=== PATIENT | female | born 1950 | race Caucasian/White ===

== ENCOUNTER 2017-09-13 13:41 | Inpatient (IN) | payer OTHER ==
[2017-09-13] MEDS ORDERED: METOPROLOL TARTRATE 5 MG/5 ML INJ IV ONE ×2 (14:11→14:20)
[2017-09-13 14:28] LABS: Absolute Monocytes 0.7 K/uL (0.1-1.3); Absolute Neutrophil 7.4 K/uL (1.8-8.0); Basophils % 0.8 % (0-1.3); Eosinophils % 1.5 % (0-4.4); Hematocrit 41.1 % (36.0-45.0); Lymphocytes % 32.6 % (15.3-44.8); MCH 27.2 pg (27.0-35.0); MCV 85.4 fL (80-100); Monocytes % 5.7 % (3.3-12.3); RBC Red Blood Cell Count 4.81 M/uL (3.86-4.86)
[2017-09-13 14:32] LABS: Protime INR 1.07
[2017-09-13] MEDS ORDERED: ADENOSINE 6 MG/ 2ML VIAL IV ONE (14:34)
[2017-09-13] MEDS ORDERED: NA CHLORIDE 0.9% 1,000 ML ONE (14:36)
[2017-09-13 14:45] LABS: Albumin 3.4 g/dL (3.2-5.5); Bilirubin Direct 0.2 mg/dL (0-0.2); Bilirubin Total 0.7 mg/dL (0.3-1.2); Magnesium 1.9 mg/dL (1.8-2.5); Protein, Total 7.6 g/dL (6.0-8.3)
[2017-09-13 14:48] LABS: CKMB Creatine Kinase MB 1.2 ng/ml (0.3-4.0); Potassium 4.1 mEq/L (3.6-5.0)
[2017-09-13] MEDS ORDERED: ASPIRIN 81 MG CHEWABLE TABLET ONE (14:48)
[2017-09-13] MEDS ORDERED: METOPROLOL TAR 25 MG TAB ONE (15:28)
--- NOTE | 2017-09-13 16:24 | RAD REPORT ---
EXAM DESCRIPTION: VASExtrem Venous W Compress Bil09/13/2017 3:52 pm CLINICAL HISTORY: Bilateral leg pain COMPARISON: none FINDINGS: The common femoral, superficial femoral, popliteal and posterior tibial veins bilaterally are compressible and demonstrate augmentation. Doppler demonstrates good flow. IMPRESSION: No evidence of deep venous thrombosis involving either lower extremity.
--- NOTE | 2017-09-13 16:26 | RAD REPORT ---
EXAM DESCRIPTION: Peter Single View09/13/2017 2:56 pm CLINICAL HISTORY: Chest pain COMPARISON: none FINDINGS: The lung bases are hazy. The remainder of the lungs appear clear of acute infiltrate. The heart is normal size IMPRESSION: Lung bases are hazy probably secondary to overlying soft tissue. As infiltrate can have this appearance PA and lateral chest series is recommended
[2017-09-13] MEDS ORDERED: ACETAMINOPHEN 500 MG TAB PO PRN (16:37)
[2017-09-13] MEDS ORDERED: IPRATROPIUM BROM 0.5MG/2.5ML NEB PRN (16:37)
[2017-09-13] MEDS ORDERED: ONDANSETRON 4 MG (ODT) TAB PO PRN (16:37)
--- NOTE | 2017-09-13 16:51 | ER ---
Nurse's Notes [facility] Name: Sunshine Mead Age: 67 yrs Sex: Female : 1950 Arrival Date: 09/13/2017 Time: 13:44 Bed 3 Private MD: Diagnosis: Paroxysmal atrial fibrillation-converted Presentation: 09/13 13:55 Presenting complaint: Patient states: chest pressure and palpitations that began 10-15 ss minutes prior to arrival. Transition of care: patient was not received from another setting of care. Onset of symptoms was September 13, 2017. Care prior to arrival: None. 13:55 Method Of Arrival: Ambulatory ss 13:55 Acuity: AZRA 2 ss Historical: - Allergies: 13:57 PENICILLINS; ss - Home Meds: 13:57 Pradaxa 150 mg oral cap 1 cap DAILY [Active]; metoprolol tartrate 50 mg Oral tab 1 tab ss once daily [Active]; - PMHx: 13:57 Atrial Fib; ss - PSHx: 13:57 Cholecystectomy; Appendectomy; Tubal ligation; ss - Immunization history:: Adult Immunizations up to date. - Social history:: Smoking status: Patient uses tobacco products, smokes one-half pack cigarettes per day. Screenin:55 Abuse screen: Denies threats or abuse. Denies injuries from another. Nutritional sv screening: No deficits noted. Tuberculosis screening: No symptoms or risk factors identified. Fall Risk None identified. Assessment: 13:55 General: Appears distressed, uncomfortable, obese, well developed, Behavior is sv cooperative, appropriate for age, anxious. Pain: Complains of pain in chest Pain currently is 6 out of 10 on a pain scale. Quality of pain is described as pressure, "feels like an elephant is sitting on me." Pain began 30 min ago. Is continuous, Alleviated by nothing. Noted to be grimacing, guarding. Neuro: Level of Consciousness is awake, alert, obeys commands, Oriented to person, place, time, situation, Moves all extremities. Full function Speech is normal. Cardiovascular: Reports chest pain, palpitations, shortness of breath, Patient's skin is warm and dry. Pulses are 3+ in right radial artery and left radial artery Rhythm is atrial fibrillation with rapid ventricular response. Respiratory: Respiratory effort is labored, Respiratory pattern is tachypnea. Derm: Skin is normal. Musculoskeletal: Range of motion: intact in all extremities. 14:45 Reassessment: Patient and/or family updated on plan of care and expected duration. Pain sv level reassessed. Patient is alert, oriented x 3, equal unlabored respirations, skin warm/dry/pink. 17:06 Reassessment: Patient appears in no apparent distress at this time. Patient and/or sv family updated on plan of care and expected duration. Pain level reassessed. Patient is alert, oriented x 3, equal unlabored respirations, skin warm/dry/pink. Patient states feeling better. Patient states symptoms have improved. Cardiovascular: Denies chest pain. Respiratory: Denies shortness of breath. 18:38 Reassessment: Patient appears in no apparent distress at this time. Patient and/or sv family updated on plan of care and expected duration. Pain level reassessed. Patient is alert, oriented x 3, equal unlabored respirations, skin warm/dry/pink. Patient states feeling better. Patient states symptoms have improved. Vital Signs: 13:57 BP 156 / 81; Pulse 160 MON; Resp 22; Temp 97.6(TE); Pulse Ox 96% on R/A; Weight 108.86 ss kg; Height 5 ft. 7 in. (170.18 cm); Pain 6/10; 14:26 BP 145 / 94; Pulse 144; Resp 30; Pulse Ox 97% on 2 lpm NC; sv 15:00 BP 99 / 72; Pulse 141; Resp 28; Pulse Ox 96% on 2 lpm NC; sv 15:15 BP 122 / 107; Pulse 142; Resp 21; Pulse Ox 96% on 2 lpm NC; sv 15:45 BP 116 / 60; Pulse 74; Resp 16; Pulse Ox 97% on 2 lpm NC; sv 16:00 BP 156 / 75; Pulse 70; Resp 11; Pulse Ox 98% on 2 lpm NC; sv 16:03 BP 156 / 75; Pulse 67; Resp 20; Pulse Ox 98% on 3 lpm NC; mh5 16:30 BP 118 / 68; Pulse 67; Resp 26; Pulse Ox 97% 2 lpm ; sv 17:00 BP 122 / 61; Pulse 66; Resp 24; Pulse Ox 95% on 2 lpm NC; sv 17:29 BP 122 / 61; Pulse 70; Resp 20; Pulse Ox 97% on 2 lpm NC; bm6 18:38 BP 113 / 99; Pulse 70; Resp 18; Pulse Ox 96% on 2 lpm NC; sv 13:57 Body Mass Index 37.59 (108.86 kg, 170.18 cm) ss 13:57 A fib RVR ss ED Course: 13:44 Patient arrived in ED. hj 13:47 Tory Sauceda, RN is Primary Nurse. sv 13:48 Erendira Vargas FNP-C is [facility]. snw 13:48 Lin Morgan MD is Attending Physician. snw 13:55 Patient has correct armband on for positive identification. Placed in gown. Bed in low sv position. Call light in reach. Side rails up X2. quality assurance monitor on. Pulse ox on. NIBP on. Door closed. Head of bed elevated. 13:55 Initial lab(s) drawn, by me, sent to lab. Inserted saline lock: 20 gauge in right sv antecubital area, using aseptic technique. Blood collected. Flushed right antecubital with 5 ml normal saline. 13:56 Triage completed. ss 13:57 Arm band placed on right wrist. ss 14:13 Ultrasound completed. Patient tolerated well. Notified AD COMPOSITOR/MICHAEL lock. sg3 14:35 Inserted saline lock: 18 gauge in right forearm, using aseptic technique. sv 14:43 Nieto cath inserted, using sterile technique, 16 Fr., by me, balloon inflated, to sv gravity drainage, Patient tolerated well. 16:49 Nidhi Leiva MD is Hospitalizing Provider. snw 18:32 No provider procedures requiring assistance completed. Patient admitted, IV remains in sv place. intact. 18:38 One-on-one care X 45 minutes. sv Administered Medications: 13:56 Drug: Lopressor 5 mg Route: IVP; Site: right antecubital; sv 14:08 Drug: Lopressor 5 mg Route: IVP; Site: right antecubital; sv 14:22 Drug: Lopressor 5 mg Route: IVP; Site: right antecubital; sv 14:30 Follow up: Response: No adverse reaction sv 14:25 Drug: NS 0.9% 500 ml Volume: 500 ml; Route: IV; Rate: 1 bolus; Site: right antecubital; sv 15:00 Follow up: Response: No adverse reaction; IV Status: Completed infusion; IV Intake: sv 500ml 14:40 Drug: Aspirin Chewable Tablet 324 mg Route: PO; sv 14:45 Follow up: Response: No adverse reaction sv 14:46 Drug: Lopressor 25 mg Route: PO; hj 18:36 Follow up: Response: No adverse reaction sv 18:40 CANCELLED (Duplicate Order): Lopressor 5 mg IVP every 5 minutes; Hold for SBP < 100 or sv HR < 60. x3 Intake: 15:00 IV: 500ml; Total: 500ml. sv Output: 16:55 Urine: 750ml (Nieto); Total: 750ml. sv Outcome: 16:50 Decision to Hospitalize by Provider. snw 18:32 Admitted to Tele accompanied by tech, family with patient, via wheelchair, room 407, sv with oxygen, with chart, Report called to Casey LINARES 18:32 Condition: stable 18:32 Instructed on the need for admit. 18:41 Patient left the ED. sv Signatures: Tory Sauceda RN RN Erendira Vargas, FRAMING MILL OPERATOR HELPER-C FRAMING MILL OPERATOR HELPER-Csnw Ruby Drummond RN RN Casey Rae RN RN Sen Villar bm6 Anthony, Maki 5 Fred, Janeth sg3 Corrections: (The following items were deleted from the chart) 18:40 13:58 Lopressor 5 mg IVP in right antecubital sv sv 18:40 13:58 Lopressor 5 mg IVP in right antecubital sv sv
--- NOTE | 2017-09-13 16:51 | EDPHYS ---
Physician Documentation [facility] Name: Sunhsine Mead Age: 67 yrs Sex: Female : 1950 Arrival Date: 09/13/2017 Time: 13:44 Bed 3 Private MD: ED Physician Lin Morgan HPI: 09/13 16:23 This 67 yrs old Female presents to ER via Ambulatory with complaints of snw Palpitations. 16:23 The patient presents with a history of irregular heart beat, heart racing. Context: The snw symptoms occur at rest. Onset: The symptoms/episode began/occurred suddenly. Duration: The patient or guardian reports a single episode. Associated signs and symptoms: Pertinent positives: anxiety, chest pain, SOB. Severity of symptoms: At their worst the symptoms were moderate. The patient has experienced a previous episode. 3 months ago, pt lives in [place]. [employer] Historical: - Allergies: 13:57 PENICILLINS; ss - Home Meds: 13:57 Pradaxa 150 mg oral cap 1 cap DAILY [Active]; metoprolol tartrate 50 mg Oral tab 1 tab ss once daily [Active]; - PMHx: 13:57 Atrial Fib; ss - PSHx: 13:57 Cholecystectomy; Appendectomy; Tubal ligation; ss - Immunization history:: Adult Immunizations up to date. - Social history:: Smoking status: Patient uses tobacco products, smokes one-half pack cigarettes per day. ROS: 16:20 Constitutional: Negative for fever, chills, and weight loss, Eyes: Negative for injury, snw pain, redness, and discharge, ENT: Negative for injury, pain, and discharge, Neck: Negative for injury, pain, and swelling, Respiratory: Positive for shortness of breath, palpitations, and + chest pressure. Negative for cough, wheezing, and pleuritic chest pain, Abdomen/GI: Negative for abdominal pain, nausea, vomiting, diarrhea, and constipation, Back: Negative for injury and pain, : Negative for injury, bleeding, discharge, and swelling, MS/Extremity: Negative for injury and deformity, Skin: Negative for injury, rash, and discoloration. Exam: 16:18 Constitutional: This is a well developed, well nourished patient who is awake, alert, snw and in no acute distress. Head/Face: Normocephalic, atraumatic. Eyes: Pupils equal round and reactive to light, extra-ocular motions intact. Lids and lashes normal. Conjunctiva and sclera are non-icteric and not injected. Cornea within normal limits. Periorbital areas with no swelling, redness, or edema. ENT: Nares patent. No nasal discharge, no septal abnormalities noted. Tympanic membranes are normal and external auditory canals are clear. Oropharynx with no redness, swelling, or masses, exudates, or evidence of obstruction, uvula midline. Mucous membranes moist. Neck: Trachea midline, no thyromegaly or masses palpated, and no cervical lymphadenopathy. Supple, full range of motion without nuchal rigidity, or vertebral point tenderness. No Meningismus. Chest/axilla: Normal chest wall appearance and motion. Nontender with no deformity. No lesions are appreciated. Respiratory: Lungs have equal breath sounds bilaterally, clear to auscultation and percussion. No rales, rhonchi or wheezes noted. No increased work of breathing, no retractions or nasal flaring. Abdomen/GI: Soft, non-tender, with normal bowel sounds. No distension or tympany. No guarding or rebound. No evidence of tenderness throughout. Back: No spinal tenderness. No costovertebral tenderness. Full range of motion. Skin: Warm, dry with normal turgor. Normal color with no rashes, no lesions, and no evidence of cellulitis. MS/ Extremity: Pulses equal, no cyanosis. Neurovascular intact. Full, normal range of motion. Neuro: Awake and alert, GCS 15, oriented to person, place, time, and situation. Cranial nerves II-XII grossly intact. Motor strength 5/5 in all extremities. Sensory grossly intact. Cerebellar exam normal. Normal gait. 16:18 Cardiovascular: Rate: tachycardic, Rhythm: irregularly irregular, Pulses: no pulse deficits are appreciated, Heart sounds: normal. Vital Signs: 13:57 BP 156 / 81; Pulse 160 MON; Resp 22; Temp 97.6(TE); Pulse Ox 96% on R/A; Weight 108.86 ss kg; Height 5 ft. 7 in. (170.18 cm); Pain 6/10; 14:26 BP 145 / 94; Pulse 144; Resp 30; Pulse Ox 97% on 2 lpm NC; sv 15:00 BP 99 / 72; Pulse 141; Resp 28; Pulse Ox 96% on 2 lpm NC; sv 15:15 BP 122 / 107; Pulse 142; Resp 21; Pulse Ox 96% on 2 lpm NC; sv 15:45 BP 116 / 60; Pulse 74; Resp 16; Pulse Ox 97% on 2 lpm NC; sv 16:00 BP 156 / 75; Pulse 70; Resp 11; Pulse Ox 98% on 2 lpm NC; sv 16:03 BP 156 / 75; Pulse 67; Resp 20; Pulse Ox 98% on 3 lpm NC; mh5 16:30 BP 118 / 68; Pulse 67; Resp 26; Pulse Ox 97% 2 lpm ; sv 17:00 BP 122 / 61; Pulse 66; Resp 24; Pulse Ox 95% on 2 lpm NC; sv 17:29 BP 122 / 61; Pulse 70; Resp 20; Pulse Ox 97% on 2 lpm NC; bm6 18:38 BP 113 / 99; Pulse 70; Resp 18; Pulse Ox 96% on 2 lpm NC; sv 13:57 Body Mass Index 37.59 (108.86 kg, 170.18 cm) ss 13:57 A fib RVR ss MDM: 13:48 Patient medically screened. snw 16:50 Data reviewed: vital signs, nurses notes. Data interpreted: Pulse oximetry: on room air snw is 98 %. Interpretation: normal. Counseling: I had a detailed discussion with the patient and/or guardian regarding: the historical points, exam findings, and any diagnostic results supporting the discharge/admit diagnosis, the presence of at least one elevated blood pressure reading (>120/80) during this emergency department visit, lab results, radiology results, the need for further work-up and treatment in the hospital. Physician consultation: Nidhi Leiva MD was called at 16:51, was contacted at 16:51, regarding admission, to the medical/surgical unit. in the emergency department to see patient at 16:51. 09/13 13:58 Order name: Basic Metabolic Panel 09/13 13:58 Order name: BNP 09/13 13:58 Order name: CBC with Diff 09/13 13:58 Order name: Ckmb 09/13 13:58 Order name: CPK 09/13 13:58 Order name: LFT's sv 09/13 13:58 Order name: Magnesium sv 09/13 13:58 Order name: PT-INR sv 09/13 13:58 Order name: Ptt, Activated sv 09/13 13:58 Order name: Troponin (emerg Dept Use Only) sv 09/13 13:59 Order name: Basic Metabolic Panel sg 09/13 13:59 Order name: BNP sg 09/13 13:59 Order name: CBC with Diff sg 09/13 13:59 Order name: Ckmb sg 09/13 13:59 Order name: CPK sg 09/13 13:59 Order name: LFT's sg 09/13 13:59 Order name: Magnesium sg 09/13 13:59 Order name: PT-INR sg 09/13 13:59 Order name: Ptt, Activated sg 09/13 13:59 Order name: Troponin (emerg Dept Use Only) sg 09/13 14:02 Order name: D-Dimer sg 09/13 14:36 Order name: Protime (+INR); Complete Time: 14:37 EDMS 09/13 14:36 Order name: PTT, Activated Partial Thromb; Complete Time: 14:37 EDMS 09/13 14:37 Order name: CBC with Automated Diff; Complete Time: 14:45 EDMS 09/13 14:39 Order name: Basic Metabolic Panel; Complete Time: 14:50 EDMS 09/13 14:46 Order name: Liver (Hepatic) Function; Complete Time: 14:50 EDMS 09/13 14:46 Order name: Magnesium; Complete Time: 14:50 EDMS 09/13 14:46 Order name: Troponin (Emerg Dept Use Only); Complete Time: 14:46 EDMS 09/13 14:48 Order name: CKMB Creatine Kinase MB; Complete Time: 14:50 EDMS 09/13 14:48 Order name: BNP B-Type Natriuretic Peptide; Complete Time: 14:50 EDMS 09/13 13:58 Order name: XRAY Chest (1 view) sv 09/13 13:58 Order name: EKG; Complete Time: 14:00 sv 09/13 13:58 Order name: Cardiac monitoring sv 09/13 13:58 Order name: EKG - Nurse/Tech sv 09/13 13:58 Order name: IV Saline Lock 09/13 13:58 Order name: Labs collected and sent 09/13 13:58 Order name: O2 Per Protocol sv 09/13 13:58 Order name: O2 Sat Monitoring sv 09/13 13:58 Order name: Urine Dipstick-Ancillary (obtain specimen) sv 09/13 13:59 Order name: XRAY Chest (1 view) sg 09/13 13:59 Order name: EKG; Complete Time: 14:00 sg 09/13 13:59 Order name: Cardiac monitoring sg 09/13 13:59 Order name: EKG - Nurse/Tech sg 09/13 13:59 Order name: IV Saline Lock sg 09/13 13:59 Order name: Labs collected and sent sg 09/13 13:59 Order name: O2 Per Protocol sg 09/13 13:59 Order name: O2 Sat Monitoring sg 09/13 13:59 Order name: Urine Dipstick-Ancillary (obtain specimen) sg 09/13 13:59 Order name: US Extremity Venou Bilateral sg 09/13 14:49 Order name: Creatine Phosphokinase; Complete Time: 14:50 EDMS 09/13 16:08 Order name: EKG; Complete Time: 16:09 snw 09/13 16:25 Order name: VAS; Complete Time: 16:26 EDMS 09/13 16:26 Order name: RAD; Complete Time: 16:26 EDMS 09/13 17:06 Order name: Diet Heart Healthy; Complete Time: 17:06 sv Administered Medications: 13:56 Drug: Lopressor 5 mg Route: IVP; Site: right antecubital; sv 14:08 Drug: Lopressor 5 mg Route: IVP; Site: right antecubital; sv 14:22 Drug: Lopressor 5 mg Route: IVP; Site: right antecubital; sv 14:30 Follow up: Response: No adverse reaction sv 14:25 Drug: NS 0.9% 500 ml Volume: 500 ml; Route: IV; Rate: 1 bolus; Site: right antecubital; sv 15:00 Follow up: Response: No adverse reaction; IV Status: Completed infusion; IV Intake: sv 500ml 14:40 Drug: Aspirin Chewable Tablet 324 mg Route: PO; sv 14:45 Follow up: Response: No adverse reaction sv 14:46 Drug: Lopressor 25 mg Route: PO; hj 18:36 Follow up: Response: No adverse reaction sv 18:40 CANCELLED (Duplicate Order): Lopressor 5 mg IVP every 5 minutes; Hold for SBP < 100 or sv HR < 60. x3 Disposition: 18:01 Co-signature as Attending Physician, Lin Morgan MD. ma2 Disposition: 09/13/17 16:50 Hospitalization ordered by Nidhi Leiva for Observation. Preliminary diagnosis is Paroxysmal atrial fibrillation - converted. - Bed requested for Telemetry/MedSurg (observation). - Status is Observation. sv - Condition is Stable. - Problem is an acute exacerbation. - Symptoms are resolved. UTI on Admission? No Signatures: Dispatcher [employer] EDMS Tory Sauceda RN VIJAY sv Joe Andrade RN RN sg Erendira Vargas, CLAMSHELL ENGINEER-C CLAMSHELL ENGINEER-Csnw Maki Stevenson ms Ruby Drummond RN VIJAY ss Casey Rea RN RN Lin Morgan MD MD ma2 Corrections: (The following items were deleted from the chart) 18:40 13:57 Lopressor 5 mg IVP every 5 minutes; Hold for SBP < 100 or HR < 60. x3 ordered. sv sv 18:40 13:58 Lopressor 5 mg IVP every 5 minutes; Hold for SBP < 100 or HR < 60. x3 given. sv sv 18:40 18:40 Lopressor 5 mg IVP every 5 minutes; Hold for SBP < 100 or HR < 60. x3 given. sv sv 18:40 18:40 Lopressor 5 mg IVP every 5 minutes; Hold for SBP < 100 or HR < 60. x3 ordered. sv sv
--- NOTE | 2017-09-13 19:00 | P.HP ---
Certification for Inpatient Patient admitted to: Observation With expected LOS: <2 Midnights Patient will require the following post-hospital care: None Practitioner: I am a practitioner with admitting privileges, knowledge of patient current condition, hospital course, and medical plan of care. Services: Services provided to patient in accordance with Admission requirements found in Title 42 Section 412.3 of the Code of Federal Regulations Patient History Date of Service: 09/13/17 Primary Care Provider: OOT Reason for admission: Afib History of Present Illness: This is a 67-year-old female with past medical history of atrial fibrillation who presented to the ED complaining of having some shortness of breath and chest discomfort which started this morning at rest. Patient stated that she has a history of irregular heartbeat and heart racing and biannual that something was going on with her and the she decided to come to the ER. Of note patient has been visiting from [place] and has been staying here for 3 months and has been thinking about moving to [place] however has not done so until she could arouse her insurance information. Patient states that she needs to establish care with a chemistry teacher locally as well. The patient denies having any chest pain nausea vomiting headaches or any other symptoms associated with atrial fibrillation. Patient states that overall she is in a good health discharge shortness of breath at rest made her weight and the she decided to come to the ER. In the ER patient had AFib with RVR with a heart rate of 120 -130. Patient received beta-siddharth and heart rate was brought down to 60s and 70s. Thus medicine team was consulted to admit the patient for further care and observation Allergies Penicillins Allergy (Unverified 09/13/17 18:45) Unknown - Past Medical/Surgical History Has patient received pneumonia vaccine in the past: No Diabetic: No -: Afib - Social History Smoking Status: Never smoker Smoking therapy provided: No Patient receptive to therapy: No Alcohol use: Yes Review of Systems General: As per HPI Physical Examination - Vital Signs Temperature: 97.6 F Blood Pressure: 156/75 Pulse: 70 Respirations: 11 - Physical Exam General: Alert, In no apparent distress, Oriented x3 HEENT: Atraumatic Neck: Supple Respiratory: Clear to auscultation bilaterally, Normal air movement Cardiovascular: Normal S1 S2, Irregular heart rate/rhythm Gastrointestinal: Normal bowel sounds, Soft and benign, Non-distended, No tenderness Musculoskeletal: No tenderness Integumentary: No rashes Neurological: Normal gait, Normal speech, Normal strength at 5/5 x4 extr, Normal tone, Normal affect Lymphatics: No axilla or inguinal lymphadenopathy - Studies Laboratory Data (last 24 hrs) 09/13/17 14:00: PT 12.6 H, INR 1.07, APTT 38.1 H 09/13/17 14:00: WBC 12.4 H, Hgb 13.1, Hct 41.1, Plt Count 308 09/13/17 14:00: B-Natriuretic Peptide 249 H 09/13/17 14:00: Sodium 139, Potassium 4.1, BUN 12, Creatinine 0.69, Glucose 125 H, Magnesium 1.9, Total Bilirubin 0.7, AST 19, ALT 10, Alkaline Phosphatase 128 H 09/13/17 13:59: PT Cancelled, INR Cancelled, APTT Cancelled 09/13/17 13:59: WBC Cancelled, Hgb Cancelled, Hct Cancelled, Plt Count Cancelled 09/13/17 13:59: B-Natriuretic Peptide Cancelled 09/13/17 13:59: Sodium Cancelled, Potassium Cancelled, BUN Cancelled, Creatinine Cancelled, Glucose Cancelled, Magnesium Cancelled, Total Bilirubin Cancelled, AST Cancelled, ALT Cancelled, Alkaline Phosphatase Cancelled Assessment and Plan - Problems (Diagnosis) (1) Atrial fibrillation with RVR Current Visit: Yes Status: Acute Plan: Initially with Afib with RVR. Now in Sinus rhythm -Restart Home medication of Metoprolol 50mg Daily -Restart Pradaxa for anticoagulation as well. -Cardiology Consulted -Will get ECHO if needed. Discharge Plan: Home Plan to discharge in: 24 Hours - Advance Directives Does patient have a Living Will: No Does patient have a Durable POA for Healthcare: No - Code Status/Comfort Care Code Status Assessed: Yes Critical Care: No
[2017-09-14] MEDS ORDERED: METOPROLOL XL 50 MG TAB PO SCH (06:00)
[2017-09-14 06:31] LABS: Absolute Lymphocytes (CBC) 3.1 K/uL (0.7-4.9); Absolute Monocytes 0.6 K/uL (0.1-1.3); Absolute Neutrophil 6.9 K/uL (1.8-8.0); Basophils % 0.5 % (0-1.3); Eosinophils % 1.6 % (0-4.4); Hematocrit 36.6 % (36.0-45.0); Lymphocytes % 28.4 % (15.3-44.8); MCH 28.1 pg (27.0-35.0); MCV 84.6 fL (80-100); MPV 9.4 fL (7.6-11.3); Monocytes % 5.9 % (3.3-12.3); RBC Red Blood Cell Count 4.33 M/uL (3.86-4.86)
--- NOTE | 2017-09-14 06:36 | EKG ---
Test Date: 2017-09-13 Test Time: 16:12:54 Executive Officer Special Warfare Team: YOMAIRA MEASUREMENT RESULTS: Intervals: Rate: 69 TN: 182 QRSD: 84 QT: 416 QTc: 445 [place]: P: 62 TN: 182 QRS: 53 T: 58 INTERPRETIVE STATEMENTS: Normal sinus rhythm Septal infarct, age undetermined Abnormal ECG No previous ECG available for comparison Electronically Signed On 09-14-17 06:34:37 CDT by Dionicio Faulkner
--- NOTE | 2017-09-14 06:36 | EKG ---
Test Date: 2017-09-13 Test Time: 13:52:14 Activity Therapy Teacher: REMEDIOS MEASUREMENT RESULTS: Intervals: Rate: 160 VT: QRSD: 78 QT: 294 QTc: 479 [place]: P: VT: QRS: 36 T: 196 INTERPRETIVE STATEMENTS: Atrial fibrillation with rapid ventricular response Marked ST abnormality, possible inferior subendocardial injury Abnormal ECG No previous ECG available for comparison Electronically Signed On 09-14-17 06:34:53 CDT by Dionicio Faulkner
[2017-09-14] MEDS: SOTALOL HCL 80 MG TAB PO SCH ×2 (07:01→19:38)
[2017-09-14 07:37] LABS: Urine Appearance CLOUDY; Urine Bilirubin NEGATIVE (NEG); Urine Blood 3+ (NEG); Urine Color YELLOW; Urine Glucose NEGATIVE (NEG); Urine Microscopic Reflex ORDER UMIC; Urine Protein NEGATIVE (NEG); Urine Urobilinogen 0.2 mg/dL (0.2-1.0)
[2017-09-14 08:15] LABS: Urine Bacteria 20-50 /HPF (<20); Urine Culture Reflex Order REFLEXED
[2017-09-14 08:25] LABS: ALT/SGPT 10 IU/L (10-60); AST/SGOT 15 IU/L (10-42); Albumin 2.6 g/dL (3.2-5.5); Bicarbonate 31 mEq/L (21-31); Potassium 4.2 mEq/L (3.6-5.0); Protein, Total 5.7 g/dL (6.0-8.3); Sodium Level 141 mEq/L (135-145)
[2017-09-14 08:41] LABS: Alkaline Phosphatase 108 IU/L (42-121); BUN Blood Urea Nitrogen 14 mg/dL (6-20); Bilirubin Total 0.6 mg/dL (0.3-1.2); Glomerular Filtration Rate > 90 mL/min (=/>90); Glucose Level 90 mg/dL (65-120); Magnesium 1.9 mg/dL (1.8-2.5); Phosphorus 3.6 mg/dL (2.5-4.3)
[2017-09-14] MEDS: DABIGATRAN 150 MG CAP PO SCH (10:07)
--- NOTE | 2017-09-14 13:23 | P.PN ---
Subjective Date of Service: 09/14/17 Primary Care Provider: CHRISTAL Chief Complaint: Afib Pt doing well overall. No c/o overnight. Currently in Sinus Rhythm. Switched to Betapace. Doing well overall. Pt going down to smoke. Educated on Smoking cessation. Review of Systems 10-point ROS is otherwise unremarkable Physical Examination - Vital Signs Temperature: 97.6 F Blood Pressure: 181/68 Pulse: 61 Respirations: 18 Pulse Ox (%): 94 - Physical Exam General: Alert, In no apparent distress, Oriented x3 HEENT: Atraumatic, PERRLA, EOMI Neck: Supple, JVD not distended Respiratory: Clear to auscultation bilaterally, Normal air movement Cardiovascular: Regular rate/rhythm, Normal S1 S2 Gastrointestinal: Normal bowel sounds, No tenderness Musculoskeletal: No tenderness Integumentary: No rashes Neurological: Normal speech, Normal tone, Normal affect Lymphatics: No axilla or inguinal lymphadenopathy - Studies Laboratory Data (last 24 hrs) 09/13/17 14:00: PT 12.6 H, INR 1.07, APTT 38.1 H 09/13/17 14:00: WBC 12.4 H, Hgb 13.1, Hct 41.1, Plt Count 308 09/13/17 14:00: B-Natriuretic Peptide 249 H 09/13/17 14:00: Sodium 139, Potassium 4.1, BUN 12, Creatinine 0.69, Glucose 125 H, Magnesium 1.9, Total Bilirubin 0.7, AST 19, ALT 10, Alkaline Phosphatase 128 H 09/13/17 13:59: PT Cancelled, INR Cancelled, APTT Cancelled 09/13/17 13:59: WBC Cancelled, Hgb Cancelled, Hct Cancelled, Plt Count Cancelled 09/13/17 13:59: B-Natriuretic Peptide Cancelled 09/13/17 13:59: Sodium Cancelled, Potassium Cancelled, BUN Cancelled, Creatinine Cancelled, Glucose Cancelled, Magnesium Cancelled, Total Bilirubin Cancelled, AST Cancelled, ALT Cancelled, Alkaline Phosphatase Cancelled Medications List Reviewed: Yes Assessment & Plan - Problems (Diagnosis) (1) Atrial fibrillation with RVR Current Visit: Yes Status: Acute Plan: Initially with Afib with RVR. Now in Sinus rhythm -Switched to Betapace. -Restart Pradaxa for anticoagulation as well. -Cardiology Consulted -Echo pending -Scheduled for Stress test. Discharge Plan: Home Plan to discharge in: 24 Hours - Code Status/Comfort Care Code Status Assessed: Yes Critical Care: No
--- NOTE | 2017-09-14 13:26 | CON ---
A 67-year-old woman. Reason For Consultation: Atrial fibrillation. History Of Present Illness: Mrs. Mead is 67, she developed AFib 8 years ago. She has had no hospi talizations in the last 8 years, but came to our hospital with atrial fib. She has been treated with Pradaxa and metoprolol and seemed to be doing well. She went into AFib, she is now in sinus bradyca rdia and feels back to normal. She has never had myocardial infarction or stroke. She is suspicious that she has underlying sleep apnea, but has never been tested for it. She does not have diabetes. She has hypertension, COPD, active smoking and a history of paroxysmal AFib. Outpatient Medications: Metoprolol, fluticasone with vilanterol or Breo Ellipta, Pradaxa, and albute rol. Allergies: SHE IS ALLERGIC TO PENICILLIN ANS SHELLFISH, FISH DERIVED SUBSTANCES. Social History: She is an active cigarette smoker, alcohol use moderate. No illegal drugs. No hist ory of vascular disease. Physical Examination: Vital Signs: 5 feet 7, 240 pounds. General: Obese, alert, oriented, pleasant, not in distress. Carotids, no bruit. Lungs: Clear. Heart: Regular rate and rhythm. S4 gallop. Abdomen: Soft. Extremities: Palpable but diminished distal pulses. No edema. Imaging: Her electrocardiogram showed atrial fib, heart rate 160, marked ST abnormality, she is in s inus rhythm now and apparently has not had an EKG yet. Plan: I think the patient should have an echo, stress test, sleep study. She will be on Betapace an d Pradaxa. Try to have a weight loss program and we should make sure we look her for underlying caus es of AFib. I think with sleep apnea, COPD, and hypertension, it likely would be the only thing, but we want to make sure we are not dealing with thyroid disease, coronary heart disease, pulmonary hype rtension. JORDY/MARYA Voice ID: [id number] Report ID: [id number]
[2017-09-15 04:48] LABS: Absolute Lymphocytes (CBC) 3.1 K/uL (0.7-4.9); Absolute Monocytes 0.6 K/uL (0.1-1.3); Absolute Neutrophil 5.4 K/uL (1.8-8.0); Basophils % 0.5 % (0-1.3); Eosinophils % 1.8 % (0-4.4); Hematocrit 37.6 % (36.0-45.0); Lymphocytes % 32.9 % (15.3-44.8); MCH 27.6 pg (27.0-35.0); MCV 85.6 fL (80-100); MPV 9.4 fL (7.6-11.3); Monocytes % 6.4 % (3.3-12.3); RBC Red Blood Cell Count 4.39 M/uL (3.86-4.86)
[2017-09-15 05:02] LABS: ALT/SGPT 10 IU/L (10-60); AST/SGOT 15 IU/L (10-42); Albumin 2.8 g/dL (3.2-5.5); Bicarbonate 28 mEq/L (21-31); Potassium 3.7 mEq/L (3.6-5.0); Protein, Total 6.3 g/dL (6.0-8.3); Sodium Level 140 mEq/L (135-145)
[2017-09-15 05:12] LABS: Alkaline Phosphatase 106 IU/L (42-121); BUN Blood Urea Nitrogen 12 mg/dL (6-20); Bilirubin Total 0.8 mg/dL (0.3-1.2); Glomerular Filtration Rate > 90 mL/min (=/>90); Glucose Level 96 mg/dL (65-120); Phosphorus 3.4 mg/dL (2.5-4.3)
[2017-09-15] MEDS: SOTALOL HCL 80 MG TAB PO SCH (05:28)
[2017-09-15] MEDS ORDERED: REGADENOSON 0.4 MG/5 ML SYR IV ONE (08:06)
[2017-09-15] MEDS ORDERED: POTASSIUM CL SA 10 MEQ TAB PO ONE (09:00)
--- NOTE | 2017-09-15 10:02 | ECHO ---
HEIGHT: 5 ft 7 in WEIGHT: 240 lb 0 oz DATE OF STUDY: 09/15/[address]: Nidhi Leiva MD 2-DIMENSIONAL: YES M.MODE: YES DOPPLER: YES COLOR FLOW: YES TDS: PORTABLE: DEFINITY: BUBBLE STUDY: DIAGNOSIS: ATRIAL FIBRILLATION WITH RAPID VENTRICULAR RESPONSE CARDIAC HISTORY: CATHERIZATION: NO SURGERY: NO PROSTHETIC VALVE: NO PACEMAKER: NO MEASUREMENTS (cm) DIASTOLIC (NORMALS) SYSTOLIC (NORMALS) IVSd 1.1 (0.6-1.2) LA Diam 4.6 (1.9-4.0) LVEF 55-59% LVIDd 6.1 (3.5-5.7) LVIDs 4.7 (2.0-3.5) %FS 24% LVPWd 1.2 (0.6-1.2) Ao Diam 2.7 (2.0-3.7) 2 DIMENSIONAL ASSESSMENT: RIGHT ATRIUM: NORMAL LEFT ATRIUM: DILATED RIGHT VENTRICLE: NORMAL LEFT VENTRICLE: DILATED TRICUSPID VALVE: NORMAL MITRAL VALVE: NORMAL PULMONIC VALVE: NORMAL AORTIC VALVE: MILD SCLEROSIS PERICARDIAL EFFUSION: NONE AORTIC ROOT: NORMAL LEFT VENTRICULAR WALL MOTION: NORMAL DOPPLER/COLOR FLOW: MILD TRICUSPID REGURGITATION. NORMAL RIGHT VENTRICULAR SYSTOLIC PRESSURE. COMMENTS: NORMAL LEFT VENTRICULAR EJECTION FRACTION. DILATED LEFT ATRIUM. MILD DILATED LEFT VENTRICLE. MILD TRICUSPID REGURGITATION. AORTIC SCLEROSIS WITH NO AORTIC STENOSIS OR AORTIC REGURGITATION. TECHNOLOGIST: VICKY VU
[2017-09-15] MEDS: DABIGATRAN 150 MG CAP PO SCH (11:52)
--- NOTE | 2017-09-15 12:10 | RAD REPORT ---
EXAM DESCRIPTION: NM - Rest Stress Cardiac Imaging - 09/15/2017 12:02 pm CLINICAL HISTORY: Chest pain. COMPARISON: None. TECHNIQUE: The patient was administered approximately 10mCi of Tc 99m Sestamibi prior to resting SPE CT imaging of the heart. The patient was then administered approximately 30 mCi of Tc 99m Sestamibi f ollowing exercise or pharmacologic stress. Multiplanar SPECT images were reviewed. FINDINGS: No stress induced ischemic defect is seen to suggest stress induced ischemia. No fixed def ect is seen to suggest hibernating myocardium or scarred myocardium. The end diastolic volume is 183 ml, the end systolic volume is 94 ml, and the ejection fraction is 49 %. IMPRESSION: No stress induced ischemia.
--- NOTE | 2017-09-15 12:42 | TREADPHA ---
DX: ATRIAL FIBRILLATION Date of Study: 09/15/2017 Ht: 5' 7 " Wt: 240 lb 0 oz Consulting Physician: ELIA MEDICATIONS: LOPRESSOR, BREOELLIPTA, PRADAXA, ALBATEROL, BETAPACE HISTORY: 67 YEAR OLD FEMALE WITH COMPLAINTS OF CHEST PAIN. MEDICAL HISTORY OF ATRIAL FIBRILLATION, TUBAL LIGATION, CHOLECYSTECTOMY, SMOKER OF HALF PACK A DAY. PHYSICIAL EXAMINATION: RESTING B.P.: 153/59 RESTING H.R.: 57 RESTING EKG: SINUS BRADYCARDIA, SEPTAL MYOCARDIAL INFARCTION. PROTOCOL: LEXISCAN EXERCISE TIME: 3:30 B.P. AT PEAK STRESS: 125/50 IMPRESSION: LEXISCAN INJECTED. CARDIOLITE INJECTED PER PROTOCOL. SEE NUCLEAR MEDICINE REPORT. NO SUPRAVENTRICULAR TACHYCARDIA. RARE PREMATURE VENTRICULAR COMPLEXES. ONE PREMATURE ATRIAL COMPLEXES. NO VENTRICULAR TACHYCARDIA. DENIED CHEST PAIN. NON DIAGNOSTIC EKG WITH LEXISCAN STRESS.
--- NOTE | 2017-09-15 17:14 | P.DS ---
Admission Date: 09/14/17 Discharge Date: 09/15/17 Primary Care Provider: CHRISTAL Disposition: ROUTINE DISCHARGE Discharge Condition: GOOD Reason for Admission: Afib Consultations: Cardiology - Problems (1) Atrial fibrillation with RVR Onset Date: 09/15/17 Status: Acute Brief History of Present Illness: This is a 67-year-old female with past medical history of atrial fibrillation who presented to the ED complaining of having some shortness of breath and chest discomfort which started this morning at rest. Patient stated that she has a history of irregular heartbeat and heart racing and biannual that something was going on with her and the she decided to come to the ER. Of note patient has been visiting from [place] and has been staying here for 3 months and has been thinking about moving to [place] however has not done so until she could arouse her insurance information. Patient states that she needs to establish care with a medical equipment sales locally as well. The patient denies having any chest pain nausea vomiting headaches or any other symptoms associated with atrial fibrillation. Patient states that overall she is in a good health discharge shortness of breath at rest made her weight and the she decided to come to the ER. In the ER patient had AFib with RVR with a heart rate of 120 -130. Patient received beta-siddharth and heart rate was brought down to 60s and 70s. Thus medicine team was consulted to admit the patient for further care and observation Hospital Course: Overall during the hospital stay patient remained stable. Patient was admitted to the hospital for AFib with RVR. In the ED patient was given metoprolol IV push x2 and converted back to sinus rhythm with a heart rate of 80. Cardiology was consulted at that point and patient was referred for admission. Patient was started on Betapace 80 mg b.i.d. and metoprolol home medication was stopped here in the hospital. Patient had new ST changes in her EKG does stress test was done here in the hospital. Stress test was negative along with echocardiogram and patient was discharged home under stable condition. Patient was given a new prescription for sotalol 80 mg b.i.d. and was to take Pradaxa for anti coagulation. Patient is to establish with cardiology here in [place] after she moved from [place]. No other complications were noted. Patient was educated extensively on smoking cessation while she was here in the hospital. Patient did go down to smoke after she was initiated on Betapace and again was educated extensively on the side affects of having tobacco. Patient demonstrated understanding and stated that she will be getting on to a program to quit smoking. Vital Signs/Physical Exam: Temp Pulse Resp BP Pulse Ox 97.6 F 61 18 145/60 H 91 09/15/17 12:00 09/15/17 12:00 09/15/17 12:00 09/15/17 12:00 09/15/17 12:00 General: Alert, In no apparent distress HEENT: Atraumatic, PERRLA, EOMI Neck: Supple, JVD not distended Respiratory: Clear to auscultation bilaterally, Normal air movement Cardiovascular: Regular rate/rhythm, Normal S1 S2 Gastrointestinal: Normal bowel sounds, No tenderness Musculoskeletal: No tenderness Integumentary: No rashes Neurological: Normal speech, Normal tone, Normal affect Lymphatics: No axilla or inguinal lymphadenopathy Laboratory Data at Discharge: WBC 9.3 K/uL (4.3-10.9) 09/15/17 04:06 Hgb 12.1 g/dL (12.0-15.0) 09/15/17 04:06 Hct 37.6 % (36.0-45.0) 09/15/17 04:06 Plt Count 250 K/uL (152-406) 09/15/17 04:06 PT 12.6 SECONDS (9.5-12.5) H 09/13/17 14:00 INR 1.07 09/13/17 14:00 APTT 38.1 SECONDS (24.3-36.9) H 09/13/17 14:00 Sodium 140 mEq/L (135-145) 09/15/17 04:06 Potassium 3.7 mEq/L (3.6-5.0) 09/15/17 04:06 BUN 12 mg/dL (6-20) 09/15/17 04:06 Creatinine 0.59 mg/dL (0.44-1.00) 09/15/17 04:06 Glucose 96 mg/dL (65-120) 09/15/17 04:06 Phosphorus 3.4 mg/dL (2.5-4.3) 09/15/17 04:06 Magnesium 2.0 mg/dL (1.8-2.5) 09/15/17 04:06 Total Bilirubin 0.8 mg/dL (0.3-1.2) 09/15/17 04:06 AST 15 IU/L (10-42) 09/15/17 04:06 ALT 10 IU/L (10-60) 09/15/17 04:06 Alkaline Phosphatase 106 IU/L (42-121) 09/15/17 04:06 B-Natriuretic Peptide 249 pg/ml (<=100) H 09/13/17 14:00 Home Medications: Albuterol Neb [Proventil 0.083% Neb Soln] 2.5 mg IH PRN PRN 09/13/17 Dabigatran Etexilate Mesylate [Pradaxa*] 150 mg PO DAILY 09/13/17 Fluticasone/Vilanterol [Breo Ellipta 200-25 Mcg INH] 1 each IH PRN PRN 09/13/17 Sotalol HCl [Betapace*] 80 mg PO BID 6AM 6PM #60 tab 09/15/17 New Medications: Sotalol HCl [Betapace*] 80 mg PO BID 6AM 6PM #60 tab Patient Discharge Instructions: Please f/u with PCP and Dr Faulkner in the office in 2 week post discharge. New medication. Sotalol 80mg BID. Stop. Metoprolol Diet: Regular Activity: Ad jeffry Followup: Dionicio Faulkner MD [ACTIVE - CAN ADMIT] - 1-2 Weeks
== END 2017-09-15 16:50 | disposition home or self-care (01) | DRG 310 ==
LOC: ER 13:41 → ERHOLD 16:52 → 4TH 18:30 → OBSVTOIN 09-14 16:31
PROVIDERS: ADMIT Family Medicine; ATTEND Family Medicine
DX: I48.91 Unspecified atrial fibrillation (principal); I10 Essential (primary) hypertension; J44.9 Chronic obstructive pulmonary disease, unspecified; F17.210 Nicotine dependence, cigarettes, uncomplicated; Z79.01 Long term (current) use of anticoagulants; Z91.013 Allergy to seafood; Z88.0 Allergy status to penicillin
CPT/HCPCS: 36415; 51702; 71045; 78452; 80048; 80053; 80076; 81003; 81015; 82550; 82553; 83735; 83880; 84100; 84443; 84484; 85025; 85379; 85610; 85730; 87086; 87088; 93005; 93017; 93306; 93970; 96361; 96374; 99285; A9500; G0378; J0153; J2785; J7030

== ENCOUNTER 2018-09-03 14:47 | Observation (INO) | payer MEDICARE, OTHER ==
[2018-09-03] MEDS ORDERED: NA CHLORIDE 0.9% 500 ML ONE (18:18)
[2018-09-03 18:28] LABS: Protime INR 1.52
[2018-09-03 18:29] LABS: Absolute Monocytes 0.4 K/uL (0.1-1.3); Absolute Neutrophil 4.3 K/uL (1.8-8.0); Basophils % 0.9 % (0-1.3); Eosinophils % 0.6 % (0-4.4); Hematocrit 41.8 % (36.0-45.0); Lymphocytes % 44.9 % (15.3-44.8); MPV 9.4 fL (7.6-11.3); Monocytes % 4.8 % (3.3-12.3); RBC Red Blood Cell Count 4.73 M/uL (3.86-4.86)
[2018-09-03 18:49] LABS: ALT/SGPT 23 U/L (12-78); AST/SGOT 23 U/L (15-37); Alkaline Phosphatase 141 U/L (45-117); BUN Blood Urea Nitrogen 21 mg/dL (7-18); Bicarbonate 35 mmol/L (21-32); Bilirubin Direct 0.1 mg/dL (0-0.2); Bilirubin Total 0.5 mg/dL (0.2-1.0); Glucose Level 131 mg/dL (74-106); Lipase 113 U/L (73-393); Magnesium 2.2 mg/dL (1.8-2.4); NT PRO-BNP 905 pg/mL (<125); Protein, Total 7.8 g/dL (6.4-8.2); Sodium Level 141 mmol/L (136-145); Troponin (Emerg Dept Use Only) < 0.02 ng/mL (0.0-0.045)
--- NOTE | 2018-09-03 18:53 | RAD REPORT ---
EXAM DESCRIPTION: Peter Single View09/03/2018 6:32 pm CLINICAL HISTORY: Cough COMPARISON: August 2017 FINDINGS: The lungs appear clear of acute infiltrate. The heart is normal size IMPRESSION: No acute abnormalities displayed
[2018-09-03] MEDS ORDERED: KCL 20 MEQ/100 mL IVPB 20 MEQ/100 ML BAG IV ONE (19:15)
[2018-09-03] MEDS ORDERED: NA CHLORIDE 0.9% 250 ML ONE (19:25)
--- NOTE | 2018-09-03 21:18 | ER ---
Nurse's Notes [facility] Name: Sunshine Mead Age: 68 yrs Sex: Female : 1950 Arrival Date: 09/03/2018 Time: 14:49 Bed 26 Private MD: Remberto Oneil Diagnosis: Dehydration;Hypokalemia;Dizziness and giddiness Presentation: 09/03 14:58 Presenting complaint: Patient states: I'm not feeling any better. I am not feeling up hb to where I am supposed to be. I have been feeling bad for about a week. I feel dizzy when I am sitting still. I don't have a big appetite. I have been coughing a lot. Transition of care: patient was not received from another setting of care. Onset of symptoms was August 28, 2018. Risk Assessment: Do you want to hurt yourself or someone else? Patient reports no desire to harm self or others. 14:58 Method Of Arrival: Ambulatory hb 14:58 Acuity: AZRA 3 hb 15:02 Note pt given mask but removed it. hb 18:42 Initial Sepsis Screen: Does the patient meet any 2 criteria? No. Patient's initial mg2 sepsis screen is negative. Does the patient have a suspected source of infection? No. Patient's initial sepsis screen is negative. Care prior to arrival: None. Historical: - Allergies: 15:01 PENICILLINS; hb 15:01 Codeine; hb 15:01 SHELLFISH; hb - PMHx: 15:01 Atrial Fib; COPD; hb - PSHx: 15:01 Cholecystectomy; Appendectomy; Tubal ligation; hip replacement, right side; hb - Immunization history:: Flu vaccine status is unknown. - Social history:: Smoking status: unknown. - Ebola Screening: : No symptoms or risks identified at this time. Screenin:41 Abuse screen: Denies threats or abuse. Denies injuries from another. Nutritional mg2 screening: No deficits noted. Tuberculosis screening: No symptoms or risk factors identified. Fall Risk IV access (20 points). Assessment: 18:40 General: Appears in no apparent distress. comfortable, Behavior is calm, cooperative. mg2 Pain: Denies pain. Neuro: Level of Consciousness is awake, alert, obeys commands, Oriented to person, place, time, situation. Cardiovascular: Capillary refill < 3 seconds Patient's skin is warm and dry. Respiratory: Reports cough that is non-productive, Airway is patent. GI: No signs and/or symptoms were reported involving the gastrointestinal system. : No signs and/or symptoms were reported regarding the genitourinary system. EENT: No signs and/or symptoms were reported regarding the EENT system. Derm: Skin is intact, is healthy with good turgor, Skin is pink, warm \T\ dry. normal. Musculoskeletal: Circulation, motion, and sensation intact. Capillary refill < 3 seconds. Vital Signs: 15:01 BP 141 / 61; Pulse 56; Resp 20; Temp 97.7; Pulse Ox 91% on R/A; Weight 95.71 kg; Height hb 5 ft. 7 in. (170.18 cm); Pain 0/10; 18:42 BP 98 / 64; Pulse 55; Resp 18; Pulse Ox 92% on R/A; Pain 0/10; mg2 21:01 BP 133 / 84; Pulse 56; Resp 18; Pulse Ox 92% on R/A; Pain 0/10; mg2 09/04 00:10 BP 155 / 82; Pulse 53; Resp 18; Pulse Ox 92% on R/A; mg2 09/03 15:01 Body Mass Index 33.05 (95.71 kg, 170.18 cm) hb ED Course: 09/03 14:49 Patient arrived in ED. rg4 14:50 Remberto Oneil DO is Private Physician. rg4 15:00 Triage completed. hb 15:02 Arm band placed on right wrist. flu swab done in triage and sent to lab. hb 17:05 Erendira Vargas FNP-C is [facility]. snw 17:05 Josemanuel Braxton MD is Attending Physician. snw 17:24 Dacia Faustin, VIJAY is Primary Nurse. tl3 18:29 X-ray completed. Portable x-ray completed in exam room. Patient tolerated procedure ls3 well. 18:41 No provider procedures requiring assistance completed. Inserted saline lock: 20 gauge mg2 in right forearm, using aseptic technique. Blood collected. 18:42 Patient has correct armband on for positive identification. Pulse ox on. NIBP on. Door mg2 closed. Warm blanket given. 21:17 Aiden Croft MD is Hospitalizing Provider. snw 09/04 00:06 CT completed. Patient tolerated procedure well. Patient moved to CT via wheelchair. Patient moved back from [place]. 00:17 Patient admitted, IV remains in place. mg2 Administered Medications: 09/03 18:40 Drug: NS 0.9% 500 ml Route: IV; Rate: bolus; Site: right forearm; mg2 19:20 Follow up: IV Status: Completed infusion; IV Intake: 500ml tl3 09/04 00:11 Follow up: Response: No adverse reaction; IV Status: Completed infusion mg2 09/03 19:18 Drug: Potassium Chloride 20 mEq Route: IV; Rate: calculated rate; Site: right forearm; mg2 09/04 00:11 Follow up: Response: No adverse reaction; IV Status: Completed infusion mg2 09/03 21:32 Drug: NS 0.9% 1000 ml Route: IV; Rate: 125 ml/hr; Site: right antecubital; Delivery: tl3 Primary tubing; 09/04 00:11 Follow up: Response: No adverse reaction; IV Status: Infusion continued upon admission mg2 Intake: 09/03 19:20 IV: 500ml; Total: 500ml. tl3 Outcome: 21:18 Decision to Hospitalize by Provider. snw 09/04 00:16 Admitted to Med/surg accompanied by nurse, via wheelchair, room 232, with chart, Report mg2 called to VIJAY Beaulieu Condition: stable Instructed on the need for admit, Demonstrated understanding of instructions. 00:41 Patient left the ED. ag4 Signatures: Erendira Vargas, CRYPTOGRAPHIC MACHINE OPERATOR-C CRYPTOGRAPHIC MACHINE OPERATOR-Tom Mcmanus Kassandra Mckeon RN RN hb Garcia, Rubi rg4 Dacia Faustin RN RN tl3 Kehinde Arteaga RN RN mg2 Wenceslao Metz ls3 Pete Almeida ag4 Corrections: (The following items were deleted from the chart) 09/03 15:46 15:02 flu swab done in triage and sent to lab rona rea
--- NOTE | 2018-09-03 21:19 | EDPHYS ---
Physician Documentation [facility] Name: Sunshine Mead Age: 68 yrs Sex: Female : 1950 Arrival Date: 09/03/2018 Time: 14:49 Bed 26 Private MD: Remberto Oneil ED Physician Josemanuel Braxton HPI: 09/03 21:14 This 68 yrs old Female presents to ER via Ambulatory with complaints of Flu snw Symptoms. 21:14 The patient presents with dizziness, generalized weakness. Onset: The symptoms/episode snw began/occurred gradually, 1 week(s) ago, and became persistent. Context: occurred at home, occurred while the patient was sitting, just prior to the episode the patient experienced cough, cold, congestion, fever, vomiting, and diarrhea last week. Pt states 32# wt loss. C/o dizziness and malaise/fatigue. Associated signs and symptoms: The patient has no apparent associated signs or symptoms. Severity of symptoms: At their worst the symptoms were moderate in the emergency department the symptoms are unchanged. Patient's baseline: Neuro: alert and fully oriented, Motor: no deficits, Ambulation: walks without assistance. The patient has not experienced similar symptoms in the past. The patient has not recently seen a physician, the patient's primary care provider is Dr. Dr. Oneil. Historical: - Allergies: 15:01 PENICILLINS; hb 15:01 Codeine; hb 15:01 SHELLFISH; hb - PMHx: 15:01 Atrial Fib; COPD; hb - PSHx: 15:01 Cholecystectomy; Appendectomy; Tubal ligation; hip replacement, right side; hb - Immunization history:: Flu vaccine status is unknown. - Social history:: Smoking status: unknown. - Ebola Screening: : No symptoms or risks identified at this time. ROS: 18:06 Constitutional: Negative for fever, chills, and weight loss, Eyes: Negative for injury, snw pain, redness, and discharge, ENT: Negative for injury, pain, and discharge, Neck: Negative for injury, pain, and swelling, Cardiovascular: Negative for chest pain, palpitations, and edema, Respiratory: Negative for shortness of breath, cough, wheezing, and pleuritic chest pain, Abdomen/GI: Negative for abdominal pain, nausea, vomiting, diarrhea, and constipation, Back: Negative for injury and pain, : Negative for injury, bleeding, discharge, and swelling, MS/Extremity: Negative for injury and deformity, Skin: Negative for injury, rash, and discoloration. 18:06 Neuro: Positive for dizziness, weakness. Exam: 18:06 Constitutional: This is a well developed, well nourished patient who is awake, alert, snw and in no acute distress. Head/Face: Normocephalic, atraumatic. Eyes: Pupils equal round and reactive to light, extra-ocular motions intact. Lids and lashes normal. Conjunctiva and sclera are non-icteric and not injected. Cornea within normal limits. Periorbital areas with no swelling, redness, or edema. ENT: Nares patent. No nasal discharge, no septal abnormalities noted. Tympanic membranes are normal and external auditory canals are clear. Oropharynx with no redness, swelling, or masses, exudates, or evidence of obstruction, uvula midline. Mucous membranes moist. Neck: Trachea midline, no thyromegaly or masses palpated, and no cervical lymphadenopathy. Supple, full range of motion without nuchal rigidity, or vertebral point tenderness. No Meningismus. Chest/axilla: Normal chest wall appearance and motion. Nontender with no deformity. No lesions are appreciated. Cardiovascular: Regular rate and rhythm with a normal S1 and S2. No gallops, murmurs, or rubs. Normal PMI, no JVD. No pulse deficits. Respiratory: Lungs have equal breath sounds bilaterally, clear to auscultation and percussion. No rales, rhonchi or wheezes noted. No increased work of breathing, no retractions or nasal flaring. Abdomen/GI: Soft, non-tender, with normal bowel sounds. No distension or tympany. No guarding or rebound. No evidence of tenderness throughout. Back: No spinal tenderness. No costovertebral tenderness. Full range of motion. MS/ Extremity: Pulses equal, no cyanosis. Neurovascular intact. Full, normal range of motion. Neuro: Awake and alert, GCS 15, oriented to person, place, time, and situation. Cranial nerves II-XII grossly intact. Motor strength 5/5 in all extremities. Sensory grossly intact. Cerebellar exam normal. Normal gait. 18:06 Skin: Appearance: Color: pale, Temperature: normal temperature, Moisture: dry. Vital Signs: 15:01 BP 141 / 61; Pulse 56; Resp 20; Temp 97.7; Pulse Ox 91% on R/A; Weight 95.71 kg; Height hb 5 ft. 7 in. (170.18 cm); Pain 0/10; 18:42 BP 98 / 64; Pulse 55; Resp 18; Pulse Ox 92% on R/A; Pain 0/10; mg2 21:01 BP 133 / 84; Pulse 56; Resp 18; Pulse Ox 92% on R/A; Pain 0/10; mg2 03 00:10 BP 155 / 82; Pulse 53; Resp 18; Pulse Ox 92% on R/A; mg2 03 15:01 Body Mass Index 33.05 (95.71 kg, 170.18 cm) hb MDM: 09/03 17:05 Patient medically screened. snw 21:16 Data reviewed: vital signs, nurses notes. Data interpreted: Pulse oximetry: on room air snw is 92 %. Interpretation: acceptable. Counseling: I had a detailed discussion with the patient and/or guardian regarding: the historical points, exam findings, and any diagnostic results supporting the discharge/admit diagnosis, lab results, the need for further work-up and treatment in the hospital. Response to treatment: the patient's symptoms have mildly improved after treatment. Physician consultation: Aiden Croft MD was called at 21:16, was contacted at 21:16, regarding admission, to the telemetry unit. 03 15:03 Order name: Flu; Complete Time: 17:05 hb 09/03 18:03 Order name: Basic Metabolic Panel; Complete Time: 18:56 snw 09/03 18:03 Order name: CBC with Diff; Complete Time: 18:56 snw 09/03 18:03 Order name: LFT's; Complete Time: 18:56 snw 09/03 18:03 Order name: Magnesium; Complete Time: 18:56 snw 09/03 18:03 Order name: NT PRO-BNP; Complete Time: 18:56 snw 09/03 18:03 Order name: PT-INR; Complete Time: 18:56 snw 09/03 18:03 Order name: Troponin (emerg Dept Use Only); Complete Time: 18:56 snw 09/03 18:03 Order name: XRAY Chest (1 view) snw 09/03 18:03 Order name: Lipase; Complete Time: 18:56 snw 09/03 18:53 Order name: RAD; Complete Time: 18:56 EDMS 09/03 18:03 Order name: EKG; Complete Time: 18:04 snw 09/03 18:03 Order name: Cardiac monitoring; Complete Time: 18:40 snw 09/03 18:03 Order name: EKG - Nurse/Tech; Complete Time: 18:40 snw 09/03 18:03 Order name: IV Saline Lock; Complete Time: 18:40 snw 09/03 18:03 Order name: Labs collected and sent; Complete Time: 18:40 snw 09/03 18:03 Order name: O2 Per Protocol; Complete Time: 18:40 snw 09/03 18:03 Order name: O2 Sat Monitoring; Complete Time: 18:40 snw 09/03 21:22 Order name: EKG; Complete Time: 21:22 snw Administered Medications: 18:40 Drug: NS 0.9% 500 ml Route: IV; Rate: bolus; Site: right forearm; mg2 19:20 Follow up: IV Status: Completed infusion; IV Intake: 500ml tl3 09/04 00:11 Follow up: Response: No adverse reaction; IV Status: Completed infusion mg2 09/03 19:18 Drug: Potassium Chloride 20 mEq Route: IV; Rate: calculated rate; Site: right forearm; mg2 09/04 00:11 Follow up: Response: No adverse reaction; IV Status: Completed infusion mg2 09/03 21:32 Drug: NS 0.9% 1000 ml Route: IV; Rate: 125 ml/hr; Site: right antecubital; Delivery: tl3 Primary tubing; 09/04 00:11 Follow up: Response: No adverse reaction; IV Status: Infusion continued upon admission mg2 Disposition: 06:49 Co-signature as Attending Physician, Josemanuel Braxton MD I agree with the assessment and kdr plan of care. Disposition: 09/03/18 21:18 Hospitalization ordered by Aiden Croft for Observation. Preliminary diagnosis are Dehydration, Hypokalemia, Dizziness and giddiness. - Bed requested for Telemetry/MedSurg (observation). - Status is Observation. ag4 - Condition is Stable. - Problem is new. - Symptoms have improved. UTI on Admission? No Signatures: Dispatcher [employer] EDMS Kathy Nina, RN RN kl Josemanuel Braxton MD MD [facility] Erendira Vargas, CUSTOMER SOLUTIONS COORDINATOR-C CUSTOMER SOLUTIONS COORDINATOR-Csnw Kassandra Mckeon, RN RN Dacia Faustin, VIJAY LINARES tl3 Kehinde Arteaga, RN RN [facility] Pete Almeida ag4 Corrections: (The following items were deleted from the chart) 09/03 23:32 21:18 Hospitalization Ordered by Aiden Croft MD for Observation. Preliminary kl diagnosis is Dehydration; Hypokalemia; Dizziness and giddiness. Bed requested for Telemetry/MedSurg (observation). Status is Observation. Condition is Stable. Problem is new. Symptoms have improved. UTI on Admission? No. snw 09/04 00:41 09/03 23:32 09/03/2018 21:18 Hospitalization Ordered by Aiden Croft MD for ag4 Observation. Preliminary diagnosis is Dehydration; Hypokalemia; Dizziness and giddiness. Bed requested for Telemetry/MedSurg (observation). Status is Observation. Condition is Stable. Problem is new. Symptoms have improved. UTI on Admission? No. kl
[2018-09-03] MEDS ORDERED: NA CHLORIDE 0.9% 1,000 ML ONE (21:46)
--- NOTE | 2018-09-03 23:28 | P.HP ---
Certification for Inpatient Patient admitted to: Observation With expected LOS: <2 Midnights Practitioner: I am a practitioner with admitting privileges, knowledge of patient current condition, hospital course, and medical plan of care. Services: Services provided to patient in accordance with Admission requirements found in Title 42 Section 412.3 of the Code of Federal Regulations Patient History Date of Service: 09/03/18 Reason for admission: dizziness, volume depletion History of Present Illness: Ms Mead is a 68 years old woman with history of COPD still a smoker, A.Fib, who was sick last week, she had flu like symptoms, associated with diarrhea, lack of appetite. She lost about 30 lb. She came to ED complaining of dizziness. She denied other associated symptoms. Lab work remarkable for elevated BUN, normal WBC count, hypokalemia, UA without signs of infection. Allergies Penicillins Allergy (Verified 09/13/17 19:22) Unknown shellfish derived Adverse Reaction (Verified 09/13/17 22:09) Hives/Rash Home medications list reviewed: Yes Home Medications: Albuterol Neb [Proventil 0.083% Neb Soln] 2.5 mg IH PRN PRN 09/13/17 Dabigatran Etexilate Mesylate [Pradaxa*] 150 mg PO DAILY 09/13/17 Fluticasone/Vilanterol [Breo Ellipta 200-25 Mcg INH] 1 each IH PRN PRN 09/13/17 Sotalol HCl [Betapace*] 80 mg PO BID 6AM 6PM #60 tab 09/15/17 - Past Medical/Surgical History Diabetic: No -: Afib -: COPD -: Asthma -: choley -: appy -: R. hip replacement -: Tubal ligation - Family History Father -: Cancer - Social History Smoking Status: Current every day smoker Counseled patient to stop smoking for: less than 10 minutes Alcohol use: Yes Caffeine use: Yes Place of Residence: Home Review of Systems 10-point ROS is otherwise unremarkable Physical Examination - Physical Exam General: Alert, In no apparent distress HEENT: Atraumatic, PERRLA, Mucous membr. moist/pink, EOMI, Sclerae nonicteric Neck: Supple, 2+ carotid pulse no bruit, No LAD, Without JVD or thyroid abnormality Respiratory: Diminished, Rhonchi/gurgles (bilateral rhonchi) Cardiovascular: Normal S1 S2, No gallops Gastrointestinal: Normal bowel sounds, No tenderness Musculoskeletal: No tenderness Integumentary: No rashes Neurological: Normal gait, Normal speech, Normal strength at 5/5 x4 extr, Normal tone, Normal affect Lymphatics: No axilla or inguinal lymphadenopathy - Studies Laboratory Data (last 24 hrs) 09/03/18 18:10: PT 17.6 H, INR 1.52 09/03/18 18:10: WBC 8.9, Hgb 13.8, Hct 41.8, Plt Count 281 09/03/18 18:10: Sodium 141, Potassium 3.0 L, BUN 21 H, Creatinine 1.04, Glucose 131 H, Magnesium 2.2, Total Bilirubin 0.5, AST 23, ALT 23, Alkaline Phosphatase 141 H, Lipase 113 Microbiology Data (last 24 hrs): 09/03/18 15:03 Nasopharnyx Influenza Type A Antigen Screen - Final 09/03/18 15:03 Nasopharnyx Influenza Type B Antigen Screen - Final Assessment and Plan - Problems (Diagnosis) (1) A-fib Current Visit: Yes Status: Acute Qualifiers: Atrial fibrillation type: chronic Qualified Code(s): I48.2 - Chronic atrial fibrillation (2) Dizziness Current Visit: Yes Status: Acute (3) Acute renal injury Current Visit: Yes Status: Acute (4) Dehydration Current Visit: Yes Status: Acute - Plan The patient will be admitted to the hospital due to dizziness in context of volume depletion. There is no signs of acute infection. Will order head CT. Will order IV fluids, and physical therapy. - Advance Directives Does patient have a Living Will: No Does patient have a Durable POA for Healthcare: No - Code Status/Comfort Care Code Status Assessed: Yes Code Status: Full Code
[2018-09-04] MEDS ORDERED: ALBUTEROL 2.5 MG/3 ML NEB SOL NEB PRN (00:30)
[2018-09-04] MEDS ORDERED: IPRATROPIUM BROM 0.5MG/2.5ML NEB PRN (00:30)
[2018-09-04] MEDS: NA CHLORIDE 0.9% 1,000 ML IV SCH ×4 (00:30→16:30)
[2018-09-04] MEDS ORDERED: ONDANSETRON 4 MG/2 ML VIAL IV PRN (00:30)
[2018-09-04 04:42] LABS: Absolute Monocytes 0.7 K/uL (0.1-1.3); Absolute Neutrophil 4.6 K/uL (1.8-8.0); Basophils % 0.4 % (0-1.3); Eosinophils % 0.6 % (0-4.4); Hematocrit 35.7 % (36.0-45.0); Lymphocytes % 43.2 % (15.3-44.8); MPV 9.4 fL (7.6-11.3); RBC Red Blood Cell Count 4.06 M/uL (3.86-4.86)
[2018-09-04 04:58] LABS: Potassium 3.3 mmol/L (3.5-5.1)
[2018-09-04] MEDS: SOTALOL HCL 80 MG TAB PO SCH ×2 (05:48→18:29)
[2018-09-04] MEDS ORDERED: DABIGATRAN 150 MG CAP PO SCH (09:00)
[2018-09-04] MEDS ORDERED: POTASSIUM CL SA 10 MEQ TAB PO ONE ×2 (09:00→18:00)
--- NOTE | 2018-09-04 11:36 | RAD REPORT ---
EXAM DESCRIPTION: Head Brain Wo Cont CLINICAL HISTORY: 68 years Female dizziness TECHNIQUE: Contiguous axial CT images obtained through the brain without IV contrast. This CT exam was performed according to our departmental dose-optimization program, which includes on e or more of the following dose reduction techniques: automated exposure control, adjustment of the m A and/or kV according to patient size, and/or use of iterative reconstruction technique. COMPARISON: No prior exams provided for comparison. FINDINGS: There is no intracranial hemorrhage, extraaxial collection, or evidence of acute transcort ical infarction. The ventricles are normal in size and contour without mass-effect or midline shift. Moderate right mastoiditis. The left mastoid air cells and visualized paranasal sinuses are clear. IMPRESSION: No evidence of acute intracranial ischemia or hemorrhage. Moderate right mastoiditis. Electronically signed by: Rachana Perez MD 09/04/2018 12:21 AM MANAGER ASSEMBLY Due to temporary technical issues with the PACS/Fluency reporting system, reports are being signed by the in house radiologist as a courtesy to ensure prompt reporting. The interpreting radiologist is f ully responsible for the content of the report.
--- NOTE | 2018-09-04 13:41 | EKG ---
Test Date: 2018-09-03 Test Time: 21:53:17 Chucker: TL MEASUREMENT RESULTS: Intervals: Rate: 56 FL: 186 QRSD: 90 QT: 518 QTc: 499 [place]: P: 71 FL: 186 QRS: 67 T: 66 INTERPRETIVE STATEMENTS: Sinus bradycardia Nonspecific ST andT wave abnormality Anterior infarct Prolonged QT Abnormal ECG Compared to ECG 09/03/2018 18:25:38 Prolonged QT interval now present Electronically Signed On 09-04-18 13:41:03 TEXTILE KNITTER by Dionicio Faulkner
--- NOTE | 2018-09-04 13:43 | EKG ---
Test Date: 2018-09-03 Test Time: 18:25:38 Credit Advisor: MG MEASUREMENT RESULTS: Intervals: Rate: 51 FL: 148 QRSD: 106 QT: 534 QTc: 492 [place]: P: 52 FL: 148 QRS: 58 T: 61 INTERPRETIVE STATEMENTS: Sinus bradycardia Anterior infarct, age undetermined ST & T wave abnormality, nonspecific Abnormal ECG Compared to ECG 09/13/2017 16:12:54 ST (T wave) deviation now present Sinus rhythm no longer present Myocardial infarct finding still present Electronically Signed On 09-04-18 13:42:47 PIPE SMOKING MACHINE OFFBEARER by Dionicio Faulkner
[2018-09-04] MEDS ORDERED: Levofloxacin 750mg IV 750 MG/150 ML BAG IV ONE (14:00)
[2018-09-04] MEDS: KCL 20 MEQ/100 mL IVPB 20 MEQ/100 ML BAG IV SCH ×2 (17:00→18:53)
--- NOTE | 2018-09-04 17:16 | P.DS ---
Admission Date: 09/03/18 Discharge Date: 09/04/18 Disposition: ROUTINE DISCHARGE Discharge Condition: FAIR Reason for Admission: dizziness, volume depletion - Problems (1) A-fib Current Visit: Yes Status: Acute Qualifiers: Atrial fibrillation type: chronic Qualified Code(s): I48.2 - Chronic atrial fibrillation (2) Acute renal injury Current Visit: Yes Status: Acute (3) Dehydration Current Visit: Yes Status: Acute (4) Dizziness Current Visit: Yes Status: Acute Brief History of Present Illness: From H&P Ms Mead is a 68 years old woman with history of COPD still a smoker, A.Aurelio, who was sick last week, she had flu like symptoms, associated with diarrhea, lack of appetite. She lost about 30 lb. She came to ED complaining of dizziness. She denied other associated symptoms. Lab work remarkable for elevated BUN, normal WBC count, hypokalemia, UA without signs of infection. Hospital Course: Pt is a 68 yo F admitted w dehydration, dizziness. Patient was given IVFs. She felt better. She was ambulating well with PT. She refused home PT. Pts symptoms improved and she was tolerating her diet. Her Potassium was replaced. She did not have any acute bleed or stroke on her head CT. She did have acute mastoiditis. Case discussed on the phone w ENT Dr. Herring. Pt did not have any symptoms of ear pain, erythema or signs of infection. She was given 1 dose of Fortaz and levaquin (she has anaphylactic reaction to PCN). No further N/V, dizziness. She was then cleared for DC. Vital Signs/Physical Exam: Temp Pulse Resp BP Pulse Ox 97.5 F 62 16 176/72 H 94 09/04/18 12:00 09/04/18 12:00 09/04/18 12:00 09/04/18 12:00 09/04/18 12:00 Other Physical/Emotional Findings: PLEASE SEE PROGRESS NOTE DICTATED ON DAY OF DC FOR PHYSICAL EXAM FINDINGS Laboratory Data at Discharge: WBC 9.3 K/uL (4.3-10.9) 09/04/18 04:11 Hgb 11.8 g/dL (12.0-15.0) L 09/04/18 04:11 Hct 35.7 % (36.0-45.0) L 09/04/18 04:11 Plt Count 230 K/uL (152-406) 09/04/18 04:11 PT 17.6 SECONDS (9.5-12.5) H 09/03/18 18:10 INR 1.52 09/03/18 18:10 Sodium 143 mmol/L (136-145) 09/04/18 04:11 Potassium 3.2 mmol/L (3.5-5.1) L 09/04/18 14:45 BUN 16 mg/dL (7-18) 09/04/18 04:11 Creatinine 0.84 mg/dL (0.55-1.3) 09/04/18 04:11 Glucose 96 mg/dL (74-106) 09/04/18 04:11 Magnesium 2.2 mg/dL (1.8-2.4) 09/03/18 18:10 Total Bilirubin 0.5 mg/dL (0.2-1.0) 09/03/18 18:10 AST 23 U/L (15-37) 09/03/18 18:10 ALT 23 U/L (12-78) 09/03/18 18:10 Alkaline Phosphatase 141 U/L (45-117) H 09/03/18 18:10 Lipase 113 U/L (73-393) 09/03/18 18:10 Home Medications: Albuterol Neb [Proventil 0.083% Neb Soln] 2.5 mg IH PRN PRN 09/13/17 Dabigatran Etexilate Mesylate [Pradaxa*] 150 mg PO DAILY 09/13/17 Fluticasone/Vilanterol [Breo Ellipta 200-25 Mcg INH] 1 each IH PRN PRN 09/13/17 Sotalol HCl [Betapace*] 80 mg PO BID 6AM 6PM #60 tab 09/15/17 Patient Discharge Instructions: f/up w PCP in 2-3 days. Return to ER for worsening condition Diet: AHA Activity: Fall precautions
--- NOTE | 2018-09-04 18:16 | PN ---
Date of Progress Note: 09/04/2018 Subjective: The patient is seen and examined. Chart reviewed and case discussed with RN. The patie nt states she feels better. Still feels a little bit dehydrated and having some overall pain. Medications: List reviewed. Code Status: Full. Physical Examination: Vital Signs: Temperature 97.5, heart rate 62, blood pressure 128/60, respirations 18, O2 92% on 2 L via nasal cannula. General: Awake, alert, oriented x3, elderly female, obese, somewhat ill-appearing. BMI is 36.3. CV: S1 and S2. Regular rate and rhythm. Peripheral pulses present. Respiratory: Clear to auscultation bilaterally. No wheezing or stridor. Gastrointestinal: Abdomen is soft, nontender, nondistended. Positive bowel sounds. Extremities: No clubbing or cyanosis. No edema. No calf tenderness. Neurologic: Cranial nerves 2 through 12 intact grossly. No focal neurological deficit. Speech is n ormal. Laboratory Data: Sodium 143, potassium 3.3, chloride 104, CO2 34, BUN 16, creatinine 0.84, glucose 9 6, calcium 7.9. WBC 9.3, H and H 11.8 and 35.7, platelets 230. Influenza screen negative. Head CT scan and chest x-ray are negative for any acute changes. Head CT scan did show some moderate right m astoiditis. Assessment And Plan: A 68-year-old female with: 1.Dizziness, improved. We will continue with rehydration. 2.Acute kidney injury, improving. 3.Atrial fibrillation, chronic. We will continue home medications. 4.Acute dehydration. Continue with IV fluid resuscitation. 5.Obesity, body mass index 36.3. 6.Chronic obstructive pulmonary disease, chronic bronchitis. Albuterol p.r.n. 7.Nicotine dependence with cigarette smoking continuous. The patient has been counseled. 8.Acute right mastoiditis. We will start on IV antibiotics and have ER consultation. We will bisi nue to monitor. SA/MODL Voice ID: [id number] Report ID: [id number]
== END 2018-09-04 19:45 | disposition home or self-care (01) ==
LOC: ER 14:47 → ERHOLD 23:20 → 2ND 09-04 00:28
PROVIDERS: ADMIT Internal Medicine; ATTEND Internal Medicine
DX: I48.2 Chronic atrial fibrillation (principal); N17.9 Acute kidney failure, unspecified; E86.0 Dehydration; H70.001 Acute mastoiditis without complications, right ear; R42 Dizziness and giddiness; F17.210 Nicotine dependence, cigarettes, uncomplicated; J44.9 Chronic obstructive pulmonary disease, unspecified; Z96.641 Presence of right artificial hip joint; E66.9 Obesity, unspecified; Z68.36 Body mass index [BMI] 36.0-36.9, adult; Z88.0 Allergy status to penicillin; Z91.013 Allergy to seafood
CPT/HCPCS: 96365; 96361; 93005 ×2; 85025 ×2; 80048 ×2; 36415; 83735; 84132; 85610; 80076; 84484; 83690; 83880; 87804 ×2; 70450; 71045; 97163; 94760 ×2; 99285; 96366; J7030 ×3; G0378 ×2

== ENCOUNTER 2019-10-01 21:08 | Observation (INO) | payer MEDICARE ==
[2019-10-01 21:24] LABS: Absolute Lymphocytes (CBC) 3.9 K/uL (0.7-4.9); Basophils % 0.7 % (0-1.3); Hematocrit 37.5 % (36.0-45.0); MPV 9.3 fL (7.6-11.3); RBC Red Blood Cell Count 4.19 M/uL (3.86-4.86)
[2019-10-01 21:30] LABS: Protime INR 1.23
[2019-10-01 21:44] LABS: ALT/SGPT 15 U/L (12-78); AST/SGOT 14 U/L (15-37); Albumin 2.7 g/dL (3.4-5.0); Alkaline Phosphatase 148 U/L (45-117); BUN Blood Urea Nitrogen 19 mg/dL (7-18); Bicarbonate 32 mmol/L (21-32); Bilirubin Direct 0.1 mg/dL (0-0.2); Bilirubin Total 0.3 mg/dL (0.2-1.0); Glucose Level 140 mg/dL (74-106); Magnesium 1.8 mg/dL (1.8-2.4); NT PRO-BNP 1013 pg/mL (<125); Protein, Total 7.7 g/dL (6.4-8.2); Sodium Level 140 mmol/L (136-145); Troponin (Emerg Dept Use Only) < 0.02 ng/mL (0.0-0.045)
--- NOTE | 2019-10-01 22:38 | ER ---
Nurse's Notes [facility] Name: Sunshine Mead Age: 69 yrs Sex: Female : 1950 Arrival Date: 10/01/2019 Time: 21:10 Bed 2 Private MD: Diagnosis: Chest pain, unspecified;Atrial fibrillation and flutter-with rvr;Chronic obstructive pulmonary disease with (acute) exacerbation;Hypokalemia Presentation: 09/30 21:17 Chief complaint: Patient states: Chest pain started 25 minutes ago. Hx of Afib. ca1 Coronavirus screen: Patient denies fever greater than 100.4F, cough, shortness of breath, or difficulty breathing. Proceed with normal triage process. Ebola Screen: Patient negative for fever greater than or equal to 101.5 degrees Fahrenheit, and additional compatible Ebola Virus Disease symptoms Patient denies exposure to infectious person. Patient denies travel to an Ebola-affected area in the 21 days before illness onset. No symptoms or risks identified at this time. Risk Assessment: Do you want to hurt yourself or someone else? Patient reports no desire to harm self or others. Onset of symptoms was October 01, 2019 at 20:50. 21:17 Method Of Arrival: Wheelchair ca1 21:17 Acuity: AZRA 3 ca1 Historical: - Allergies: 21:21 Codeine; ca1 21:21 PENICILLINS; ca1 21:21 SHELLFISH; ca1 - Home Meds: 21:21 albuterol sulfate inhalation Inhl [Active]; spironolacton-hydrochlorothiaz 25-25 mg ca1 Oral tab 1 tab once daily [Active]; sotalol 80 mg Oral tab 1 tab 2 times per day [Active]; Eliquis 5 mg oral tab 1 tab 2 times per day [Active]; Breo Elipta Inhaler [Active]; - PMHx: 21:21 Atrial Fib; COPD; ca1 - PSHx: 21:21 Cholecystectomy; Appendectomy; Tubal ligation; hip replacement, right side; ca1 - Immunization history:: Adult Immunizations up to date, Pneumococcal vaccine is up to date, Flu vaccine is up to date. - Social history:: Smoking status: Patient reports the use of cigarette tobacco products, smokes one-half pack cigarettes per day. - Family history:: not pertinent. Screenin:30 Abuse screen: Denies threats or abuse. Denies injuries from another. Nutritional rr5 screening: No deficits noted. Tuberculosis screening: No symptoms or risk factors identified. Fall Risk IV access (20 points). Total Castro Fall Scale indicates No Risk (0-24 pts). Assessment: 21:45 General: Appears in no apparent distress. comfortable, well groomed, well developed, sg well nourished, Behavior is calm, cooperative, appropriate for age. Pain: Complains of pain in anterior aspect of left upper chest and mid-sternal area Quality of pain is described as aching, Aggravated by increased activity. Neuro: Level of Consciousness is awake, alert, obeys commands, Oriented to person, place, time, Speech is normal, Facial symmetry appears normal. Cardiovascular: Heart tones S1 S2 present Patient's skin is warm and dry. Chest pain quality is sharp. Respiratory: Reports cough that is non-productive, Airway is patent Respiratory effort is even, unlabored, Respiratory pattern is regular, symmetrical. GI: No signs and/or symptoms were reported involving the gastrointestinal system. : No signs and/or symptoms were reported regarding the genitourinary system. Derm: Skin is pink, warm \T\ dry. Musculoskeletal: Circulation, motion, and sensation intact. Range of motion: intact in all extremities. 22:00 Reassessment: Patient appears in no apparent distress at this time. warm blanket sg provdided, at bedside evaluating pt at this time. Vital Signs: 21:17 BP 122 / 53; Pulse 127; Resp 20 S; Temp 97.1(TE); Pulse Ox 96% on R/A; ca1 10/01 00:00 BP 102 / 50; Pulse 61; Resp 25; Temp 97.5; Pulse Ox 93% on R/A; rr5 ED Course: 03 21:10 Patient arrived in ED. mr 21:15 Inserted saline lock: 20 gauge in right forearm, using aseptic technique. Blood rr5 collected. 21:19 Triage completed. ca1 21:21 Arm band placed on right wrist. ca1 21:21 Patient has correct armband on for positive identification. Placed in gown. Bed in low rr5 position. Call light in reach. air sampling and monitoring on. Pulse ox on. NIBP on. 21:22 Sohan Christianson MD is Attending Physician. na 21:30 XRAY Chest (1 view) In Process Unspecified. EDMS 21:51 Joe Andrade, RN is Primary Nurse. 22:36 Alma Mir MD is Hospitalizing Provider. [facility] 10/01 00:05 No provider procedures requiring assistance completed. Patient admitted, IV remains in rr5 place. intact, No redness/swelling at site. Patient maintains SpO2 saturation greater than 95% on room air. Administered Medications: 09/30 22:59 Not Given (Duplicate Order): Digoxin 0.5 mg IVP once [facility] 23:10 Drug: NS 0.9% with KCl 20 mEq/L 1000 ml Route: IV; Rate: 100 ml/hr; Site: right forearm; 10/01 00:00 Follow up: Response: No adverse reaction; IV Status: Infusion continued upon admission; rr5 IV Intake: 100ml 09/30 23:20 Drug: Xopenex 1.25 mg Route: Inhalation; 10/01 00:17 Follow up: Response: No adverse reaction; Marked relief of symptoms rr5 09/30 23:20 Drug: AtroVENT Aerosol 0.5 mg Route: Inhalation; 10/01 00:17 Follow up: Response: No adverse reaction; Marked relief of symptoms rr5 09/30 23:20 Drug: Potassium Effervescent Tablet 25 mEq Route: PO; 10/01 00:17 Follow up: Response: No adverse reaction rr5 09/30 23:23 Drug: SOLU-Medrol 125 mg Route: IVP; Site: right forearm; 10/01 00:17 Follow up: Response: No adverse reaction; Marked relief of symptoms rr5 Intake: 00:00 IV: 100ml; Total: 100ml. rr5 Outcome: 09/30 22:37 Decision to Hospitalize by Provider. [facility] 10/01 00:05 Admitted to Med/surg accompanied by tech, via stretcher, room 230, with chart, Report rr5 called to josep Condition: stable Instructed on the need for admit. 00:19 Patient left the ED. rr5 Signatures: Dispatcher [employer] EDMS Joe Andrade, RN RN Sohan Fischer MD MD cha Rivera, Sarah franco ChristiansenKing RN RN rr5 Zoila Madrid RN RN ca1
--- NOTE | 2019-10-01 22:39 | EDPHYS ---
Physician Documentation [facility] Name: Sunshine Mead Age: 69 yrs Sex: Female : 1950 Arrival Date: 10/01/2019 Time: 21:10 Bed 2 Private MD: TANMAY Physician Sohan Christianson HPI: 09/30 22:33 This 69 yrs old Female presents to ER via Wheelchair with complaints of Chest na Pain. 22:33 The patient or guardian reports chest pain that is located primarily in the anterior na chest wall, bilaterally. Onset: 2 hour(s) ago. The pain does not radiate. Associated signs and symptoms: Pertinent positives: shortness of breath. The chest pain is described as a heaviness, a pressure. Duration: The patient or guardian reports a single episode, that is still ongoing. Modifying factors: The symptoms are alleviated by nothing. the symptoms are aggravated by nothing. Severity of pain: At its worst the pain was mild in the emergency department the pain has resolved and did so just prior to arrival. The patient has experienced similar episodes in the past, several times. Historical: - Allergies: 21:21 Codeine; ca1 21:21 PENICILLINS; ca1 21:21 SHELLFISH; ca1 - Home Meds: 21:21 albuterol sulfate inhalation Inhl [Active]; spironolacton-hydrochlorothiaz 25-25 mg ca1 Oral tab 1 tab once daily [Active]; sotalol 80 mg Oral tab 1 tab 2 times per day [Active]; Eliquis 5 mg oral tab 1 tab 2 times per day [Active]; Breo Elipta Inhaler [Active]; - PMHx: 21:21 Atrial Fib; COPD; ca1 - PSHx: 21:21 Cholecystectomy; Appendectomy; Tubal ligation; hip replacement, right side; ca1 - Immunization history:: Adult Immunizations up to date, Pneumococcal vaccine is up to date, Flu vaccine is up to date. - Social history:: Smoking status: Patient reports the use of cigarette tobacco products, smokes one-half pack cigarettes per day. - Family history:: not pertinent. ROS: 22:33 Constitutional: Negative for fever, chills, and weight loss, Eyes: Negative for injury, na pain, redness, and discharge, ENT: Negative for injury, pain, and discharge, Neck: Negative for injury, pain, and swelling, Abdomen/GI: Negative for abdominal pain, nausea, vomiting, diarrhea, and constipation, Back: Negative for injury and pain, : Negative for injury, bleeding, discharge, and swelling, MS/Extremity: Negative for injury and deformity, Skin: Negative for injury, rash, and discoloration, Neuro: Negative for headache, weakness, numbness, tingling, and seizure, Psych: Negative for depression, anxiety, suicide ideation, homicidal ideation, and hallucinations, Allergy/Immunology: Negative for hives, rash, and allergies, Endocrine: Negative for neck swelling, polydipsia, polyuria, polyphagia, and marked weight changes, Hematologic/Lymphatic: Negative for swollen nodes, abnormal bleeding, and unusual bruising. 22:33 Cardiovascular: Positive for chest pain. 22:33 Respiratory: Positive for cough, shortness of breath, wheezing, expiratory. Exam: 22:33 Constitutional: This is a well developed, well nourished patient who is awake, alert, na and in no acute distress. Head/Face: Normocephalic, atraumatic. Eyes: Pupils equal round and reactive to light, extra-ocular motions intact. Lids and lashes normal. Conjunctiva and sclera are non-icteric and not injected. Cornea within normal limits. Periorbital areas with no swelling, redness, or edema. ENT: Nares patent. No nasal discharge, no septal abnormalities noted. Tympanic membranes are normal and external auditory canals are clear. Oropharynx with no redness, swelling, or masses, exudates, or evidence of obstruction, uvula midline. Mucous membranes moist. Neck: Trachea midline, no thyromegaly or masses palpated, and no cervical lymphadenopathy. Supple, full range of motion without nuchal rigidity, or vertebral point tenderness. No Meningismus. Chest/axilla: Normal chest wall appearance and motion. Nontender with no deformity. No lesions are appreciated. Abdomen/GI: Soft, non-tender, with normal bowel sounds. No distension or tympany. No guarding or rebound. No evidence of tenderness throughout. Back: No spinal tenderness. No costovertebral tenderness. Full range of motion. Female : Normal external genitalia. Skin: Warm, dry with normal turgor. Normal color with no rashes, no lesions, and no evidence of cellulitis. MS/ Extremity: Pulses equal, no cyanosis. Neurovascular intact. Full, normal range of motion. Neuro: Awake and alert, GCS 15, oriented to person, place, time, and situation. Cranial nerves II-XII grossly intact. Motor strength 5/5 in all extremities. Sensory grossly intact. Cerebellar exam normal. Normal gait. Psych: Awake, alert, with orientation to person, place and time. Behavior, mood, and affect are within normal limits. 22:33 Cardiovascular: Rate: tachycardic, Rhythm: irregularly irregular, Pulses: Pulses are 4+ in bilateral radial, brachial, femoral, popliteal, posterior tibial and and dorsalis pedis arteries.. Heart sounds: normal, Edema: is not appreciated, JVD: is not appreciated. Vital Signs: 21:17 BP 122 / 53; Pulse 127; Resp 20 S; Temp 97.1(TE); Pulse Ox 96% on R/A; ca1 10/01 00:00 BP 102 / 50; Pulse 61; Resp 25; Temp 97.5; Pulse Ox 93% on R/A; rr5 MDM: 09/30 21:22 Patient medically screened. [facility] 22:40 Data reviewed: vital signs, nurses notes, lab test result(s), EKG, radiologic studies. [facility] 09/30 21:19 Order name: Basic Metabolic Panel; Complete Time: 22:31 rr5 09/30 21:19 Order name: CBC with Diff; Complete Time: 22:31 rr5 09/30 21:19 Order name: LFT's; Complete Time: 22:31 rr5 09/30 21:19 Order name: Magnesium; Complete Time: 22:31 rr5 09/30 21:19 Order name: NT PRO-BNP; Complete Time: 22:31 rr5 09/30 21:19 Order name: PT-INR; Complete Time: 22:31 rr5 09/30 21:19 Order name: Troponin (emerg Dept Use Only); Complete Time: 22:31 rr5 09/30 21:23 Order name: TSH; Complete Time: 22:31 [facility] 09/30 23:09 Order name: Troponin I [facility] 09/30 23:15 Order name: Urine Dipstick--Ancillary (enter results) [facility] 09/30 23:15 Order name: Urine --Ancillary (enter results) [facility] 09/30 23:23 Order name: Urine Culture [facility] 09/30 23:23 Order name: Urine Microscopic Only 2 09/30 23:50 Order name: Urine Microscopic Only [facility] 09/30 21:19 Order name: XRAY Chest (1 view) rr5 09/30 21:19 Order name: EKG; Complete Time: 21:20 rr5 09/30 21:19 Order name: Cardiac monitoring; Complete Time: 22:55 rr5 09/30 21:19 Order name: EKG - Nurse/Tech; Complete Time: 22:55 rr5 09/30 21:19 Order name: IV Saline Lock; Complete Time: 21:19 rr5 09/30 21:19 Order name: Labs collected and sent; Complete Time: 23:23 rr5 09/30 23:09 Order name: CONS Pharmacy Consult [facility] 09/30 23:09 Order name: CONS Physician Consult [facility] 09/30 23:09 Order name: Heart Healthy [facility] 09/30 21:19 Order name: O2 Per Protocol; Complete Time: 23:23 rr5 09/30 21:19 Order name: O2 Sat Monitoring; Complete Time: 00:19 rr5 Administered Medications: 22:59 Not Given (Duplicate Order): Digoxin 0.5 mg IVP once na 23:10 Drug: NS 0.9% with KCl 20 mEq/L 1000 ml Route: IV; Rate: 100 ml/hr; Site: right forearm; 10/01 00:00 Follow up: Response: No adverse reaction; IV Status: Infusion continued upon admission; rr5 IV Intake: 100ml 09/30 23:20 Drug: Xopenex 1.25 mg Route: Inhalation; sg 10/01 00:17 Follow up: Response: No adverse reaction; Marked relief of symptoms rr5 09/30 23:20 Drug: AtroVENT Aerosol 0.5 mg Route: Inhalation; sg 10/01 00:17 Follow up: Response: No adverse reaction; Marked relief of symptoms rr5 09/30 23:20 Drug: Potassium Effervescent Tablet 25 mEq Route: PO; sg 10/01 00:17 Follow up: Response: No adverse reaction rr5 09/30 23:23 Drug: SOLU-Medrol 125 mg Route: IVP; Site: right forearm; sg 10/01 00:17 Follow up: Response: No adverse reaction; Marked relief of symptoms rr5 Disposition: 04/03/20 22:37 Hospitalization ordered by Alma Mir for Inpatient Admission. Preliminary diagnosis are Chest pain, unspecified, Atrial fibrillation and flutter - with rvr, Chronic obstructive pulmonary disease with (acute) exacerbation, Hypokalemia. - Bed requested for Telemetry/MedSurg (Inpatient). - Status is Inpatient Admission. rr5 - Condition is Fair. - Problem is new. - Symptoms have improved. Signatures: Dispatcher [employer] EDMS Joe Andrade RN RN Sohan Christianson MD MD cha Garcia, Cindy, RN RN cg King Christiansen RN RN rr5 AcZoila harrison RN RN ca1 Corrections: (The following items were deleted from the chart) 09/30 22:38 22:37 Hospitalization Ordered by Alma Mir MD for Inpatient Admission. Preliminary [facility] diagnosis is Chest pain, unspecified; Atrial fibrillation and flutter - with rvr; Chronic obstructive pulmonary disease with (acute) exacerbation. Bed requested for Telemetry/MedSurg (Inpatient). Status is Inpatient Admission. Condition is Fair. Problem is new. Symptoms have improved. [facility] 23:21 22:38 10/01/2019 22:37 Hospitalization Ordered by Alma Mir MD for Inpatient cg Admission. Preliminary diagnosis is Chest pain, unspecified; Atrial fibrillation and flutter - with rvr; Chronic obstructive pulmonary disease with (acute) exacerbation; Hypokalemia. Bed requested for Telemetry/MedSurg (Inpatient). Status is Inpatient Admission. Condition is Fair. Problem is new. Symptoms have improved. [facility] 10/01 00:19 09/30 23:21 10/01/2019 22:37 Hospitalization Ordered by Alma Mir MD for Inpatient rr5 Admission. Preliminary diagnosis is Chest pain, unspecified; Atrial fibrillation and flutter - with rvr; Chronic obstructive pulmonary disease with (acute) exacerbation; Hypokalemia. Bed requested for Telemetry/MedSurg (Inpatient). Status is Inpatient Admission. Condition is Fair. Problem is new. Symptoms have improved.
[2019-10-01] MEDS ORDERED: ONDANSETRON 4 MG/2 ML VIAL IV PRN (23:01)
[2019-10-01] MEDS ORDERED: MORPHINE 2 MG/ML SYR IV PRN (23:01)
[2019-10-01] MEDS ORDERED: HYDRALAZINE HCL 20 MG/ML VIAL IV PRN (23:04)
[2019-10-01] MEDS ORDERED: ALBUTEROL 2.5 MG/3 ML NEB SOL NEB PRN (23:04)
[2019-10-01] MEDS ORDERED: POTASSIUM 25 MEQ EFFERV TAB ONE (23:05)
[2019-10-01] MEDS ORDERED: METHYLPREDNISOLONE 125 MG INJ ONE (23:05)
[2019-10-01] MEDS ORDERED: IPRATROPIUM BROM 0.5MG/2.5ML ONE (23:05)
[2019-10-01] MEDS ORDERED: LEVALBUTEROL 1.25 MG/3 ML NEB ONE (23:05)
[2019-10-01] MEDS ORDERED: NS KCL 20MEQ 1,000 ML IV ONE (23:05)
[2019-10-01] MEDS ORDERED: SOTALOL HCL 80 MG TAB ONE (23:05)
[2019-10-01] MEDS ORDERED: MAGNESIUM SULFATE 1 gm IVPB 1 GM/100 ML BAG IV ONE (23:06)
[2019-10-01] MEDS ORDERED: POTASSIUM CL SA 10 MEQ TAB PO ONE (23:08)
--- NOTE | 2019-10-01 23:15 | P.HP ---
Certification for Inpatient Patient admitted to: Observation With expected LOS: <2 Midnights Patient will require the following post-hospital care: None Practitioner: I am a practitioner with admitting privileges, knowledge of patient current condition, hospital course, and medical plan of care. Services: Services provided to patient in accordance with Admission requirements found in Title 42 Section 412.3 of the Code of Federal Regulations Patient History Date of Service: 10/01/19 Reason for admission: Palpitations History of Present Illness: 69-year-old female with past medical history of HTN, AFib on chronic anticoagulation with Pradaxa, COPD on Breo daily and p.r.n. duo nebs, chronic smoker developed sudden-onset palpitation Dc daily while about to sleep. She denies any chest pain. She denies any cough or sputum. She presented to the ED because of non resolving pattern of the palpitation. In the ER she was noted with elevated heart rate to the 130s with AFib and RVR. She was also noticed with hypotension with systolic in the 80s. She was given her evening dose of sotalol as well as digoxin 0.5 mcg with resolution of symptoms and improvement in her heart rate to sinus rhythm in the 60s. Patient feels much better with resolution of symptoms now. She was initially requesting to go home. She admits to still actively smoking. Her potassium was noted low at 3.0. She admits adherence with a potassium tablet. She denies any recent diarrhea or vomiting. She denies any recent polyuria or polydipsia. Allergies Penicillins Allergy (Verified 09/04/18 00:53) Unknown shellfish derived Adverse Reaction (Verified 09/04/18 00:53) Hives/Rash Home Medications: Albuterol Neb [Proventil 0.083% Neb Soln] 2.5 mg IH PRN PRN 09/13/17 Dabigatran Etexilate Mesylate [Pradaxa*] 150 mg PO DAILY 09/13/17 Fluticasone/Vilanterol [Breo Ellipta 200-25 Mcg INH] 1 each IH PRN PRN 09/13/17 Sotalol HCl [Betapace*] 80 mg PO BID 6AM 6PM #60 tab 09/15/17 Potassium Chloride [Klor-Con M20] 20 meq PO DAILY 3 Days #3 tab.er.prt 09/04/18 - Past Medical/Surgical History Has patient received pneumonia vaccine in the past: No Diabetic: No -: Afib -: COPD -: Asthma -: choley -: appy -: R. hip replacement -: Tubal ligation - Family History Family History: Reviewed- Non-Contributory - Family History Father -: Cancer - Social History Smoking Status: Current every day smoker Counseled patient to stop smoking for: more than 10 minutes Smoking therapy provided: Yes (Nicotine) Alcohol use: Yes CD- Drugs: No Caffeine use: Yes Place of Residence: Home Review of Systems 10-point ROS is otherwise unremarkable Physical Examination - Vital Signs Blood Pressure: 95/56 Pulse: 59 Respirations: 19 Pulse Ox (%): 95 - Physical Exam General: In no apparent distress, Oriented x3, Cooperative, Obese HEENT: Atraumatic, Normocephalic, PERRLA, Mucous membr. moist/pink Neck: 2+ carotid pulse no bruit, JVD not distended Respiratory: Normal air movement, Expiratory wheezes Cardiovascular: Normal pulses, Regular rate/rhythm, Normal S1 S2 Capillary refill: <2 Seconds Gastrointestinal: Normal bowel sounds, Soft and benign, Non-distended, No ascites, No tenderness Musculoskeletal: No clubbing, No swelling Integumentary: No rashes, No breakdown Neurological: Normal speech, Normal strength at 5/5 x4 extr, Normal tone - Studies Laboratory Data (last 24 hrs) 10/01/19 21:15: PT 14.5 H, INR 1.23 10/01/19 21:15: WBC 13.4 H, Hgb 12.2, Hct 37.5, Plt Count 264 10/01/19 21:15: Sodium 140, Potassium 3.0 L, BUN 19 H, Creatinine 1.07, Glucose 140 H, Magnesium 1.8, Total Bilirubin 0.3, AST 14 L, ALT 15, Alkaline Phosphatase 148 H Imagings Data: Chest x-rays reviewed-no infiltrate noted no pulmonary congestive changes. Images reviewed independently by me. -EKG shows AFib with RVR -repeat EKG shows normal sinus reading with rate of 62 beats per min Assessment and Plan - Problems (Diagnosis) (1) Hypotension Current Visit: Yes Status: Acute (2) COPD exacerbation Current Visit: Yes Status: Acute (3) Atrial fibrillation with RVR Onset Date: 09/15/17 Current Visit: No Status: Acute Discharge Plan: Home - Advance Directives Does patient have a Living Will: No Does patient have a Durable POA for Healthcare: No - Code Status/Comfort Care Code Status: Full Code Physician Review: Patient Assessed, Agree with Above Assessment and Plan Physician Review Additional Text: # Atrial fib with RVR-improved with sotalol and digoxin now -will add digoxin 0.25 mcg p.o. daily regimen -continue sotalol 80 b.i.d. -mild hypotension noted , will bolus IVF 1 L x1 now despite elevated BNP -follow digoxin level in 1-2 days Hypotension-follow with IVF COPD exacerbation-we start patient on IV steroids, duo nebs as well as empirical antibiotics with Rocephin -monitor continue monitoring O2 sats -smoking cessation advised chronic tobacco use- do nicotine patch, counseling done DVT prophylaxis-continue Pradaxa Advanced directive-discussed with patient, she wishes to be full code Disposition-possible hospital stay for 1-2 days Critical Care: Yes Time Spent Managing Pts Care (In Minutes): 65
[2019-10-01] MEDS ORDERED: NS KCL 40MEQ 40 MEQ/1,000 ML BAG IV SCH (23:45)
[2019-10-01 23:49] LABS: Urine Blood TRACE (NEG); Urine Glucose NEGATIVE (NEG); Urine Protein NEGATIVE (NEG); Urine pH 6.5 (5.0-7.0)
[2019-10-01 23:50] LABS: Urine Bacteria 20-50 /HPF (<20); Urine Culture Reflex Order NOT NEEDED
[2019-10-02] MEDS ORDERED: METHYLPREDNISOLONE 125 MG INJ IV SCH
[2019-10-02 01:01] VITALS: BMI 37.3
[2019-10-02] MEDS: ALBUTEROL 2.5 MG/3 ML NEB SOL NEB SCH ×2 (01:15→04:00)
[2019-10-02] MEDS ORDERED: KCL 20 MEQ/100 mL IVPB 20 MEQ/100 ML BAG IV ONE (02:00)
[2019-10-02] MEDS ORDERED: IPRATROPIUM BROM 0.5MG/2.5ML NEB SCH (02:00)
[2019-10-02 04:23] VITALS: O2SAT 94
[2019-10-02] MEDS ORDERED: HOME MED 1 EA UNK (Fluticasone/Vilanterol [Breo Ellipta 200-25 Mcg Inh] 1 EACH) IH PRN (05:03)
[2019-10-02] MEDS ORDERED: ALBUTEROL INHALER 60 PUFF/8 GM IH PRN (05:04)
[2019-10-02] MEDS ORDERED: IPRATROPIUM 200 PUFF/12.9 GM INH IH PRN (05:04)
[2019-10-02] MEDS ORDERED: SOTALOL HCL 80 MG TAB PO SCH (06:00)
[2019-10-02 06:25] LABS: Absolute Lymphocytes (CBC) 1.1 K/uL (0.7-4.9); Basophils % 0.1 % (0-1.3); Lymphocytes % 9.8 % (15.3-44.8); MPV 9.6 fL (7.6-11.3); RBC Red Blood Cell Count 3.92 M/uL (3.86-4.86)
[2019-10-02 07:15] LABS: Albumin 2.4 g/dL (3.4-5.0); Bilirubin Total 0.3 mg/dL (0.2-1.0); Potassium 4.2 mmol/L (3.5-5.1)
--- NOTE | 2019-10-02 07:27 | P.PN ---
Subjective Date of Service: 10/02/19 Primary Care Provider: Dr. Oneil; Cardiology-Dr. Childers Chief Complaint: Palpitations Subjective: Improving, Doing well Physical Examination - Vital Signs Temperature: 97.1 F Blood Pressure: 129/61 Pulse: 65 Respirations: 16 Pulse Ox (%): 94 - Physical Exam General: Alert, In no apparent distress, Oriented x3, Cooperative HEENT: Atraumatic Neck: Supple Respiratory: Expiratory wheezes (Mild) Cardiovascular: Regular rate/rhythm Gastrointestinal: Normal bowel sounds, Soft and benign, Non-distended, No tenderness, No masses, No rebound, No guarding Musculoskeletal: No erythema, No tenderness, No warmth Integumentary: No tenderness/swelling, No erythema, No warmth, No cyanosis Neurological: Normal speech, Normal strength at 5/5 x4 extr, Normal tone, Normal affect - Studies Laboratory Data (last 24 hrs) 10/01/19 21:15: PT 14.5 H, INR 1.23 10/01/19 21:15: WBC 13.4 H, Hgb 12.2, Hct 37.5, Plt Count 264 10/01/19 21:15: Sodium 140, Potassium 3.0 L, BUN 19 H, Creatinine 1.07, Glucose 140 H, Magnesium 1.8, Total Bilirubin 0.3, AST 14 L, ALT 15, Alkaline Phosphatase 148 H Medications List Reviewed: Yes Assessment & Plan Discharge Plan: Home Plan to discharge in: 24 Hours Physician Review Additional Text: Impression: Palpitations secondary to atrial fibrillation with RVR on chronic anti coagulation therapy. Hypertension COPD Chronic renal disease stage III Tobacco abuse Plan: Palpitations secondary to atrial fibrillation with RVR on chronic anti coagulation therapy: Patient doing well this time. Patient did receive some IV fluids. Home medications restarted including sotalol and digoxin. Will continue with Eliquis. Cardiology consulted. Await further recommendation. Anticipate discharge likely today if okay with cardiology. Hypertension: Dyazide was held. May need to make adjustments. Hold if blood pressure systolic less than 110. Chronic renal disease stage III: Overall stable. Recommend 1500 cc per day fluid restriction. Recommend use of nonsteroidal anti-inflammatories. Future medications will need to be renally dose. COPD: No significant exacerbation at this time. Will continue with her home medications. Tobacco abuse: Tobacco cessation addressed. Continue to monitor closely. Time Spent Managing Pts Care (In Minutes): 55
[2019-10-02 07:28] LABS: Blood Morphology Comment NOT SEEN (NOT SEEN); Platelet Estimate ADEQ; Urine White Blood Cell Casts OK
[2019-10-02] MEDS ORDERED: INSULIN -REGULAR HUMAN 50 UNIT/0.5 ML ML SQ SCH (07:30)
--- NOTE | 2019-10-02 08:08 | EKG ---
Test Date: 2019-10-01 Test Time: 21:22:24 Livestock Handler: JHONNY MEASUREMENT RESULTS: Intervals: Rate: 140 [place]: QRSD: 84 QT: 344 QTc: 525 [place]: P: OH: QRS: 71 T: 177 INTERPRETIVE STATEMENTS: Atrial fibrillation with rapid ventricular response with premature ventricular or aberrantly conducted complexes Marked ST abnormality, possible lateral subendocardial injury Abnormal ECG Compared to ECG 09/03/2018 21:53:17 Ventricular premature complex(es) now present ST (T wave) deviation now present Sinus bradycardia no longer present Myocardial infarct finding no longer present Prolonged QT interval no longer present Electronically Signed On 10-02-19 08:07:50 CDT by Gab Massey
--- NOTE | 2019-10-02 08:22 | RAD REPORT ---
EXAM DESCRIPTION: Peter Single View10/01/2019 9:31 pm CLINICAL HISTORY: Chest pain COMPARISON: 2018 FINDINGS: The lungs appear clear of acute infiltrate. The heart is normal size IMPRESSION: No acute abnormalities displayed
--- NOTE | 2019-10-02 08:57 | P.DS ---
Admission Date: 10/01/19 Discharge Date: 10/02/19 Primary Care Provider: Dr. Oneil; Cardiology-Dr. Childers Disposition: ROUTINE DISCHARGE Discharge Condition: GOOD Reason for Admission: Palpitations Consultations: Cardiology-Dr. Massey Procedures: CXR: COMPARISON: 2019 FINDINGS: The lungs appear clear of acute infiltrate. The heart is normal size IMPRESSION: No acute abnormalities displayed Medical Problem List: Palpitations secondary to atrial fibrillation with RVR on chronic anti coagulation therapy. Hypertension COPD Chronic renal disease stage III Tobacco abuse Brief History of Present Illness: 69-year-old female with history of atrial fibrillation on chronic anti coagulation therapy, COPD. Patient presented with palpitations. This has occurred recently. Patient found to have AFib with RVR. Patient admitted for further evaluation and treatment. Hospital Course: Patient presented with palpitations secondary to atrial fibrillation with RVR. Rate was in the 130s. Patient takes sotalol along with chronic anti coagulation therapy-Eliquis. This was restarted. Patient was monitored closely. Cardiology was consulted to further evaluate. Cardiology recommended that her sotalol be increased to 160 mg in the morning and 80 mg at night. She had been taking sotalol 80 mg b.i.d.. No further intervention was required. At discharge patient with normal sinus rhythm. Patient without significant chest pain, shortness of breath. At discharge she will continue with sotalol 160 mg every a.m. and 80 mg at night. Patient will also continue with Eliquis 5 mg 1 pill twice daily. Recommend to follow up with her hand bobbin cleaner in 1 week to follow up this hospitalization and to further monitor and address. Patient with hypertension. Patient initially with low blood pressure. This has stabilized. Patient had been given IV fluids. At discharge she will continue with Aldactone/hydrochlorothiazide 25/25 1 pill daily. Recommend to maintain blood pressures less 150/80. May need to hold her Aldactone/ hydrochlorothiazide if blood pressure less than 110. Recommend to recheck BMP in 1 week to monitor her progress. Patient with chronic renal disease stage III. Patient will continue with a 1500 cc per day fluid restriction. Recommend to monitor her weight daily. If her weight increases by more than 5 lb she is to contact her PCP for further recommendation. Recommend no further use of nonsteroidal anti-inflammatories. Future medications will need to be renally dose. Patient may follow up with Nephrology to further monitor. Patient with COPD. This has remained stable. At discharge she will continue with her current medication Breo 1 puff daily and albuterol 2 puffs 3 times a day as needed for shortness of breath. If palpitations persists consider changing albuterol to Xopenex. Recommend follow up with pulmonology to further address and monitor. Patient with tobacco abuse. Tobacco cessation education provided. Vital Signs/Physical Exam: Temp Pulse Resp BP Pulse Ox 97.1 F 65 16 129/61 94 10/02/19 07:27 10/02/19 07:27 10/02/19 07:27 10/02/19 07:27 10/02/19 07:27 General: Alert, In no apparent distress, Cooperative HEENT: Atraumatic Neck: Supple Respiratory: Clear to auscultation bilaterally, Normal air movement Cardiovascular: Normal pulses, Regular rate/rhythm Gastrointestinal: Normal bowel sounds, Soft and benign, Non-distended Integumentary: No tenderness/swelling, No erythema, No warmth, No cyanosis Neurological: Normal speech, Normal strength at 5/5 x4 extr, Normal tone, Normal affect Laboratory Data at Discharge: WBC 10.7 K/uL (4.3-10.9) D 10/02/19 05:44 Hgb 11.5 g/dL (12.0-15.0) L 10/02/19 05:44 Hct 35.0 % (36.0-45.0) L 10/02/19 05:44 Plt Count 241 K/uL (152-406) 10/02/19 05:44 PT 14.5 SECONDS (9.5-12.5) H 10/01/19 21:15 INR 1.23 10/01/19 21:15 Sodium 141 mmol/L (136-145) 10/02/19 05:44 Potassium 4.2 mmol/L (3.5-5.1) 10/02/19 05:44 BUN 18 mg/dL (7-18) 10/02/19 05:44 Creatinine 0.92 mg/dL (0.55-1.3) 10/02/19 05:44 Glucose 142 mg/dL (74-106) H 10/02/19 05:44 Magnesium 1.8 mg/dL (1.8-2.4) 10/01/19 21:15 Total Bilirubin 0.3 mg/dL (0.2-1.0) 10/02/19 05:44 AST 14 U/L (15-37) L 10/02/19 05:44 ALT 13 U/L (12-78) 10/02/19 05:44 Alkaline Phosphatase 134 U/L (45-117) H 10/02/19 05:44 Troponin I 0.02 ng/mL (0.0-0.045) 10/02/19 03:18 Home Medications: Albuterol Neb [Proventil 0.083% Neb Soln] 2.5 mg IH PRN PRN 09/13/17 Fluticasone/Vilanterol [Breo Ellipta 200-25 Mcg INH] 1 each IH PRN PRN 09/13/17 Apixaban [Eliquis *] 5 mg PO BID 10/02/19 Sotalol HCl [Betapace*] 80 mg PO SEECOM #90 tab 10/02/19 Spironolact/Hydrochlorothiazid [Aldactazide 25-25 Tablet] 1 each PO DAILY New Medications: Sotalol HCl [Betapace*] 80 mg PO SEECOM #90 tab Patient Discharge Instructions: 1. Recommend follow up with PCP in 1 week to follow up this hospitalization. 2. Patient presented with palpitations secondary to atrial fibrillation with RVR. Rate was in the 130s. Patient takes sotalol along with chronic anti coagulation therapy-Eliquis. This was restarted. Patient was monitored closely. Cardiology was consulted to further evaluate. Cardiology recommended that her sotalol be increased to 160 mg in the morning and 80 mg at night. She had been taking sotalol 80 mg b.i.d.. No further intervention was required. At discharge patient with normal sinus rhythm. Patient without significant chest pain, shortness of breath. At discharge she will continue with sotalol 160 mg every a.m. and 80 mg at night. Patient will also continue with Eliquis 5 mg 1 pill twice daily. Recommend to follow up with her hand bobbin cleaner in 1 week to follow up this hospitalization and to further monitor and address. 3. Patient with hypertension. Patient initially with low blood pressure. This has stabilized. Patient had been given IV fluids. At discharge she will continue with Aldactone/ hydrochlorothiazide 25/25 1 pill daily. Recommend to maintain blood pressures less 150/80. May need to hold her Aldactone/hydrochlorothiazide if blood pressure less than 110. Recommend to recheck BMP in 1 week to monitor her progress. 4. Patient with chronic renal disease stage III. Patient will continue with a 1500 cc per day fluid restriction. Recommend to monitor her weight daily. If her weight increases by more than 5 lb she is to contact her PCP for further recommendation. Recommend no further use of nonsteroidal anti- inflammatories. Future medications will need to be renally dose. Patient may follow up with Nephrology to further monitor. 5. Patient with COPD. This has remained stable. At discharge she will continue with her current medication Breo 1 puff daily and albuterol 2 puffs 3 times a day as needed for shortness of breath. If palpitations persists consider changing albuterol to Xopenex. Recommend follow up with pulmonology to further address and monitor. 6. Patient with tobacco abuse. Tobacco cessation education provided. Diet: AHA Activity: Ad jeffry Time spent managing pt's care (in minutes): 55
[2019-10-02] MEDS ORDERED: POTASSIUM CL SA 10 MEQ TAB PO SCH (09:00)
[2019-10-02] MEDS ORDERED: GUAIFENESIN 600 MG SA TAB PO SCH (09:00)
[2019-10-02] MEDS ORDERED: DABIGATRAN 150 MG CAP PO SCH (09:00)
[2019-10-02] MEDS ORDERED: NICOTINE 21 MG/PAT TD SCH (09:00)
[2019-10-02] MEDS ORDERED: DIGOXIN 0.25 MG TABLET PO SCH (09:00)
[2019-10-02] MEDS ORDERED: FAMOTIDINE 20 MG TAB PO SCH (09:00)
[2019-10-02] MEDS ORDERED: APIXABAN 2.5 MG TABLET PO SCH (09:00)
[2019-10-02] MEDS ORDERED: predniSONE 20 MG TAB PO SCH ×2 (09:00)
[2019-10-02 09:25] VITALS: BP 126/58; TEMP 98.3
--- NOTE | 2019-10-02 10:36 | CON ---
Date of Consultation: 10/02/[address] The patient admitted to Dr. Kang on 10/01/2019. I saw the patient on 10/02/2019. Reason For Consultation: Atrial fibrillation. History Of Present Illness: Ms. Mead is a 69-year-old white woman. She is a patient of Dr. Ming Childers in [place]. She has had history of chronic atrial fibrillation, for which she takes sotalo l 80 mg b.i.d. and Eliquis. She has a history of hypertension and COPD. Yesterday, she had an episo de of rapid atrial fibrillation and came into the emergency room. For me, she denied any chest pain, nausea, vomiting, diaphoresis. She denied any PND, orthopnea, pedal edema. She denied any syncope. She did have palpitations. Denied any recent fever, chills, or cough. Past Medical History: Atrial fibrillation, hypertension, and COPD. Review of Systems: Negative. Social History: Negative. Family History: Noncontributory. Medications: Sotalol, Eliquis, inhalers, and she takes a combination of spironolactone and hydrochlo rothiazide for her blood pressure. Allergies: TO CODEINE, IODINE, AND PENICILLIN. Physical Examination: General: She was asymptomatic. She was in a sinus rhythm. HEENT: Negative. Neck: Supple without any bruit. Chest: Clear. Cardiac: Revealed a regular rhythm and rate. No murmurs, gallops, or rubs. Abdomen: Benign. Extremities: Revealed no clubbing, cyanosis, or edema. Diagnostic Data: Showed a potassium of 3.0, UTI. EKG shows sinus rhythm now. Initial EKG was rapid atrial fibrillation. Her BNP was 1013. In August of 2017, she had a normal echocardiogram and a nor mal Lexiscan. Impression And Plan: 1.Recurrent atrial fibrillation, on sotalol 80 b.i.d. She is on Eliquis. She is in sinus rhythm no w. She has ruled out for an ID. Had a negative stress test and echo in 2018. I would not repeat [facility] in way of cardiac workup at this point. I recommended that we increase her sotalol dose to 160 in the morning and 80 in the evening. Continue her Eliquis. She can go home today and follow up with Dr. Childers in the near future. 2.Hypertension, well controlled. 3.Chronic obstructive pulmonary disease. 4.Urinary tract infection. 5.Hypokalemia that needs to be corrected before she goes home. I did recommend that she take some p otassium supplementation at home. If she is going to continue that same antihypertensive medicine, w hich includes 2 diuretics. KAMRYN/MARYA Voice ID: [id number] Report ID: [id number]
[2019-10-02] MEDS ORDERED: CEFTRIAXONE/SWI 1gm 1 GM/10 ML SYR IV SCH (23:00)
--- NOTE | 2019-10-03 14:23 | EKG ---
Test Date: 2019-10-01 Test Time: 22:52:24 [employer] Teacher: JHONNY MEASUREMENT RESULTS: Intervals: Rate: 62 SD: 180 QRSD: 90 QT: 480 QTc: 487 [place]: P: 53 SD: 180 QRS: 56 T: 33 INTERPRETIVE STATEMENTS: Normal sinus rhythm Normal ECG Compared to ECG 10/01/2019 21:22:24 Atrial fibrillation no longer present Ventricular premature complex(es) no longer present ST (T wave) deviation no longer present Electronically Signed On 10-03-19 14:22:44 CDT by Gab Massey
== END 2019-10-02 11:04 | disposition home or self-care (01) ==
LOC: ER 21:08 → ERHOLD 23:19 → 2ND 10-02 00:06
PROVIDERS: ADMIT Internal Medicine; ATTEND Family Medicine
DX: I48.20 Chronic atrial fibrillation, unspecified (principal); I12.9 Hypertensive chronic kidney disease with stage 1 through stage 4 chronic kidney disease, or unspecified chronic kidney disease; N18.3 Chronic kidney disease, stage 3 (moderate); J44.9 Chronic obstructive pulmonary disease, unspecified; I95.9 Hypotension, unspecified; E87.6 Hypokalemia; N39.0 Urinary tract infection, site not specified; F17.200 Nicotine dependence, unspecified, uncomplicated; Z71.6 Tobacco abuse counseling; Z79.01 Long term (current) use of anticoagulants; Z88.0 Allergy status to penicillin; Z88.6 Allergy status to analgesic agent; Z91.013 Allergy to seafood
CPT/HCPCS: 96361; 93005 ×2; 87088; 85025 ×2; 87086; 80048; 36415; 83735; 81025; 85610; 80076; 84443; 84484 ×3; 80053; 83880; 71045; 94640; 96374; 99285; J3475; J2930; G0378 ×2; 81003; 81015

== ENCOUNTER 2020-03-05 14:11 | Emergency (ER) | payer MEDICARE, OTHER ==
[2020-03-05 14:52] LABS: Absolute Lymphocytes (CBC) 3.2 K/uL (0.7-4.9); Basophils % 0.7 % (0-1.3); Hematocrit 37.3 % (36.0-45.0); Lymphocytes % 30.9 % (15.3-44.8); MPV 9.5 fL (7.6-11.3); RBC Red Blood Cell Count 4.24 M/uL (3.86-4.86)
[2020-03-05 14:57] LABS: Protime INR 1.15
[2020-03-05] MEDS ORDERED: dexAMETHasone 10 MG/ML VIAL ONE (14:58)
[2020-03-05] MEDS ORDERED: ALBUTEROL 2.5 MG/3 ML NEB SOL ONE (14:59)
[2020-03-05 15:14] LABS: ALT/SGPT 13 U/L (12-78); AST/SGOT 13 U/L (15-37); Albumin 2.8 g/dL (3.4-5.0); Alkaline Phosphatase 151 U/L (45-117); BUN Blood Urea Nitrogen 24 mg/dL (7-18); Bicarbonate 31 mmol/L (21-32); Bilirubin Direct < 0.1 mg/dL (0-0.2); Bilirubin Total 0.3 mg/dL (0.2-1.0); Glucose Level 90 mg/dL (74-106); Magnesium 2.1 mg/dL (1.8-2.4); NT PRO-BNP 676 pg/mL (<125); Potassium 4.2 mmol/L (3.5-5.1); Protein, Total 7.6 g/dL (6.4-8.2); Sodium Level 138 mmol/L (136-145); Troponin (Emerg Dept Use Only) < 0.02 ng/mL (0.0-0.045)
--- NOTE | 2020-03-05 15:50 | RAD REPORT ---
EXAM DESCRIPTION: Peter Single View03/05/2020 3:30 pm CLINICAL HISTORY: Chest pain COMPARISON: September 2019 FINDINGS: The lungs appear clear of acute infiltrate. The heart is normal size IMPRESSION: No acute abnormalities displayed
--- NOTE | 2020-03-05 15:50 | ER ---
Nurse's Notes [facility] [place] Name: Sunshine Mead Age: 69 yrs Sex: Female : 1950 Arrival Date: 03/05/2020 Time: 14:12 Bed 5 Private MD: Remberto Oneil Diagnosis: Chronic obstructive pulmonary disease with (acute) exacerbation Presentation: 03/05 14:23 Chief complaint: Patient states: Chest pain started this morning, L side, sharp, ca1 radiating to the L arm as tingling, intermittent. Hx of A-fib, asthma, COPD. Reports diarrhea yesterday. Denies SOB and cough more than usual. Coronavirus screen: cough unrelated to allergies, diarrhea, shortness of breath, chest pains. Coronavirus screen: Client presents with at least one sign or symptom that may indicate coronavirus-19. Standard/surgical mask placed on the client. Provider contacted for isolation considerations. Ebola Screen: Patient negative for fever greater than or equal to 101.5 degrees Fahrenheit, and additional compatible Ebola Virus Disease symptoms Patient denies exposure to infectious person. Patient denies travel to an Ebola-affected area in the 21 days before illness onset. No symptoms or risks identified at this time. Initial Sepsis Screen: Does the patient meet any 2 criteria? No. Patient's initial sepsis screen is negative. Does the patient have a suspected source of infection? No. Patient's initial sepsis screen is negative. Risk Assessment: Do you want to hurt yourself or someone else? Patient reports no desire to harm self or others. Onset of symptoms was March 05, 2020. 14:23 Method Of Arrival: Wheelchair ca1 14:23 Acuity: AZRA 3 ca1 Historical: - Allergies: 14:37 Codeine; ca1 14:37 PENICILLINS; ca1 14:37 SHELLFISH; ca1 14:37 Demerol; ca1 - PMHx: 14:37 Atrial Fib; COPD; Asthma; Hypertension; ca1 - PSHx: 14:37 Cholecystectomy; Appendectomy; Tubal ligation; hip replacement, right side; ca1 - Immunization history:: Adult Immunizations up to date. - Social history:: Smoking status: Patient reports the use of cigarette tobacco products, smokes one-half pack cigarettes per day. Screenin:37 Abuse screen: Denies threats or abuse. Denies injuries from another. Nutritional ca1 screening: No deficits noted. Tuberculosis screening: No symptoms or risk factors identified. Fall Risk IV access (20 points). Assessment: 14:37 General: Appears in no apparent distress. comfortable, Behavior is calm, cooperative, ca1 appropriate for age. Pain: Complains of pain in anterior aspect of left upper chest Pain radiates to left arm Pain currently is 5 out of 10 on a pain scale. Quality of pain is described as sharp, Pain began this morning Is intermittent. Neuro: Level of Consciousness is awake, alert, obeys commands, Oriented to person, place, time, situation, Appropriate for age. Cardiovascular: Heart tones S1 S2 present Capillary refill < 3 seconds Patient's skin is warm and dry. Rhythm is sinus bradycardia. Respiratory: Reports shortness of breath cough that is not more than usual Airway is patent Respiratory effort is even, unlabored, Respiratory pattern is regular, symmetrical, Breath sounds with wheezes bilaterally. GI: Abdomen is round non-distended, Bowel sounds present X 4 quads. Abd is soft and non tender X 4 quads. GI: Reports diarrhea. : No signs and/or symptoms were reported regarding the genitourinary system. EENT: No signs and/or symptoms were reported regarding the EENT system. Derm: Skin is intact, is healthy with good turgor, Skin is pink, warm \T\ dry. Musculoskeletal: Circulation, motion, and sensation intact. Capillary refill < 3 seconds. 15:21 Reassessment: Patient appears in no apparent distress at this time. Patient and/or ca1 family updated on plan of care and expected duration. Pain level reassessed. Patient is alert, oriented x 3, equal unlabored respirations, skin warm/dry/pink. 16:05 Reassessment: Patient appears in no apparent distress at this time. Patient is alert, ca1 oriented x 3, equal unlabored respirations, skin warm/dry/pink. Patient states feeling better. Patient states symptoms have improved. Respiratory: Breath sounds are clear bilaterally. Vital Signs: 14:23 BP 153 / 65; Pulse 61; Resp 20; Temp 97.8(TE); Pulse Ox 97% on R/A; Weight 105.23 kg ca1 (R); Height 5 ft. 7 in. (170.18 cm) (R); 15:21 BP 124 / 55; Pulse 60; Resp 16 S; Pulse Ox 96% on R/A; ca1 14:23 Body Mass Index 36.34 (105.23 kg, 170.18 cm) ca1 ED Course: 14:12 Patient arrived in ED. ag5 14:12 Remberto Oneil DO is Private Physician. ag5 14:19 E[facility]ira Augustine [facility]C [facility] snw 14:19 Lin Morgan MD is Attending Physician. snw 14:29 Zoila Madrid RN is Primary Nurse. ca1 14:29 Initial lab(s) drawn, by me, sent to lab. Inserted saline lock: 20 gauge in right ca1 antecubital area, using aseptic technique. Blood collected. Patient maintains SpO2 saturation greater than 95% on room air. 14:36 Triage completed. ca1 14:37 Arm band placed on right wrist. EKG completed in triage. Results shown to MD. ca1 14:37 Patient has correct armband on for positive identification. Placed in gown. Bed in low ca1 position. Call light in reach. Side rails up X2. court monitor on. Pulse ox on. NIBP on. Head of bed elevated. 15:30 XRAY Chest (1 view) In Process Unspecified. EDMS 15:49 Remberto Oneil DO is Referral Physician. snw 16:00 No provider procedures requiring assistance completed. IV discontinued, intact, ca1 bleeding controlled, No redness/swelling at site. Pressure dressing applied. Administered Medications: 14:45 Drug: Decadron - Dexamethasone 10 mg Route: IVP; Site: right antecubital; ca1 15:50 Follow up: Response: No adverse reaction ca1 14:46 Drug: Albuterol 2.5 mg Route: Inhalation; ca1 16:01 Drug: Zithromax 500 mg Route: PO; ca1 16:15 Follow up: Response: No adverse reaction ca1 Outcome: 15:49 Discharge ordered by MD. snw 16:15 Discharged to home ambulatory. ca1 16:15 Condition: improved 16:15 Discharge instructions given to patient, Instructed on discharge instructions, follow up and referral plans. medication usage, Demonstrated understanding of instructions, follow-up care, medications, Prescriptions given X 4. 16:15 Patient left the ED. ca1 Addendum: 03/08/2020 11:40 Addendum: COVID-19 Result: Negative result given to RN to notify pt. Attempted to i w contact pt regarding negative COVID-19 swab results. Left voice mail. 14:47 Addendum: COVID-19 Result: Negative result given to RN to notify pt. Attempted to i w contact pt regarding negative COVID-19 swab results. Left voice mail. 18:25 Addendum: COVID-19 Result: Negative result given to RN to notify pt. Attempted to i w contact pt regarding negative COVID-19 swab results. Left voice mail. Signatures: Dispatcher [employer] EDMS Erendira Augustine, [employer] SUPERVISOR-C [employer] SUPERVISOR-Csnw Sheyla Last, RN RN iw Zoila Madrid RN RN ca1 Carmelita, Cristhian ag5 Corrections: (The following items were deleted from the chart) 03/05 15:22 15:21 BP 138 / 91; Pulse 92bpm; Resp 22bpm; Spontaneous; Pulse Ox 100% RA; ca1 ca1 03/08 11:40 11:40 Addendum: COVID-19 Result: Negative result given to RN to notify pt. Attempted to iw contact pt regarding negative COVID-19 swab results. iw
--- NOTE | 2020-03-05 15:50 | EDPHYS ---
Physician Documentation [facility] Name: Sunshine Mead Age: 69 yrs Sex: Female : 1950 Arrival Date: 03/05/2020 Time: 14:12 Bed 5 Private MD: Remberto Oneil ED Physician Lin Morgan HPI: 03/05 14:22 This 69 yrs old Female presents to ER via Unassigned with complaints of Chest snw Pain, Numbness Of Hand. 14:22 Onset: The symptoms/episode began/occurred suddenly, today. Associated signs and snw symptoms: Pertinent positives: chest pain. Modifying factors: The patient symptoms are alleviated by nothing, the patient symptoms are aggravated by nothing. The patient has experienced similar episodes in the past. It is unknown whether or not the patient has recently seen a physician, sees Dr. Oneil and Dr. Childers. Historical: - Allergies: 14:37 Codeine; ca1 14:37 PENICILLINS; ca1 14:37 SHELLFISH; ca1 14:37 Demerol; ca1 - PMHx: 14:37 Atrial Fib; COPD; Asthma; Hypertension; ca1 - PSHx: 14:37 Cholecystectomy; Appendectomy; Tubal ligation; hip replacement, right side; ca1 - Immunization history:: Adult Immunizations up to date. - Social history:: Smoking status: Patient reports the use of cigarette tobacco products, smokes one-half pack cigarettes per day. ROS: 14:22 Constitutional: Negative for fever, chills, and weight loss, Eyes: Negative for injury, snw pain, redness, and discharge, ENT: Negative for injury, pain, and discharge, Neck: Negative for injury, pain, and swelling. 14:22 Back: Negative for injury and pain, : Negative for injury, bleeding, discharge, and swelling, MS/Extremity: Negative for injury and deformity, Skin: Negative for injury, rash, and discoloration, Neuro: Negative for headache, weakness, numbness, tingling, and seizure. 14:22 Cardiovascular: Positive for chest pain, sharp. 14:22 Respiratory: Positive for cough, wheezing. 14:22 Abdomen/GI: Positive for diarrhea. Exam: 14:24 Constitutional: This is a well developed, well nourished patient who is awake, alert, snw and in no acute distress. Head/Face: Normocephalic, atraumatic. Eyes: Pupils equal round and reactive to light, extra-ocular motions intact. Lids and lashes normal. Conjunctiva and sclera are non-icteric and not injected. Cornea within normal limits. Periorbital areas with no swelling, redness, or edema. ENT: Nares patent. No nasal discharge, no septal abnormalities noted. Tympanic membranes are normal and external auditory canals are clear. Oropharynx with no redness, swelling, or masses, exudates, or evidence of obstruction, uvula midline. Mucous membranes moist. Neck: Trachea midline, no thyromegaly or masses palpated, and no cervical lymphadenopathy. Supple, full range of motion without nuchal rigidity, or vertebral point tenderness. No Meningismus. Chest/axilla: Normal chest wall appearance and motion. Nontender with no deformity. No lesions are appreciated. Cardiovascular: Regular rate and rhythm with a normal S1 and S2. No gallops, murmurs, or rubs. Normal PMI, no JVD. No pulse deficits. 14:24 Abdomen/GI: Soft, non-tender, with normal bowel sounds. No distension or tympany. No guarding or rebound. No evidence of tenderness throughout. Back: No spinal tenderness. No costovertebral tenderness. Full range of motion. Skin: Warm, dry with normal turgor. Normal color with no rashes, no lesions, and no evidence of cellulitis. MS/ Extremity: Pulses equal, no cyanosis. Neurovascular intact. Full, normal range of motion. Neuro: Awake and alert, GCS 15, oriented to person, place, time, and situation. Cranial nerves II-XII grossly intact. Motor strength 5/5 in all extremities. Sensory grossly intact. Cerebellar exam normal. Normal gait. Psych: Awake, alert, with orientation to person, place and time. Behavior, mood, and affect are within normal limits. 14:24 Respiratory: mild respiratory distress is noted, moderate respiratory distress is noted, Respirations: paradoxical chest movement, that is mild, prolonged exhalation, shallow respirations, tachypnea, Breath sounds: wheezing: expiratory is heard diffusely. 14:25 ECG was reviewed by the Attending Physician. w Vital Signs: 14:23 BP 153 / 65; Pulse 61; Resp 20; Temp 97.8(TE); Pulse Ox 97% on R/A; Weight 105.23 kg ca1 (R); Height 5 ft. 7 in. (170.18 cm) (R); 15:21 BP 124 / 55; Pulse 60; Resp 16 S; Pulse Ox 96% on R/A; ca1 14:23 Body Mass Index 36.34 (105.23 kg, 170.18 cm) ca1 MDM: 14:28 Patient medically screened. snw 14:40 Data reviewed: vital signs, nurses notes. Data interpreted: Pulse oximetry: on room air snw is 97 %. Interpretation: normal. 03/05 14:21 Order name: Basic Metabolic Panel; Complete Time: 15:13 snw 03/05 14:21 Order name: CBC with Diff; Complete Time: 14:59 snw 03/05 14:21 Order name: LFT's; Complete Time: 15:13 snw 03/05 14:21 Order name: Magnesium; Complete Time: 15:13 snw 03/05 14:21 Order name: NT PRO-BNP; Complete Time: 15:13 snw 03/05 14:21 Order name: PT-INR; Complete Time: 14:59 snw 03/05 14:21 Order name: Troponin (emerg Dept Use Only); Complete Time: 15:13 snw 03/05 14:21 Order name: XRAY Chest (1 view); Complete Time: 15:57 snw 03/05 14:21 Order name: EKG; Complete Time: 14:22 snw 03/05 14:21 Order name: Cardiac monitoring; Complete Time: 14:27 snw 03/05 14:21 Order name: COVID-19 snw 03/05 14:21 Order name: EKG - Nurse/Tech; Complete Time: 14:27 snw 03/05 14:21 Order name: IV Saline Lock; Complete Time: 14:27 snw 03/05 14:21 Order name: Labs collected and sent; Complete Time: 14:27 snw 03/05 14:21 Order name: O2 Per Protocol; Complete Time: 14:27 snw 03/05 14:21 Order name: O2 Sat Monitoring; Complete Time: 14:31 snw EC:25 Rate is 62 beats/min. Rhythm is regular. QRS Ragan is Normal. T waves are Inverted. T snw waves are Flattened in lead V2. Clinical impression: NSR w/ Non-specific ST/T Changes. Administered Medications: 14:45 Drug: Decadron - Dexamethasone 10 mg Route: IVP; Site: right antecubital; ca1 15:50 Follow up: Response: No adverse reaction ca1 14:46 Drug: Albuterol 2.5 mg Route: Inhalation; ca1 16:01 Drug: Zithromax 500 mg Route: PO; ca1 16:15 Follow up: Response: No adverse reaction ca1 Disposition: 16:23 Co-signature as Attending Physician, Lin Morgan MD. ma2 Disposition: 03/05/20 15:49 Discharged to Home. Impression: Chronic obstructive pulmonary disease with (acute) exacerbation. - Condition is Stable. - Discharge Instructions: Nonspecific Chest Pain, Chronic Obstructive Pulmonary Disease, Chronic Obstructive Pulmonary Disease Exacerbation. - Prescriptions for Zinc (with A and C) Lozenges - take 1 lozenge by ORAL route once daily; 30 lozenge. melatonin - take 5 microgram by ORAL route At bedtime; 30 tablet. Albuterol Sulfate 90 mcg/actuation - inhale 1-2 puff by INHALATION route every 4-6 hours; 1 Inhaler. Zithromax 500 mg Oral Tablet - take 1 tablet by ORAL route once daily for 5 days; 5 tablet. - Medication Reconciliation Form, Thank You Letter, Antibiotic Education, Prescription Opioid Use form. - Follow up: Remberto Oneil DO; When: 2 - 3 days; Reason: Recheck today's complaints, Continuance of care, Re-evaluation by your physician. Follow up: Emergency Department; When: As needed; Reason: Worsening of condition. Signatures: Dispatcher [employer] EDCO Erendira Augustine, YUNG-C CONVERSION DEVELOPER-Ryw Lin Morgan MD MD ma2 Zoila Madrid, RN RN ca1 Corrections: (The following items were deleted from the chart) 16:15 15:49 03/05/2020 15:49 Discharged to Home. Impression: Chronic obstructive pulmonary ca1 disease with (acute) exacerbation. Condition is Stable. Forms are Medication Reconciliation Form, Thank You Letter, Antibiotic Education, Prescription Opioid Use. Follow up: Remberto Oneil; When: 2 - 3 days; Reason: Recheck today's complaints, Continuance of care, Re-evaluation by your physician. Follow up: Emergency Department; When: As needed; Reason: Worsening of condition. snw
[2020-03-05] MEDS ORDERED: AZITHROMYCIN 250 MG TAB ONE (16:11)
[2020-03-06 13:37] VITALS: TEMP 97.8
[2020-03-06 13:38] VITALS: BP 124/55; O2SAT 96
--- NOTE | 2020-03-07 05:21 | EKG ---
Test Date: 2020-03-05 Test Time: 14:20:12 Nps: [place] MEASUREMENT RESULTS: Intervals: Rate: 62 OK: 184 QRSD: 76 QT: 466 QTc: 472 [place]: P: 65 OK: 184 QRS: 69 T: 59 INTERPRETIVE STATEMENTS: Normal sinus rhythm Low voltage QRS Borderline ECG Compared to ECG 10/01/2019 22:52:24 Low QRS voltage now present Electronically Signed On 03-07-20 05:20:36 CDT by Gab Massey
== END 2020-03-05 16:15 | disposition home or self-care (01) ==
LOC: ER 14:11
DX: J44.1 Chronic obstructive pulmonary disease with (acute) exacerbation (principal); Z20.828 Contact with and (suspected) exposure to other viral communicable diseases; I10 Essential (primary) hypertension; F17.210 Nicotine dependence, cigarettes, uncomplicated; Z88.0 Allergy status to penicillin; Z88.5 Allergy status to narcotic agent; Z91.013 Allergy to seafood
CPT/HCPCS: 93005; 85025; 80048; 36415; 83735; 85610; 80076; 84484; 83880; 71045; 96374; 99285; U0002; J1100

== ENCOUNTER 2022-09-01 13:43 | Observation (INO) | payer MEDICARE, OTHER ==
--- OUTSIDE RECORDS SUMMARY | 2022-09-01 13:46 | XMS REPORT | Continuity of Care Document ---
:1950 Author Organization [facility] t Address [address] [place] [address] Care Team Providers Name Role Phone TangelaerasmoRemberto mars DO Primary Care Physician FRANCISCO J FRANKS Attending Clinician Unavailable Francisco J Franks MD Attending Clinician Doctor Unassigned, [place] Attending Clinician Unavailable Only, Adc Test Attending Clinician Unavailable Pob, Adc Lab Main Attending Clinician Unavailable FRANCISCO J FRANKS Admitting Clinician Unavailable Payers Payer Name Policy Type Policy Number Effective Date Expiration Date Tony lakeishajael ZOIE/FLOYD [id number] 2021 MEDICARE ADVANTAGE 00:00:00 Problems This patient has no known problems. Allergies, Adverse Reactions, Alerts Allergy Allergy Status Severity Reaction(s) Onset Inactive Treating Comm ents Source Name Type Date Date Clinician CODEINE DRUG Active N/V Univers INGREDI 7-12 ity of 00:00: [address] Codeine Drug Active Nausea 2021-0 Univers Allergy and/or 7-12 ity of Vomiting 00:00: [address] Penicill Drug Active Itching 2021-0 Univers ins Allergy 7-12 ity of 00:00: [address] Branch PENICILL Drug Active ITCHING 2021-0 Univers INS Class 7-12 ity of 00:00: [address] Branch SULFA Drug Active High Rash 2020- Univers (SULFONA Class 3-31 ity of MIDE 00:00: [place] ANTIBIOT Medical [facility]) Branch Sulfa Drug Active Rash Univers (Sulfona Allergy 3-31 ity of mide 00:00: [place] Antibiot 00 Medical ics) Branch SHELLFIS DRUG Active Hives Univers H INGREDI 4-13 ity of DERIVED 00:00: [place] 00 Medical Branch Shellfis Propensi Active Hives Univer s h ty to 4-13 ity of Derived adverse 00:00: [place] reaction 00 Medical s Branch NO KNOWN Drug Active Univers ALLERGIE Class ity of S [facility] Social History Social Habit Start Date Stop Date Quantity Comments Source History of Cigarette Smoker Universi ty of tobacco use [facility] Exposure to 2022-01-01 2022-01-11 Not sure University of SARS-CoV-2 00:00:00 11:31:00 [facility] (event) Branch Tobacco use and 2022-01-11 2022-01-11 Smokeless tobacco Un iversity of exposure 00:00:00 00:00:00 non-user [facility] Sex Assigned At [birth year] Universit y of 00:00:00 00:00:00 [facility] Smoking Status Start Date Stop Date Source Tobacco smoking consumption Univ ersity of [facility] unknown Branch Smokes tobacco daily 2022-01-11 00:00:00 Univers ity of [facility] Medications Ordered Filled Start Stop Current Ordering Indication Dosage Frequency Signature Comments Components Source Medication Medication Date Date Medication? Clinician (SIG) Name Name neomycin-po 2021- No PRN, Unive rs lymyxin-dex 01-16 Starting ity of amethasone 16:11: 16:13 on Fri [facility] s (MAXITROL) 00 :38 01/16/22 at Med ical 3.5 1111, [place] mg/g-10,000 Until Fri unit/g-0.1 01/16/22 at % 1113, ophthalmic Routine, ointment Intra-op ceFAZolin 2021- No PRN, Univers (ANCEF) 01-16 Starting ity of injection 16:09: 16:13 on Fri [place] 00 :38 01/16/22 at Medical 1109, Branch Until Fri01/16/22 at 1113, CARLOS, Intra-op carbachoL 2021- No PRN, Univers (MIOSTAT) 01-16 Starting ity o f 0.01 % 16:09: 16:13 on Wed [place] intraocular 00 :38 22 at Mi dical injection 1109, Branch Until Fri01/16/22 at 1113, Routine, Intra-op sodium 2021- No PRN, Univers chloride 01-16 Starting ity of (NS) 16:09: 19:50 on Wed [place] injection 00 :32 22 at [facility] garth 1109, Branch Until 01/16/22 at 1450, Routine, Intra-op dexamethaso 2021- No PRN, Unive rs ne 01-16 Starting ity of (DECADRON 16:09: 19:50 on Fri [place] PHOSPHATE) 00 :32 01/16/22 at [facility] ical injection 1109, Branch Until 01/16/22 at 1450, Routine, Intra-op EPINEPHrine 2021- No PRN, Unive rs 1:1,000 (1 01-16 Starting ity of mg/mL) 15:56: 16:13 on Fri [place] (ADRENALIN) 00 :38 01/16/22 at Mi dical injection 1056, Branch Until 01/16/22 at 1113, Routine, Intra-op chondroitin 2021- No PRN, Unive rs sulf-sod 01-16 Starting ity of hyaluronate 15:56: 16:13 on Wed [place] as (DUOVISC 00 :38 01/16/22 at Medic al VISCO 1056, Branch ELASTIC) Until Wed intraocular 01/16/22 at injection 1113, Routine, Intra-op balanced 2021- No PRN, Univers salt irrig 01-16 Starting ity of soln comb1 15:56: 16:13 on Wed [place] (BSS PLUS) 00 :38 01/16/22 at Med ical ophthalmic 1056, Branch solution Until Wed 500 mL bag 01/16/22 at 1113, Routine, Intra-op water for 2021- No PRN, Univers irrigation 01-16 Starting ity of irrigation 15:52: 16:13 on Wed [place] solution 00 :38 01/16/22 at Medic al 1052, Branch Until Fri01/16/22 at 1113, Routine, Intra-op Hyaluronida 2021- No PRN, Unive rs se, Human 01-16 Starting ity o f Recomb. 15:49: 16:13 on Fri (HYLENEX) 00 :38 01/16/22 at Medi garth injection 1049, Branch Until Fri01/16/22 at 1113, Routine, Intra-op eye block 2021- No PRN, Univers syringe 11 01-16 Starting ity of mL 15:49: 16:13 on Fri 00 :38 01/16/22 at Medical 1049, Branch Until Fri01/16/22 at 1113, Intra-op cyclopent 2021- No .5mL 0.5 mL, Univ ers 1%-tropic 01-16 Left Eye, ity of 1%-phenyl 14:30: 14:33 ONCE, 1 [place] 2.5%-ketor 00 :00 dose, On Medic al 0.5% Fri Branch (MYDRIATIC 01/16/22 at #5) 0930, ophthalmic Routine, solution DSU Pre-op syringe 0.5 mL lactated 2021- No 1000mL at [facility] rs ringers IV 01-16 mL/hr, ity of infusion 14:30: 14:33 1,000 mL, [place] as 1,000 mL 00 :00 IV Medical Infusion, Branch ONCE, 1 dose, On Fri01/16/22 at 0930, Routine, DSU Pre-op acetaminoph Yes 650mg Take 650 U nivers en (TYLENOL 7-20 mg by ity of ARTHRITIS 12:45: mouth [place] PAIN) 650 27 every 8 Medical mg CR (eight) Branch tablet hours as needed for Pain. Takes at bedtime diphenhydrA Yes 25mg Take 25 mg Univers MINE 25 mg 7-20 by mouth ity o f tablet 12:45: at [place] [id number] bedtime. Medical Branch acetaminoph Yes 650mg Take 650 U nivers en (TYLENOL 7-20 mg by ity of ARTHRITIS 12:45: mouth [place] PAIN) 650 27 every 8 Medical mg CR (eight) Branch tablet hours as needed for Pain. Takes at bedtime diphenhydrA 2021-0 Yes 25mg Take 25 mg Univers MINE 25 mg 7-20 by mouth ity o f tablet 12:45: at [place] 27 bedtime. Medical Branch acetaminoph 0 Yes 650mg Take 650 U nivers en (TYLENOL 7-15 mg by ity of ARTHRITIS 11:25: mouth [place] PAIN) 650 56 every 8 Medical mg CR (eight) Branch tablet hours as needed for Pain. Takes at bedtime diphenhydrA 2021-0 Yes 25mg Take 25 mg Univers MINE 25 mg 7-15 by mouth ity o f tablet 11:25: at [place] 56 bedtime. Medical Branch ELIQUIS 5 Yes 5mg Take 5 mg Uni vers mg tablet 6-21 by mouth 2 ity of 00:00: (two) [place] 00 times Medical daily. Branch ELIQUIS 5 Yes 5mg Take 5 mg Uni vers mg tablet 6-21 by mouth 2 ity of 00:00: (two) [place] 00 times Medical daily. Branch ELIQUIS 5 0 Yes 5mg Take 5 mg Uni vers mg tablet 6-21 by mouth 2 ity of 00:00: (two) [place] 00 times Medical daily. Branch BREO Yes 1{puff} Inhale 1 Univer s ELLIPTA 6-07 Puff ity of 200-25 00:00: daily. [place] mcg/dose 00 Medical DsDv Branch BREO Yes 1{puff} Inhale 1 Univer s ELLIPTA 6-07 Puff ity of 200-25 00:00: daily. [place] mcg/dose 00 Medical DsDv Branch BREO Yes 1{puff} Inhale 1 Univer s ELLIPTA 6-07 Puff ity of 200-25 00:00: daily. [place] mcg/dose 00 Medical DsDv Branch sotaloL 80 2021-0 Yes 80mg Take 80 mg U nivers mg tablet 5-25 by mouth ity of 00:00: in the [place] 00 morning Medical and 80 mg Branch in the evening. sotaloL 80 2021-0 Yes 80mg Take 80 mg U nivers mg tablet 5-25 by mouth ity of 00:00: in the [place] 00 morning Medical and 80 mg Branch in the evening. sotaloL 80 Yes 80mg Take 80 mg U nivers mg tablet 5-25 by mouth ity of 00:00: in the [place] morning Medical and 80 mg Branch in the evening. escitalopra 0 Yes 5mg Take 5 mg U nivers m oxalate 5 4-24 by mouth ity of mg tablet 00:00: in the [place] morning. Medical Branch escitalopra 0 Yes 5mg Take 5 mg U nivers m oxalate 5 4-24 by mouth ity of mg tablet 00:00: in the [place] morning. Medical Branch escitalopra 0 Yes 5mg Take 5 mg U nivers m oxalate 5 4-24 by mouth ity of mg tablet 00:00: in the [place] morning. Medical Branch spironolact Yes 1{tbl} Take 1 Un mitch one-hydroch 4-22 tablet by ity of lorothiazid 00:00: mouth [place] e 25-25 mg 00 every Medical per tablet morning. [facility] spironolact Yes 1{tbl} Take 1 Un mitch one-hydroch 4-22 tablet by ity of lorothiazid 00:00: mouth [place] e 25-25 mg 00 every Medical per tablet morning. [facility] spironolact Yes 1{tbl} Take 1 Un mitch one-hydroch 4-22 tablet by ity of lorothiazid 00:00: mouth [place] e 25-25 mg 00 every Medical per tablet morning. [facility] albuterol 2021- No 2.5mg Inhale 2.5 Univers 2.5 mg /3 9-30 10-01 mg every 6 ity of mL (0.083 00:00: 04:59 (six) [place] %) 00 :00 hours as Medical nebulizer needed. Branch solution albuterol 2021- No 2{puff} Inhale 2 Univers 90 9-30 10-01 Puffs ity of mcg/actuati 00:00: 04:59 every 6 [place] on inhaler 00 :00 (six) Medical hours as Branch needed. albuterol 2021- No 2.5mg Inhale 2.5 Univers 2.5 mg /3 9-30 10-01 mg every 6 ity of mL (0.083 00:00: 04:59 (six) [place] %) 00 :00 hours as Medical nebulizer needed. Branch solution albuterol 2021- No 2{puff} Inhale 2 Univers 90 03-29 10- Puffs ity of mcg/actuati 00:00: 04:59 every 6 [place] on inhaler 00 :00 (six) Medical hours as Branch needed. albuterol 2021- No 2.5mg Inhale 2.5 Univers 2.5 mg /3 03-29 10- mg every 6 ity of mL (0.083 00:00: 04:59 (six) [place] %) 00 :00 hours as Medical nebulizer needed. Branch solution albuterol No 2{puff} Inhale 2 [facility] 90 03-29 10- Puffs ity of mcg/actuati 00:00: 04:59 every 6 [place] on inhaler 00 :00 (six) Medical hours as Branch needed. Vital Signs Vital Name Observation Time Observation Value Comments Source Oxygen saturation in 2022-01-16 14:30:00 96 /min [facility] Arterial blood by [facility] Pulse oximetry [place] Systolic blood 2022-01-16 14:30:00 134 mm[Hg] [facility] Diastolic blood 2022-01-16 14:30:00 60 mm[Hg] [facility] Heart rate 2022-01-16 14:30:00 61 /min [facility] Body temperature 2022-01-16 14:30:00 36.11 [facility] Respiratory rate 2022-01-16 14:30:00 18 /min [facility] Body height 2022-01-08 18:53:00 170.3 cm [facility] Body weight 2022-01-08 18:53:00 99.8 kg [facility] BMI 2022-01-08 18:53:00 34.41 kg/m2 [facility] Procedures Procedure Date / Time Performing Source Performed Clinician PHACOEMULSIFICATION OF 2022-01-16 Jovany, Francisco J petersen [facility] 2022-01-16 Doctor Geovanna, [facility] 05:01:00 [facility] Encounters Start End Encounter Admission Attending Care Care Encounter Source Date/Time Date/Time Type Type Clinicians Facility Department ID 2022-01-16 2022-01-16 Outpatient R [facility] [id number] Univers 09:19:00 11:51:00 FRANCISCO J amado [facility] 2022-01-16 2022-01-16 Surgery Jovany [facility] [id number] Univers 10:06:00 10:39:00 Francisco J SCOTT [id number] ity of [id number] SURGICAL [id number] [facility] [address] [place] 2022-01-16 2022-01-16 Orders Doctor ESPOSITO [id number] Univers 00:00:00 00:00:00 Only [facility]leys[facility]IS MIGUEL serrato [id number] ity of [place] [facility] [id number] [place] [id number] [facility] 009 Branch 2022-01-14 2022-01-14 Laboratory Only, [facility] Test [facility] [id number]. [id number] Univers 10:45:00 11:00:00 Only Francisco J Franks [id number] 0 [facility] [id number] [facility] [id number] [facility] [address] [place] 2022-01-14 2022-01-14 Outpatient R JOVANY [facility] [id number] Univers 10:45:00 10:45:00 FRANCISCO J amado [facility] 2022-01-07 2022-01-07 Gas Disp[employer]er Jerel, [facility] Lab Main [facility] [id number] Univers 11:45:00 12:00:00 Visit Francisco J Franks [id number] 0 ity [id number] PROFESSIO [id number] [place] [address] 2022-01-07 2022-01-07 Outpatient R JOVANY [facility] [id number] [facility] 11:45:00 11:45:00 FRANCISCO J amado [facility] Results This patient has no known results.
[2022-09-01] MEDS ORDERED: METOPROLOL TARTRATE 5 MG/5 ML INJ IV ONE (14:47)
[2022-09-01] MEDS ORDERED: FENTANYL CITR 100 MCG/2 ML ONE (14:47)
[2022-09-01 14:49] LABS: Absolute Lymphocytes (CBC) 3.8 K/uL (0.7-4.9); Hematocrit 37.8 % (36.0-45.0); Lymphocytes % 30.8 % (15.3-44.8); MCV 91.9 fL (80-100); MPV 9.2 fL (7.6-11.3); RBC Red Blood Cell Count 4.11 M/uL (3.86-4.86)
--- NOTE | 2022-09-01 14:50 | RAD REPORT ---
EXAM DESCRIPTION: Peter Single View09/01/2022 2:34 pm CLINICAL HISTORY: Chest pain COMPARISON: 2019 FINDINGS: The lungs appear clear of acute infiltrate. The heart is normal size Scoliosis is present IMPRESSION: No acute abnormalities displayed
[2022-09-01 15:07] LABS: Bilirubin Direct 0.1 mg/dL (0-0.2); Bilirubin Total 0.5 mg/dL (0.2-1.0); Magnesium 1.6 mg/dL (1.6-2.4); Potassium 3.7 mmol/L (3.5-5.1); Protein, Total 7.4 g/dL (6.4-8.2); Troponin High Sensitivity 12.5 pg/mL (<58.9)
[2022-09-01 15:08] LABS: Protime INR 1.18
[2022-09-01] MEDS ORDERED: DIGOXIN 0.25 MG/ML AMP ONE (15:48)
[2022-09-01] MEDS ORDERED: NA CHLORIDE 0.9% 250 ML ONE ×2 (15:48→17:03)
[2022-09-01 16:09] LABS: Urine Blood Negative (Negative); Urine Glucose Negative (Negative); Urine Protein Negative (Negative); Urine Specific Gravity 1.015 (1.005-1.030); Urine pH 6.5 (5.0-7.0)
[2022-09-01 16:21] LABS: SARS-COV-2 RT PCR NEGATIVE (NEGATIVE)
[2022-09-01 16:32] LABS: Urine Bacteria None Seen /HPF (<20); Urine RBC <5 /HPF (None Seen)
[2022-09-01] MEDS ORDERED: D5W 100 ML IV ONE (18:11)
[2022-09-01] MEDS ORDERED: AMIODARONE HCL 150 MG/3 ML INJ IV ONE (18:11)
[2022-09-01] MEDS ORDERED: AMIODARONE IN DEXTROSE,ISO-OSM 360 MG/200 ML BAG IV ONE (18:12)
--- NOTE | 2022-09-01 18:25 | ER ---
Nurse's Notes [facility] Name: Sunshine Mead Age: 72 yrs Sex: Female : 1950 Arrival Date: 09/01/2022 Time: 13:47 Bed 3 Private MD: Diagnosis: Chronic atrial fibrillation;Chest pain, unspecified Presentation: 09/01 14:14 Chief complaint: Patient states: Chest pain with SOB that began about an hour ago. vg1 Denies nausea. Hx of Afib, pt states "feels fluttering in chest". Coronavirus screen: Vaccine status: Patient reports being unvaccinated. Client denies travel out of the [place] in the last 14 days. Ebola Screen: Patient negative for fever greater than or equal to 101.5 degrees Fahrenheit, and additional compatible Ebola Virus Disease symptoms. Initial Sepsis Screen: Does the patient meet any 2 criteria? HR > 90 bpm. Does the patient have a suspected source of infection? No. Patient's initial sepsis screen is negative. Risk Assessment: Do you want to hurt yourself or someone else? Patient reports no desire to harm self or others. Onset of symptoms was September 01, 2022. 14:14 Method Of Arrival: Wheelchair vg1 14:14 Acuity: AZRA 2 vg1 Historical: - Allergies: 14:18 Codeine; vg1 14:18 Demerol; vg1 14:18 PENICILLINS; vg1 14:18 SHELLFISH; vg1 - Home Meds: 14:37 spironolacton-hydrochlorothiaz 25-25 mg Oral tab 1 tab once daily [Active]; albuterol iw sulfate 200 mcg Inhl cap daily [Active]; sotalol 80 mg Oral tab 1 tab 2 times per day [Active]; Eliquis 5 mg Oral tab 1 tab 2 times per day [Active]; fluocinolone acetonide oil 0.01 % otic (ear) drop 5 drops 2 times per day [Active]; Breo Elipta Inhaler daily [Active]; - PMHx: 14:18 Asthma; Atrial Fib; COPD; Hypertension; vg1 - Immunization history:: Adult Immunizations Client reports having NOT received the Covid vaccine. - Social history:: Smoking status: Patient reports the use of cigarette tobacco products, smokes one-half pack cigarettes per day. Screenin:23 [facility] ED Fall Risk Assessment (Adult) Score/Fall Risk Level 3 or more points = High hb Risk Oriented to surroundings, Maintained a safe environment, Educated pt \\T\\ family on fall prevention, incl call for assistance when getting out of bed. Abuse screen: Denies threats or abuse. Denies injuries from another. Nutritional screening: No deficits noted. Tuberculosis screening: No symptoms or risk factors identified. Assessment: 14:23 General: Appears in no apparent distress. Behavior is calm, cooperative. Pain: Pain hb currently is 5 out of 10 on a pain scale. Neuro: Level of Consciousness is awake, alert, obeys commands, Oriented to person, place, time, situation. Cardiovascular: Reports chest pain, Patient's skin is warm and dry. Respiratory: Respiratory effort is even, unlabored, Respiratory pattern is regular, symmetrical. GI: No signs and/or symptoms were reported involving the gastrointestinal system. : No signs and/or symptoms were reported regarding the genitourinary system. EENT: No signs and/or symptoms were reported regarding the EENT system. Derm: Skin is pink, warm \\T\\ dry. Musculoskeletal: No signs and/or symptoms reported regarding the musculoskeletal system. 15:15 Reassessment: Patient appears in no apparent distress at this time. No changes from hb previously documented assessment. Patient and/or family updated on plan of care and expected duration. Pain level reassessed. 15:26 Reassessment: Patient appears in no apparent distress at this time. pt sleeping, family iw st bedside. 16:23 Reassessment: Patient appears in no apparent distress at this time. No changes from hb previously documented assessment. 17:32 Reassessment: Patient appears in no apparent distress at this time. No changes from hb previously documented assessment. 18:16 Reassessment: Patient appears in no apparent distress at this time. No changes from hb previously documented assessment. 20:26 Pain: Pain does not radiate. Pain began gradually. kd3 Vital Signs: 14:14 BP 120 / 71; Pulse 128; Resp 18; Temp 98.1; Pulse Ox 98% on R/A; Weight 106.59 kg; vg1 Height 5 ft. 7 in. (170.18 cm); Pain 5/10; 15:15 BP 99 / 55; Pulse 113; Resp 27; Pulse Ox 95% on R/A; hb 15:26 BP 92 / 65; Pulse 134; Resp 24; Pulse Ox 95% on R/A; iw 16:22 BP 110 / 63; Pulse 118; Resp 28; Pulse Ox 95% on R/A; hb 16:30 BP 110 / 63; Pulse 109; Resp 20; Pulse Ox 95% on R/A; iw 17:21 BP 93 / 82; Pulse 138; Resp 21; Pulse Ox 96% on R/A; iw 18:16 BP 105 / 59; Pulse 113; Resp 24; Pulse Ox 96% on R/A; hb 18:44 BP 92 / 58; Pulse 65; Resp 21 S; Pulse Ox 95% on R/A; iw 20:27 BP 115 / 47; Pulse 65; Resp 22; Temp 97.8; Pulse Ox 96% on R/A; kd3 14:14 Body Mass Index 36.81 (106.59 kg, 170.18 cm) vg1 ED Course: 13:47 Patient arrived in ED. ja2 13:48 Sohan Ramires PA is PHCP. cp 13:48 Josemanuel Braxton MD is Attending Physician. cp 14:18 Triage completed. vg1 14:23 Arm band placed on. hb 14:23 Patient has correct armband on for positive identification. hb 14:23 Patient maintains SpO2 saturation greater than 95% on room air. hb 14:35 Sheyla Last, RN is Primary Nurse. iw 14:35 Inserted saline lock: 22 gauge in right wrist, using aseptic technique. iw 15:48 COVID-19/FLU A+B Sent. ks8 18:23 Rogerio Irvin FNP-C is Hospitalizing Provider. cp 20:26 Client placed on continuous cardiac and pulse oximetry monitoring. NIBP monitoring kd3 applied. assistant manager/embalmer on. 20:26 No provider procedures requiring assistance completed. Patient admitted, IV remains in kd3 place. Administered Medications: 14:00 Drug: fentaNYL (PF) 25 mcg Route: IVP; Site: right forearm; jl7 14:45 Drug: Metoprolol 2.5 mg Route: IVP; Site: right forearm; jl7 16:03 Drug: NS 0.9% 250 ml Route: IV; Rate: bolus; Site: right wrist; iw 16:40 Follow up: Response: No adverse reaction; IV Status: Completed infusion; IV Intake: hb 250ml 16:03 Drug: Digoxin 0.5 mg Route: IVP; Site: right wrist; iw 17:12 Follow up: Response: No adverse reaction hb 17:12 Drug: NS 0.9% 250 ml Route: IV; Rate: bolus; Site: right antecubital; hb 18:00 Follow up: IV Status: Completed infusion iw 18:19 Drug: amiodarone 150 mg Volume: 100 ml; Route: IVPB; Infused Over: 10 mins; Site: right iw wrist; 18:30 Follow up: IV Status: Completed infusion iw 18:42 Drug: amiodarone 900 mg, D5W 500 ml Route: IVPB; Rate: 1 mg/min; Site: right wrist; iw 20:27 Follow up: Response: No adverse reaction; IV Status: Infusion continued kd3 20:11 Drug: NS 0.9% 500 ml Route: IV; Rate: bolus; Site: left forearm; kd3 20:59 Follow up: IV Status: Completed infusion; IV Intake: 500ml kd3 21:25 Drug: NS 0.9% 500 ml Route: IV; Rate: bolus; Site: right forearm; kd3 Medication: 14:23 VIS not applicable for this client. hb Intake: 16:40 IV: 250ml; Total: 250ml. hb 20:59 IV: 500ml; Total: 750ml. kd3 Outcome: 18:24 Decision to Hospitalize by Provider. cp 20:26 Condition: stable kd3 20:26 Discharge instructions given to patient, Instructed on the need for admit, Demonstrated understanding of instructions. 23:34 Admitted to Med/surg kd3 23:34 Patient left the ED. kd3 Signatures: Sheyla Last RN VIJAY iw Sohan Ramires PA PA cp Kassandra Mckeon RN RN Piter Cardona RN RN jl7 Maria Fernanda Ortez RN RN [email or web address] Swapna Lopez Kyli, RN RN kd3 Mey La8
--- NOTE | 2022-09-01 18:25 | EDPHYS ---
Physician Documentation [facility] Name: Sunshine Mead Age: 72 yrs Sex: Female : 1950 Arrival Date: 09/01/2022 Time: 13:47 Bed 3 Private MD: ED Physician Josemanuel Braxton HPI: 09/01 14:25 This 72 yrs old Female presents to ER via Wheelchair with complaints of Chest Pain. cp 14:25 The patient or guardian reports chest pain that is located primarily in the substernal cp area. Onset: 1 hour(s) ago. The pain does not radiate. Associated signs and symptoms: Pertinent positives: palpitations, shortness of breath, Pertinent negatives: abdominal pain, cough, diaphoresis, lower extremity pain, lower extremity swelling, syncope, vomiting. The chest pain is described as a pressure. Duration: The patient or guardian reports a single episode, that is still ongoing, and unchanged. Historical: - Allergies: 14:18 Codeine; vg1 14:18 Demerol; vg1 14:18 PENICILLINS; vg1 14:18 SHELLFISH; vg1 - Home Meds: 14:37 spironolacton-hydrochlorothiaz 25-25 mg Oral tab 1 tab once daily [Active]; albuterol iw sulfate 200 mcg Inhl cap daily [Active]; sotalol 80 mg Oral tab 1 tab 2 times per day [Active]; Eliquis 5 mg Oral tab 1 tab 2 times per day [Active]; fluocinolone acetonide oil 0.01 % otic (ear) drop 5 drops 2 times per day [Active]; Breo Elipta Inhaler daily [Active]; - PMHx: 14:18 Asthma; Atrial Fib; COPD; Hypertension; vg1 - Immunization history:: Adult Immunizations Client reports having NOT received the Covid vaccine. - Social history:: Smoking status: Patient reports the use of cigarette tobacco products, smokes one-half pack cigarettes per day. ROS: 14:30 Constitutional: Negative for body aches, chills, fever, poor PO intake. cp 14:30 Eyes: Negative for injury, pain, redness, and discharge. cp 14:30 ENT: Negative for drainage from ear(s), ear pain, sore throat, difficulty swallowing, difficulty handling secretions. 14:30 Cardiovascular: Positive for chest pain, palpitations, Negative for edema. 14:30 Respiratory: Positive for shortness of breath, Negative for cough, wheezing. 14:30 Abdomen/GI: Negative for abdominal pain, vomiting, diarrhea, constipation. 14:30 Back: Negative for pain at rest, pain with movement. 14:30 Neuro: Negative for altered mental status, dizziness, headache, syncope, weakness. 14:30 All other systems are negative. Exam: 14:33 Constitutional: The patient appears in no acute distress, alert, awake, cp non-diaphoretic, non-toxic, well developed, well nourished, obese. 14:33 Head/Face: Normocephalic, atraumatic. cp 14:33 Eyes: Periorbital structures: appear normal, Conjunctiva: normal, no exudate, no injection, Sclera: no appreciated abnormality, Lids and lashes: appear normal, bilaterally. 14:33 ENT: External ear(s): are unremarkable, Nose: is normal, Mouth: Lips: moist, Oral mucosa: pink and intact, moist, Posterior pharynx: Airway: no evidence of obstruction, patent. 14:33 Neck: ROM/movement: is normal, is supple, without pain, no range of motions limitations. 14:33 Chest/axilla: Inspection: normal, Palpation: is normal, no crepitus, no tenderness. 14:33 Cardiovascular: Rate: tachycardic, Rhythm: irregular, Edema: ankle edema, that is very mild, JVD: is not appreciated. 14:33 Respiratory: the patient does not display signs of respiratory distress, Respirations: normal, no use of accessory muscles, no retractions, labored breathing, is not present, Breath sounds: are clear throughout, no decreased breath sounds, no stridor, no wheezing. 14:33 Abdomen/GI: Inspection: abdomen appears normal, Palpation: abdomen is soft and non-tender, in all quadrants. 14:33 Back: pain, is absent, ROM is normal. 14:33 Neuro: Orientation: to person, place \T\ time. Mentation: is normal, Motor: moves all fours, strength is normal, Sensation: is normal. 14:42 ECG was reviewed by the Attending Physician. cp Vital Signs: 14:14 BP 120 / 71; Pulse 128; Resp 18; Temp 98.1; Pulse Ox 98% on R/A; Weight 106.59 kg; vg1 Height 5 ft. 7 in. (170.18 cm); Pain 5/10; 15:15 BP 99 / 55; Pulse 113; Resp 27; Pulse Ox 95% on R/A; hb 15:26 BP 92 / 65; Pulse 134; Resp 24; Pulse Ox 95% on R/A; iw 16:22 BP 110 / 63; Pulse 118; Resp 28; Pulse Ox 95% on R/A; hb 16:30 BP 110 / 63; Pulse 109; Resp 20; Pulse Ox 95% on R/A; iw 17:21 BP 93 / 82; Pulse 138; Resp 21; Pulse Ox 96% on R/A; iw 18:16 BP 105 / 59; Pulse 113; Resp 24; Pulse Ox 96% on R/A; hb 18:44 BP 92 / 58; Pulse 65; Resp 21 S; Pulse Ox 95% on R/A; iw 20:27 BP 115 / 47; Pulse 65; Resp 22; Temp 97.8; Pulse Ox 96% on R/A; kd3 14:14 Body Mass Index 36.81 (106.59 kg, 170.18 cm) vg1 MDM: 14:19 Patient medically screened. 14:30 Differential diagnosis: abnormal EKG, acute myocardial infarction, acute pericarditis, cp pericarditis, pleurisy, pneumonia, pneumothorax, pulmonary embolus, stable angina, unstable angina. 17:39 ED course: discussion with DR Hook concerning patient's continued tachycardia with cp chronic a-fib and attempted treatments, wants amiodarone started. 18:30 Data reviewed: vital signs, nurses notes, lab test result(s), EKG, radiologic studies, cp plain films. 18:30 Consideration of Admission/Observation Patient was admitted/placed on observation. cp Management of patient was discussed with the following: Hospitalist: Rogerio Irvin NP will admit patient after discussion. I considered the following discharge prescriptions or medication management in the emergency department Medications were administered in the Emergency Department. See MAR. Test considered but Not performed: CT: chest. Care significantly affected by the following chronic conditions: Hypertension, Chronic Obstructive Pulmonary Disease, a-fib. Response to treatment: the patient's symptoms have markedly improved after treatment, patient taking Eliquis 5 mg bid. 09/01 14:19 Order name: Basic Metabolic Panel cp 03/05 14:19 Order name: CBC with Diff cp 09/01 14:19 Order name: LFT's cp 09/01 14:19 Order name: Magnesium cp 09/01 14:19 Order name: NT PRO-BNP cp 09/01 14:19 Order name: PT-INR cp 09/01 14:19 Order name: Troponin HS cp 09/01 14:19 Order name: XRAY Chest (1 view) cp 09/01 14:19 Order name: EKG; Complete Time: 14:21 cp 09/01 14:19 Order name: Cardiac monitoring; Complete Time: 14:35 cp 09/01 14:19 Order name: EKG - Nurse/Tech; Complete Time: 14:35 cp 09/01 14:19 Order name: IV Saline Lock; Complete Time: 14:35 cp 09/01 14:19 Order name: Labs collected and sent; Complete Time: 14:35 cp 09/01 14:19 Order name: O2 Per Protocol; Complete Time: 14:35 cp 09/01 14:19 Order name: O2 Sat Monitoring; Complete Time: 14:35 cp 09/01 14:34 Order name: COVID-19/FLU A+B cp 09/01 14:50 Order name: CBC with Automated Diff; Complete Time: 15:09 EDMS 09/01 15:10 Interpretation: Normal except: WBC 12.30. cp 09/01 14:51 Order name: RAD; Complete Time: 15:09 EDMS 09/01 15:10 Interpretation: Report reviewed. cp 09/01 15:07 Order name: Basic Metabolic Panel; Complete Time: 15:09 EDMS 09/01 15:10 Interpretation: Normal except: BUN 26; CRE 1.03; GFR 58. cp 09/01 15:07 Order name: Liver (Hepatic) Function; Complete Time: 15:09 EDMS 09/01 16:07 Interpretation: Normal except: AST 13; ALK 125; ALB 3.0; GLOB 4.4; A/G 0.7. cp / 15:07 Order name: Troponin High Sensitivity; Complete Time: 15:09 EDMS 09/01 15:10 Interpretation: Troponin HS 12.5; Reviewed. cp 09/01 15:07 Order name: NT PRO-BNP; Complete Time: 15:09 EDMS 09/01 15:07 Order name: Magnesium; Complete Time: 15:09 EDMS 09/01 15:09 Order name: Protime (+INR); Complete Time: 15:09 EDMS 09/01 15:31 Order name: Urine Dipstick-Ancillary (obtain specimen); Complete Time: 16:04 cp 09/01 15:31 Order name: Urine Microscopic Only cp 09/01 16:09 Order name: Urine Dipstick-Ancillary; Complete Time: 16:47 EDMS 09/01 16:47 Interpretation: Normal except: UESTR 1+. cp 09/01 16:21 Order name: COVID-19/FLU A+B; Complete Time: 16:47 EDMS 09/01 16:33 Order name: Urine Microscopic Only; Complete Time: 16:47 EDMS 09/01 23:32 Order name: Troponin High Sensitivity EDMS EC:42 Rate is 129 beats/min. Rhythm is irregular. QRS interval is normal. QT interval is cp normal. Interpreted by me. Reviewed by me. Administered Medications: 14:00 Drug: fentaNYL (PF) 25 mcg Route: IVP; Site: right forearm; jl7 14:45 Drug: Metoprolol 2.5 mg Route: IVP; Site: right forearm; jl7 16:03 Drug: NS 0.9% 250 ml Route: IV; Rate: bolus; Site: right wrist; iw 16:40 Follow up: Response: No adverse reaction; IV Status: Completed infusion; IV Intake: hb 250ml 16:03 Drug: Digoxin 0.5 mg Route: IVP; Site: right wrist; iw 17:12 Follow up: Response: No adverse reaction hb 17:12 Drug: NS 0.9% 250 ml Route: IV; Rate: bolus; Site: right antecubital; hb 18:00 Follow up: IV Status: Completed infusion iw 18:19 Drug: amiodarone 150 mg Volume: 100 ml; Route: IVPB; Infused Over: 10 mins; Site: right iw wrist; 18:30 Follow up: IV Status: Completed infusion iw 18:42 Drug: amiodarone 900 mg, D5W 500 ml Route: IVPB; Rate: 1 mg/min; Site: right wrist; iw 20:27 Follow up: Response: No adverse reaction; IV Status: Infusion continued kd3 20:11 Drug: NS 0.9% 500 ml Route: IV; Rate: bolus; Site: left forearm; kd3 20:59 Follow up: IV Status: Completed infusion; IV Intake: 500ml kd3 21:25 Drug: NS 0.9% 500 ml Route: IV; Rate: bolus; Site: right forearm; kd3 Disposition Summary: 09/01/22 18:24 Hospitalization Ordered Hospitalization Status: Inpatient Admission cp Provider: Rogerio Irvin cp Location: Telemetry/MedSurg (Inpatient) cp Condition: Stable cp Problem: new cp Symptoms: have improved cp Bed/Room Type: Standard cp Room Assignment: 220(09/01/22 22:28) vc1 Diagnosis - Chronic atrial fibrillation cp - Chest pain, unspecified cp Forms: - Medication Reconciliation Form cp - SBAR form cp Signatures: Dispatcher [employer] EDMS Sheyla Last RN RN iw Sohan Ramires PA PA cp Ivette Ortez RN RN cg Kassandra Mckeon RN RN Piter Cardona RN RN jl7 Maria Fernanda Ortez RN RN 1 Judith Duckworth RN RN kd3 Ranad Thompson RN RN vc1 Corrections: (The following items were deleted from the chart) 21:37 18:24 cp cg 22:28 21:37 205 vc1
[2022-09-01] MEDS ORDERED: ONDANSETRON 4 MG/2 ML VIAL IV PRN (19:27)
--- NOTE | 2022-09-01 19:31 | P.HP ---
Certification for Inpatient Patient admitted to: Observation With expected LOS: <2 Midnights Patient will require the following post-hospital care: None Practitioner: I am a practitioner with admitting privileges, knowledge of patient current condition, hospital course, and medical plan of care. Services: Services provided to patient in accordance with Admission requirements found in Title 42 Section 412.3 of the Code of Federal Regulations Patient History Date of Service: 09/01/22 Reason for admission: A-fib RVR History of Present Illness: 72-year-old female with history of atrial fibrillation on chronic anticoagulation, asthma/COPD, hypertension presents to the emergency department for chest pain, palpitations. She reports around noon today she felt as if her heart was fluttering and she was having some discomfort in her chest. Upon arrival to the emergency department patient was noted to be in A-fib RVR with rate around 130s, she takes sotalol 80 mg twice daily at home as well as Eliquis once daily in the mornings at home both of which she reports compliance with. In the ER she was given IV Lopressor, IV dig, cardiology was then consulted who recommended amiodarone load/drip. She has since converted to sinus rhythm with a rate of 65. We will admit under observation for A-fib RVR. Allergies Penicillins Allergy (Verified 09/04/18 00:53) Unknown codeine Adverse Reaction (Verified 10/02/19 01:03) Itching shellfish derived Adverse Reaction (Verified 09/04/18 00:53) Hives/Rash Home Medications: Albuterol Neb [Proventil 0.083% Neb Soln] 2.5 mg IH PRN PRN 09/13/17 Fluticasone/Vilanterol [Breo Ellipta 200-25 Mcg INH] 1 each IH PRN PRN 09/13/17 Apixaban [Eliquis *] 5 mg PO BID 10/02/19 Sotalol HCl [Betapace*] 80 mg PO SEECOM #90 tab 10/02/19 Spironolact/Hydrochlorothiazid [Aldactazide 25-25 Tablet] 1 each PO DAILY 10/02/19 - Past Medical/Surgical History Diabetic: No -: Afib -: COPD -: Asthma -: Hypertension -: choley -: appy -: R. hip replacement -: Tubal ligation Psychosocial/ Personal History: Patient lives at home, alone. - Family History Father -: Cancer - Social History Smoking Status: Current every day smoker Counseled patient to stop smoking for: less than 10 minutes Smoking therapy provided: No (Patient declined) Alcohol use: No CD- Drugs: No Caffeine use: Yes Place of Residence: Home Review of Systems 10-point ROS is otherwise unremarkable Cardiovascular: Chest Pain, Palpitations, Light Headedness Physical Examination - Physical Exam General: Alert, In no apparent distress, Oriented x3 HEENT: Atraumatic, PERRLA, Mucous membr. moist/pink, EOMI, Sclerae nonicteric Neck: Supple, 2+ carotid pulse no bruit, No LAD, Without JVD or thyroid abnormality Respiratory: Clear to auscultation bilaterally, Normal air movement Cardiovascular: Regular rate/rhythm, Normal S1 S2 Capillary refill: <2 Seconds Gastrointestinal: Normal bowel sounds, No tenderness Musculoskeletal: No tenderness Integumentary: No rashes Neurological: Normal speech, Normal strength at 5/5 x4 extr, Normal tone, Normal affect - Studies Laboratory Data (last 24 hrs) 09/01/22 14:30: PT 13.0 H, INR 1.18 09/01/22 14:30: WBC 12.30 H, Hgb 12.3, Hct 37.8, Plt Count 307 09/01/22 14:30: Sodium 137, Potassium 3.7, BUN 26 H, Creatinine 1.03 H, Glucose 93, Magnesium 1.6, Total Bilirubin 0.5, AST 13 L, ALT 14, Alkaline Phosphatase 125 H Assessment and Plan - Plan Assessment: Atrial fibrillation with rapid ventricular response COPD/asthma Hypertension Plan: Atrial fibrillation with rapid ventricular response Currently on sotalol at home 80 mg twice daily, cardiology recommended IV amiodarone which was given currently in normal sinus rhythm. Continue Eliquis, patient reports she takes Eliquis only once daily as by "process of elimination" she determined Eliquis was causing her to have nightmares. Continue Eliquis. Echocardiogram ordered and cardiology consulted, monitor on telemetry throughout the evening. We will also trend troponins given that she was having some chest discomfort during this episode. COPD/asthma Hypertension Continue home medications, avoid excess beta agonist for COPD given A-fib with RVR. DVT PPX: Continue Eliquis Code status: Full Discharge Plan: Home Plan to discharge in: 24 Hours - Advance Directives Does patient have a Living Will: No Does patient have a Durable POA for Healthcare: No - Code Status/Comfort Care Code Status Assessed: Yes (Full code) Critical Care: No Time Spent Managing Pts Care (In Minutes): 70
[2022-09-01] MEDS ORDERED: AMIODARONE HCL 900 MG in Dextrose 5%-Water 482 ML IV SCH (20:00)
[2022-09-01] MEDS ORDERED: NA CHLORIDE 0.9% 500 ML ONE ×2 (20:12→21:27)
[2022-09-01] MEDS: Ringers Lactate 1,000 ML IV SCH (22:00)
[2022-09-01] MEDS ORDERED: Ringers Lactate 1,000 ML IV ONE (22:39)
[2022-09-02] MEDS ORDERED: AMIODARONE IN DEXTROSE,ISO-OSM 360 MG/200 ML BAG IV ONE ×2 (00:02→00:15)
[2022-09-02 00:52] VITALS: BMI 37.0
[2022-09-02 06:50] LABS: Absolute Lymphocytes (CBC) 2.7 K/uL (0.7-4.9); Hematocrit 33.5 % (36.0-45.0); Lymphocytes % 28.8 % (15.3-44.8); MCV 91.9 fL (80-100); MPV 8.9 fL (7.6-11.3); RBC Red Blood Cell Count 3.65 M/uL (3.86-4.86)
[2022-09-02 07:15] LABS: Potassium 3.6 mmol/L (3.5-5.1); Thyroid Stimulating Hormone 1.69 uIU/mL (0.358-3.740); Troponin High Sensitivity 37.9 pg/mL (<58.9)
--- NOTE | 2022-09-02 07:21 | P.PN ---
Date of Service: 09/02/22 Subjective: Feeling back to normal denies pain no new/worsening symptoms ROS: 10 point ROS as noted above, otherwise negative Physical Exam: GEN: Alert, oriented, NAD HEENT: Atraumatic, PERRLA, Mucous membr. moist/pink, EOMI, Sclerae nonicteric CV: Sinus rhythm, trace bilateral edema Pulm: Nonlabored respirations on room air ABD: Soft, nontender, nondistended MSK: No joint tenderness Integumentary: No rashes Neuro: Normal speech, normal affect Problem List: Atrial fibrillation with rapid ventricular response COPD/asthma Hypertension Cardiology Consulted - continue IV amiodarone EKG ordered pending Trend troponin Monitor Telemetry Continue Eliquis Continue home meds as needed, avoid excess beta agonist given afib with RVR Chest X-ray negative; no acute abnormalities VTE: Eliquis Code: Full Dispo: ~24 hours
[2022-09-02] MEDS ORDERED: INFLUENZA VACCINE (for 6+ mo) 0.5 ML DOSE IMVAC ONE (08:00)
[2022-09-02] MEDS: Ringers Lactate 1,000 ML IV SCH (08:54)
[2022-09-02] MEDS ORDERED: POTASSIUM CL SA 10 MEQ TAB PO ONE (09:00)
[2022-09-02] MEDS ORDERED: APIXABAN 5 MG TABLET PO SCH (09:00)
[2022-09-02 16:28] VITALS: BP 153/63; TEMP 97.9
--- NOTE | 2022-09-02 16:38 | EKG ---
Test Date: 2022-09-01 Test Time: 19:17:18 Business Office Associate: HENRY MEASUREMENT RESULTS: Intervals: Rate: 61 NM: 190 QRSD: 78 QT: 420 QTc: 422 [place]: P: 55 NM: 190 QRS: 17 T: 58 INTERPRETIVE STATEMENTS: Normal sinus rhythm Low voltage QRS Borderline ECG Compared to ECG 09/01/2022 14:36:52 Low QRS voltage now present Atrial fibrillation no longer present Ventricular premature complex(es) no longer present ST (T wave) deviation no longer present Electronically Signed On 09-02-22 16:35:58 BULLET SWAGING MACHINE OPERATOR by Macho Hook
--- NOTE | 2022-09-02 16:39 | EKG ---
Test Date: 2022-09-01 Test Time: 14:36:52 Rework Operator: ZAC MEASUREMENT RESULTS: Intervals: Rate: 129 [place]: QRSD: 82 QT: 316 QTc: 462 [place]: P: [place]: QRS: 1 T: 43 INTERPRETIVE STATEMENTS: Atrial fibrillation with rapid ventricular response with premature ventricular or aberrantly conducted complexes Nonspecific ST abnormality, probably digitalis effect Abnormal ECG Compared to ECG 03/05/2020 14:20:12 Ventricular premature complex(es) now present ST (T wave) deviation now present Sinus rhythm no longer present Electronically Signed On 09-02-22 16:36:56 TELEPHONE SWITCHBOARD OPERATOR by Macho Hook
[2022-09-02 17:06] VITALS: O2SAT 94
[2022-09-02] MEDS ORDERED: AMIODARONE HCL 200 MG TAB PO SCH (18:00)
--- NOTE | 2022-09-02 21:32 | CON ---
Date of Consultation: 09/02/2022 Reason For Consultation: Atrial fibrillation with rapid ventricular response. History Of Present Illness: This is a 72-year-old female with history of atrial fibrillation, COPD, hypertension, presented with palpitations and chest pain. Heart rate was very fast. Blood pressure was on the low side. Started her on amiodarone drip yesterday and she converted to sinus rhythm and she feels well. Does not have any chest pain or shortness of breath today. Past Medical History: As outlined above in the HPI. Medications: Refer reconciliation sheet for detailed list. Allergies: PENICILLIN AND CODEINE. Family History: No premature coronary artery disease or cancer. Social History: She is a smoker. Does not drink or use any drugs. Review of Systems: All systems reviewed. They were negative except as mentioned in HPI. Physical Examination: Vital Signs: Reviewed. Head and Neck: Pupils are equal and reactive to light. Intact eye movements. No JVD. No cervical lymphadenopathy. Neck is supple. Thyroid is not enlarged. Lungs: Clear to auscultation bilaterally. No rhonchi, rales, or crackles. No accessory muscle use. Heart: Regular rate and rhythm. No extra sounds. Abdomen: Soft, nontender. Bowel sounds positive. No organomegaly. No masses or hernia. No rigidi ty or rebound. Extremities: No edema, clubbing, or cyanosis. Intact pulses. Skin: No rash. Neurologic: Alert, awake, and oriented x3. No acute focal deficits appreciated. Investigations: BUN 23 and creatinine 0.96. Hemoglobin is 10.9. Assessment/recommendations: 1.Atrial fibrillation with rapid ventricular response, converted to sinus on amiodarone. Continue f ull 24-hour load and then put her on 200 mg twice a day and also continue Eliquis. Change the dose t o twice a day and once amiodarone load is finished, patient can be released to follow up as an outpat ient. 2.Chest pain. Cardiac enzymes are negative. It is probably related to the fast heart rate and now it has resolved. No plan for outpatient stress test. From Cardiology standpoint, patient can be rel eased to follow up as an outpatient. SR/MODL Voice ID: [id number] Report ID: [id number]
--- NOTE | 2022-09-03 07:43 | ECHO ---
HEIGHT: 5 ft 7 in WEIGHT: 236 lb 12.8 oz DATE OF STUDY: 09/02/[address]: Rogerio Irvin NP 2-DIMENSIONAL: YES M.MODE: YES DOPPLER: YES COLOR FLOW: YES TDS: NO PORTABLE: YES DEFINITY: NO BUBBLE STUDY: NO DIAGNOSIS: ATRIAL FIBRILLATION WITH RAPID VENTRICULAR RESPONSE CARDIAC HISTORY: CATHERIZATION: SURGERY: PROSTHETIC VALVE: PACEMAKER: MEASUREMENTS (cm) DIASTOLIC (NORMALS) SYSTOLIC (NORMALS) IVSd 1.0 (0.6-1.2) LA Diam 4.6 (1.9-4.0) LVEF 63% LVIDd 5.1 (3.5-5.7) LVIDs 3.4 (2.0-3.5) %FS 34% LVPWd 1.1 (0.6-1.2) Ao Diam 2.8 (2.0-3.7) 2 DIMENSIONAL ASSESSMENT: RIGHT ATRIUM: NORMAL LEFT ATRIUM: ENLARGED RIGHT VENTRICLE: NORMAL LEFT VENTRICLE: NORMAL TRICUSPID VALVE: MILD TR MITRAL VALVE: MILD MR PULMONIC VALVE: MILD PI AORTIC VALVE: MILD AI PERICARDIAL EFFUSION: NONE AORTIC ROOT: NORMAL LEFT VENTRICULAR WALL MOTION: NORMAL DOPPLER/COLOR FLOW: SEE BELOW COMMENTS: 1. NORMAL LEFT VENTRICULAR EJECTION FRACTION 55-60%. 2. NORMAL WALL MOTION. 3. MILD MITRAL, TRICUSIPD, AORTIC AND PULMONARY REGURGITATION. 4. LEFT ATRIAL ENLARGEMENT. 5. MODERATE DIASTOLIC DYSFUNCTION. TECHNOLOGIST: Scott FINCH
== END 2022-09-02 18:46 | disposition home or self-care (01) ==
LOC: ER 13:43 → ERHOLD 19:07 → 2ND 22:29
PROVIDERS: ADMIT Hospitalist; ATTEND Hospitalist
DX: I48.11 Longstanding persistent atrial fibrillation (principal); R07.9 Chest pain, unspecified; J44.9 Chronic obstructive pulmonary disease, unspecified; J45.909 Unspecified asthma, uncomplicated; I10 Essential (primary) hypertension; F17.210 Nicotine dependence, cigarettes, uncomplicated; Z79.01 Long term (current) use of anticoagulants; Z88.6 Allergy status to analgesic agent; Z88.0 Allergy status to penicillin; Z91.013 Allergy to seafood; Z20.822 Contact with and (suspected) exposure to COVID-19
CPT/HCPCS: 93005 ×2; 93306; 85025 ×2; 80048 ×2; 36415; 83735; 85610; 80076; 84443; 84484 ×3; 84439; 83880; 0240U; 71045; 99285; J1160; J3010; J0282 ×3; J7120 ×2; J7050 ×2; J7040 ×2; 81003; 81015; G0378

== ENCOUNTER 2023-03-23 16:42 | Inpatient (IN) | payer OTHER ==
--- OUTSIDE RECORDS SUMMARY | 2023-03-23 16:46 | XMS REPORT | Continuity of Care Document ---
:1950 Author Organization [facility] t Address [address] [facility] [address] [place] [id number] Care Team Providers Name Role Phone Remberto Oneil DO Primary Care Physician FRANCISCO J FRANKS Attending Clinician Unavailable Francisco J Franks MD Attending Clinician Doctor Unassigned, Interior Attending Clinician Unavailable Only, Adc Test Attending Clinician Unavailable Pob, Adc Lab Main Attending Clinician Unavailable FRANCISCO J FRANKS Admitting Clinician Unavailable Payers Payer Name Policy Type Policy Number Effective Date Expiration Date Tony lakeishajael ZOIE/FLOYD [id number] 2021 MEDICARE ADVANTAGE 00:00:00 Problems This patient has no known problems. Allergies, Adverse Reactions, Alerts Allergy Allergy Status Severity Reaction(s) Onset Inactive Treating Comm ents Source Name Type Date Date Clinician CODEINE DRUG Active N/V Univers INGREDI 7-12 ity of 00:00: [address] Branch Codeine Drug Active Nausea 2021-0 Univers Allergy and/or 7-12 ity of Vomiting 00:00: [address] Branch Penicill Drug Active Itching 2021-0 Univers ins Allergy 7-12 ity of 00:00: [address] Branch PENICILL Drug Active ITCHING 2021-0 Univers INS Class 7-12 ity of 00:00: [address] Branch SULFA Drug Active High Rash 2020-0 Univers (SULFONA Class 3-31 ity of MIDE 00:00: [place] ANTIBIOT Medical [facility]) Branch Sulfa Drug Active Rash 2021-0 Univers (Sulfona Allergy 3-31 ity of mide 00:00: [place] Antibiot 00 Medical ics) Branch SHELLFIS DRUG Active Hives Univers H INGREDI 4-13 ity of DERIVED 00:00: [place] 00 Medical Branch Shellfis Propensi Active Hives Univer s h ty to 4-13 ity of Derived adverse 00:00: [place] reaction 00 Medical s Branch NO KNOWN Drug Active Univers ALLERGIE Class ity of S [facility] Social History Social Habit Start Date Stop Date Quantity Comments Source History of Cigarette Smoker Universi ty of tobacco use [facility] Exposure to 2022-01-01 2022-01-11 Not sure University of SARS-CoV-2 00:00:00 11:31:00 [facility] (event) [place] Tobacco use and 2022-01-11 2022-01-11 Smokeless tobacco Un iversity of exposure 00:00:00 00:00:00 non-user [facility] Sex Assigned At [birth year] Universit y of 00:00:00 00:00:00 [facility] Smoking Status Start Date Stop Date Source Tobacco smoking consumption Univ [facility] of [facility] unknown Branch Smokes tobacco daily 2022-01-11 00:00:00 Univers ity of [facility] Medications Ordered Filled Start Stop Current Ordering Indication Dosage Frequency Signature Comments Components Source Medication Medication Date Date Medication? Clinician (SIG) Name Name neomycin-po 2021- No PRN, Unive rs lymyxin-dex 01-16 Starting ity of amethasone 16:11: 16:13 on Fri [facility] s (MAXITROL) 00 :38 01/16/22 at Med ical 3.5 1111, [place] mg/g-10,000 Until Fri unit/g-0.1 01/16/22 at % 1113, ophthalmic Routine, ointment Intra-op ceFAZolin 2021- No PRN, Univers (ANCEF) 01-16 Starting ity of injection 16:09: 16:13 on Fri [place] 00 :38 01/16/22 at Medical 1109, Branch Until Fri01/16/22 at 1113, CARLOS, Intra-op carbachoL 2021- No PRN, Univers (MIOSTAT) 01-16 Starting ity o f 0.01 % 16:09: 16:13 on Fri [place] intraocular 00 :38 22 at Pa dical injection 1109, Branch Until 01/16/22 at 1113, Routine, Intra-op sodium 2021- No PRN, Univers chloride 01-16 Starting ity of (NS) 16:09: 19:50 on Fri [place] injection 00 :32 22 at [facility] garth 1109, Branch Until Fri01/16/22 at 1450, Routine, Intra-op dexamethaso 2021- No PRN, Unive rs ne 01-16 Starting ity of (DECADRON 16:09: 19:50 on Fri [place] PHOSPHATE) 00 :32 01/16/22 at [facility] ical injection 1109, Branch Until Fri01/16/22 at 1450, Routine, Intra-op EPINEPHrine 2021- No PRN, Unive rs 1:1,000 (1 01-16 Starting ity of mg/mL) 15:56: 16:13 on Fri [place] (ADRENALIN) 00 :38 01/16/22 at Pa dical injection 1056, Branch Until 01/16/22 at [...] ity of soln comb1 15:56: 16:13 on Fri [place] (BSS PLUS) 00 :38 22 at Med ical ophthalmic 1056, Branch solution Until Wed 500 mL bag 01/16/22 at 1113, Routine, Intra-op water for 2021- No PRN, Univers irrigation 01-16 Starting ity of irrigation 15:52: 16:13 on Wed [place] solution 00 :38 7/20/22 at Medic al 1052, Branch Until Fri01/16/22 [...] mL lactated 2021- No 1000mL at 42 [facility] rs ringers IV 01-16 mL/hr, ity of infusion 14:30: 14:33 1,000 mL, [place] as 1,000 mL 00 :00 IV Medical Infusion, Branch ONCE, 1 dose, On Fri01/16/22 at 0930, Routine, DSU Pre-op acetaminoph Yes 650mg Take 650 U nivers en (TYLENOL 7-20 mg by ity of ARTHRITIS 12:45: mouth [place] PAIN) 650 27 every 8 Medical mg CR (eight) Branch tablet hours as needed for Pain. Takes at bedtime diphenhydrA Yes 25mg Take 25 mg Univers MINE 25 mg 7-20 by mouth ity o f tablet 12:45: at [place] 27 bedtime. Medical Branch acetaminoph Yes 650mg Take 650 U nivers en (TYLENOL 7-20 mg by ity of ARTHRITIS 12:45: mouth [place] PAIN) 650 27 every 8 Medical mg CR (eight) Branch tablet hours as needed for Pain. Takes at bedtime diphenhydrA 2021-0 Yes 25mg Take 25 mg Univers MINE 25 mg 7-20 by mouth ity o f tablet 12:45: at [place] 27 bedtime. Medical Branch acetaminoph 0 Yes 650mg Take 650 U nivers en (TYLENOL 7-15 mg by ity of ARTHRITIS 11:25: mouth [place] PAIN) 650 56 every 8 Medical mg CR (eight) Branch tablet hours as needed for Pain. Takes at bedtime diphenhydrA 2021-0 Yes 25mg Take 25 mg Univers MINE 25 mg 7-15 by mouth ity o f tablet 11:25: at [place] 56 bedtime. Medical Branch ELIQUIS 5 Yes 5mg Take 5 mg Uni vers mg tablet 6-21 by mouth 2 ity of 00:00: (two) [place] 00 times Medical daily. Branch ELIQUIS 5 Yes 5mg Take 5 mg Uni vers mg tablet 6-21 by mouth 2 ity of 00:00: (two) [place] 00 times Medical daily. Branch ELIQUIS 5 Yes 5mg Take 5 mg Uni vers mg tablet 6-21 by mouth 2 ity of 00:00: (two) [place] 00 times Medical daily. Branch BREO Yes [...] by mouth ity of 00:00: in the [place] 00 morning Medical and 80 mg Branch in the evening. sotaloL 80 2021-0 Yes 80mg Take 80 mg U nivers mg tablet 5-25 by mouth ity of 00:00: in the [place] 00 morning Medical and 80 mg Branch in the evening. sotaloL 80 Yes 80mg Take 80 mg U nivers mg tablet 5-25 by mouth ity of 00:00: in the [place] morning Medical and 80 mg Branch in the evening. escitalopra 0 Yes 5mg Take 5 mg U nivers m oxalate 5 4-24 by mouth ity of mg tablet 00:00: in the [place] morning. Medical Branch escitalopra 0 Yes 5mg Take 5 mg U nivers m oxalate 5 4-24 by mouth ity of mg tablet 00:00: in the [place] morning. Medical Branch escitalopra 0 Yes 5mg Take 5 mg U nivers m oxalate 5 4-24 by mouth ity of mg tablet 00:00: in the [place] morning. Medical Branch spironolact Yes 1{tbl} Take 1 Un mitch one-hydroch 4-22 tablet by ity of lorothiazid 00:00: mouth [place] e 25-25 mg 00 every Medical per tablet morning. [facility] spironolact Yes 1{tbl} Take 1 Un mitch one-hydroch 4-22 tablet by ity of lorothiazid 00:00: mouth [place] e 25-25 mg 00 every Medical per tablet morning. [facility] spironolact Yes 1{tbl} Take 1 Un mitch one-hydroch 4-22 tablet by ity of lorothiazid 00:00: mouth [place] e 25-25 mg 00 every Medical per tablet morning. [facility] albuterol 2021- No 2.5mg Inhale 2.5 [...] Branch solution albuterol No 2{puff} Inhale 2 [facility] 90 03-29 10- Puffs ity of mcg/actuati 00:00: 04:59 every 6 [place] on inhaler 00 :00 (six) Medical hours as Branch needed. Vital Signs Vital Name Observation Time Observation Value Comments Source Oxygen saturation in 2022-01-16 14:30:00 96 /min [facility] Arterial blood by [facility] Pulse oximetry [place] Systolic blood 2022-01-16 14:30:00 134 mm[Hg] [facility] Diastolic blood 2022-01-16 14:30:00 60 mm[Hg] [facility] Heart rate 2022-01-16 14:30:00 61 /min [facility] Body temperature 2022-01-16 14:30:00 36.11 Sarah [facility] Respiratory rate 2022-01-16 14:30:00 18 /min [facility] Body height 2022-01-08 18:53:00 170.3 cm [facility] Body weight 2022-01-08 18:53:00 99.8 kg [facility] BMI 2022-01-08 18:53:00 34.41 kg/m2 [facility] Procedures Procedure Date / Time Performing Source Performed Clinician PHACOEMULSIFICATION OF 2022-01-16 Francisco J Franks [facility] CATARACT WITH INTRAOCULAR 15:39:[address] [facility] LENS IMPLANT DAY SURGERY - [facility] 2022-01-16 Doctor Geovanna, [facility] 05:01:00 Interior [facility] Encounters Start End Encounter Admission Attending Care Care Encounter Source Date/Time Date/Time Type Type Clinicians Facility Department ID 2022-01-16 2022-01-16 Outpatient R JOVANY [facility] OPH [id number] Univers 09:19:00 11:51:00 FRANCISCO J amado [facility] 2022-01-16 2022-01-16 Surgery Jovany [facility] [id number] Univers 10:06:00 10:39:00 Francisco J SCOTT [id number] ity of [id number] SUR[place]ICAL [id number] [facility] 020 [place] 2022-01-16 2022-01-16 Orders Doctor ESPOSITO [id number] Univers 00:00:00 00:00:00 Only AshleyssLUIS MIGUEL serrato [id number] ity of Interior HOSPITAL [id number] Basil as [id number] [facility] 009 [place] 2022-01-14 2022-01-14 Laboratory Only, [employer] Test [facility] [id number]. [id number] Univers 10:45:00 11:00:00 Only Francisco J Franks [id number] 0 ity of [facility] [id number] [place] CAMPUS [id number] [facility] 353 [place] 2022-01-14 2022-01-14 Outpatient R JOVANY [facility] [id number] Univers 10:45:00 10:45:00 FRANCISCO J amado [facility] 2022-01-07 2022-01-07 Rn Circulating Melissa Beltrán Lab Main [facility] [id number] Univers 11:45:00 12:00:00 Visit Francisco J Franks [id number] 0 [place]y [id number] PROFESSIO [id number] Pa dical [address] 2022-01-07 2022-01-07 Outpatient R JOVANY [facility] [id number] [facility] 11:45:00 11:45:00 FRANCISCO J amado [facility] Results This patient has no known results.
[2023-03-23 17:48] LABS: Absolute Lymphocytes (CBC) 2.4 K/uL (0.7-4.9); Hematocrit 30.2 % (36.0-45.0); Lymphocytes % 22.4 % (15.3-44.8); MCV 91.1 fL (80-100); MPV 9.4 fL (7.6-11.3); Platelets 233 thou/uL (152-406); RBC Red Blood Cell Count 3.31 M/uL (3.86-4.86)
[2023-03-23 17:52] LABS: Protime INR 1.64
[2023-03-23 18:00] LABS: Urine Bacteria >50 /HPF (<20); Urine Bilirubin NEGATIVE (Negative); Urine Blood Negative (Negative); Urine Clarity Extremely Turbid (Clear); Urine Color Yellow (Yellow); Urine Glucose NEGATIVE (Negative); Urine Mucus Slight /HPF (None Seen); Urine Protein TRACE (Negative); Urine Urobilinogen 1+ (Normal); Urine pH 5.5 (5.0-7.0)
[2023-03-23 18:03] LABS: Albumin 2.6 g/dL (3.4-5.0); Bilirubin Total 0.3 mg/dL (0.2-1.0); Potassium 3.7 mEq/L (3.5-5.1)
--- NOTE | 2023-03-23 18:47 | RAD REPORT ---
EXAM DESCRIPTION: RAD - Chest Single View - 03/23/2023 6:04 pm CLINICAL HISTORY: DYSPNEA COMPARISON: Chest Single View dated 09/01/2022; Chest Single View dated 03/05/2020; Chest Single View da little 10/01/2019; Chest Single View dated 09/03/2018 FINDINGS: Lines: None. Lungs: No evidence of edema or pneumonia. Pleural: No significant pleural effusions or pneumothorax. Cardiac: The heart size is within normal limits. Mediastinum: Within normal limits. Bones: No acute fractures. Other: None IMPRESSION: No acute cardiopulmonary disease.
[2023-03-23] MEDS ORDERED: ONDANSETRON 4 MG/2 ML VIAL IV PRN (19:13)
--- NOTE | 2023-03-23 19:15 | ER ---
Nurse's Notes [facility] [place] Name: Sunshine Mead Age: 72 yrs Sex: Female : 1950 Arrival Date: 03/23/2023 Time: 16:42 Bed 17 Private MD: Diagnosis: Acute kidney failure, unspecified;Cutaneous abscess of right upper limb;UTI/ Urinary tract infection, site not specified Presentation: 03/23 17:03 Chief complaint: Patient states: she has a right abscess on her right elbow since ap3 Friday03/21/23. Coronavirus screen: At this time, the client does not indicate any symptoms associated with coronavirus-19. Ebola Screen: No symptoms or risks identified at this time. Initial Sepsis Screen:. Risk Assessment: Do you want to hurt yourself or someone else? Patient reports no desire to harm self or others. Onset of symptoms was March 21, 2023. 17:03 Method Of Arrival: Wheelchair ap3 17:06 Initial Sepsis Screen: Does the patient have a suspected source of infection? Yes: Skin ap3 breakdown/wound. 17:08 Initial Sepsis Screen: Does the patient meet any 2 criteria? Mean Arterial Pressure ap3 (MAP) < 65. 17:08 Acuity: AZRA 3 ap3 Triage Assessment: 17:04 General: Appears in no apparent distress. Behavior is calm, cooperative, appropriate ap3 for age. Pain: Complains of pain in dorsal aspect of right forearm. Neuro: Level of Consciousness is awake, alert, obeys commands, Oriented to person, place, time, situation. Cardiovascular: Patient's skin is warm and dry. Respiratory: Airway is patent Respiratory effort is even, unlabored, Respiratory pattern is regular, symmetrical. Derm: Abscess located on dorsal aspect of right forearm. Historical: - Allergies: 17:04 Codeine; ap3 17:04 Demerol; ap3 17:04 PENICILLINS; ap3 17:04 SHELLFISH; ap3 - Home Meds: 17:10 Eliquis Oral [Active]; spironolacton-hydrochlorothiaz Oral [Active]; Amiodarone Oral ap3 [Active]; - PMHx: 17:04 Asthma; Atrial Fib; Atrial Fib; COPD; Hypertension; ap3 - Immunization history:: Client reports receiving the 2nd dose of the Covid vaccine. - Social history:: Smoking status: Patient denies any tobacco usage or history of. Screenin:05 Abuse screen: Denies threats or abuse. Nutritional screening: No deficits noted. ap3 Tuberculosis screening: No symptoms or risk factors identified. 18:54 [facility] ED Fall Risk Assessment (Adult) History of falling in the last 3 months, ld1 including since admission No falls in past 3 months (0 pts). Assessment: 18:54 General: Appears in no apparent distress. comfortable, Behavior is calm, cooperative, ld1 appropriate for age. Pain: Denies pain. Neuro: Level of Consciousness is awake, alert, obeys commands, Oriented to person, place, time, situation. Cardiovascular: Capillary refill < 3 seconds Patient's skin is warm and dry. Respiratory: Airway is patent Respiratory effort is even, unlabored. GI: Abdomen is round non-distended. : No signs and/or symptoms were reported regarding the genitourinary system. EENT: No signs and/or symptoms were reported regarding the EENT system. Derm: Abscess located on palmar aspect of right forearm. Musculoskeletal: No signs and/or symptoms reported regarding the musculoskeletal system. 20:37 General: Appears in no apparent distress. comfortable, Behavior is calm, cooperative. lg3 Pain: Denies pain. Neuro: No deficits noted. King Agitation-Sedation Scale (RASS): 0 - Alert and Calm Level of Consciousness is awake, alert, obeys commands, Oriented to person, place, time, situation. Cardiovascular: No deficits noted. Denies chest pain, shortness of breath, Capillary refill < 3 seconds Clubbing of nail beds is absent Patient's skin is warm and dry. Respiratory: No deficits noted. Airway is patent Respiratory effort is even, unlabored, Respiratory pattern is regular, symmetrical. GI: No deficits noted. No signs and/or symptoms were reported involving the gastrointestinal system. Abdomen is round non-distended, obese. : No deficits noted. No signs and/or symptoms were reported regarding the genitourinary system. EENT: No deficits noted. No signs and/or symptoms were reported regarding the EENT system. Derm: Skin is intact, Skin is dry, Skin is normal, Skin temperature is warm Abscess located on right arm. Musculoskeletal: No deficits noted. No signs and/or symptoms reported regarding the musculoskeletal system. Circulation, motion, and sensation intact. Range of motion: intact in all extremities. 20:59 General: attempted to call report. no answer . lg3 Vital Signs: 17:05 Pulse 66; Resp 18; Temp 98.5; Pulse Ox 97% ; Weight 108.86 kg; ap3 17:08 BP 93 / 40; ap3 17:38 BP 114 / 54; Pulse 71; Resp 18; Pulse Ox 97% on R/A; ld1 18:54 BP 137 / 46; Pulse 62; Resp 18; Pulse Ox 99% on R/A; ld1 20:37 BP 116 / 47; Pulse 63; Resp 16 S; Pulse Ox 100% on R/A; lg3 ED Course: 16:45 Patient arrived in ED. mr 16:47 Dyan Camejo FNP-C is [facility]. kb 16:47 Jaspreet Leiva MD is Attending Physician. kb 17:04 Triage completed. ap3 17:05 Arm band placed on left wrist. ap3 17:06 Patient has correct armband on for positive identification. Adult w/ patient. ap3 17:18 Chayo La, VIJAY is Primary Nurse. ld1 18:06 Chest Single View XRAY In Process Unspecified. EDMS 18:54 desk monitor on. Pulse ox on. NIBP on. Door closed. Noise minimized. Warm blanket ld1 given. 18:54 No provider procedures requiring assistance completed. ld1 19:14 Lin Falcon MD is Hospitalizing Provider. kb 20:37 Patient maintains SpO2 saturation greater than 95% on room air. lg3 21:18 Patient admitted, IV remains in place. lg3 Administered Medications: 20:35 Drug: levofloxacin IVPB 750 mg 150 ml IVPB once over 90 mins Volume: 150 ml; Route: lg3 IVPB; Infused Over: 90 mins; Site: right antecubital; Medication: 18:54 VIS not applicable for this client. ld1 Outcome: 19:14 Decision to Hospitalize by Provider. kb 21:17 Admitted to Med/surg accompanied by tech, via wheelchair, room 208, lg3 21:17 Condition: stable 21:17 Instructed on the need for admit, Demonstrated understanding of instructions, 21:49 Patient left the ED. as6 Signatures: Dispatcher [employer] EDOK Dyan Camejo FNP-C HORSE SHOW MANAGER-Sarah Merrill, Reg Reg mr MarquezLeni, RN RN ap3 Maren Rivera, RN RN lg3 Chayo La RN RN ld1 Gerry Duran RN RN as6 Corrections: (The following items were deleted from the chart) 17:08 17:03 Acuity: AZRA 4 ap3 ap3
--- NOTE | 2023-03-23 19:15 | EDPHYS ---
Physician Documentation [facility] Name: Sunshine Mead Age: 72 yrs Sex: Female : 1950 Arrival Date: 03/23/2023 Time: 16:42 Bed 17 Private MD: ED Physician Jaspreet Leiva HPI: 03/23 19:13 This 72 yrs old Female presents to ER via Wheelchair with complaints of Abscess. kb 19:13 The patient presents with an abscess of the dorsal aspect of right forearm. kb Description: erythematous, swollen. Onset: The symptoms/episode began/occurred 3 day(s) ago. Possible cause(s): unknown. Associated signs and symptoms: Pertinent positives: erythema, swelling. Modifying factors: the symptoms are alleviated by nothing, the symptoms are aggravated by pressure, squeezing the lesion and expressing the contents. Severity of symptoms: At their worst the symptoms were mild, moderate, in the emergency department the symptoms are unchanged. The patient has not experienced similar symptoms in the past. The patient has not recently seen a physician. Historical: - Allergies: 17:04 Codeine; ap3 17:04 Demerol; ap3 17:04 PENICILLINS; ap3 17:04 SHELLFISH; ap3 - Home Meds: 17:10 Eliquis Oral [Active]; spironolacton-hydrochlorothiaz Oral [Active]; Amiodarone Oral ap3 [Active]; - PMHx: 17:04 Asthma; Atrial Fib; Atrial Fib; COPD; Hypertension; ap3 - Immunization history:: Client reports receiving the 2nd dose of the Covid vaccine. - Social history:: Smoking status: Patient denies any tobacco usage or history of. ROS: 19:10 Constitutional: Negative for fever, chills, and weight loss, kb 19:10 Skin: Positive for abscess, erythema, swelling, of the palmar aspect of right forearm, 19:10 All other systems are negative, Exam: 19:10 Constitutional: This is a well developed, well nourished patient who is awake, alert, kb and in no acute distress. Head/Face: Normocephalic, atraumatic. ENT: Moist Mucous membranes Cardiovascular: Regular rate Respiratory: Respirations even and unlabored. No increased work of breathing. Talking in full sentences Abdomen/GI: Soft, non-tender. No distention MS/ Extremity: Pulses equal, no cyanosis. Neurovascular intact. Full, normal range of motion. Neuro: Awake and alert, GCS 15, oriented to person, place, time, and situation. Moves all extremities. Normal gait. 19:10 Cardiovascular: Rate: normal, Rhythm: regular, Pulses: no pulse deficits are appreciated, Heart sounds: normal, Edema: 2+ edema to level of left foot and right foot, 19:10 ECG was reviewed by the Attending Physician. 19:10 Skin: abscess, that is small, of the palmar aspect of right forearm, deroofed and drained very small amount of purulent drainage, Vital Signs: 17:05 Pulse 66; Resp 18; Temp 98.5; Pulse Ox 97% ; Weight 108.86 kg; ap3 17:08 BP 93 / 40; ap3 17:38 BP 114 / 54; Pulse 71; Resp 18; Pulse Ox 97% on R/A; ld1 18:54 BP 137 / 46; Pulse 62; Resp 18; Pulse Ox 99% on R/A; ld1 20:37 BP 116 / 47; Pulse 63; Resp 16 S; Pulse Ox 100% on R/A; lg3 MDM: 16:47 Patient medically screened. kb 19:06 Differential diagnosis: abscess, allergic reaction, cellulitis, insect bite. Data kb reviewed: vital signs, nurses notes. Consideration of Admission/Observation Patient was admitted/placed on observation. Escalation of care including admission/observation considered. Management of patient was discussed with the following: Hospitalist: LELA Yang accepts pt for admission under Dr Falcon. Counseling: I had a detailed discussion with the patient and/or guardian regarding the historical points, exam findings, and any diagnostic results supporting the discharge/admit diagnosis, lab results, radiology results, the need for further work-up and treatment in the hospital. 03/23 17:17 Order name: Blood Culture Adult (2) kb 03/23 17:17 Order name: CBC with Diff; Complete Time: 17:49 kb 03/23 17:17 Order name: CMP; Complete Time: 18:05 kb 03/23 17:17 Order name: Lactate w/ 2H reflex if indic.; Complete Time: 18:05 kb 03/23 17:17 Order name: Protime (+inr); Complete Time: 18:02 kb 03/23 17:17 Order name: Ptt, Activated; Complete Time: 18:02 kb 03/23 17:17 Order name: Urinalysis w/ reflexes; Complete Time: 18:02 kb 03/23 18:03 Order name: Urine Culture EDMA 03/23 19:19 Order name: Basic Metabolic Panel EDMA 03/23 19:19 Order name: Basic Metabolic Panel EDMA 03/23 19:19 Order name: Basic Metabolic Panel EDMA 03/23 19:19 Order name: Basic Metabolic Panel EDMA 03/23 19:19 Order name: CBC with Automated Diff EDMS 03/23 19:19 Order name: CBC with Automated Diff EDMS 03/23 19:19 Order name: CBC with Automated Diff EDMS 03/23 19:19 Order name: CBC with Automated Diff EDMS 03/23 19:19 Order name: Magnesium EDMA 03/23 19:19 Order name: Magnesium [facility] 03/23 19:19 Order name: Magnesium [facility] 03/23 19:19 Order name: Magnesium [facility] 03/23 17:17 Order name: Chest Single View XRAY; Complete Time: 18:49 kb 03/23 17:17 Order name: EKG; Complete Time: 17:17 kb 03/23 19:15 Order name: CONS Physician Consult EDMA 03/23 19:19 Order name: Renal EDMA 03/23 17:17 Order name: Accucheck; Complete Time: 17:38 kb 03/23 17:17 Order name: Cardiac monitoring; Complete Time: 17:33 kb 03/23 17:17 Order name: EKG - Nurse/Tech; Complete Time: 17:33 kb 03/23 17:17 Order name: IV Saline Lock - Large Bore; Complete Time: 17:38 kb 03/23 17:17 Order name: Labs collected and sent; Complete Time: 17:38 kb 03/23 17:17 Order name: O2 Per Protocol; Complete Time: 17:33 kb 03/23 17:17 Order name: O2 Sat Monitoring; Complete Time: 17:33 kb 03/23 17:17 Order name: Vital Signs; Complete Time: 17:38 kb EC:10 Rate is 62 beats/min. Rhythm is regular. QRS [place] is Normal. [place] interval is prolonged kb at 210 msec. QRS interval is normal at 94 msec. QT interval is normal at 497 msec. Administered Medications: 20:35 Drug: levofloxacin IVPB 750 mg 150 ml IVPB once over 90 mins Volume: 150 ml; Route: lg3 IVPB; Infused Over: 90 mins; Site: right antecubital; Disposition Summary: 03/23/23 19:14 Hospitalization Ordered Notes: Hospitalization Status: Inpatient Admission kb Provider: Lin Falcon Location: Telemetry/[facility] [place] (Inpatient) kb Condition: Stable kb Problem: new kb Symptoms: are unchanged kb Bed/Room Type: Standard Room Assignment: 208(03/23/23 20:17) mw Diagnosis - Acute kidney failure, unspecified kb - Cutaneous abscess of right upper limb kb - UTI/ Urinary tract infection, site not specified kb Forms: - Medication Reconciliation Form kb - SBAR form kb - Leadership Thank You Letter kb Signatures: Dispatcher [employer] Dyan Rajan, YUNG-C ORNAMENTAL METAL WORKER HELPER-Lindsey Quintero RN RN Leni Escoto RN RN ap3 Maren Rivera RN RN lg3 Corrections: (The following items were deleted from the chart) 20:17 19:14 kb mw
--- NOTE | 2023-03-23 19:33 | P.HP ---
Certification for Inpatient Patient admitted to: Observation With expected LOS: <2 Midnights Patient will require the following post-hospital care: None Practitioner: I am a practitioner with admitting privileges, knowledge of patient current condition, hospital course, and medical plan of care. Services: Services provided to patient in accordance with Admission requirements found in Title 42 Section 412.3 of the Code of Federal Regulations Patient History Date of Service: 03/23/23 Reason for admission: R elbow abscess, UTI History of Present Illness: 72 yrs old Female with past medical history of Asthma; Atrial Fib on Eliquis, COPD; Hypertension presents to the emergency room for abscess dorsal aspect of right forearm. She reports redness, swelling, that started 3 days ago. She reports moderate pain, she denies injury. She denies fever, chills, NVD, abdominal pain or chest pain. ER evaluation VS hypotensive BP 93 / 405 Pulse 66; Resp 18; Temp 98.5; Pulse Ox 97%. EKG Rate is 62 beats/min. Rhythm is regular. QRS [place] is Normal. [place] interval is prolongedat 210 msec. QRS interval is normal at 94 msec. QT interval is normal at 497 msec. Plan to admit for Acute kidney failure, unspecified, Cutaneous abscess of right upper limb, UTI/ Urinary tract infection, site not specified CBC Normocytic anemia HH 1.1, 30.2, BUN 44, CR 2.19, EST GFR 23, UA Leukoesterase >500, Hyaline casts 10-20, bacteria >50, CXR IMPRESSION: No acute cardiopulmonary disease. Allergies Penicillins Allergy (Verified 09/04/18 00:53) Unknown codeine Adverse Reaction (Verified 10/02/19 01:03) Itching shellfish derived Adverse Reaction (Verified 09/04/18 00:53) Hives/Rash Home Medications: Albuterol Neb [Proventil 0.083% Neb Soln] 2.5 mg IH PRN PRN 09/13/17 Fluticasone/Vilanterol [Breo Ellipta 200-25 Mcg INH] 1 each IH PRN PRN 09/13/17 Apixaban [Eliquis *] 5 mg PO BID 10/02/19 Spironolact/Hydrochlorothiazid [Aldactazide 25-25 Tablet] 1 each PO DAILY 10/02/19 Amiodarone HCl [Pacerone] 200 mg PO BID 30 Days #60 tab 09/02/22 - Past Medical/Surgical History Diabetic: No -: Afib -: COPD -: Asthma -: Hypertension -: choley -: appy -: R. hip replacement -: Tubal ligation Psychosocial/ Personal History: Patient lives at home, alone. - Family History Father -: Cancer - Social History Smoking Status: Former smoker Alcohol use: No CD- Drugs: No Caffeine use: Yes Place of Residence: Home Review of Systems 10-point ROS is otherwise unremarkable Physical Examination - Physical Exam General: Alert, In no apparent distress, Oriented x3 HEENT: Atraumatic, Normocephalic Neck: Supple, 2+ carotid pulse no bruit Respiratory: Normal air movement, Expiratory wheezes, Inspiratory wheezes Cardiovascular: No edema, Normal pulses Capillary refill: <2 Seconds Gastrointestinal: Normal bowel sounds, Soft and benign Musculoskeletal: No clubbing, No swelling Integumentary: Other (Right dorsal elbow abscess, edema, erythema) Neurological: Normal speech, Normal strength at 5/5 x4 extr - Studies Laboratory Data (last 24 hrs) 03/23/23 03/23/23 03/23/23 17:30 17:30 17:30 WBC 10.80 Hgb 10.0 L Hct 30.2 L Plt Count 233 PT 18.0 H INR 1.64 APTT 38.3 H Sodium 137 Potassium 3.7 BUN 44 H Creatinine 2.19 H Glucose 126 H Total Bilirubin 0.3 AST 23 ALT 32 Alkaline Phosphatase 117 Assessment and Plan - Plan Assessment plan Acute kidney failure, unspecified Acute cystitis Cutaneous abscess of right upper limb History asthma Atrial Fib on Eliquis Normocytic anemia COPD Hypertension DVT Eliquis Assessment plan Acute kidney failure, unspecified Acute cystitis Dr. Oneil consulted, IV fluids, IV antibiotics Levaquin BUN 44, CR 2.19, EST GFR 23, UA Leukoesterase >500, Hyaline casts 10-20, bacteria >50 Trend kidney function avoid nephrotoxic medications Cutaneous abscess of right upper limb IV Levaquin History asthma COPD CXR IMPRESSION: No acute cardiopulmonary disease. Nebs, prn 02 keep sats > 92% Atrial Fib on Eliquis Hypertension EKG Rate is 62 beats/min. Rhythm is regular. QRS [place] is Normal. [place] interval is prolongedat 210 msec. QRS interval is normal at 94 msec. QT interval is normal Resume appropriate home meds Normocytic anemia HH 10, 30.2, diet renal full code DVT Eliquis Discharge Plan: Home Plan to discharge in: 24 Hours - Advance Directives Does patient have a Living Will: No Does patient have a Durable POA for Healthcare: No - Code Status/Comfort Care Code Status Assessed: Yes Code Status: Full Code Physician Review: Patient Assessed, Agree with Above Assessment and Plan Critical Care: No Time Spent Managing Pts Care (In Minutes): 50
[2023-03-23] MEDS ORDERED: Levofloxacin 750mg IV 750 MG/150 ML BAG IV SCH (20:00)
[2023-03-23] MEDS ORDERED: Levofloxacin 750mg IV 750 MG/150 ML BAG IV ONE (20:13)
[2023-03-23] MEDS: IPRATROPIUM BROM 0.5MG/2.5ML NEB PRN (22:00)
[2023-03-23] MEDS: BUDESONIDE 0.25 MG/2 ML NEB NEB SCH (22:00)
[2023-03-23] MEDS: ALBUTEROL 2.5 MG/3 ML NEB SOL NEB PRN (22:00)
[2023-03-23] MEDS: AMIODARONE HCL 200 MG TAB PO SCH (22:08)
[2023-03-23] MEDS: NA CHLORIDE 0.9% 1,000 ML IV SCH (22:08)
[2023-03-23] MEDS: APIXABAN 5 MG TABLET PO SCH (22:08)
[2023-03-23 22:36] VITALS: BMI 36.0
[2023-03-24] MEDS ORDERED: SMZ./TMP. 800/160 MG TABLET PO SCH (02:23)
[2023-03-24] MEDS: CEFEPIME 1 GM in NA CHLORIDE 0.9% 100 ML IV SCH ×3 (02:52→23:41)
[2023-03-24] MEDS: ACETAMINOPHEN 500 MG TAB PO PRN ×2 (02:57→20:15)
[2023-03-24 03:08] LABS: Absolute Lymphocytes (CBC) 2.3 K/uL (0.7-4.9); Hematocrit 27.7 % (36.0-45.0); Lymphocytes % 22.3 % (15.3-44.8); MCV 90.5 fL (80-100); MPV 9.7 fL (7.6-11.3); Platelets 203 thou/uL (152-406); RBC Red Blood Cell Count 3.06 M/uL (3.86-4.86)
[2023-03-24 03:26] LABS: Magnesium 1.6 mg/dL (1.6-2.4); Potassium 3.9 mEq/L (3.5-5.1)
[2023-03-24] MEDS ORDERED: POTASSIUM CL SA 10 MEQ TAB PO ONE (06:00)
[2023-03-24] MEDS ORDERED: MAGNESIUM SULFATE 1 gm IVPB 1 GM/100 ML BAG IV ONE (06:00)
[2023-03-24] MEDS: NA CHLORIDE 0.9% 1,000 ML IV SCH (07:46)
[2023-03-24] MEDS: AMIODARONE HCL 200 MG TAB PO SCH ×2 (07:46→20:15)
[2023-03-24] MEDS: APIXABAN 5 MG TABLET PO SCH (07:46)
[2023-03-24] MEDS: BUDESONIDE 0.25 MG/2 ML NEB NEB SCH ×2 (08:00→19:00)
--- NOTE | 2023-03-24 08:53 | P.CNS ---
Date of Consult: 03/24/23 Reason for Consult: PATRIZIA/ CKD Requesting Physician: Gavin Phelan Chief Complaint: R elbow abscess, UTI History of Present Illness: 72 yrs old Female with past medical history of Asthma; Atrial Fib on Eliquis, COPD; Hypertension presents to the emergency room for abscess dorsal aspect of right forearm. She reports redness, swelling, that started 3 days ago. She reports moderate pain, she denies injury. She denies fever, chills, NVD, abdominal pain or chest pain. ER evaluation VS hypotensive BP 93 / 405 Pulse 66; Resp 18; Temp 98.5; Pulse Ox 97%. EKG Rate is 62 beats/min. Rhythm is regular. QRS [place] is Normal. [place] interval is prolongedat 210 msec. QRS interval is normal at 94 msec. QT interval is normal at 497 msec. Plan to admit for Acute kidney failure, unspecified, Cutaneous abscess of right upper limb, UTI/ Urinary tract infection, site not specified CBC Normocytic anemia HH 1.1, 30.2, BUN 44, CR 2.19, EST GFR 23, UA Leukoesterase >500, Hyaline casts 10-20, bacteria >50, CXR IMPRESSION: No acute cardiopulmonary disease. 19:13 This 72 yrs old Female presents to ER via Wheelchair with complaints of Abscess. kb 19:13 The patient presents with an abscess of the dorsal aspect of right forearm. kb Description: erythematous, swollen. Onset: The symptoms/episode began/occurred 3 day(s) ago. Possible cause(s): unknown. Associated signs and symptoms: Pertinent positives: erythema, swelling. Modifying factors: the symptoms are alleviated by nothing, the symptoms are aggravated by pressure, squeezing the lesion and expressing the contents. Severity of symptoms: At their worst the symptoms were mild, moderate, in the emergency department the symptoms are unchanged. The patient has not experienced similar symptoms in the past. The patient has not recently seen a physician. She reports taking something at night for her OA but is not sure if it is ibuprofen. Allergies Penicillins Allergy (Verified 09/04/18 00:53) Unknown codeine Adverse Reaction (Verified 10/02/19 01:03) Itching shellfish derived Adverse Reaction (Verified 09/04/18 00:53) Hives/Rash Home medications list reviewed: Yes Home Medications: Albuterol Neb [Proventil 0.083% Neb Soln] 2.5 mg IH PRN PRN 09/13/17 Fluticasone/Vilanterol [Breo Ellipta 200-25 Mcg INH] 1 each IH PRN PRN 09/13/17 Apixaban [Eliquis *] 5 mg PO BID 10/02/19 Amiodarone HCl [Pacerone] 200 mg PO BID 30 Days #60 tab 09/02/22 Spironolact/Hydrochlorothiazid [Spironolactone-Hctz 25-25 Tab] 25 mg PO DAILY 03/23/23 Torsemide 10 mg PO DAILY 03/23/23 - Past Medical/Surgical History Diabetic: No -: Afib -: COPD -: Asthma -: Hypertension -: choley -: appy -: R. hip replacement -: Tubal ligation Psychosocial/ Personal History: Patient lives at home, alone. - Family History Father Medical History: Cancer - Social History Smoking Status: Current every day smoker Alcohol use: No CD- Drugs: No Caffeine use: Yes Place of Residence: Home Review of Systems 10-point ROS is otherwise unremarkable General: Malaise Physical Examination Temp Pulse Resp BP Pulse Ox 96.7 F L 63 17 106/49 L 93 03/24/23 04:00 03/24/23 04:00 03/24/23 04:00 03/24/23 04:00 03/24/23 04:00 General: In no apparent distress, Oriented x3, Cooperative HEENT: Atraumatic Neck: Supple Respiratory: Clear to auscultation bilaterally Cardiovascular: No edema, Regular rate/rhythm Gastrointestinal: Soft and benign, Non-distended Musculoskeletal: No clubbing, No contractures Integumentary: No cyanosis, Rash(es), Erythema Neurological: Normal speech Laboratory Data (last 24 hrs) 03/23/23 03/23/23 03/23/23 17:30 17:30 17:30 WBC 10.80 Hgb 10.0 L Hct 30.2 L Plt Count 233 PT 18.0 H INR 1.64 APTT 38.3 H Sodium 137 Potassium 3.7 BUN 44 H Creatinine 2.19 H Glucose 126 H Total Bilirubin 0.3 AST 23 ALT 32 Alkaline Phosphatase 117 Imagings Data: EXAM DESCRIPTION: RAD - Chest Single View - 03/23/2023 6:04 pm CLINICAL HISTORY: DYSPNEA COMPARISON: Chest Single View dated 09/01/2022; Chest Single View dated 03/05/2020; Chest Single View dated 10/01/2019; Chest Single View dated 09/03/2018 FINDINGS: Lines: None. Lungs: No evidence of edema or pneumonia. Pleural: No significant pleural effusions or pneumothorax. Cardiac: The heart size is within normal limits. Mediastinum: Within normal limits. Bones: No acute fractures. Other: None IMPRESSION: No acute cardiopulmonary disease. Conclusions/Impression: Stage I PATRIZIA in the setting of hypovolemia, hypotension and possible ibuprofen CKD II with Proteinuria -No NSAIDs -Change IVF to LR Hypokalemia -Replete prn HTN with CKD/ CHF complicated by hypotension -Hold antihypertensives at this time Diastolic CHF, chronic -Daily weight -Hold diuretics at this time Cigarette Smoker -Recommend cessation -Nicotine TD prn Thank you kindly for the consultation
[2023-03-24] MEDS: IPRATROPIUM BROM 0.5MG/2.5ML NEB PRN (08:55)
[2023-03-24] MEDS ORDERED: SMZ./TMP. 10 ML in D5W 250 ML IVPB SCH (09:00)
[2023-03-24] MEDS: Ringers Lactate 1,000 ML IV SCH ×2 (11:45→23:40)
--- NOTE | 2023-03-24 12:30 | EKG ---
Test Date: 2023-03-23 Test Time: 17:27:37 Tool Keeper: MAYRA MEASUREMENT RESULTS: Intervals: Rate: 62 [place]: 210 QRSD: 94 QT: 490 QTc: 497 [place]: P: 63 [place]: 210 QRS: 54 T: 55 INTERPRETIVE STATEMENTS: Sinus rhythm with 1st degree AV block Low voltage QRS Prolonged QT Abnormal ECG Compared to ECG 09/01/2022 19:17:18 First degree AV block now present Prolonged QT interval now present Electronically Signed On 03-24-23 12:29:06 CDT by [place]
--- NOTE | 2023-03-24 12:45 | P.PN ---
Subjective Date of Service: 03/24/23 Chief Complaint: R elbow abscess, UTI No acute events since admission. She reports pain and swelling in her elbow over the last 2-3 days. She denies any chest pain, palpitations, or shortness of breath. Review of Systems 10-point ROS is otherwise unremarkable Musculoskeletal: Arm Pain (right elbow) Physical Examination - Vital Signs Temperature: 97.4 F Blood Pressure: 106/43 Pulse: 68 Respirations: 17 Pulse Ox (%): 94 - Physical Exam General: Alert, In no apparent distress, Oriented x3 HEENT: Atraumatic, Mucous membr. moist/pink, Sclerae nonicteric Neck: JVD not distended Respiratory: Clear to auscultation bilaterally, Normal air movement Cardiovascular: No edema, Regular rate/rhythm, Normal S1 S2, No gallops, No rubs, No murmurs Gastrointestinal: Normal bowel sounds, Soft and benign, Non-distended, No tenderness, No rebound, No guarding Musculoskeletal: No clubbing, Erythema (right elbow), Tenderness (right elbow) Integumentary: No rashes Neurological: Normal speech, Normal affect - Studies Laboratory Data (last 24 hrs) 03/23/23 03/23/23 03/23/23 17:30 17:30 17:30 WBC 10.80 Hgb 10.0 L Hct 30.2 L Plt Count 233 PT 18.0 H INR 1.64 APTT 38.3 H Sodium 137 Potassium 3.7 BUN 44 H Creatinine 2.19 H Glucose 126 H Total Bilirubin 0.3 AST 23 ALT 32 Alkaline Phosphatase 117 Assessment And Plan - Plan # Purulent Right Upper Extremity Cellulitis with Abscess - Does not meet sepsis criteria - Consulted General Surgery and spoke with Dr. Banuelos - recommendations appreciated - Continue cefepime - Switched home apixaban to enoxaparin in case surgery is required # KDIGO Stage II Acute Kidney Injury - Consulted Nephrology and spoke with Dr. Oneil - recommendations appreciated - Creatinine = 2.19 -> 2.05 (baseline creatinine ~0.9-1.0) - Urinalysis = 500 leukocyte esterase, 11-20 RBCs, 20-50 WBCs, >50 bacteria, 11- 20 hyaline casts, trace protein - Monitor creatinine and urine output - If worsening, obtain renal ultrasound - Renally dose medications # Chronic Atrial Fibrillation # Hypertension - Continue home amiodarone - Switched home apixaban to enoxaparin in case surgery is required # Chronic Obstructive Pulmonary Disease # Asthma - Chest x-ray = "no acute cardiopulmonary disease." - Continue home inhalers Gavin Phelan M.D.
--- NOTE | 2023-03-24 16:42 | P.CNS ---
PC: I was asked to see this patient in regards to an abscess on her right arm. HPC: Patient apparently noticed that she has had this area on her right arm that has been getting more tender over the last few days. Started noticed some swelling with development of an abscess PMHx: Patient currently admitted with a diagnosis of cystitis. Social Hx: Allergic to penicillin, codeine, and iodine derivatives Sys R: States she is otherwise in good health. Is not as mobile as what she wishes. Spends a lot of her day sitting in a couch but does have an armrest. O/E: Awake alert vital signs are stable HEENT: Negative Chest: Chest movement equal bilaterally Abd: Negative [place]: Has a lot of swelling around the right lower arm. Consistent with most likely staph infection. Tender, and starting to come to a point Impression: Abscess of the right arm Plan: Patient has an abscess on her right forearm. I will take her to the operating room in the morning to incise and drain this abscess. The risks of the procedure were discussed. The possibility of bleeding, infection, need for further surgeries and procedures was described. She understands and wants us to proceed.
[2023-03-24] MEDS: ALBUTEROL 2.5 MG/3 ML NEB SOL NEB PRN (19:20)
[2023-03-24] MEDS: ENOXAPARIN 100 MG/ML SYR SQ SCH (20:15)
[2023-03-25 03:18] LABS: Absolute Lymphocytes (CBC) 2.6 K/uL (0.7-4.9); Hematocrit 26.9 % (36.0-45.0); Lymphocytes % 26.8 % (15.3-44.8); MCV 90.9 fL (80-100); MPV 9.6 fL (7.6-11.3); Platelets 211 thou/uL (152-406); RBC Red Blood Cell Count 2.96 M/uL (3.86-4.86)
[2023-03-25 03:40] LABS: Magnesium 1.8 mg/dL (1.6-2.4); Potassium 4.2 mEq/L (3.5-5.1)
[2023-03-25] MEDS ORDERED: MAGNESIUM SULFATE 1 gm IVPB 1 GM/100 ML BAG IV ONE (03:49)
[2023-03-25] MEDS: IPRATROPIUM BROM 0.5MG/2.5ML NEB PRN ×2 (06:23→19:50)
[2023-03-25] MEDS: ALBUTEROL 2.5 MG/3 ML NEB SOL NEB PRN ×2 (06:23→19:50)
[2023-03-25] MEDS: BUDESONIDE 0.25 MG/2 ML NEB NEB SCH ×2 (07:50→20:03)
[2023-03-25] MEDS: AMIODARONE HCL 200 MG TAB PO SCH ×2 (08:31→20:38)
[2023-03-25] MEDS: Ringers Lactate 1,000 ML IV ONE ×2 (08:31→08:35)
[2023-03-25] MEDS ORDERED: propofoL 200 MG/20 ML VIAL IV ONE (09:19)
[2023-03-25] MEDS ORDERED: LIDOCAINE 2% MPF 5 ML VIAL ONE (09:20)
[2023-03-25] MEDS ORDERED: MIDAZOLAM HCL 2 MG/2 ML INJ ONE (09:20)
[2023-03-25] MEDS ORDERED: FENTANYL CITR 100 MCG/2 ML ONE (09:20)
[2023-03-25] MEDS ORDERED: ONDANSETRON 4 MG/2 ML VIAL ONE (09:41)
--- NOTE | 2023-03-25 09:46 | P.OP ---
Preoperative diagnosis: Abscess of the right arm Postoperative diagnosis: The same Primary procedure: Incision, drainage, and sharp debridement of abscess of the right arm Anesthesia: General Estimated blood loss: Less than 10 cc Specimen: None sent Operative Technique: The patient brought the operating room and placed supine on the table. After the induction of adequate general anesthesia, the area of the right arm was prepped with a DuraPrep solution, she was draped in the usual aseptic manner. Attention was turned towards discharging her right arm. She had a large abscess measuring approximately 4 cm x 3 cm in size. There was obvious area of induration that was starting to form on the top of this. This area was excised circumferentially leaving a hole of approximately half a centimeter in the skin. We had establish good drainage of purulent material from this area. A cutting surgical curette was now placed into the wound and used to scrape down the insides of this abscess cavity. The remaining necrotic debris was sharply debrided using a cutting 11 blade. The wound was now kept open by using a #2 nylon. This was brought down through her incision site and out through the most lateral area of the abscess cavity. The suture was then tied on itself. It was left as a drain, and will be removed in 48 hours. At the end of the procedure the patient was in a stable condition was sent to the recovery room. Needle sponge instrument count were correct. A sterile dressing had been applied. Drain(s): Other (#2 nylon) Transferred to: Recovery Room Condition: Good
[2023-03-25] MEDS ORDERED: KETOROLAC 30 MG/ML INJ ONE (09:57)
[2023-03-25] MEDS ORDERED: dexAMETHasone 10 MG/ML VIAL ONE (09:57)
[2023-03-25] MEDS: CEFEPIME 1 GM in NA CHLORIDE 0.9% 100 ML IV SCH (11:49)
[2023-03-25 12:25] VITALS: O2SAT 93
[2023-03-25] MEDS: Ringers Lactate 1,000 ML IV SCH (15:33)
--- NOTE | 2023-03-25 19:29 | P.PN ---
Subjective Date of Service: 03/25/23 Chief Complaint: R elbow abscess, UTI This morning, she underwent incision and drainage of the abscess. She tolerated the procedure well. Per Dr. Banuelos, there was a significant amount of purulence noted. He believes she would benefit from an additional day of IV antibiotics. She reports that her pain is well-controlled at this time. Review of Systems 10-point ROS is otherwise unremarkable Integumentary: Other (RUE abscess s/p I&D) Physical Examination - Vital Signs Temperature: 97.1 F Blood Pressure: 117/54 Pulse: 66 Respirations: 18 Pulse Ox (%): 91 - Studies Laboratory Data (last 24 hrs) 03/25/23 03/25/23 02:40 02:40 WBC 9.80 Hgb 9.0 L Hct 26.9 L Plt Count 211 Sodium 140 Potassium 4.2 BUN 35 H Creatinine 1.82 H Glucose 99 Phosphorus 3.0 Magnesium 1.8 Microbiology Data (last 24 hrs): 03/23/23 17:48 Clean Catch Urine [place] Count - Final No growth. 03/23/23 17:48 Clean Catch Urine - Final No growth. Assessment And Plan - Plan - Physical Exam General: Alert, In no apparent distress, Oriented x3 HEENT: Atraumatic, Mucous membr. moist/pink, Sclerae nonicteric Respiratory: Clear to auscultation bilaterally, Normal air movement Cardiovascular: No edema, Regular rate/rhythm, No murmurs Gastrointestinal: Normal bowel sounds, Soft, Non-distended, No tenderness Musculoskeletal: right elbow covered in clean dressing Neurological: Normal speech, Normal affect # Purulent Right Upper Extremity Cellulitis with Abscess - Does not meet sepsis criteria - Consulted General Surgery and spoke with Dr. Banuelos - recommendations appreciated - S/P I&D this morning - Continue cefepime # KDIGO Stage II Acute Kidney Injury - Consulted Nephrology and spoke with Dr. Oneil - recommendations appreciated - Creatinine = 2.19 -> 2.05 -> 1.82 (baseline creatinine ~0.9-1.0) - Urinalysis = 500 leukocyte esterase, 11-20 RBCs, 20-50 WBCs, >50 bacteria, 11- 20 hyaline casts, trace protein - Monitor creatinine and urine output - If worsening, obtain renal ultrasound - Renally dose medications # Chronic Atrial Fibrillation # Hypertension - Continue home amiodarone -Continue enoxaparin # Chronic Obstructive Pulmonary Disease # Asthma - Chest x-ray = "no acute cardiopulmonary disease." - Continue home inhalers Gavin Phelan M.D.
[2023-03-25] MEDS: ENOXAPARIN 100 MG/ML SYR SQ SCH (20:38)
--- NOTE | 2023-03-25 22:17 | P.PN ---
Date of Service: 03/25/23 Vital Signs Temp Pulse Resp BP Pulse Ox 97.8 F 64 15 136/61 94 03/25/23 20:00 03/25/23 20:00 03/25/23 20:00 03/25/23 20:00 03/25/23 20:00 Medications Acetaminophen (Acetaminophen 500 Mg Tab) 500 mg PO Q4HP PRN PRN Reason: Pain scale 2-4 (Mild) Last Admin: 03/24/23 20:15 Dose: 500 mg Albuterol Sulfate (Albuterol 2.5 Mg/3 Ml Neb [place]ole[place]) 2.5 mg NEB [id number] PRN PRN Reason: SHORTNESS OF BREATH Last Admin: 03/25/23 19:50 Dose: 2.5 mg Amiodarone HCl (Amiodarone Hcl 200 Mg Tab) 200 mg PO BID [facility] Last Admin: 03/25/23 20:38 Dose: 200 mg Budesonide (Budesonide 0.25 Mg/2 Ml Neb) 0.25 mg NEB BIDRESP [facility] Last Admin: 03/25/23 20:03 Dose: 0.25 mg Enoxaparin Sodium (Enoxaparin 100 Mg/Ml Syr) 100 mg SQ BEDTIME [facility] Last Admin: 03/25/23 20:38 Dose: 100 mg Cefepime HCl 1 gm/ Sodium (Chloride) 100 mls @ 200 mls/hr IV Q12HR@0000,1200 AMI; Protocol Last Admin: 03/25/23 11:49 Dose: 100 mls Lactated Ringer's (Lactated Ringers) 1,000 mls @ 80 mls/hr IV .[id number] [facility] Last Admin: 03/25/23 15:33 Dose: 1,000 mls Ipratropium [place] (Ipratropium Brom 0.5mg/2.5ml) 0.5 mg NEB [id number] PRN PRN Reason: SHORTNESS OF BREATH Last Admin: 03/25/23 19:50 Dose: 0.5 mg Ondansetron HCl (Ondansetron 4 Mg/2 Ml Vial) 4 mg IV Q6HP PRN PRN Reason: NAUSEA / VOMITING Sodium Chloride (Flush Normal Saline 10 Ml) 10 ml IV BID [facility] Last Admin: 03/25/23 20:39 Dose: 10 ml Lab Results (last 24 hrs) 03/25/23 02:40: Sodium 140, Potassium 4.2, Chloride 108 H, Carbon Dioxide 29, Anion Gap 7.2, BUN 35 H, Creatinine 1.82 H, Est GFR (CKD-EPI) 29 L, Glucose 99, Calcium 8.2 L, Phosphorus 3.0, Magnesium 1.8 03/25/23 02:40: WBC 9.80, RBC 2.96 L, Hgb 9.0 L, Hct 26.9 L, MCV 90.9, MCH 30.5, MCHC 33.5, RDW 15.2, Plt Count 211, MPV 9.6, Neutrophils % 64.4, Lymphocytes % 26.8, Monocytes % 6.4, Eosinophils % 1.8, Basophils % 0.6, Absolute Neutrophils 6.3, Absolute Lymphocytes 2.6, Absolute Monocytes 0.6, Absolute Eosinophils 0.2, Absolute Basophils 0.1 Microbiology Results 03/23/23 17:48 Clean Catch Urine [place] Count - Final No growth. 03/23/23 17:48 Clean Catch Urine - Final No growth. 03/23/23 17:30 Blood - Blood Aerobic Blood Culture - Preliminary No growth in 24 hours. 03/23/23 17:30 Blood - Blood Anaerobic Blood Culture - Preliminary No growth in 24 hours. 03/23/23 17:20 Blood - Blood Aerobic Blood Culture - Preliminary No growth in 24 hours. 03/23/23 17:20 Blood - Blood Anaerobic Blood Culture - Preliminary No growth in 24 hours. Assessment/ Plan: Nephrology No dyspnea No chest pain Feeling better No acute events overnight Vitals, medications, blood work and imaging reviewed in the chart. General: In no apparent distress, Oriented x3, Cooperative HEENT: Atraumatic Neck: Supple Respiratory: Clear to auscultation bilaterally Cardiovascular: No edema, Regular rate/rhythm Gastrointestinal: Soft and benign, Non-distended Musculoskeletal: No clubbing, No contractures Integumentary: No cyanosis, Rash(es), Erythema Neurological: Normal speech Laboratory Data (last 24 hrs) 03/23/23 03/23/23 03/23/23 17:30 17:30 17:30 WBC 10.80 Hgb 10.0 L Hct 30.2 L Plt Count 233 PT 18.0 H INR 1.64 APTT 38.3 H Sodium 137 Potassium 3.7 BUN 44 H Creatinine 2.19 H Glucose 126 H Total Bilirubin 0.3 AST 23 ALT 32 Alkaline Phosphatase 117 Imagings Data: EXAM DESCRIPTION: RAD - Chest Single View - 03/23/2023 6:04 pm CLINICAL HISTORY: DYSPNEA COMPARISON: Chest Single View dated 09/01/2022; Chest Single View dated 03/05/2020; Chest Single View dated 10/01/2019; Chest Single View dated 09/03/2018 FINDINGS: Lines: None. Lungs: No evidence of edema or pneumonia. Pleural: No significant pleural effusions or pneumothorax. Cardiac: The heart size is within normal limits. Mediastinum: Within normal limits. Bones: No acute fractures. Other: None IMPRESSION: No acute cardiopulmonary disease. Conclusions/Impression: Stage I PATRIZIA in the setting of hypovolemia, hypotension and possible ibuprofen CKD II with Proteinuria -No NSAIDs -Continue IVF Hypokalemia -Replete prn HTN with CKD/ CHF complicated by hypotension -Hold antihypertensives at this time Diastolic CHF, chronic -Daily weight -Hold diuretics at this time Cigarette Smoker -Recommend cessation -Nicotine TD prn Hospitalist note reviewed
[2023-03-26] MEDS: CEFEPIME 1 GM in NA CHLORIDE 0.9% 100 ML IV SCH (00:37)
[2023-03-26] MEDS: Ringers Lactate 1,000 ML IV SCH (00:38)
[2023-03-26 03:34] LABS: Hematocrit 26.5 % (36.0-45.0)
[2023-03-26 03:49] LABS: Potassium 4.3 mEq/L (3.5-5.1)
[2023-03-26] MEDS: BUDESONIDE 0.25 MG/2 ML NEB NEB SCH (07:55)
[2023-03-26] MEDS: AMIODARONE HCL 200 MG TAB PO SCH (08:31)
--- NOTE | 2023-03-26 08:33 | P.CNS ---
Date of Consult: 03/26/23 Reason for Consult: elbow abscess Chief Complaint: R elbow abscess, UTI History of Present Illness: Patient is a 72-year-old female with a past medical history of COPD, atrial fibrillation, hypertension who presented to the ED with complaints of erythema and edema of right forearm. Patient was found to have abscess of right arm, urinalysis suggestive of UTI, acute kidney injury. Underwent incision and drainage of abscess on 03/25. Infectious disease was consulted. Allergies Penicillins Allergy (Verified 09/04/18 00:53) Unknown codeine Adverse Reaction (Verified 10/02/19 01:03) Itching shellfish derived Adverse Reaction (Verified 09/04/18 00:53) Hives/Rash Home medications list reviewed: Yes Home Medications: Albuterol Neb [Proventil 0.083% Neb Soln] 2.5 mg IH PRN PRN 09/13/17 Fluticasone/Vilanterol [Breo Ellipta 200-25 Mcg INH] 1 each IH PRN PRN 09/13/17 Apixaban [Eliquis *] 5 mg PO BID 10/02/19 Amiodarone HCl [Pacerone] 200 mg PO BID 30 Days #60 tab 09/02/22 Spironolact/Hydrochlorothiazid [Spironolactone-Hctz 25-25 Tab] 25 mg PO DAILY 03/23/23 Torsemide 10 mg PO DAILY 03/23/23 Doxycycline Hyclate 100 mg PO BID 8 Days #16 tab 03/26/23 cephALEXin [Cephalexin] 500 mg PO BID 8 Days #16 tab 03/26/23 - Past Medical/Surgical History Diabetic: No -: Afib -: COPD -: Asthma -: Hypertension -: choley -: appy -: R. hip replacement -: Tubal ligation Psychosocial/ Personal History: Patient lives at home, alone. - Family History Father Medical History: Cancer - Social History Smoking Status: Current every day smoker Alcohol use: No CD- Drugs: No Caffeine use: Yes Place of Residence: Home Review of Systems Unremarkable Musculoskeletal: Arm Pain (right arm) Integumentary: As per HPI Physical Examination Temp Pulse Resp BP Pulse Ox 98.2 F 70 20 115/51 L 92 03/26/23 04:00 03/26/23 04:00 03/26/23 04:00 03/26/23 04:00 03/26/23 04:00 General: Alert, In no apparent distress, Oriented x3 HEENT: Atraumatic, Normocephalic Neck: Supple, JVD not distended Respiratory: Clear to auscultation bilaterally, Normal air movement (on room air) Cardiovascular: Normal pulses Gastrointestinal: Normal bowel sounds, Soft and benign Musculoskeletal: No clubbing Integumentary: Other (right arm incision site s/p I&D, dressing is clean, dry and intact. ) Laboratory data -Reviewed Microbiology data -Reviewed Imagings Data: -Reviewed Conclusions/Impression: Problem list Cellulitis of right upper extremity with abscess Acute kidney injury Chronic atrial fibrillation Hypertension COPD Anemia Hypocalcemia Right upper extremity cellulitis with abscess -On 03/25 patient underwent incision and drainage and sharp debridement of right upper extremity abscess by Dr. Banuelos -On cefepime started 03/24 -No leukocytosis. Afebrile. -Blood cultures 03/23: No growth to date -Urine culture 03/23: No growth to date Recommendations -Start on cephalexin PO and doxycycline PO upon discharge x 7 days - Continue wound care per Dr. Banuelos. - Follow up with Dr. Banuelos as outpatient Case discussed with Rachel Burgos
--- NOTE | 2023-03-26 08:52 | P.DS ---
Admission Date: 03/23/23 Discharge Date: 03/26/23 Disposition: ROUTINE DISCHARGE Discharge Condition: GOOD Reason for Admission: R elbow abscess, UTI Consultations: 1. General Surgery 2. Infectious Diseases 3. Nephrology Procedures: - 03/25/2023 - Incision, Drainage, and Sharp Debridement of Abscess of the Right Arm Hospital Course: DIAGNOSES: # Purulent Right Upper Extremity Cellulitis with Abscess # KDIGO Stage II Acute Kidney Injury - improved # Chronic Atrial Fibrillation # Hypertension # Chronic Obstructive Pulmonary Disease # Asthma HOSPITAL COURSE: Ms. Sunshine Mead is a pleasant 72 year old female with a past medical history significant for chronic atrial fibrillation, chronic obstructive pulmonary disease, hypertension, and asthma who was admitted to the [facility] on 03/23/2023 for a right upper extremity abcess. She was admitted to the Medicine service. Upon further evaluation, she did not meet sepsis criteria. General Surgery was consulted and she was evaluated by Dr. Banuelos. On 03/25/2023, she underwent incision, drainage, and sharp debridement of abscess of the right arm. She tolerated the procedure well and reported significant improvement in her pain. Dr. Banuelos has cleared her for discharge with outpatient follow-up. Infectious Diseases was consulted for assistance with an outpatient antibiotic regimen. She was evaluated by Dr. Kowalski, who recommended an additional 8 days of cephalexin and doxycycline to complete a 10- day course. Of note, she was found to have an acute kidney injury. Nephrology was consulted and she was evaluated by Dr. Oneil. Over the course of her hospitalization, her creatinine improved. From a nephrology standpoint, Dr. Oneil has cleared her for discharge with outpatient follow-up. Additionally, her urinalysis was notable for microscopic hematuria. She was counseled on the potential for an underlying urologic malignancy. She was advised to follow-up with her PCP for further evaluation. She verbalized understanding and agreed to make this appointment On 03/26/2023, she was seen on morning rounds and deemed medically stable for discharge. She was discharged with instructions to schedule follow-up appointments with her PCP, with Nephrology (Dr. Oneil), and with General Surgery (Dr. Banuelos). She was provided prescriptions for cephalexin and doxycycline. She was given the opportunity to ask questions and reported no further questions. Furthermore, all questions were answered to the best of my ability. A copy of this discharge summary will be sent to the above providers to facilitate continuity of care. Today, I personally spent 25 minutes on her case, of which greater than 50% of the time was spent in patient education, counseling, and coordination of care as described above. - Physical Exam General: Alert, In no apparent distress, Oriented x3 HEENT: Atraumatic, Mucous membr. moist/pink, Sclerae nonicteric Respiratory: Clear to auscultation bilaterally, Normal air movement Cardiovascular: No edema, Regular rate/rhythm, No murmurs Gastrointestinal: Normal bowel sounds, Soft, Non-distended, No tenderness Musculoskeletal: Right elbow covered in clean dressing Neurological: Normal speech, Normal affect Vital Signs/Physical Exam: Temp Pulse Resp BP Pulse Ox 98.2 F 70 20 115/51 L 92 03/26/23 04:00 03/26/23 04:00 03/26/23 04:00 03/26/23 04:00 03/26/23 04:00 Laboratory Data at Discharge: WBC 9.80 thou/uL (4.3-10.9) 03/25/23 02:40 Hgb 9.0 g/dL (12.0-15.0) L 03/26/23 03:00 Hct 26.5 % (36.0-45.0) L 03/26/23 03:00 Plt Count 211 thou/uL (152-406) 03/25/23 02:40 PT 18.0 SECONDS (9.5-12.5) H 03/23/23 17:30 INR 1.64 03/23/23 17:30 APTT 38.3 SECONDS (24.3-36.9) H 03/23/23 17:30 Sodium 138 mEq/L (136-145) 03/26/23 03:00 Potassium 4.3 mEq/L (3.5-5.1) 03/26/23 03:00 BUN 36 mg/dL (7-18) H 03/26/23 03:00 Creatinine 1.86 mg/dL (0.55-1.02) H 03/26/23 03:00 Glucose 141 mg/dL (74-106) H 03/26/23 03:00 Phosphorus 3.0 mg/dL (2.5-4.9) 03/25/23 02:40 Magnesium 2.0 mg/dL (1.6-2.4) 03/26/23 03:00 Total Bilirubin 0.3 mg/dL (0.2-1.0) 03/23/23 17:30 AST 23 U/L (15-37) 03/23/23 17:30 ALT 32 U/L (13-56) 03/23/23 17:30 Alkaline Phosphatase 117 U/L (45-117) 03/23/23 17:30 Home Medications: Albuterol Neb [Proventil 0.083% Neb Soln] 2.5 mg IH PRN PRN 09/13/17 Fluticasone/Vilanterol [Breo Ellipta 200-25 Mcg INH] 1 each IH PRN PRN 09/13/17 Apixaban [Eliquis *] 5 mg PO BID 10/02/19 Amiodarone HCl [Pacerone] 200 mg PO BID 30 Days #60 tab 09/02/22 Spironolact/Hydrochlorothiazid [Spironolactone-Hctz 25-25 Tab] 25 mg PO DAILY 03/23/23 Torsemide 10 mg PO DAILY 03/23/23 Doxycycline Hyclate 100 mg PO BID 8 Days #16 tab 03/26/23 cephALEXin [Cephalexin] 500 mg PO BID 8 Days #16 tab 03/26/23 New Medications: cephALEXin [Cephalexin] 500 mg PO BID 8 Days #16 tab Doxycycline Hyclate 100 mg PO BID 8 Days #16 tab Physician Discharge Instructions: 1. Please call and schedule a follow-up appointment with your PCP in 3-5 days - Your blood work showed anemia. Please discuss further evaluation, including a colonoscopy, with your PCP - Your urine sample contained blood. Although there are various causes of blood in the urine, it is important to exclude bladder/kidney cancer as the cause. Please follow-up with your PCP to discuss further evaluation. 2. Please call and schedule a follow-up appointment with General Surgery (Dr. Banuelos) in 5-7 days 3. Please call and schedule a follow-up appointment with Nephrology (Dr. Oneil) in 5-7 days - Please have him repeat your kidney blood work at your upcoming visit Diet: AHA Activity: Ad jeffry Followup: Remberto Oneil DO [Primary Care Provider] - (schedule an appointment in 5-7 days) Olegario Banuelos MD [ACTIVE - CAN ADMIT] - (schedule an appointment in 5-7 days) Time spent managing pt's care (in minutes): 25
[2023-03-26 08:54] VITALS: BP 116/53; TEMP 97.4
[2023-03-26] MEDS ORDERED: CEPHALEXIN 500 MG CAP PO ONE (09:05)
--- NOTE | 2023-03-26 20:49 | P.PN ---
Date of Service: 03/26/23 Vital Signs Temp Pulse Resp BP Pulse Ox 97.4 F 65 18 116/53 L 93 03/26/23 08:00 03/26/23 08:00 03/26/23 08:00 03/26/23 08:00 03/26/23 08:00 Microbiology Results 03/23/23 17:48 Clean Catch Urine [place] Count - Final No growth. 03/23/23 17:48 Clean Catch Urine - Final No growth. 03/23/23 17:30 Blood - Blood Aerobic Blood Culture - Preliminary No growth in 24 hours. 03/23/23 17:30 Blood - Blood Anaerobic Blood Culture - Preliminary No growth in 24 hours. 03/23/23 17:20 Blood - Blood Aerobic Blood Culture - Preliminary No growth in 24 hours. 03/23/23 17:20 Blood - Blood Anaerobic Blood Culture - Preliminary No growth in 24 hours. Assessment/ Plan: Nephrology No dyspnea No chest pain Feeling better No acute events overnight Vitals, medications, blood work and imaging reviewed in the chart. General: In no apparent distress, Oriented x3, Cooperative HEENT: Atraumatic Neck: Supple Respiratory: Clear to auscultation bilaterally Cardiovascular: Trace edema, Regular rate/rhythm Gastrointestinal: Soft and benign, Non-distended Musculoskeletal: No clubbing, No contractures Integumentary: No cyanosis, Rash(es), Erythema Neurological: Normal speech Laboratory Data (last 24 hrs) 03/23/23 03/23/23 03/23/23 17:30 17:30 17:30 WBC 10.80 Hgb 10.0 L Hct 30.2 L Plt Count 233 PT 18.0 H INR 1.64 APTT 38.3 H Sodium 137 Potassium 3.7 BUN 44 H Creatinine 2.19 H Glucose 126 H Total Bilirubin 0.3 AST 23 ALT 32 Alkaline Phosphatase 117 Imagings Data: EXAM DESCRIPTION: RAD - Chest Single View - 03/23/2023 6:04 pm CLINICAL HISTORY: DYSPNEA COMPARISON: Chest Single View dated 09/01/2022; Chest Single View dated 03/05/2020; Chest Single View dated 10/01/2019; Chest Single View dated 09/03/2018 FINDINGS: Lines: None. Lungs: No evidence of edema or pneumonia. Pleural: No significant pleural effusions or pneumothorax. Cardiac: The heart size is within normal limits. Mediastinum: Within normal limits. Bones: No acute fractures. Other: None IMPRESSION: No acute cardiopulmonary disease. Conclusions/Impression: Stage I PATRIZIA in the setting of hypovolemia, hypotension and possible ibuprofen CKD II with Proteinuria -No NSAIDs -Discontinue IVF Hypokalemia -Replete prn HTN with CKD/ CHF complicated by hypotension -Hold antihypertensives at this time Diastolic CHF, chronic -Daily weight -Low sodium diet -Hold diuretics at this time Cigarette Smoker -Recommend cessation -Nicotine TD prn Hospitalist note reviewed
== END 2023-03-26 10:50 | disposition home or self-care (01) | DRG 571 ==
LOC: ER 16:42 → 2ND 19:12 → OBSVTOIN 03-25 16:48
PROVIDERS: ADMIT Hospitalist; ATTEND Internal Medicine
PROC: 0JBG0ZZ Excision of Right Lower Arm Subcutaneous Tissue and Fascia, Open Approach (ICD-10-PCS; principal; 2023-03-25 09:00)
DX: L03.113 Cellulitis of right upper limb (principal); I13.0 Hypertensive heart and chronic kidney disease with heart failure and stage 1 through stage 4 chronic kidney disease, or unspecified chronic kidney disease; N17.9 Acute kidney failure, unspecified; N30.00 Acute cystitis without hematuria; I50.32 Chronic diastolic (congestive) heart failure; I48.20 Chronic atrial fibrillation, unspecified; L02.413 Cutaneous abscess of right upper limb; N18.2 Chronic kidney disease, stage 2 (mild); D63.1 Anemia in chronic kidney disease; E87.6 Hypokalemia; E83.51 Hypocalcemia; J44.9 Chronic obstructive pulmonary disease, unspecified; F17.200 Nicotine dependence, unspecified, uncomplicated; R31.29 Other microscopic hematuria; Z88.5 Allergy status to narcotic agent; Z60.2 Problems related to living alone; Z88.0 Allergy status to penicillin; Z79.01 Long term (current) use of anticoagulants; Z98.51 Tubal ligation status; Z90.49 Acquired absence of other specified parts of digestive tract; Z91.013 Allergy to seafood; Z79.899 Other long term (current) drug therapy; Z96.641 Presence of right artificial hip joint
CPT/HCPCS: 36415; 71045; 80048; 80053; 81001; 83605; 83735; 84100; 85014; 85018; 85025; 85610; 85730; 87040; 87086; 87088; 93005; 94640; 96374; 99285; G0378; J0692; J1100; J1650; J2001; J2250; J2405; J2704; J3010; J3475; J7030; J7120; J7613; J7634; J7644

== ENCOUNTER 2023-06-20 15:07 | Inpatient (IN) | payer OTHER ==
--- OUTSIDE RECORDS SUMMARY | 2023-06-20 15:10 | XMS REPORT | Continuity of Care Document ---
Author Name Unknown Address [address] [facility] [address] [place] [address] [facility] thconnect Address [address] [facility] [place] [address] Care Team Providers Care Art Installer Name Role Phone Remberto Oneil DO Primary Care Physician [phone] TYLER FRANKS Attending Clinician UnavailTyler Brown MD Attending Clinician [phone] Doctor Unassigned, [place] Attending Clinician U navailable Only, Adc Test Attending Clinician Unavailable Pob, Adc Lab Main Attending Clinician Unavailabl TYLER Hernandez Admitting Clinician Unavailab shimon Payers Payer Name Policy Type Policy Number Effective Date Expirati on Date Source [employer] MED[employer]ARE ADVANTAGE [id number] 2021 00:00:00 Allergies, Adverse Reactions, Alerts Allergy Name Allergy Type Status Severity Reaction(s) Onset Date Inactive Date Treating Clinician Comments Source CODEINE DRUG INGREDI Active N/V 01-08 00:00: 00 [facility] Codeine Drug Allergy Active Nausea and/or Vomiting 01-08 00:00: 00 [facility] Penicill ins Drug Allergy Active Itching 01-08 00:00: 00 [facility] PENICILL INS Drug Class Active ITCHING 01-08 00:00: 00 [facility] SULFA (SULFONA MIDE ANTIBIOT ICS) Drug Class Active High Rash 3 00:00: 00 [facility] Sulfa (Sulfona mide Antibiot ics) Drug Allergy Active Rash 09-27 00:00: 00 [facility] SHELLFIS H DERIVED DRUG INGREDI Active Hives 4-13 00:00: 00 [facility] Shellfis h Derived Propensi ty to adverse reaction s Active Hives 4- 00:00: 00 [facility] NO KNOWN ALLERGIE S Drug Class Active [facility] Social History Social Habit Start Date Stop Date Quantity Comments Source History of tobacco use Cigarette Smoker [facility] Exposure to SARS-CoV-2 (event) 2022-01-01 00:00:00 2022-01-11 11:31:[address] [facility] Tobacco use and exposure 2022-01-11 00:00:00 2022-01-11 00:00:00 Smokeless tobacco non-user [facility] Sex Assigned At 1950 00:00:00 1950 00:00:00 [facility] Smoking Status Start Date Stop Date Source Tobacco smoking consumption unknown [facility] Smokes tobacco daily 2022-01-11 00:00:00 [facility] Medications Ordered Medication Name Filled Medication Name Start Date Stop Date Current Medication? Ordering Clinician Indication Dosage Frequency Signature (SIG) Comments Components Source neomycin-po lymyxin-dex amethasone (MAXITROL) 3.5 mg/g-10,000 unit/g-0.1 % ophthalmic ointment 01-16 16:11: 00 01-16 16:13 :38 No PRN, Starting on Fri01/16/22 at 1111, Until Fri01/16/22 at 1113, Routine, Intra-op [facility] ceFAZolin (ANCEF) injection 01-16 16:09: 00 01-16 16:13 :38 No PRN, Starting on Fri01/16/22 at 1109, Until Fri01/16/22 at 1113, CARLOS, Intra-op [facility] carbachoL (MIOSTAT) 0.01 % intraocular injection 01-16 16:09: 00 01-16 16:13 :38 No PRN, Starting on Fri01/16/22 at 1109, Until Fri01/16/22 at 1113, Routine, [facility] sodium chloride (NS) injection 01-16 16:09: 00 01-16 19:50 :32 No PRN, Starting on Fri01/16/22 at 1109, Until Fri01/16/22 at 1450, Routine, Intra-op [facility] dexamethaso ne (DECADRON PHOSPHATE) injection 01-16 16:09: 00 01-16 19:50 :32 No PRN, Starting on Fri01/16/22 at 1109, Until Fri01/16/22 at 1450, Routine, [facility]:1,000 (1 mg/mL) (ADRENALIN) injection 01-16 15:56: 00 01-16 16:13 :38 No PRN, Starting on Fri01/16/22 at 1056, Until Fri01/16/22 at 1113, Routine, Intra-op [facility] chondroitin sulf-sod hyaluronate (DUOVISC VISCO ELASTIC) intraocular injection 01-16 15:56: 00 01-16 16:13 :38 No PRN, Starting on Fri01/16/22 at 1056, Until Fri01/16/22 at 1113, Routine, Intra-op [facility] balanced salt irrig soln comb1 (BSS PLUS) ophthalmic solution 500 mL bag 01-16 15:56: 00 01-16 16:13 :38 No PRN, Starting on Fri01/16/22 at 1056, Until Fri01/16/22 at 1113, Routine, Intra-op [facility] water for irrigation irrigation solution 01-16 15:52: 00 01-16 16:13 :38 No PRN, Starting on Fri01/16/22 at 1052, Until Fri01/16/22 at 1113, Routine, [facility]-op [facility] Hyaluronida se, Human Recomb. (HYLENEX) injection 01-16 15:49: 00 01-16 16:13 :38 No PRN, Starting on Fri01/16/22 at 1049, Until Fri01/16/22 at 1113, Routine, Intra-op [facility] eye block syringe 11 mL 01-16 15:49: 00 01-16 16:13 :38 No PRN, Starting on Fri01/16/22 at 1049, Until Fri01/16/22 at 1113, Intra-op [facility] cyclopent 1%-tropic 1%-phenyl 2.5%-ketor 0.5% (MYDRIATIC #5) ophthalmic solution syringe 0.5 mL 01-16 14:30: 00 01-16 14:33 :00 No .5mL 0.5 mL, Left Eye, ONCE, 1 dose, On Fri01/16/22 at 0930, Routine, DSU Pre-op [facility] lactated ringers IV infusion 1,000 mL 01-16 14:30: 00 01-16 14:33 :00 No 1000mL at 42 mL/hr, 1,000 mL, IV Infusion, ONCE, 1 dose, On Fri01/16/22 at 0930, Routine, DSU Pre-op [facility] acetaminoph en (TYLENOL ARTHRITIS PAIN) 650 mg CR tablet 01-16 12:45: 27 Yes 650mg Take 650 mg by mouth every 8 (eight) hours as needed for Pain. Takes at bedtime [facility] diphenhydrA MINE 25 mg tablet 01-16 12:45: 27 Yes 25mg Take 25 mg by mouth at bedtime. [facility] acetaminoph en (TYLENOL ARTHRITIS PAIN) 650 mg CR tablet 01-16 12:45: 27 Yes 650mg Take 650 mg by mouth every 8 (eight) hours as needed for Pain. Takes at bedtime [facility] diphenhydrA MINE 25 mg tablet 01-16 12:45: 27 Yes 25mg Take 25 mg by mouth at bedtime. [facility] acetaminoph en (TYLENOL ARTHRITIS PAIN) 650 mg CR tablet 01-11 11:25: 56 Yes 650mg Take 650 mg by mouth every 8 (eight) hours as needed for Pain. Takes at bedtime [facility] diphenhydrA MINE 25 mg tablet 01-11 11:25: 56 Yes 25mg Take 25 mg by mouth at bedtime. [facility] ELIQUIS 5 mg tablet 12-18 00:00: 00 Yes 5mg Take 5 mg by mouth 2 (two) times daily. [facility] ELIQUIS 5 mg tablet 12-18 00:00: 00 Yes 5mg Take 5 mg by mouth 2 (two) times daily. [facility] ELIQUIS 5 mg tablet 12-18 00:00: 00 Yes 5mg Take 5 mg by mouth 2 (two) times daily. [facility] BREO ELLIPTA 200-25 mcg/dose DsDv 12-04 00:00: 00 Yes 1{puff} Inhale 1 Puff daily. [facility] BREO ELLIPTA 200-25 mcg/dose DsDv 12-04 00:00: 00 Yes 1{puff} Inhale 1 Puff daily. [facility] BREO ELLIPTA 200-25 mcg/dose DsDv 12-04 00:00: 00 Yes 1{puff} Inhale 1 Puff daily. [facility] sotaloL 80 mg tablet 11-21 00:00: 00 Yes 80mg Take 80 mg by mouth in the morning and 80 mg in the evening. [facility] sotaloL 80 mg tablet 11-21 00:00: 00 Yes 80mg Take 80 mg by mouth in the morning and 80 mg in the evening. [facility] sotaloL 80 mg tablet 11-21 00:00: 00 Yes 80mg Take 80 mg by mouth in the morning and 80 mg in the evening. [facility] escitalopra m oxalate 5 mg tablet 10-21 00:00: 00 Yes 5mg Take 5 mg by mouth in the morning. [facility] escitalopra m oxalate 5 mg tablet 10-21 00:00: 00 Yes 5mg Take 5 mg by mouth in the morning. [facility] escitalopra m oxalate 5 mg tablet 10-21 00:00: 00 Yes 5mg Take 5 mg by mouth in the morning. [facility] spironolact one-hydroch lorothiazid e 25-25 mg per tablet 10-19 00:00: 00 Yes 1{tbl} Take 1 tablet by mouth every morning. [facility] spironolact one-hydroch lorothiazid e 25-25 mg per tablet 10-19 00:00: 00 Yes 1{tbl} Take 1 tablet by mouth every morning. [facility] spironolact one-hydroch lorothiazid e 25-25 mg per tablet 10-19 00:00: 00 Yes 1{tbl} Take 1 tablet by mouth every morning. [facility] albuterol 2.5 mg /3 mL (0.083 %) nebulizer solution 03-29 00:00: 00 03-30 04:59 :00 No 2.5mg Inhale 2.5 mg every 6 (six) hours as needed. [facility] albuterol 90 mcg/actuati on inhaler 03-29 00:00: 00 03-30 04:59 :00 No 2{puff} Inhale 2 Puffs every 6 (six) hours as needed. [facility] albuterol 2.5 mg /3 mL (0.083 %) nebulizer solution 03-29 00:00: 00 03-30 04:59 :00 No 2.5mg Inhale 2.5 mg every 6 (six) hours as needed. [facility] albuterol 90 mcg/actuati on inhaler 03-29 00:00: 00 03-30 04:59 :00 No 2{puff} Inhale 2 Puffs every 6 (six) hours as needed. [facility] albuterol 2.5 mg /3 mL (0.083 %) nebulizer solution 03-29 00:00: 00 03-30 04:59 :00 No 2.5mg Inhale 2.5 mg every 6 (six) hours as needed. [facility] albuterol 90 mcg/actuati on inhaler 03-29 00:00: 00 03-30 04:59 :00 No 2{puff} Inhale 2 Puffs every 6 (six) hours as needed. [facility] Vital Signs Vital Name Observation Time Observation Value Comments S ource Oxygen saturation in Arterial blood by Pulse oximetry 2022-01-16 14:30:00 96 /min [facility] Systolic blood pressure 2022-01-16 14:30:00 134 mm[Hg] [facility] Diastolic blood pressure 2022-01-16 14:30:00 60 mm[Hg] [facility] Heart rate 2022-01-16 14:30:00 61 /min [facility] Body temperature 2022-01-16 14:30:[address] [facility] Respiratory rate 2022-01-16 14:30:00 18 /min [facility] Body height 2022-01-08 18:53:00 170.3 cm [facility] Body weight 2022-01-08 18:53:00 99.8 kg [facility] BMI 2022-01-08 18:53:00 34.41 kg/m2 [facility] Procedures Procedure Date / Time Performed Performing Clinician Source PHACOEMULSIFICATION OF CATARACT WITH INTRAOCULAR LENS IMPLANT 2022-01-16 15:39:[address] [facility] DAY SURGERY - ADC 2022-01-16 05:01:00 Doctor Unassigned, [place] [facility] Encounters Start Date/Time End Date/Time Encounter Type Admission Type Attending Clinicians Care Facility Care Department Encounter ID Source 2022-01-16 09:19:00 2022-01-16 11:51:00 Outpatient TYLER CAMARENA [facility] OPH [id number] [facility] 2022-01-16 10:06:00 2022-01-16 10:39:00 Surgery Tyler Franks [facility] [id number] [facility] 2022-01-16 00:00:00 2022-01-16 00:00:00 Orders Only Doctor Unassigned, [place] [facility] [id number] [facility] 2022-01-14 10:45:00 2022-01-14 11:00:00 Laboratory Only Only, Adc Test Tyler Franks [facility] [id number] [id number] [facility] 2022-01-14 10:45:00 2022-01-14 10:45:00 Outpatient TYLER CAMARENA [facility] [id number] [facility] 2022-01-07 11:45:00 2022-01-07 12:00:00 Paint Prepper Visit Pob, Adc Lab Main Tyler Franks [facility] [id number] [id number] [facility] 2022-01-07 11:45:00 2022-01-07 11:45:00 Outpatient TYLER CAMARENA [facility] [id number] [facility]
--- NOTE | 2023-06-20 16:08 | RAD REPORT ---
EXAM DESCRIPTION: RADChest Single View06/20/2023 3:50 pm CLINICAL HISTORY: DYSPNEA COMPARISON: Chest Single View dated 03/23/2023; Chest Single View dated 09/01/2022; Chest Single View d ated 03/05/2020; Chest Single View dated 10/01/2019 TECHNIQUE: Portable AP view of the chest. FINDINGS: The lungs are clear apart from stable central predominant interstitial thickening, nonspec ific. No pneumothorax or effusion. The cardiomediastinal contours are unremarkable. IMPRESSION: No acute cardiopulmonary process.
[2023-06-20] MEDS ORDERED: FUROSEMIDE 40 MG/4 ML VIAL ONE (16:59)
[2023-06-20 17:07] LABS: Absolute Lymphocytes (CBC) 2.1 K/uL (0.7-4.9); Hematocrit 32.5 % (36.0-45.0); Lymphocytes % 17.4 % (15.3-44.8); MCV 87.5 fL (80-100); MPV 8.5 fL (7.6-11.3); Platelets 306 thou/uL (152-406); RBC Red Blood Cell Count 3.72 M/uL (3.86-4.86)
[2023-06-20 17:38] LABS: Albumin 2.6 g/dL (3.4-5.0); Bilirubin Direct 0.1 mg/dL (0-0.2); Bilirubin Indirect, Calculated 0.4 mg/dL (0.2-0.8); Bilirubin Total 0.5 mg/dL (0.2-1.0); Potassium 3.1 mEq/L (3.5-5.1); Protein, Total 7.6 g/dL (6.4-8.2)
--- NOTE | 2023-06-20 17:52 | ER ---
Nurse's Notes [facility] Nicolas Name: Sunshine Mead Age: 72 yrs Sex: Female : 1950 Arrival Date: 06/20/2023 Time: 15:07 Bed 13 Private MD: Diagnosis: Unspecified combined systolic (congestive) and diastolic (congestive) heart failure;Dyspnea, unspecified;Hypoxemia Presentation: 06/20 15:30 Chief complaint: Patient states: more swelling in bilateral lower extremities, very ko1 short of breath. Coronavirus screen: At this time, the client does not indicate any symptoms associated with coronavirus-19. Ebola Screen: No symptoms or risks identified at this time. Initial Sepsis Screen: Does the patient meet any 2 criteria? No. Patient's initial sepsis screen is negative. Does the patient have a suspected source of infection? No. Patient's initial sepsis screen is negative. Risk Assessment: Do you want to hurt yourself or someone else? Patient reports no desire to harm self or others. Onset of symptoms is unknown. 15:30 Method Of Arrival: Wheelchair ko1 15:30 Acuity: AZRA 3 ko1 Triage Assessment: 15:31 General: Appears in no apparent distress. uncomfortable, Behavior is calm, cooperative, ko1 appropriate for age. Pain: Denies pain. Respiratory: Reports shortness of breath at rest on exertion cough that is non-productive, Onset: The symptoms/episode began/occurred gradually, the patient has moderate shortness of breath. Historical: - Allergies: 15:31 Codeine; ko1 15:31 PENICILLINS; ko1 15:31 SHELLFISH; ko1 - PMHx: 15:31 Asthma; Atrial Fib; COPD; Hypertension; ko1 - Immunization history:: Adult Immunizations unknown. - Social history:: Smoking status: Patient reports the use of cigarette tobacco products, smokes one pack cigarettes per day. - Family history:: not pertinent. - Hospitalizations: : No recent hospitalization is reported. Screenin:01 [facility] ED Fall Risk Assessment (Adult) History of falling in the last 3 months, bp including since admission No falls in past 3 months (0 pts). Abuse screen: Denies threats or abuse. Denies injuries from another. Nutritional screening: No deficits noted. Tuberculosis screening: No symptoms or risk factors identified. Assessment: 16:37 General: nurse went in to place patient into bed from her wheelchair. patient's O2 ap3 saturation dropped to 64% at this time. Patient was placed on 4liters NC and patients O2 saturation camille to 99%. Provider notified. . 21:01 Cardiovascular: Rhythm is sinus bradycardia. Respiratory: Airway is patent Respiratory bp effort is even, labored, Breath sounds with crackles bilaterally. 21:03 Reassessment: report attempted; no answer. bp 21:44 Reassessment: Room 209 not clean. bp 21:44 Reassessment: patient provided with snack. bp Vital Signs: 15:30 BP 153 / 61; Pulse 67; Resp 20; Temp 98; Pulse Ox 94% ; ko1 19:00 BP 130 / 88; Pulse 57; Resp 19; Pulse Ox 93% on 3 lpm NC; bp 20:00 BP 154 / 59; Pulse 54; Pulse Ox 98% on 3 lpm NC; bp ED Course: 15:10 Patient arrived in ED. im 15:11 Josemanuel Braxton MD is Attending Physician. kdr 15:11 Attending Physician role handed off by Josemanuel Braxton MD rn 15:11 Peter Donaldson MD is Attending Physician. rn 15:31 Triage completed. ko1 15:31 Arm band placed on right wrist. Patient placed in an exam room, Patient notified of ko1 wait time. 15:39 Julio Chase, VIJAY is Primary Nurse. bp 15:52 XRAY CXR (1 view) In Process Unspecified. EDMS 16:54 Inserted saline lock: 22 gauge in right forearm, using aseptic technique. Blood bp collected. 17:51 Sven Bueno MD is Hospitalizing Provider. rn 21:01 Patient has correct armband on for positive identification. Placed in gown. Bed in low bp position. Call light in reach. Side rails up X2. Provided Education on: plan of care. Client placed on continuous cardiac and pulse oximetry monitoring. NIBP monitoring applied. clinical research monitor on. Door closed. Noise minimized. Warm blanket given. 21:02 No provider procedures requiring assistance completed. bp Administered Medications: 17:33 Drug: Furosemide IVP 40 mg IVP once; give over 2 minutes Route: IVP; Site: right bp forearm; Medication: 21:02 VIS not applicable for this client. bp Outcome: 17:51 Decision to Hospitalize by Provider. rn 22:14 Patient left the ED. sb4 Signatures: Dispatcher [employer] EDMS Josemanuel Braxton MD MD kdr Nieto, Roman, MD MD rn Peltier, Brian RN RN Leni Villafuerte RN RN ap3 Ghislaine Delgado RN RN Brigitte Macias, PA-C PA-C sb4 Abril Valdivia
--- NOTE | 2023-06-20 17:52 | EDPHYS ---
Physician Documentation [facility] Name: Sunshine Mead Age: 72 yrs Sex: Female : 1950 Arrival Date: 06/20/2023 Time: 15:07 Bed 13 Private MD: ED Physician Peter Donaldson HPI: 06/20 16:04 This 72 yrs old Female presents to ER via Wheelchair with complaints of Shortness Of rn Breath, Leg Swelling. 16:04 The patient has shortness of breath at rest, with light activity. Onset: The rn symptoms/episode began/occurred 3 month(s) ago. Duration: The symptoms are continuous. The patient's shortness of breath is aggravated by exertion, light activity, supine position. Associated signs and symptoms: Pertinent positives: non-productive cough, Pertinent negatives: chest pain, fever, hemoptysis. Severity of symptoms: At their worst the symptoms were moderate in the emergency department the symptoms are unchanged. The patient has experienced similar episodes in the past. The patient has not recently seen a physician. Patient reports approximately 3 months of progressive shortness of breath, dyspnea on exertion, orthopnea, sleeping on a couch. No fever. Also has COPD. States compliant with diuretics. No abdominal pain. Still actively smokes. Historical: - Allergies: 15:31 Codeine; ko1 15:31 PENICILLINS; ko1 15:31 SHELLFISH; ko1 - PMHx: 15:31 Asthma; Atrial Fib; COPD; Hypertension; ko1 - Immunization history:: Adult Immunizations unknown. - Social history:: Smoking status: Patient reports the use of cigarette tobacco products, smokes one pack cigarettes per day. - Family history:: not pertinent. - Hospitalizations: : No recent hospitalization is reported. ROS: 16:04 Constitutional: Negative for fever, chills, and weight loss, Cardiovascular: Negative rn for chest pain, palpitations, and edema, Respiratory: Positive for shortness of breath and cough Abdomen/GI: Negative for abdominal pain, nausea, vomiting, diarrhea, and constipation, MS/Extremity: Negative for injury and deformity, Skin: Negative for injury, rash, and discoloration, Neuro: Negative for headache, weakness, numbness, tingling, and seizure, Exam: 16:04 Constitutional: This is a well developed, well nourished patient who is awake, alert, rn mild tachypnea ENT: No stridor Cardiovascular: Regular rate and rhythm. No pulse deficits. Respiratory: Mild tachypnea, bibasilar crackles, no retractions Abdomen/GI: Soft, non-tender Skin: Warm, dry MS/ Extremity: Pulses equal, no cyanosis. 3+ edema bilateral lower and upper extremities Neuro: Awake and alert, GCS 15 17:02 ECG was reviewed by the Attending Physician. rn Vital Signs: 15:30 BP 153 / 61; Pulse 67; Resp 20; Temp 98; Pulse Ox 94% ; ko1 19:00 BP 130 / 88; Pulse 57; Resp 19; Pulse Ox 93% on 3 lpm NC; bp 20:00 BP 154 / 59; Pulse 54; Pulse Ox 98% on 3 lpm NC; bp MDM: 15:11 Patient medically screened. rn 17:49 Differential diagnosis: Anemia CHF exacerbation, Chronic Obstructive Pulmonary Disease rn Myocardial Infarction pneumonia, Pneumothorax pulmonary edema. Data reviewed: vital signs, nurses notes, lab test result(s), EKG, radiologic studies, plain films, and as a result, I will admit patient. Consideration of Admission/Observation Patient was admitted/placed on observation. Escalation of care including admission/observation considered. Independent interpretation of the following test(s) in the Emergency Department EKG: See my EKG interpretation above X-Ray: My interpretation is Chest x-ray images show possible pulmonary edema per my interpretation. Care significantly affected by the following chronic conditions: Congestive Heart Failure, Chronic Obstructive Pulmonary Disease. Counseling: I had a detailed discussion with the patient and/or guardian regarding the historical points, exam findings, and any diagnostic results supporting the discharge/admit diagnosis, lab results, radiology results, the need for further work-up and treatment in the hospital. Response to treatment: There is no appreciated change of the patient's symptoms at this time, and as a result, I will admit patient. ED course: Symptoms findings most consistent with pulmonary edema, chronic kidney disease, COPD and CHF. When moving from wheelchair to bed patient's oxygen dropped to 64%. Admitted to hospitalist service for diuresis and further workup. 06/20 15:37 Order name: BMP; Complete Time: 17:46 rn 06/20 15:37 Order name: Blood Culture Adult (2) rn 06/20 15:37 Order name: CBC with Diff; Complete Time: 17:16 rn 06/20 15:37 Order name: Hepatic Function; Complete Time: 17:46 rn 06/20 15:37 Order name: NT PRO-BNP; Complete Time: 17:46 rn 06/20 15:37 Order name: PT-INR rn 06/20 15:37 Order name: Ptt, Activated rn 06/20 15:37 Order name: Troponin HS; Complete Time: 17:46 rn 06/20 19:45 Order name: Troponin High Sensitivity EDMS 06/20 19:45 Order name: Basic Metabolic Panel EDMS 06/20 19:45 Order name: Basic Metabolic Panel EDMS 06/20 19:45 Order name: CBC with Automated Diff EDMS 06/20 19:45 Order name: CBC with Automated Diff EDMS 06/20 15:37 Order name: XRAY CXR (1 view); Complete Time: 16:10 rn 06/20 15:37 Order name: EKG; Complete Time: 15:38 rn 06/20 15:37 Order name: Cardiac monitoring; Complete Time: 16:41 rn 06/20 15:37 Order name: EKG - Nurse/Tech; Complete Time: 16:54 rn 06/20 15:37 Order name: IV Saline Lock; Complete Time: 16:54 rn 06/20 15:37 Order name: Labs collected and sent; Complete Time: 16:54 rn 06/20 15:37 Order name: O2 Per Protocol; Complete Time: 16:41 rn 06/20 15:37 Order name: O2 Sat Monitoring; Complete Time: 16:41 rn 06/20 17:11 Order name: Misc. Order: recollect light blue, coag tube; Complete Time: 18:14 sb4 EC:02 Rate is 61 beats/min. Rhythm is regular. QRS [place] is Normal. AL interval is normal. QRS rn interval is normal. QT interval is normal. No Q waves. T waves are Normal. No ST changes noted. Clinical impression: NSR w/ Non-specific ST/T Changes. Interpreted by me. Reviewed by me. Administered Medications: 17:33 Drug: Furosemide IVP 40 mg IVP once; give over 2 minutes Route: IVP; Site: right bp forearm; Disposition Summary: 06/20/23 17:51 Hospitalization Ordered Notes: Hospitalization Status: Inpatient Admission rn Provider: Sven Bueno rn Condition: Stable rn Problem: an ongoing problem rn Symptoms: are unchanged rn Bed/Room Type: Standard rn Location: Telemetry/MedSurg (Inpatient)(06/20/23 20:10) jr Room Assignment: [facility](06/20/23 20:10) jr Diagnosis - Unspecified combined systolic (congestive) and diastolic (congestive) heart failure rn - Dyspnea, unspecified rn - Hypoxemia rn Forms: - Medication Reconciliation Form rn - SBAR form rn - Leadership Thank You Letter rn Signatures: Dispatcher [employer] EDMS Peter Donaldson MD MD rn Bryson, James, RN RN [email or web address] Julio Chase, RN RN Ghislaine Roberts, RN RN Brigitte Macias, PA-C PAJaseC [email or web address] Keyla Gómez [email or web address] Corrections: (The following items were deleted from the chart) 17:02 16:04 Constitutional: This is a well developed, well nourished patient who is awake, rn alert, mild tachypnea ENT: No stridor Cardiovascular: Regular rate and rhythm. No pulse deficits. Respiratory: Mild tachypnea, bibasilar crackles, no retractions Abdomen/GI: Soft, non-tender Skin: Warm, dry MS/ Extremity: Pulses equal, no cyanosis. Neuro: Awake and alert, GCS 15 rn 19:22 17:51 Telemetry/MedSurg (Inpatient) rn jb4 19:22 17:51 rn jb4 20:10 19:22 [facility] ER HOLD jb4 jr12 20:10 19:22 ERHOLD- jb4 jr12
[2023-06-20 18:26] LABS: Protime INR 1.96
[2023-06-20] MEDS ORDERED: ONDANSETRON 4 MG/2 ML VIAL IV PRN (19:40)
[2023-06-20] MEDS ORDERED: ACETAMINOPHEN 325 MG TABLET PO PRN (19:40)
--- NOTE | 2023-06-20 19:43 | P.HP ---
Certification for Inpatient Patient admitted to: Inpatient With expected LOS: >2 Midnights Practitioner: I am a practitioner with admitting privileges, knowledge of patient current condition, hospital course, and medical plan of care. Services: Services provided to patient in accordance with Admission requirements found in Title 42 Section 412.3 of the Code of Federal Regulations Patient History Date of Service: 06/21/23 Reason for admission: Shortness of breath, respiratory failure. History of Present Illness: 72-year-old female patient with medical history significant for COPD, hypertension, hyperlipidemia, chronic atrial fibrillation who came to the ED with complaint of worsening shortness of breath and lethargy. This has been going on for several months. Patient continues to have drop in oxygen saturation on ambulation so she was asked to be evaluated for inpatient care. Does know about episode of fever, chills, cough productive of sputum at the time of encounter. Imaging study showed no acute consolidation in the lung field with elevated CO2 and with routine lab she was started to have some CO2 retention so was put in for inpatient care. Allergies Penicillins Allergy (Verified 09/04/18 00:53) Unknown codeine Adverse Reaction (Verified 10/02/19 01:03) Itching shellfish derived Adverse Reaction (Verified 09/04/18 00:53) Hives/Rash Home Medications: Albuterol Neb [Proventil 0.083% Neb Soln] 2.5 mg IH PRN PRN 09/13/17 Fluticasone/Vilanterol [Breo Ellipta 200-25 Mcg Inhalr] 1 each IH PRN PRN 09/13/17 Apixaban [Eliquis *] 5 mg PO BID 10/02/19 Amiodarone HCl [Pacerone] 200 mg PO BID 30 Days #60 tab 09/02/22 Spironolact/Hydrochlorothiazid [Spironolactone-Hctz 25-25 Tab] 25 mg PO DAILY 03/23/23 Torsemide 10 mg PO DAILY 03/23/23 Doxycycline Hyclate 100 mg PO BID 8 Days #16 tab 03/26/23 cephALEXin [Cephalexin] 500 mg PO BID 8 Days #16 tab 03/26/23 - Past Medical/Surgical History Diabetic: No -: Afib -: COPD -: Asthma -: Hypertension -: choley -: appy -: R. hip replacement -: Tubal ligation Psychosocial/ Personal History: Patient lives at home, alone. - Family History Father -: Cancer - Social History Alcohol use: No CD- Drugs: No Caffeine use: Yes Review of Systems General: Weakness, Malaise Eyes: Unremarkable ENT: Unremarkable Respiratory: Shortness of Breath Cardiovascular: Unremarkable Gastrointestinal: Unremarkable Genitourinary: Unremarkable Musculoskeletal: Unremarkable Integumentary: Unremarkable Neurological: Unremarkable Physical Examination - Physical Exam General: Alert, Oriented x3 HEENT: Atraumatic, Normocephalic Neck: Supple Respiratory: Diminished, Expiratory wheezes Cardiovascular: Regular rate/rhythm, Normal S1 S2 Gastrointestinal: Soft and benign Musculoskeletal: No swelling Neurological: Normal speech - Studies Laboratory Data (last 24 hrs) 06/20/23 06/20/23 06/20/23 18:10 17:00 17:00 WBC 11.90 H Hgb 10.5 L Hct 32.5 L Plt Count 306 PT 21.1 H INR 1.96 APTT 35.1 Sodium 137 Potassium 3.1 L BUN 34 H Creatinine 2.09 H Glucose 90 Total Bilirubin 0.5 AST 20 ALT 20 Alkaline Phosphatase 124 H Assessment and Plan - Plan COPDexacerbation: Patient does have post worsening of symptoms and there is concern for worsening COPD related issue. She is on outpatient Advair. Will continue with DuoNeb therapy and oxygen supplementation. Will obtain ABG and echocardiogram to evaluate appropriate system. Will follow labs for adjustment to therapy and perhaps NIPPV for CO2 retention. Hypertension: We will monitor vital signs per unit protocol and continue outpatient antihypertensive medications. Hyperlipidemia: We will continue statin therapy. History of chronic atrial fibrillation: We will continue rate control medication and restart outpatient anticoagulant therapy. Hypokalemia: Potassium is low at 2.8 and repeat labs this morning, will replete and monitor on daily labs. PATRIZIA versus CKD: Creatinine is elevated at 2. Will continue routine monitoring of renal labs. Will dose medication for estimated glomerular filtration and avoid exposure to known nephrotoxins. Prophylaxis: Renally dosed Lovenox for DVT prophylaxis. CODE STATUS: Full code Disposition: We will treat her respiratory symptoms and she will be discharged when she is deemed clinically stable. - Advance Directives Does patient have a Living Will: No Does patient have a Durable POA for Healthcare: No
[2023-06-20 21:56] VITALS: BMI 35.2
[2023-06-21] MEDS: HEPARIN 5000 UNIT/ML 1 ML VIAL SQ SCH ×3 (00:35→16:15)
[2023-06-21] MEDS: ALBUTEROL 2.5 MG/3 ML NEB SOL NEB SCH ×4 (00:54→18:11)
[2023-06-21] MEDS: IPRATROPIUM BROM 0.5MG/2.5ML NEB SCH ×4 (00:54→18:11)
[2023-06-21 03:33] LABS: Absolute Lymphocytes (CBC) 2.3 K/uL (0.7-4.9); Hematocrit 29.2 % (36.0-45.0); Lymphocytes % 23.9 % (15.3-44.8); MCV 87.1 fL (80-100); MPV 8.4 fL (7.6-11.3); Platelets 295 thou/uL (152-406); RBC Red Blood Cell Count 3.35 M/uL (3.86-4.86)
[2023-06-21 04:30] LABS: Potassium 2.8 mEq/L (3.5-5.1)
[2023-06-21] MEDS ORDERED: POTASSIUM 25 MEQ EFFERV TAB PO ONE (05:03)
[2023-06-21 06:23] LABS: Arterial Blood Carboxyhemoglob 2.1 % (0-1.5); Blood Gas Oxyhemoglobin 88.9 % (94-97); Blood O2 Saturation 91.8 % (92-98.5)
[2023-06-21] MEDS: POTASSIUM CL SA 10 MEQ TAB PO SCH ×2 (10:18→12:52)
[2023-06-21] MEDS ORDERED: INFLUENZA VACCINE (for 6+ mo) 0.5 ML DOSE IMVAC ONE (12:00)
[2023-06-21] MEDS ORDERED: PNEUMOCOCCAL VACCINE 0.5 ML IMVAC ONE (12:00)
--- NOTE | 2023-06-21 12:43 | P.PN ---
Subjective Date of Service: 06/21/23 Chief Complaint: Shortness of breath, respiratory failure. Pt is resting comfortably in bed. Pt reports that she now smokes 4 cigarettes per day. She was wheezing at bedside. K is 2.8. No other complaints. Review of Systems Unremarkable General: Unremarkable Eyes: Unremarkable ENT: Unremarkable Respiratory: SOB with Excertion Cardiovascular: Unremarkable Gastrointestinal: Unremarkable Genitourinary: Unremarkable Musculoskeletal: Unremarkable Integumentary: Unremarkable Neurological: Unremarkable Lymphatics: Unremarkable Physical Examination - Vital Signs Temperature: 97.3 F Blood Pressure: 95/59 Pulse: 106 Respirations: 16 Pulse Ox (%): 95 - Physical Exam General: Alert, In no apparent distress, Oriented x3, Obese HEENT: Atraumatic, Normocephalic, PERRLA Neck: Supple, 2+ carotid pulse no bruit Respiratory: Diminished, Expiratory wheezes Cardiovascular: No edema, Normal pulses, Regular rate/rhythm, Normal S1 S2 Capillary refill: <2 Seconds Gastrointestinal: Normal bowel sounds, Soft and benign, Non-distended Musculoskeletal: No clubbing, No swelling Integumentary: No rashes, No breakdown Neurological: Normal gait, Normal speech, Normal strength at 5/5 x4 extr Lymphatics: No axilla or inguinal lymphadenopathy - Studies Laboratory Data (last 24 hrs) 06/20/23 06/20/23 06/20/23 18:10 17:00 17:00 WBC 11.90 H Hgb 10.5 L Hct 32.5 L Plt Count 306 PT 21.1 H INR 1.96 APTT 35.1 Sodium 137 Potassium 3.1 L BUN 34 H Creatinine 2.09 H Glucose 90 Total Bilirubin 0.5 AST 20 ALT 20 Alkaline Phosphatase 124 H Assessment And Plan - Plan Acute COPDexacerbation: Will continue steroid, prn duoneb, advair, oxygen and iv abx. Continue prn BIPAP. Hypertension: Will continue antihypertensive medications. Hyperlipidemia: statin. History of chronic atrial fibrillation: Will continue telemetry and aspirin. BP is hypotensive. Will hold BB. . Hypokalemia: Potassium is low at 2.8 and repeat labs this morning, will replete and monitor. PATRIZIA versus CKD: Creatinine is 1.85 <- 2.09. Will avoid nephrotoxin and monitor renal function. DVT Prophylaxis: heparin. CODE STATUS: Full code Disposition: Pending hospital course. Discharge Plan: Home Plan to discharge in: 24 Hours - Code Status/Comfort Care Code Status Assessed: Yes
[2023-06-22] MEDS: HEPARIN 5000 UNIT/ML 1 ML VIAL SQ SCH ×2 (00:29→08:56)
[2023-06-22] MEDS: IPRATROPIUM BROM 0.5MG/2.5ML NEB SCH ×4 (02:15→20:50)
[2023-06-22] MEDS: ALBUTEROL 2.5 MG/3 ML NEB SOL NEB SCH ×4 (02:15→20:50)
[2023-06-22 03:03] LABS: Absolute Lymphocytes (CBC) 1.8 K/uL (0.7-4.9); Hematocrit 26.9 % (36.0-45.0); Lymphocytes % 19.8 % (15.3-44.8); MPV 8.4 fL (7.6-11.3); Platelets 271 thou/uL (152-406); RBC Red Blood Cell Count 3.09 M/uL (3.86-4.86)
[2023-06-22 03:24] LABS: Potassium 3.9 mEq/L (3.5-5.1)
[2023-06-22] MEDS ORDERED: POTASSIUM CL SA 10 MEQ TAB PO ONE (09:00)
--- NOTE | 2023-06-22 09:45 | P.PN ---
Subjective Date of Service: 06/22/23 Chief Complaint: Shortness of breath, respiratory failure. Subjective: No new changes, Improving, Doing well Alert and oriented x3 Patient is sitting up in the bed, NAD Vitals stable, pn O2 2 LPM via nasal canula Bilateral lower extremity edema 2+ <Twan Orr - Last Filed: 06/22/23 10:15> Date of Service: 06/30/23 <Jean Marie Garland Anthony - Last Filed: 06/30/23 19:04> Review of Systems 10-point ROS is otherwise unremarkable <Twan Orr - Last Filed: 06/22/23 10:15> Physical Examination - Vital Signs Temperature: 98.3 F Blood Pressure: 117/62 Pulse: 108 Respirations: 18 Pulse Ox (%): 93 - Physical Exam General: Alert, Oriented x3 HEENT: Atraumatic, Normocephalic Neck: Supple, 2+ carotid pulse no bruit Respiratory: Diminished (at the bases), Crackles/rales Cardiovascular: No edema (BL lower extremity edema 3+), Normal pulses Capillary refill: <2 Seconds Gastrointestinal: Normal bowel sounds, Soft and benign Musculoskeletal: No clubbing, Swelling (3+) Integumentary: No rashes, No breakdown Neurological: Normal speech, Normal tone, Normal affect <Twan Orr - Last Filed: 06/22/23 10:15> Assessment And Plan - Current Problems (Diagnosis) (1) CHF (congestive heart failure) Onset Date: ~06/20/23 Current Visit: Yes Status: Acute Qualifiers: Heart failure type: diastolic Heart failure chronicity: acute on chronic Qualified Code(s): I50.33 - Acute on chronic diastolic (congestive) heart failure (2) Chronic a-fib Current Visit: Yes Status: Acute (3) HTN (hypertension) Current Visit: Yes Status: Chronic Qualifiers: Hypertension type: primary hypertension Qualified Code(s): I10 - Essential (primary) hypertension (4) HLD (hyperlipidemia) Current Visit: Yes Status: Chronic Qualifiers: Hyperlipidemia type: other hyperlipidemia Qualified Code(s): E78.49 - Other hyperlipidemia; E78.4 - Other hyperlipidemia (5) Hypokalemia Current Visit: Yes Status: Acute (6) COPD exacerbation Onset Date: ~06/20/23 Current Visit: Yes Status: Acute - Plan Acute COPDexacerbation: Will continue steroid, prn duoneb, advair, oxygen and iv abx. Continue prn BIPAP. CHF: Chronic, with SOB worsening, BL Lower extremity edema 2+ up to groin. Started on Lasix, spironolactone/HCTZ Last EF 63% on 09/02/22. I&O ,Daily weight and fluid restriction ordered. Hypertension: Will continue antihypertensive medications. Hyperlipidemia: statin. History of chronic atrial fibrillation: Will continue telemetry and aspirin.BP normal, on Eliquis. Hypokalemia: Potassium is Improved at 3.9 and repeat labs this morning, will replete and monitor. PATRIZIA versus CKD: GFR 30 Creatinine is 1.78 <- 2.09. Will avoid nephrotoxin and monitor renal function. DVT Prophylaxis: heparin. CODE STATUS: Full code Discharge Plan: Home Plan to discharge in: 48 Hours - Code Status/Comfort Care Code Status Assessed: Yes (full code) Code Status: Full Code Physician Review: Patient Assessed, Agree with Above Assessment and Plan Critical Care: No Time Spent Managing PTS Care (In Minutes): 35 (minutes) <Twan Orr - Last Filed: 06/22/23 10:15> - Plan Pt seen and examined. I agree with the note by the SERVICE DELIVERY SUPERVISOR. <Jean Marie Garland - Last Filed: 06/30/23 19:04>
[2023-06-22] MEDS ORDERED: BENZONATATE 100 MG CAP PO PRN (10:14)
[2023-06-22] MEDS: DULERA 200/5 (MOMETASONE/FORMOTEROL) INHALER IH SCH ×3 (10:15→21:01)
[2023-06-22] MEDS ORDERED: hydroCHLOROthiazide 25 MG TAB PO SCH (11:00)
[2023-06-22] MEDS ORDERED: TORSEMIDE 20 MG TAB PO SCH (11:00)
--- NOTE | 2023-06-22 11:22 | RAD REPORT ---
EXAM DESCRIPTION: RADChest Single View06/22/2023 11:08 am CLINICAL HISTORY: SOB COMPARISON: Chest Single View dated 06/20/2023; Chest Single View dated 03/23/2023; Chest Single View dated 09/01/2022; Chest Single View dated 03/05/2020 TECHNIQUE: Portable AP view of the chest. FINDINGS: Mildly progressive retrocardiac opacification. Central interstitial prominence, stable. N o pneumothorax or effusion. Stable mild prominence of the cardiac silhouette. Mediastinal contours ar e unremarkable. IMPRESSION: Stable central interstitial prominence, may reflect mild congestion or CHF. Progressive retrocardiac opacity, could reflect atelectasis however superimposed pneumonia cannot be excluded.
[2023-06-22] MEDS: SPIRONOLACTONE 25 MG TABLET PO SCH (11:46)
[2023-06-22] MEDS: AMIODARONE HCL 200 MG TAB PO SCH ×2 (11:46→21:01)
[2023-06-22] MEDS: FUROSEMIDE 40 MG/4 ML VIAL IV SCH (16:48)
[2023-06-22] MEDS ORDERED: FUROSEMIDE 20 MG/ 2ML VIAL IV SCH (17:00)
[2023-06-22] MEDS: APIXABAN 5 MG TABLET PO SCH (21:01)
[2023-06-23] MEDS: IPRATROPIUM BROM 0.5MG/2.5ML NEB SCH ×4 (02:20→22:01)
[2023-06-23] MEDS: ALBUTEROL 2.5 MG/3 ML NEB SOL NEB SCH ×4 (02:20→22:01)
[2023-06-23] MEDS: DULERA 200/5 (MOMETASONE/FORMOTEROL) INHALER IH SCH ×2 (09:00→20:35)
[2023-06-23] MEDS: FUROSEMIDE 40 MG/4 ML VIAL IV SCH ×2 (09:00→17:03)
[2023-06-23] MEDS: SPIRONOLACTONE 25 MG TABLET PO SCH (09:01)
[2023-06-23] MEDS: APIXABAN 5 MG TABLET PO SCH ×2 (09:02→20:35)
[2023-06-23] MEDS: AMIODARONE HCL 200 MG TAB PO SCH ×2 (09:02→20:35)
[2023-06-24] MEDS: ALBUTEROL 2.5 MG/3 ML NEB SOL NEB SCH ×4 (01:00→22:03)
[2023-06-24] MEDS: IPRATROPIUM BROM 0.5MG/2.5ML NEB SCH ×4 (01:00→22:03)
[2023-06-24] MEDS: FUROSEMIDE 40 MG/4 ML VIAL IV SCH (07:53)
[2023-06-24] MEDS: AMIODARONE HCL 200 MG TAB PO SCH ×2 (07:59→20:05)
[2023-06-24] MEDS: SPIRONOLACTONE 25 MG TABLET PO SCH (07:59)
[2023-06-24] MEDS ORDERED: ALBUTEROL 2.5 MG/3 ML NEB SOL NEB ONE (08:00)
[2023-06-24] MEDS ORDERED: IPRATROPIUM BROM 0.5MG/2.5ML IH ONE (08:00)
[2023-06-24] MEDS: APIXABAN 5 MG TABLET PO SCH ×2 (08:00→20:05)
[2023-06-24] MEDS: DULERA 200/5 (MOMETASONE/FORMOTEROL) INHALER IH SCH ×2 (08:00→23:51)
[2023-06-24 11:20] LABS: Absolute Lymphocytes (CBC) 1.6 K/uL (0.7-4.9); Hematocrit 27.3 % (36.0-45.0); Lymphocytes % 16.9 % (15.3-44.8); MCV 87.3 fL (80-100); MPV 8.4 fL (7.6-11.3); Platelets 252 thou/uL (152-406); RBC Red Blood Cell Count 3.13 M/uL (3.86-4.86)
[2023-06-24 11:42] LABS: Magnesium 1.4 mg/dL (1.6-2.4); Potassium 4.4 mEq/L (3.5-5.1); Troponin High Sensitivity 25.8 pg/mL (<58.9)
[2023-06-24] MEDS: ALBUMIN HUMAN 25% 12.5 GM, FUROSEMIDE 100 MG in NA CHLORIDE 0.9% 40 ML IV SCH ×2 (12:22→18:05)
--- NOTE | 2023-06-24 21:13 | P.PN ---
Date of Service: 06/23/23 Subjective Patient is complaining of not really being able to move her legs are so swollen. Bilateral lower extremity significantly edematous. Echocardiogram pending to further evaluate ejection fraction and right-sided heart failure. Patient with a history of obstructive sleep apnea. Patient with need placement as well. Physical therapy evaluation in a.m. Physical Examination - Vital Signs Reviewed - Physical Exam General: Alert, Oriented x3 Respiratory: Diminished (at the bases), Crackles/rales Cardiovascular: No edema (BL lower extremity edema 3+), Normal pulses Gastrointestinal: Normal bowel sounds, Soft and benign Musculoskeletal: No clubbing, Swelling (3+) Integumentary: No rashes, No breakdown Neurological: No focal deficits noted Assessment And Plan - Current Problems (Diagnosis) (1) CHF (congestive heart failure) Onset Date: ~06/20/23 Current Visit: Yes Status: Acute Qualifiers: Heart failure type: diastolic Heart failure chronicity: acute on chronic Qualified Code(s): I50.33 - Acute on chronic diastolic (congestive) heart failure (2) Chronic a-fib Current Visit: Yes Status: Acute (3) HTN (hypertension) Current Visit: Yes Status: Chronic Qualifiers: Hypertension type: primary hypertension Qualified Code(s): I10 - Essential (primary) hypertension (4) HLD (hyperlipidemia) Current Visit: Yes Status: Chronic Qualifiers: Hyperlipidemia type: other hyperlipidemia Qualified Code(s): E78.49 - Other hyperlipidemia; E78.4 - Other hyperlipidemia (5) Hypokalemia Current Visit: Yes Status: Acute (6) COPD exacerbation Onset Date: ~06/20/23 Current Visit: Yes Status: Acute - Plan 1. Acute CHF exacerbation; echocardiogram from earlier this year revealed normal systolic functioning with diastolic heart failure. Patient with significant edema up to the groin region. Continuing with diuresing. Will start a albumin/Lasix drip x 2 doses. Will try to get patient diuresed and hopefully her participation with physical therapy will increase. 2. Acute COPDexacerbation: Will continue steroid, prn duoneb, advair, oxygen and iv abx. Continue prn BIPAP. 3. Hypertension: Will continue antihypertensive medications. 4. Hyperlipidemia: statin. 5. History of chronic atrial fibrillation: Will continue telemetry and aspirin.BP normal, on Eliquis. 6. Hypokalemia: Potassium is Improved at 3.9 and repeat labs this morning, will replete and monitor. 7. PATRIZIA versus CKD: GFR 30 Creatinine is 1.78 <- 2.09. Will avoid nephrotoxin and monitor renal function. DVT Prophylaxis: heparin. CODE STATUS: Full code Discharge Plan: assisted facility placement Plan to discharge in: 48 Hours - Code Status/Comfort Care Code Status Assessed: Yes (full code) Code Status: Full Code Physician Review: Patient Assessed, Agree with Above Assessment and Plan Critical Care: No Time Spent Managing PTS Care (In Minutes): 35 (minutes)
[2023-06-25] MEDS: IPRATROPIUM BROM 0.5MG/2.5ML NEB SCH ×4 (03:37→19:24)
[2023-06-25] MEDS: ALBUTEROL 2.5 MG/3 ML NEB SOL NEB SCH ×4 (03:37→19:24)
[2023-06-25 07:04] LABS: Absolute Lymphocytes (CBC) 1.9 K/uL (0.7-4.9); Hematocrit 28.8 % (36.0-45.0); MPV 8.4 fL (7.6-11.3); Platelets 251 thou/uL (152-406); RBC Red Blood Cell Count 3.35 M/uL (3.86-4.86)
[2023-06-25 07:21] LABS: Albumin 2.4 g/dL (3.4-5.0); Bilirubin Total 0.7 mg/dL (0.2-1.0); Magnesium 1.2 mg/dL (1.6-2.4); Phosphorus 3.4 mg/dL (2.5-4.9); Protein, Total 7.1 g/dL (6.4-8.2)
--- NOTE | 2023-06-25 08:10 | RAD REPORT ---
EXAM DESCRIPTION: RADChest Single View06/25/2023 4:35 am CLINICAL HISTORY: pneumonia COMPARISON: Chest Single View dated 06/22/2023; Chest Single View dated 06/20/2023; Chest Single Vie w dated 03/23/2023; Chest Single View dated 09/01/2022 TECHNIQUE: Portable AP view of the chest. FINDINGS: Stable retrocardiac opacity and central interstitial prominence. No new focal consolidatio n. No pneumothorax or effusion. The heart is again mildly enlarged. Mediastinal contours are unremar kable. IMPRESSION: Stable findings, as above.
[2023-06-25] MEDS: ALBUMIN HUMAN 25% 12.5 GM, FUROSEMIDE 100 MG in NA CHLORIDE 0.9% 40 ML IV SCH ×2 (09:24→14:39)
[2023-06-25] MEDS: AMIODARONE HCL 200 MG TAB PO SCH ×2 (09:25→20:14)
[2023-06-25] MEDS: SPIRONOLACTONE 25 MG TABLET PO SCH (09:25)
[2023-06-25] MEDS: APIXABAN 5 MG TABLET PO SCH ×2 (09:26→20:14)
[2023-06-25] MEDS: DULERA 200/5 (MOMETASONE/FORMOTEROL) INHALER IH SCH ×2 (09:26→20:14)
[2023-06-26] MEDS: IPRATROPIUM BROM 0.5MG/2.5ML NEB SCH ×4 (01:01→19:21)
[2023-06-26] MEDS: ALBUTEROL 2.5 MG/3 ML NEB SOL NEB SCH ×4 (01:01→19:21)
--- NOTE | 2023-06-26 05:42 | P.PN ---
Date of Service: 06/24/23 Subjective Patient is doing a little bit better. Still little bit swelling. She did sit on the edge of the bed with physical therapy and is standing up. Overall she has a got improvement. Physical Examination - Vital Signs Reviewed - Physical Exam General: Alert, Oriented x3 Respiratory: Clear except for minimal basilar crackles Cardiovascular: No edema (BL lower extremity edema 3+), regular rate rhythm with no murmurs Gastrointestinal: Normal bowel sounds, Soft and benign Musculoskeletal: No clubbing, Swelling (3+) Integumentary: No rashes, No breakdown Neurological: No focal deficits noted Assessment And Plan - Current Problems (Diagnosis) (1) CHF (congestive heart failure) Onset Date: ~06/20/23 Current Visit: Yes Status: Acute Qualifiers: Heart failure type: diastolic Heart failure chronicity: acute on chronic Qualified Code(s): I50.33 - Acute on chronic diastolic (congestive) heart failure (2) Chronic a-fib Current Visit: Yes Status: Acute (3) HTN (hypertension) Current Visit: Yes Status: Chronic Qualifiers: Hypertension type: primary hypertension Qualified Code(s): I10 - Essential (primary) hypertension (4) HLD (hyperlipidemia) Current Visit: Yes Status: Chronic Qualifiers: Hyperlipidemia type: other hyperlipidemia Qualified Code(s): E78.49 - Other hyperlipidemia; E78.4 - Other hyperlipidemia (5) Hypokalemia Current Visit: Yes Status: Acute (6) COPD exacerbation Onset Date: ~06/20/23 Current Visit: Yes Status: Acute - Plan 1. Acute CHF exacerbation; echocardiogram from earlier this year revealed normal systolic functioning with diastolic heart failure. started patient with aggressive diuresing. Patient with 3 L of urine output today. Will continue to monitor closely. 2. Acute COPDexacerbation: Will continue steroid, prn duoneb, advair, oxygen and iv abx. Continue prn BIPAP. Wean off of steroids and BiPAP at night only 3. Hypertension: Will continue antihypertensive medications. 4. Hyperlipidemia: statin. 5. History of chronic atrial fibrillation: Will continue telemetry and aspirin.BP normal, on Eliquis. 6. Hypokalemia: Potassium is Improved at 3.9 and repeat labs this morning, will replete and monitor. 7. PATRIZIA versus CKD: GFR 30 Creatinine is 1.78 <- 2.09. Will avoid nephrotoxin and monitor renal function. DVT Prophylaxis: heparin. CODE STATUS: Full code Discharge Plan: shelter facility placement Plan to discharge in: 48 Hours - Code Status/Comfort Care Code Status Assessed: Yes (full code) Code Status: Full Code Physician Review: Patient Assessed, Agree with Above Assessment and Plan Critical Care: No Time Spent Managing PTS Care (In Minutes): 35 (minutes)
--- NOTE | 2023-06-26 05:44 | P.PN ---
Date of Service: 06/25/23 Subjective patient continues to do well with no new complaints. Patient is overall feeling better. Her legs are less edematous. She has had another 2.5 L of urine output. Will continue with gentle diuresing at this point. Monitor renal function closely. Working on alf rehab placement. Physical Examination - Vital Signs Reviewed - Physical Exam General: Alert, Oriented x3 Respiratory: Clear except for minimal basilar crackles Cardiovascular: regular rate rhythm with no murmurs Gastrointestinal: Normal bowel sounds, Soft and benign Musculoskeletal: No clubbing, Swelling has improved Integumentary: No rashes, No breakdown Neurological: No focal deficits noted Assessment And Plan - Current Problems (Diagnosis) (1) CHF (congestive heart failure) Onset Date: ~06/20/23 Current Visit: Yes Status: Acute Qualifiers: Heart failure type: diastolic Heart failure chronicity: acute on chronic Qualified Code(s): I50.33 - Acute on chronic diastolic (congestive) heart failure (2) Chronic a-fib Current Visit: Yes Status: Acute (3) HTN (hypertension) Current Visit: Yes Status: Chronic Qualifiers: Hypertension type: primary hypertension Qualified Code(s): I10 - Essential (primary) hypertension (4) HLD (hyperlipidemia) Current Visit: Yes Status: Chronic Qualifiers: Hyperlipidemia type: other hyperlipidemia Qualified Code(s): E78.49 - Other hyperlipidemia; E78.4 - Other hyperlipidemia (5) Hypokalemia Current Visit: Yes Status: Acute (6) COPD exacerbation Onset Date: ~06/20/23 Current Visit: Yes Status: Acute - Plan 1. Acute CHF exacerbation; echocardiogram from earlier this year revealed normal systolic functioning with diastolic heart failure. started patient with aggressive diuresing. Patient with 5 L of urine output today/36hrs. Will continue to monitor closely. will also monitor renal function closely 2. Acute COPDexacerbation: Will continue steroid, prn duoneb, advair, oxygen and iv abx. Continue prn BIPAP. Wean off of steroids and BiPAP at night only 3. Hypertension: Will continue antihypertensive medications. 4. Hyperlipidemia: statin. 5. History of chronic atrial fibrillation: Will continue telemetry and aspirin.BP normal, on Eliquis. 6. Hypokalemia: Potassium is is stable; will replete and monitor. 7. PATRIZIA versus CKD: GFR 30 Creatinine is 1.78 <- 2.09. Will avoid nephrotoxin and monitor renal function. DVT Prophylaxis: heparin. CODE STATUS: Full code Discharge Plan: long term facility placement Plan to discharge in: 48 Hours - Code Status/Comfort Care Code Status Assessed: Yes (full code) Code Status: Full Code Physician Review: Patient Assessed, Agree with Above Assessment and Plan Critical Care: No Time Spent Managing PTS Care (In Minutes): 35 (minutes)
--- NOTE | 2023-06-26 07:08 | P.PN ---
Subjective Date of Service: 06/26/23 Chief Complaint: Shortness of breath, respiratory failure. No events overnight. She reports that her breathing is slightly improved compared to yesterday. She denies any chest pain or palpitations. Review of Systems 10-point ROS is otherwise unremarkable Respiratory: Shortness of Breath Physical Examination - Vital Signs Temperature: 97.7 F Blood Pressure: 121/58 Pulse: 103 Respirations: 17 Pulse Ox (%): 97 - Physical Exam General: Alert, In no apparent distress, Oriented x3 HEENT: Atraumatic Neck: JVD not distended Respiratory: Diminished, Crackles/rales (bibasilar), Rhonchi/gurgles (scattered) Cardiovascular: Edema (2+ BLE) Gastrointestinal: Normal bowel sounds, Soft and benign, Non-distended, No tenderness, No rebound, No guarding Musculoskeletal: No clubbing Integumentary: No rashes Neurological: Normal speech, Normal affect - Studies Microbiology Data (last 24 hrs): 06/20/23 16:45 Blood - Blood Aerobic Blood Culture - Final No growth in 5 days. 06/20/23 16:45 Blood - Blood Anaerobic Blood Culture - Final No growth in 5 days. 06/20/23 17:00 Blood - Blood Aerobic Blood Culture - Final No growth in 5 days. 06/20/23 17:00 Blood - Blood Anaerobic Blood Culture - Final No growth in 5 days. Assessment And Plan - Plan # Acute Hypercapnic Hypoxemic Respiratory Failure due to Acute on Chronic Decompensated Diastolic Congestive Heart Failure with Preserved Ejection Fraction # Acute COPD Exacerbation # SIRS (Tachycardia, Tachypnea) due to above - no current evidence of infection # Severe Pulmonary Hypertension - Cardiology and Pulmonology consulted - recommendations appreciated - Continue steroids and bronchodilators per Pulm - Continue IV furosemide, spironolactone - Daily weights - Strict I/O # KDIGO Stage I Acute Kidney Injury on Chronic Kidney Disease Stage III # Likely Anemia of Chronic Kidney Disease - Consulted Nephrology and spoke with Dr. Oneil - recommendations appreciated - Creatinine = 2.09 -> 1.85 -> 1.78 -> 1.65 -> 1.71 -> 1.76 - Monitor creatinine and urine output - If worsening, obtain renal ultrasound - Renally dose medications # Suspect Demand Ischemia (Type II NSTEMI) due to above - Cardiology consulted - recommendations appreciated - EKG without STEMI criteria - Troponin: 65.0 -> 68.6 -> 40.0 - Transthoracic echocardiogram = "1. normal left ventricular ejection fractino 55-60% 2. diastolic dysfunction (severe) 3. left atrial enlargement 4. mild tricuspid regurgitation 5. mild mitral regurgitation 6. severe pulmonary hypertension with right ventricular systolic pressure of greater than 60 mmHg" # Chronic Atrial Fibrillation # Hypertension - Continue home amiodarone, apixaban Gavin Phelan M.D.
--- NOTE | 2023-06-26 07:13 | ECHO ---
HEIGHT: 5 ft 7 in WEIGHT: 339 lb 8.19 oz DATE OF STUDY: 06/25/[address]: Sven Bueno MD 2-DIMENSIONAL: YES M.MODE: YES DOPPLER: YES COLOR FLOW: YES TDS: PORTABLE: YES DEFINITY: BUBBLE STUDY: DIAGNOSIS: PATIENT WITH WORSENING RESPIRIATORY DISTRESS FOR CARDIAC WORKUP CARDIAC HISTORY: CATHERIZATION: NO SURGERY: NO PROSTHETIC VALVE: NO PACEMAKER: NO MEASUREMENTS (cm) DIASTOLIC (NORMALS) SYSTOLIC (NORMALS) IVSd 1.1 (0.6-1.2) LA Diam 4.2 (1.9-4.0) LVEF 55% LVIDd 4.6 (3.5-5.7) LVIDs 3.7 (2.0-3.5) %FS 21% LVPWd 1.2 (0.6-1.2) Ao Diam 2.4 (2.0-3.7) 2 DIMENSIONAL ASSESSMENT: RIGHT ATRIUM: NORMAL LEFT ATRIUM: ENLARGED RIGHT VENTRICLE: NORMAL LEFT VENTRICLE: NORMAL TRICUSPID VALVE: MILD TRICUSPID REGURGITATION MITRAL VALVE: MODERATE MITRAL REGURGITATION PULMONIC VALVE: NOT SEEN AORTIC VALVE: NORMAL PERICARDIAL EFFUSION: TRACE AORTIC ROOT: NORMAL LEFT VENTRICULAR WALL MOTION: NORMAL DOPPLER/COLOR FLOW: SEE BELOW COMMENTS: 1. NORMAL LEFT VENTRICULAR EJECTION FRACTINO 55-60% 2. DIASTOLIC DYSFUNCTION (SEVERE) 3. LEFT ATRIAL ENLARGEMENT 4. MILD TRICUSPID REGURGITATION 5. MILD MITRAL REGURGITATION 6. SEVERE PULMONARY HYPERTENSION WITH RIGHT VENTRICULAR SYSTOLIC PRESSURE OF GREATER THAN 60 mmHg TECHNOLOGIST: NIDHI LIMON
[2023-06-26] MEDS: APIXABAN 5 MG TABLET PO SCH ×2 (09:02→20:59)
[2023-06-26] MEDS: AMIODARONE HCL 200 MG TAB PO SCH ×2 (09:02→20:59)
[2023-06-26] MEDS: SPIRONOLACTONE 25 MG TABLET PO SCH (09:02)
[2023-06-26] MEDS: DULERA 200/5 (MOMETASONE/FORMOTEROL) INHALER IH SCH ×2 (09:03→20:59)
[2023-06-26] MEDS: FUROSEMIDE 40 MG/4 ML VIAL IV SCH (09:08)
[2023-06-26] MEDS: MAGNESIUM OXIDE 400 MG TAB PO SCH ×2 (11:10→20:59)
--- NOTE | 2023-06-26 11:11 | P.CNS ---
Date of Consult: 06/26/23 Reason for Consult: PATRIZIA Requesting Physician: Gavin Phelan Chief Complaint: Shortness of breath, respiratory failure. History of Present Illness: 72-year-old female patient with medical history significant for unspecified COPD, chronic hypertension, chronic unspecified atrial fibrillation, prior PATRIZIA episodes, probable underlying earlier stage CKD who came to the ED several days ago with complaints of worsening shortness of breath and lethargy. Pt was noted to be hypoxic, pt was placed on diuretics for concern for superimposed CHF. Pt still reports some dyspnea and mild cough/phlegm but overall better since admission. Allergies Penicillins Allergy (Verified 09/04/18 00:53) Unknown codeine Adverse Reaction (Verified 10/02/19 01:03) Itching shellfish derived Adverse Reaction (Verified 09/04/18 00:53) Hives/Rash Home Medications: Albuterol Neb [Proventil 0.083% Neb Soln] 2.5 mg IH PRN PRN 09/13/17 Fluticasone/Vilanterol [Breo Ellipta 200-25 Mcg Inhalr] 1 each IH PRN PRN 09/13/17 Apixaban [Eliquis *] 5 mg PO BID 10/02/19 Amiodarone HCl [Pacerone] 200 mg PO BID 30 Days #60 tab 09/02/22 Spironolact/Hydrochlorothiazid [Spironolactone-Hctz 25-25 Tab] 25 mg PO DAILY 03/23/23 Torsemide 10 mg PO DAILY 03/23/23 Doxycycline Hyclate 100 mg PO BID 8 Days #16 tab 03/26/23 cephALEXin [Cephalexin] 500 mg PO BID 8 Days #16 tab 03/26/23 - Past Medical/Surgical History Diabetic: No -: Afib -: COPD -: Asthma -: Hypertension -: Renal insufficiency followed by Dr. Oneil -: dalia -: appy -: R. hip replacement -: Tubal ligation Psychosocial/ Personal History: Patient lives at home, alone. - Family History Father Medical History: Cancer - Social History Smoking Status: Current every day smoker Alcohol use: No CD- Drugs: No Caffeine use: Yes Place of Residence: Home Review of Systems General: Weakness, As per HPI Eyes: Unremarkable ENT: Unremarkable Respiratory: Cough, Shortness of Breath, As per HPI Cardiovascular: Edema, As per HPI Gastrointestinal: Unremarkable Genitourinary: Unremarkable Musculoskeletal: Unremarkable Integumentary: Unremarkable Neurological: Unremarkable Physical Examination Temp Pulse Resp BP Pulse Ox 97.6 F 103 H 18 121/58 L 90 L 06/26/23 08:00 06/26/23 09:08 06/26/23 08:00 06/26/23 09:08 06/26/23 08:00 General: Alert, In no apparent distress, Cooperative HEENT: Normocephalic, Other (LFNC) Neck: Supple Respiratory: Normal air movement, Other (Diminished at bases) Cardiovascular: Other (Non tachy, no cardiac gallop heart sounds) Gastrointestinal: Soft and benign, No tenderness, Other (obese) Musculoskeletal: No tenderness, No warmth, Swelling Integumentary: No rashes Neurological: Normal speech, Normal tone, Normal affect Conclusions/Impression: A/P) Stage I PATRIZIA that is multifactorial but with possible Type 1 CRS component/other. Prior PATRIZIA episode(s), underlying CKD NOS -Cr level on repeat testing from admission level but above prior baseline range, cont to trend with diuresis HTN with CKD/ CHF complicated by relative hypotension at times -Hold off on starting OSMAN inhibitors currently Diastolic CHF, acute on chronic Mod to severe pulm HTN -Diuresing well, cont IV lasix but lower dose, obtain standing weights Metab alkalosis -Compensatory for underlying hypercarbia/COPD +/- CHF, diuretics related. Trend, cont Spironolactone. Will assess role for low dose Diamox with her COPD Jl Callahan MD, DEEDEE
[2023-06-26 12:26] LABS: Potassium 3.8 mEq/L (3.5-5.1)
--- NOTE | 2023-06-26 12:37 | P.CNS ---
Date of Consult: 06/26/23 Reason for Consult: COPD extremity weakness Chief Complaint: Shortness of breath, respiratory failure. History of Present Illness: Patient is 73 years of age with a history of COPD apparently she was on [facility] was hospitalized there with respiratory failure COPD exacerbation lower extremity weakness had progressive lower extremity weakness for the past 3 months with lower extremity edema flew in here from [place] and it appeared in the hospital and able to ambulate eyes any fever chills cough Allergies Penicillins Allergy (Verified 09/04/18 00:53) Unknown codeine Adverse Reaction (Verified 10/02/19 01:03) Itching shellfish derived Adverse Reaction (Verified 09/04/18 00:53) Hives/Rash Home Medications: Albuterol Neb [Proventil 0.083% Neb Soln] 2.5 mg IH PRN PRN 09/13/17 Fluticasone/Vilanterol [Breo Ellipta 200-25 Mcg Inhalr] 1 each IH PRN PRN 09/13/17 Apixaban [Eliquis *] 5 mg PO BID 10/02/19 Amiodarone HCl [Pacerone] 200 mg PO BID 30 Days #60 tab 09/02/22 Spironolact/Hydrochlorothiazid [Spironolactone-Hctz 25-25 Tab] 25 mg PO DAILY 03/23/23 Torsemide 10 mg PO DAILY 03/23/23 Doxycycline Hyclate 100 mg PO BID 8 Days #16 tab 03/26/23 cephALEXin [Cephalexin] 500 mg PO BID 8 Days #16 tab 03/26/23 - Past Medical/Surgical History Diabetic: No -: Afib -: COPD -: Asthma -: Hypertension -: Renal insufficiency followed by Dr. Oneil -: dalia -: appy -: R. hip replacement -: Tubal ligation Psychosocial/ Personal History: Patient lives at home, alone. - Family History Father Medical History: Cancer - Social History Smoking Status: Current every day smoker Alcohol use: No CD- Drugs: No Caffeine use: Yes Place of Residence: Home Review of Systems General: Weakness Respiratory: Shortness of Breath Cardiovascular: Edema Physical Examination Temp Pulse Resp BP Pulse Ox 97.6 F 103 H 18 121/58 L 90 L 06/26/23 08:00 06/26/23 09:08 06/26/23 08:00 06/26/23 09:08 06/26/23 08:00 General: Alert, Oriented x3 Respiratory: Clear to auscultation bilaterally, Diminished Cardiovascular: Edema (2+ edema), Irregular heart rate/rhythm Gastrointestinal: Normal bowel sounds, Non-distended Neurological: Other (Patient is barely able to lift her legs off the bed unable to elicit any reflexes) - Problems (1) COPD exacerbation Onset Date: ~06/20/23 Current Visit: Yes Status: Acute Plan: Patient is 73 years of age with a history of COPD admitted with an exacerbation lower extremity weakness lower extremity edema I suspect that she has significant cor pulmonale hospitalized in the hospital in [place] unable to walk or ambulate patient has A-fib hypoxic hypercapnic respiratory failure renal insufficiency bicarb is all related agree with diuretics spironolactone and Lasix also had some cardiogram A-fib under control patient is anticoagulated on beta-siddharth (2) Lower extremity weakness Current Visit: Yes Status: Acute Plan: Patient has progressive lower extremity weakness denies any bowel or urinary problem or significant lower extremity edema Qualifiers: Laterality: bilateral Qualified Code(s): R29.898 - Other symptoms and signs involving the musculoskeletal system
--- NOTE | 2023-06-26 13:39 | EKG ---
Test Date: 2023-06-20 Test Time: 16:47:55 Window Trimmer Apprentice: BP MEASUREMENT RESULTS: Intervals: Rate: 61 MD: 198 QRSD: 102 QT: 488 QTc: 491 [place]: P: 35 MD: 198 QRS: 60 T: 23 INTERPRETIVE STATEMENTS: Normal sinus rhythm Possible Left atrial enlargement Possible Anterior infarct, age undetermined Abnormal ECG Compared to ECG 03/23/2023 17:27:37 Myocardial infarct finding now present First degree AV block no longer present Prolonged QT interval no longer present Electronically Signed On 06-26-23 13:27:38 LIFT ELECTRICIAN by [place]
--- NOTE | 2023-06-26 14:57 | RAD REPORT ---
EXAM DESCRIPTION: US - Extrem Venous W Compress [place] - 06/26/2023 2:44 pm CLINICAL HISTORY: eval for DVT COMPARISON: Extrem Venous W Compress [place] dated 09/13/2017 TECHNIQUE: Real-time sonographic evaluation of the lower extremity deep venous systems was performed using color Doppler, grayscale, and compression. FINDINGS: Bilateral lower extremities. Normal compressibility, flow augmentation, phasic flow and spontaneous flow is identified in both the left and right lower extremity deep venous systems. No intraluminal filling defects seen. IMPRESSION: No DVT in either lower extremity.
[2023-06-26] MEDS: ACETAZOLAMIDE 500 MG IV IV SCH (15:02)
[2023-06-26] MEDS: FUROSEMIDE 20 MG/ 2ML VIAL IV SCH (18:07)
--- NOTE | 2023-06-26 20:07 | CON ---
Date of Consultation: 06/26/2023 Reason For Consultation: Elevated troponin at presentation. History Of Present Illness: This is a 73-year-old female with a past medical history of COPD, hypert ension, dyslipidemia, atrial fibrillation, presented with worsening shortness of breath, diagnosed wi th COPD exacerbation, admitted for COPD exacerbation management. She had a borderline elevated tropo sg on admission, but normalized and she denies having any chest pain. Past Medical History: As outlined above in the HPI. Medications: Refer reconciliation sheet for detailed list. Allergies: PENICILLIN, CODEINE. Family History: No premature coronary artery disease or cancer. Social History: Does not smoke or drink. Does not use any drugs. Review of Systems: All systems reviewed and are negative except as mentioned in the HPI. Physical Examination: Vital Signs: Reviewed. Head and Neck: Pupils are equal, reactive to light. Intact eye movements . No JVD. No cervical ly mphadenopathy. Neck supple. Thyroid is not enlarged. Lungs: Clear to auscultation bilaterally with decreased breathing sounds. Scattered wheezing is pre sent. Heart: Regular. No extra sounds. Abdomen: Soft, nontender. Bowel sounds positive. No organomegaly. No masses or hernia. No rigidi ty or rebound. Extremities: No clubbing, cyanosis. Trace edema. Neurologic: Alert, awake, oriented x3. No focal deficit appreciated. Lymph Nodes: No cervical or axillary lymphadenopathy. Investigations: BUN 39, creatinine 1.76. Troponin was 68 on admission and trended down. Assessment And Recommendation: 1.Elevated troponin in the setting of chronic obstructive pulmonary disease exacerbation. No chest pain. On echo, normal ejection fraction. Normal wall motion abnormalities. I recommend outpatient evaluation with a stress test. 2.Diastolic heart failure, appears to be euvolemic. Continue current management. Carefully monitor BUN and creatinine electrolytes. 3.Atrial fibrillation, chronic and stable, on Eliquis and amiodarone, to be continued. Thank you for the consult. /MARYA Voice ID: [id number] Report ID: [id number]
--- NOTE | 2023-06-26 21:55 | CON ---
Reason For Consultation: Per the post hole digger, "the patient cannot move her legs." History Of Present Illness: Ms. Mead is a 73-year-old patient, admitted to [facility] on 06/20/2023 with shortness of breath and respiratory failure. The patient notes that over the last fe w weeks, she has had more difficulty getting around, has been falling daily. She said she may use a walker, but still with just legs gave out and fall and as a result, she has been more sedentary than usual. Her shortness of breath is evaluated and she was admitted for nebulizer treatment and diuresi s. She has comorbid hypertension, dyslipidemia along with COPD and chronic atrial fibrillation. Her arterial blood gas on the show CO2 was elevated to 65 and pCO2 was low at 71.3 with bicarb elev ated at 38. Her chest x-ray on the just around admission time showed lungs were clear apart fro m stable central prominent interstitial thickening which were nonspecific. There was no pneumothorax or effusion. Chest x-ray on 06/22 showed stable interstitial prominence, may reflect mild congestio n or CHF, however, superimposed pneumonia could not be ruled out. Chest x-ray on the identified stable findings compared to the prior studies. She did have extremity Dopplers on both lower extrem ities showing no evidence of deep vein thrombus and an echocardiogram done on the showing ejecti on fraction 55% with diastolic dysfunction, found to be severe left atrial enlargement and severe pul monary hypertension with right ventricular systolic pressure greater than 60. The potential explanat ion maybe in line of the patient's severe hypertension of the pulmonary side. At no point, she had a ny focal weakness of face, arm, or leg. The patient herself said she is not confused or disoriented at any point. She had no seizure-like activity at any point. At the time of my evaluation, she did move upper and lower extremities equally well. She did say she was able to stand and ambulate a few feet, but few days ago, she was unable to do so. She has not had any formal physical therapy despite the progressive loss of balance and falling over the last few weeks prior to hospitalization. Past Medical History: Atrial fibrillation, COPD, asthma, hypertension. Past Surgical History: Cholecystectomy, appendectomy, right hip replacement, tubal ligation. Family History: Cancer in father. Social History: The patient lives in her home alone. Allergies: PENICILLIN, CODEINE, SHELLFISH. Current Medications: Tylenol 650 every 4 hours as needed, Diamox 250 mg twice daily, Cordarone 200 m g twice daily, albuterol nebulizer 2.5 mg every 6 hours as needed, Eliquis 5 mg twice daily, Tessalon Perles 200 mg 3 times daily, Lasix 20 mg twice daily, ipratropium 0.5 mg every 6 hours as needed, ma gnesium oxide 400 mg twice daily, Zofran 4 mg every 6 hours as needed, and spironolactone 25 mg daily . Review of Systems: As noted, she has had diffuse weakness of lower extremities with multiple falls, legs just give out. She denies any recent fevers, chills, nausea, vomiting. Admits to shortness of breath, some difficu lty ambulating as she becomes very short of breath and has to stop when trying to ambulate. Otherwis e, no psychiatric issues. She denies any dermatological issues, any other positives on the systems r eview. Physical Examination: Vital Signs: Blood pressure ranged from 91 up to 134 systolic over 50 to 58 diastolic, pulse ranged from 71 to 108, respiratory rate from 16 up to 20, temperature 98.2, oxygen saturation 95%. Weight 3 39 pounds, height 5 feet 7 inches, BMI 53. General: Ms. Mead is resting in bed. HEENT: She is normocephalic, atraumatic. Sclerae anicteric. Oropharynx pink and moist. Neck: Supple. Chest: Mildly decreased breath sounds. Abdomen: Soft. Extremities: Show trace to moderate edema bilaterally, but actually the patient says this is decreas ing and she does have wrinkling noted in the feet and legs. Neurological: She is alert and oriented to situation, place, person. She follows commands appropria tely. She has no focal cranial nerve deficits. No focal motor, sensory, coordination deficits. She will be ambulated with gait belt and with the therapist and a rolling walker. Laboratory Studies: White blood cell count 8.0, hemoglobin 9.3, platelets 251. INR 1.96. Sodium 13 4, potassium 3.8, chloride 88, carbon dioxide 44, BUN 39, creatinine 1.76, glucose ranged from 91 to 113, calcium 8.3, phosphorus 3.4, magnesium 1.2, total bilirubin 0.7, AST 37, ALT 26, alkaline phosph atase 89. Her beta-natriuretic peptide elevated at 10,012. Serum protein 7.1, albumin 2.4, globulin 4.7. Assessment: Ms. Mead is a 73-year-old patient, who is likely debilitated, but has severe right hea rt elevated pressure from pulmonary hypertension, which is a possible cause of her inability to ambul ate any significant distances. She has no evidence of a stroke, seizure, or focal neurological defic its. She has no evidence of any significant neuropathy to prevent her from mobilizing. No evidence of any myopathy to prevent her from mobilizing or ambulating and she has renal insufficiency. In add ition, atrial fibrillation, hypertension, COPD. Plan: She will benefit from aggressive physical therapy perhaps if able to be inpatient given her mu ltiple medical problems, which require daily physician evaluation and management along with 24 hours long term. She will again require aggressive physical and occupational therapy to help her ret urn towards prior level of functioning. Her pulmonary hypertension will be addressed by Cardiology a s that may be a limiting factor in her ability to recover. She will be followed as needed. LB/MODL Voice ID: [id number] Report ID: [id number]
[2023-06-27] MEDS: ACETAZOLAMIDE 500 MG IV IV SCH ×2 (00:19→09:25)
[2023-06-27] MEDS ORDERED: WATER FOR INJ,STERILE 10 ML ONE (00:22)
[2023-06-27] MEDS: ALBUTEROL 2.5 MG/3 ML NEB SOL NEB SCH ×4 (01:18→18:54)
[2023-06-27] MEDS: IPRATROPIUM BROM 0.5MG/2.5ML NEB SCH ×4 (01:18→18:54)
[2023-06-27 02:28] LABS: Absolute Lymphocytes (CBC) 2.4 K/uL (0.7-4.9); Hematocrit 25.9 % (36.0-45.0); Lymphocytes % 28.4 % (15.3-44.8); MCV 86.2 fL (80-100); MPV 9.1 fL (7.6-11.3); Platelets 240 thou/uL (152-406)
[2023-06-27 02:50] LABS: Magnesium 1.2 mg/dL (1.6-2.4); Potassium 4.2 mEq/L (3.5-5.1)
[2023-06-27] MEDS ORDERED: MAGNESIUM 50% 3 GM in NA CHLORIDE 0.9% 100 ML IV ONE (06:28)
[2023-06-27] MEDS ORDERED: Magnesium Sulfate 2gm IVPB 2 G/50 ML BAG IV ONE (07:00)
[2023-06-27] MEDS ORDERED: MAGNESIUM SULFATE 1 gm IVPB 1 GM/100 ML BAG IV ONE (08:00)
[2023-06-27] MEDS: MAGNESIUM OXIDE 400 MG TAB PO SCH ×2 (09:00→21:23)
[2023-06-27] MEDS: FUROSEMIDE 20 MG/ 2ML VIAL IV SCH (09:23)
[2023-06-27] MEDS: APIXABAN 5 MG TABLET PO SCH ×2 (09:23→21:23)
[2023-06-27] MEDS: SPIRONOLACTONE 25 MG TABLET PO SCH (09:23)
[2023-06-27] MEDS: AMIODARONE HCL 200 MG TAB PO SCH ×2 (09:23→21:23)
[2023-06-27] MEDS: DULERA 200/5 (MOMETASONE/FORMOTEROL) INHALER IH SCH ×2 (09:24→21:23)
--- NOTE | 2023-06-27 09:40 | P.PN ---
Subjective Date of Service: 06/27/23 Chief Complaint: Right-sided heart failure , diastolic dysfunction COPD Subjective: Improving (Patient is improving was diuresed shortness of breath has improved) Review of Systems General: Weakness Respiratory: Shortness of Breath Neurological: Weakness (Weakness of lower extremities somewhat better) Physical Examination - Vital Signs Temperature: 97.4 F Blood Pressure: 93/57 Pulse: 103 Respirations: 18 Pulse Ox (%): 95 - Physical Exam General: Alert, In no apparent distress, Oriented x3 Respiratory: Clear to auscultation bilaterally, Diminished Cardiovascular: Edema (Lower extremity edema is improving) Gastrointestinal: Normal bowel sounds, Soft and benign Assessment And Plan - Current Problems (Diagnosis) (1) COPD exacerbation Onset Date: ~06/20/23 Current Visit: Yes Status: Acute Plan: Patient is 73 years of age with a history of COPD severe diastolic heart failure secondary to severe pulmonary hypertension at this time to continue with bronchodilators diuretics renal function is slightly worse atrial fibrillation is controlled (2) Lower extremity weakness Current Visit: Yes Status: Acute Plan: Seen by neurology with diuresis and physical therapy have 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
--- NOTE | 2023-06-27 11:51 | P.PN ---
(S) Continues to diurese but BP soft/low this AM. Pt did work with PT, took a few steps, reports chronic dyspnea stable (O) Vitals reviewed in the EMR General: Alert, In no apparent distress, Cooperative HEENT: Normocephalic, Other (LFNC) Neck: Supple Respiratory: Normal air movement, Other (Diminished at bases) Cardiovascular: Other (Non tachy, no cardiac gallop heart sounds) Gastrointestinal: Soft and benign, No tenderness, Other (obese) Musculoskeletal: No tenderness, No warmth, Swelling (2+ distal b/l edema) Integumentary: No rashes Neurological: Normal speech, Normal tone, Normal affect Conclusions/Impression: A/P) Stage I PATRIZIA that is multifactorial but with possible Type 1 CRS component/other. Prior PATRIZIA episode(s), underlying CKD NOS -Cr level lower on repeat testing from admission level but above prior baseline range, cont to trend with diuresis HTN with CKD/ CHF complicated by relative hypotension at times -Hold off on starting OSMAN inhibitors currently Diastolic CHF, acute on chronic Mod to severe pulm HTN -Diuresing well, pause diuretics due to low BP this AM, obtain standing weights Metab alkalosis -Compensatory for underlying hypercarbia/COPD +/- CHF, diuretics related. Trend, cont Spironolactone if BP allows. Pulm did start low dose Diamox with her COPD Jl Callahan MD, DEEDEE
--- NOTE | 2023-06-27 14:34 | P.PN ---
Subjective Date of Service: 06/27/23 Chief Complaint: Right-sided heart failure , diastolic dysfunction COPD No events overnight. She reports that she feels much better today. She denies any chest pain or palpitations. She continues to experience generalized weakness. Review of Systems 10-point ROS is otherwise unremarkable General: Weakness (generalized) Respiratory: Shortness of Breath (minimal) Physical Examination - Vital Signs Temperature: 97.4 F Blood Pressure: 93/57 Pulse: 103 Respirations: 18 Pulse Ox (%): 95 - Physical Exam General: Alert, In no apparent distress, Oriented x3 HEENT: Atraumatic, Mucous membr. moist/pink, Sclerae nonicteric Neck: JVD not distended Respiratory: Diminished, Crackles/rales (faint bibasilar) Cardiovascular: Regular rate/rhythm, No murmurs, Edema (1+ BLE) Gastrointestinal: Normal bowel sounds, Soft and benign, Non-distended, No tenderness Musculoskeletal: No clubbing Integumentary: No rashes Neurological: Normal speech, Normal affect Assessment And Plan - Plan # Acute Hypercapnic Hypoxemic Respiratory Failure due to Acute on Chronic Decompensated Diastolic Congestive Heart Failure with Preserved Ejection Fraction # Acute COPD Exacerbation # SIRS (Tachycardia, Tachypnea) due to above - no current evidence of infection # Severe Pulmonary Hypertension - Cardiology and Pulmonology consulted - recommendations appreciated - Continue steroids and bronchodilators per Pulm - Continue IV furosemide, spironolactone - Daily weights - Strict I/O # KDIGO Stage I Acute Kidney Injury on Chronic Kidney Disease Stage III # Likely Anemia of Chronic Kidney Disease - Consulted Nephrology and spoke with Dr. Callahan- recommendations appreciated - Creatinine = 2.09 -> 1.85 -> 1.78 -> 1.65 -> 1.71 -> 1.76-> 1.82 - Monitor creatinine and urine output - If worsening, obtain renal ultrasound - Renally dose medications # Suspect Demand Ischemia (Type II NSTEMI) due to above - Cardiology consulted - recommendations appreciated - EKG without STEMI criteria - Troponin: 65.0 -> 68.6 -> 40.0 - Transthoracic echocardiogram = "1. normal left ventricular ejection fractino 55-60% 2. diastolic dysfunction (severe) 3. left atrial enlargement 4. mild tricuspid regurgitation 5. mild mitral regurgitation 6. severe pulmonary hypertension with right ventricular systolic pressure of greater than 60 mmHg" # Chronic Atrial Fibrillation # Hypertension - Continue home amiodarone, apixaban Disposition: Will likely require SNF placement. Appreciate CM assistance. Gavin Phelan M.D.
[2023-06-28] MEDS: IPRATROPIUM BROM 0.5MG/2.5ML NEB SCH ×4 (00:27→20:44)
[2023-06-28] MEDS: ALBUTEROL 2.5 MG/3 ML NEB SOL NEB SCH ×4 (00:27→20:44)
[2023-06-28 03:18] LABS: Hematocrit 26.6 % (36.0-45.0)
[2023-06-28 03:23] LABS: Magnesium 1.4 mg/dL (1.6-2.4); Phosphorus 3.6 mg/dL (2.5-4.9); Potassium 3.6 mEq/L (3.5-5.1)
[2023-06-28] MEDS ORDERED: POTASSIUM CL SA 10 MEQ TAB PO ONE (06:00)
[2023-06-28] MEDS: DULERA 200/5 (MOMETASONE/FORMOTEROL) INHALER IH SCH ×2 (08:30→20:57)
[2023-06-28] MEDS: SPIRONOLACTONE 25 MG TABLET PO SCH (08:30)
[2023-06-28] MEDS: APIXABAN 5 MG TABLET PO SCH ×2 (08:30→20:56)
[2023-06-28] MEDS: AMIODARONE HCL 200 MG TAB PO SCH ×2 (08:30→20:56)
[2023-06-28] MEDS ORDERED: MAGNESIUM 50% 3 GM in NA CHLORIDE 0.9% 100 ML IV ONE (08:30)
[2023-06-28] MEDS: MAGNESIUM OXIDE 400 MG TAB PO SCH ×2 (08:31→20:56)
[2023-06-28] MEDS ORDERED: acetaZOLAMIDE 250 MG TAB PO SCH (09:00)
--- NOTE | 2023-06-28 10:27 | P.PN ---
Subjective Date of Service: 06/28/23 Chief Complaint: Right-sided heart failure , diastolic dysfunction COPD Subjective: Improving (Patient is improving doing better her weakness is improving) Review of Systems General: Weakness Respiratory: Shortness of Breath Physical Examination - Vital Signs Temperature: 98.5 F Blood Pressure: 105/52 Pulse: 104 Respirations: 19 Pulse Ox (%): 95 - Physical Exam General: Alert, In no apparent distress, Oriented x3 Respiratory: Clear to auscultation bilaterally, Diminished Cardiovascular: Regular rate/rhythm, Normal S1 S2, Edema Assessment And Plan - Current Problems (Diagnosis) (1) COPD exacerbation Onset Date: ~06/20/23 Current Visit: Yes Status: Acute Plan: Patient admitted with COPD exacerbation cor pulmonale is improving renal function is also improved oxygenation satisfactory Severe diastolic dysfunction (2) Lower extremity weakness Current Visit: Yes Status: Acute Plan: Edema subsiding weakness improving physical therapy discharge planning Qualifiers: Laterality: bilateral Qualified Code(s): R29.898 - Other symptoms and signs involving the musculoskeletal system (3) Secondary pulmonary arterial hypertension Current Visit: Yes Status: Acute Plan: Severe secondary pulmonary hypertension secondary to combination of COPD and diastolic heart failure continue with diuretic no DVT of lower extremity Physician Review: Patient Assessed, Agree with Above Assessment and Plan
--- NOTE | 2023-06-28 15:36 | RAD REPORT ---
EXAM DESCRIPTION: Peter Single View06/28/2023 3:26 pm CLINICAL HISTORY: Chest pain COMPARISON: June 25, 2023 FINDINGS: Mild bilateral pulmonary opacities are unchanged. Heart is mildly to moderately enlarged IMPRESSION: These findings probably indicate mild CHF
--- NOTE | 2023-06-28 18:02 | P.PN ---
Subjective Date of Service: 06/28/23 Chief Complaint: Right-sided heart failure , diastolic dysfunction COPD No events overnight. She reports that she feels much better today. She continues to have generalized weakness. She reports mild shortness of breath. We are unable to obtain V/Q scan due to her weight. 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 She denies any chest pain or palpitations. Review of Systems 10-point ROS is otherwise unremarkable General: Weakness (generalized) Respiratory: Shortness of Breath (mild) Physical Examination - Vital Signs Temperature: 97.4 F Blood Pressure: 99/43 Pulse: 100 Respirations: 24 Pulse Ox (%): 94 - Physical Exam General: Alert, In no apparent distress, Oriented x3 HEENT: Atraumatic, Mucous membr. moist/pink, Sclerae nonicteric Neck: JVD not distended Respiratory: Diminished, Crackles/rales (faint) Cardiovascular: Regular rate/rhythm, No gallops, No rubs, No murmurs, Edema (1+ BLE) Gastrointestinal: Normal bowel sounds, Soft and benign, Non-distended, No tenderness, No rebound, No guarding Musculoskeletal: No clubbing Integumentary: No rashes Neurological: Normal speech, Normal affect Assessment And Plan - Plan # Acute Hypercapnic Hypoxemic Respiratory Failure due to Acute on Chronic Decompensated Diastolic Congestive Heart Failure with Preserved Ejection Fraction # Acute COPD Exacerbation # SIRS (Tachycardia, Tachypnea) due to above - no current evidence of infection # Severe Pulmonary Hypertension - Cardiology and Pulmonology consulted - recommendations appreciated - Continue steroids and bronchodilators per Pulm - Continue IV furosemide, spironolactone - Daily weights - Strict I/O # KDIGO Stage I Acute Kidney Injury on Chronic Kidney Disease Stage III # Likely Anemia of Chronic Kidney Disease - Consulted Nephrology (Dr. Callahan) - recommendations appreciated - Creatinine = 2.09 -> 1.79 - Monitor creatinine and urine output - If worsening, obtain renal ultrasound - Renally dose medications # Suspect Demand Ischemia (Type II NSTEMI) due to above - Cardiology consulted - recommendations appreciated - EKG without STEMI criteria - Troponin: 65.0 -> 68.6 -> 40.0 - Transthoracic echocardiogram = "1. normal left ventricular ejection fractino 55-60% 2. diastolic dysfunction (severe) 3. left atrial enlargement 4. mild tricuspid regurgitation 5. mild mitral regurgitation 6. severe pulmonary hypertension with right ventricular systolic pressure of greater than 60 mmHg" # Chronic Atrial Fibrillation # Hypertension - Continue home amiodarone, apixaban Disposition: Will likely require SNF placement. Appreciate CM assistance. Gavin Phelan M.D.
--- NOTE | 2023-06-28 18:42 | PN ---
Date of Progress Note: 06/28/2023 Subjective: The patient was seen and examined at bedside. She is doing okay. Denies any complaints . Physical Examination: VITAL SIGNS: Showing temperature of 97.6, pulse rate of 109, respiratory rate of 24, and blood press ure of 110/70. General: She is a morbidly obese female, in no acute distress. HEENT: Atraumatic head. Lungs: Auscultation of lungs reveal bilateral wheezes on all her lung stoddard. Heart: Auscultation of the heart reveals regular rate and rhythm. Abdomen: Obese and nontender. Extremities: Show 1+ edema in bilateral lower extremities. Laboratory Data: Showing a bicarb of 40, BUN of 37, creatinine of 1.79. CBC showing stable hemoglob in and hematocrit. Current Medications: Include amiodarone 200 mg b.i.d., acetazolamide 250 mg daily which has been add ed today. Magnesium replacements have been given. Spironolactone 25 mg a day. Impression: 1.Acute on chronic renal insufficiency with underlying cardiorenal syndrome. Diuresis is currently on hold with loop diuretics secondary to severe metabolic alkalosis. At this time, continue to monit or closely. 2.Chronic obstructive pulmonary disease exacerbation. The patient is being treated for chronic obst ructive pulmonary disease exacerbation, also with underlying moderate to severe pulmonary hypertensio n. 3.Chronic diastolic heart failure. The patient remains on spironolactone, but loop diuretics are on hold as discussed. Plan: Overall, the patient is doing okay at this time. She continues to have severe wheezing. She is getting neb treatments and pulmonary toilet. I will go ahead and increase her Diamox to b.i.d. to improve her metabolic alkalosis and her volume status and to prevent further volume overload. Continue to mo nitor closely and will follow up. VV/MODL Voice ID: [id number] Report ID: [id number]
[2023-06-28] MEDS: acetaZOLAMIDE 250 MG TAB PO SCH (20:56)
[2023-06-29] MEDS: ALBUTEROL 2.5 MG/3 ML NEB SOL NEB SCH ×2 (01:00→07:39)
[2023-06-29] MEDS: IPRATROPIUM BROM 0.5MG/2.5ML NEB SCH ×2 (01:20→07:39)
[2023-06-29 03:51] LABS: Magnesium 2.2 mg/dL (1.6-2.4); Potassium 3.8 mEq/L (3.5-5.1)
[2023-06-29] MEDS: acetaZOLAMIDE 250 MG TAB PO SCH ×2 (08:40→20:42)
[2023-06-29] MEDS: APIXABAN 5 MG TABLET PO SCH ×2 (08:40→20:43)
[2023-06-29] MEDS: SPIRONOLACTONE 25 MG TABLET PO SCH ×2 (08:41→20:44)
[2023-06-29] MEDS: DULERA 200/5 (MOMETASONE/FORMOTEROL) INHALER IH SCH ×2 (08:42→20:45)
[2023-06-29] MEDS: AMIODARONE HCL 200 MG TAB PO SCH ×2 (08:42→20:43)
[2023-06-29] MEDS: MAGNESIUM OXIDE 400 MG TAB PO SCH ×2 (08:52→20:43)
[2023-06-29] MEDS ORDERED: POTASSIUM CL SA 10 MEQ TAB PO ONE (09:00)
[2023-06-29] MEDS ORDERED: IPRATROPIUM BROM 0.5MG/2.5ML NEB PRN (10:29)
[2023-06-29] MEDS ORDERED: ALBUTEROL 2.5 MG/3 ML NEB SOL NEB PRN (10:29)
--- NOTE | 2023-06-29 10:30 | P.PN ---
Subjective Date of Service: 06/29/23 Chief Complaint: Right-sided heart failure , diastolic dysfunction COPD Subjective: Improving (Doing better. Using bedside comode. working with PT) Review of Systems General: Weakness Respiratory: Shortness of Breath Physical Examination - Vital Signs Temperature: 97.6 F Blood Pressure: 102/52 Pulse: 85 Respirations: 18 Pulse Ox (%): 93 - Physical Exam General: Alert, Oriented x3 Respiratory: Clear to auscultation bilaterally, Diminished Cardiovascular: Regular rate/rhythm, Normal S1 S2, Edema Assessment And Plan - Current Problems (Diagnosis) (1) COPD exacerbation Onset Date: ~06/20/23 Current Visit: Yes Status: Acute Plan: Improving Weakness has improved/ renal funtion is stable/ Nebs prn. Sprionolactone BID (2) Lower extremity weakness Current Visit: Yes Status: Acute Plan: Edema subsiding weakness improving physical therapy discharge planning Qualifiers: Laterality: bilateral Qualified Code(s): R29.898 - Other symptoms and signs involving the musculoskeletal system (3) Secondary pulmonary arterial hypertension Current Visit: Yes Status: Acute Plan: Severe secondary pulmonary hypertension secondary to combination of COPD and diastolic heart failure continue with diuretic no DVT of lower extremity Physician Review: Patient Assessed, Agree with Above Assessment and Plan
--- NOTE | 2023-06-29 13:17 | P.DS ---
Admission Date: 06/22/23 Discharge Date: 06/29/23 Disposition: TRANSFER TO SNF - MEDICAL Discharge Condition: GOOD Reason for Admission: Right-sided heart failure , diastolic dysfunction COPD Consultations: 1. Pulmonology 2. Nephrology 3. Cardiology 4. Neurology Hospital Course: DIAGNOSES: # Acute Hypercapnic Hypoxemic Respiratory Failure due to Acute on Chronic Decompensated Diastolic Congestive Heart Failure with Preserved Ejection Fraction # Acute COPD Exacerbation # SIRS (Tachycardia, Tachypnea) due to above - no current evidence of infection # Severe Pulmonary Hypertension # KDIGO Stage I Acute Kidney Injury on Chronic Kidney Disease Stage III # Likely Anemia of Chronic Kidney Disease # Suspect Demand Ischemia (Type II NSTEMI) due to above # Chronic Atrial Fibrillation # Hypertension HOSPITAL COURSE: Ms. Sunshine Mead is a pleasant 73 year old female with a past medical history significant for diastolic congestive heart failure, chronic obstructive pulmonary disease, severe pulmonary hypertension, chronic kidney disease stage III, atrial fibrillation, and hypertension who was admitted to the [facility] on 06/22/2023 for shortness of breath. She was admitted to the Medicine service. Upon further evaluation, she was found to have acute hypercapnic hypoxemic respiratory failure due to an acute diastolic congestive heart failure and acute COPD exacerbation. Cardiology and Pulmonology were consulted and she was evaluated by Dr. Hook and Dr. Hutchins. She was treated with IV diuretics, steroids, and bronchodilators. Over the course of her hospitalization, her symptoms improved significantly. From their respective standpoints, Dr. Hutchins and Dr. Hook have cleared her for discharge. Dr. Hook has recommended a nuclear stress test as an outpatient. Additionally, she was found to have an acute kidney injury. Nephrology was consulted and she was evaluated by Dr. Callahan. Her creatinine returned to bas lynette after diuretics, suggesting cardiorenal syndrome. Today, she stated that she felt significantly better and would like to be discharged. Physical therapy evaluated her and recommended that she be discharged with continued therapy services. With the assistance of case management, she was accepted to a shelter facility. On 06/29/2023, she was seen on morning rounds and deemed medically stable for discharge. She was discharged with instructions to schedule follow-up appointments with her PCP/[employer] (Dr. Oneil), with Cardiology (Dr. Hook), and with Pulmonology (Dr. Hutchins). She was given the opportunity to ask questions and reported no further questions. Furthermore, all questions were answered to the best of my ability. A copy of this discharge summary will be sent to the above providers to facilitate continuity of care. Today, I personally spent 25 minutes on her case, of which greater than 50% of the time was spent in patient education, counseling, and coordination of care as described above. Vital Signs/Physical Exam: Temp Pulse Resp BP Pulse Ox 96.8 F 104 H 18 94/50 L 92 06/29/23 12:00 06/29/23 12:00 06/29/23 12:00 06/29/23 12:00 06/29/23 12:00 General: Alert, In no apparent distress, Oriented x3 HEENT: Atraumatic, Mucous membr. moist/pink, Sclerae nonicteric Neck: JVD not distended Respiratory: Clear to auscultation bilaterally, Diminished Cardiovascular: Normal pulses, Regular rate/rhythm, No murmurs, Edema (trace BLE) Gastrointestinal: Normal bowel sounds, Soft and benign, No tenderness Musculoskeletal: No clubbing Integumentary: No rashes Neurological: Normal speech, Normal affect Laboratory Data at Discharge: WBC 8.60 thou/uL (4.3-10.9) 06/27/23 01:46 Hgb 8.5 g/dL (12.0-15.0) L 06/28/23 02:07 Hct 26.6 % (36.0-45.0) L 06/28/23 02:07 Plt Count 240 thou/uL (152-406) 06/27/23 01:46 PT 21.1 SECONDS (9.5-12.5) H 06/20/23 18:10 INR 1.96 06/20/23 18:10 APTT 35.1 SECONDS (24.3-36.9) 06/20/23 18:10 Sodium 135 mEq/L (136-145) L 06/29/23 03:23 Potassium 3.8 mEq/L (3.5-5.1) 06/29/23 03:23 BUN 35 mg/dL (7-18) H 06/29/23 03:23 Creatinine 1.79 mg/dL (0.55-1.02) H 06/29/23 03:23 Glucose 114 mg/dL (74-106) H 06/29/23 03:23 Phosphorus 3.6 mg/dL (2.5-4.9) 06/28/23 02:07 Magnesium 2.2 mg/dL (1.6-2.4) 06/29/23 03:23 Total Bilirubin 0.7 mg/dL (0.2-1.0) 06/25/23 06:46 AST 37 U/L (15-37) 06/25/23 06:46 ALT 26 U/L (13-56) 06/25/23 06:46 Alkaline Phosphatase 89 U/L (45-117) 06/25/23 06:46 Home Medications: Albuterol Neb [Proventil 0.083% Neb Soln] 2.5 mg IH PRN PRN 09/13/17 Fluticasone/Vilanterol [Breo Ellipta 200-25 Mcg Inhalr] 1 each IH PRN PRN 09/13/17 Apixaban [Eliquis *] 5 mg PO BID 10/02/19 Amiodarone HCl [Pacerone] 200 mg PO BID 30 Days #60 tab 09/02/22 Spironolact/Hydrochlorothiazid [Spironolactone-Hctz 25-25 Tab] 25 mg PO DAILY 03/23/23 Torsemide 10 mg PO DAILY 03/23/23 acetaZOLAMIDE [Diamox*] 250 mg PO BID tab 06/29/23 Physician Discharge Instructions: 1. Please call and schedule a follow-up appointment with your PCP (Dr. Oneil) in 3-5 days - Your blood work showed anemia. Please discuss further evaluation, including a colonoscopy, with your PCP 2. Please call and schedule a follow-up appointment with Pulmonology (Dr. Hutchins) in 5-7 days 3. Please call and schedule a follow-up appointment with Cardiology (Dr. Hook) in 5-7 days - He will schedule you for a cardiac stress test in his office Please follow-up with your PCP for medication refills/adjustments in 3-5 days -DC IV and DC home -Follow-up with PCP in 1 to 2 weeks -Follow-up with Pulmonary and Cardiology in 1 to 2 weeks -Please call Dr. Falcon at [phone] if any questions regarding hospital stay -Please call nursing station at [phone] if any nursing or medication questions -Return to the emergency room if symptoms worsen Diet: Low sodium Activity: Fall precautions Followup: Oscar Hutchins MD [ACTIVE - CAN ADMIT] - Remberto Oneil DO [Primary Care Provider] - Macho Hook MD [ACTIVE - CAN ADMIT] - Time spent managing pt's care (in minutes): 25
--- NOTE | 2023-06-29 17:06 | P.PN ---
Date of Service: 06/29/23 Discharge cancelled due to soft blood pressures. Will continue to monitor.
--- NOTE | 2023-06-29 23:27 | P.PN ---
Date of Service: 06/29/23 Vital Signs Temp Pulse Resp BP Pulse Ox 97.7 F 105 H 17 91/60 92 06/29/23 16:00 06/29/23 20:44 06/29/23 16:00 06/29/23 20:44 06/29/23 16:00 Medications Acetaminophen (Acetaminophen 325 Mg Tablet) 650 mg PO Q4HP PRN PRN Reason: Pain scale 2-4 (Mild) Acetazolamide (Acetazolamide 250 Mg Tab) 250 mg PO BID [facility] Last Admin: 06/29/23 20:42 Dose: 250 mg Albuterol Sulfate (Albuterol 2.5 Mg/3 Ml Neb Carolee) 2.5 mg NEB [id number] PRN PRN Reason: SHORTNESS OF BREATH Amiodarone HCl (Amiodarone Hcl 200 Mg Tab) 200 mg PO BID [facility] Last Admin: 06/29/23 20:43 Dose: 200 mg Apixaban (Apixaban 5 Mg Tablet) 5 mg PO BID [facility] Last Admin: 06/29/23 20:43 Dose: 5 mg Benzonatate (Benzonatate 100 Mg Cap) 200 mg PO TID PRN PRN Reason: COUGH Ipratropium Zamora (Ipratropium Brom 0.5mg/2.5ml) 0.5 mg NEB [id number] PRN PRN Reason: SHORTNESS OF BREATH Magnesium Oxide (Magnesium Oxide 400 Mg Tab) 400 mg PO BID [facility] Last Admin: 06/29/23 20:43 Dose: 400 mg Ondansetron HCl (Ondansetron 4 Mg/2 Ml Vial) 4 mg IV Q6HP PRN PRN Reason: NAUSEA / VOMITING Spironolactone (Spironolactone 25 Mg Tablet) 25 mg PO BID [facility] Last Admin: 06/29/23 20:44 Dose: Not Given Microbiology Results 06/20/23 16:45 Blood - Blood Aerobic Blood Culture - Final No growth in 5 days. 06/20/23 16:45 Blood - Blood Anaerobic Blood Culture - Final No growth in 5 days. 06/20/23 17:00 Blood - Blood Aerobic Blood Culture - Final No growth in 5 days. 06/20/23 17:00 Blood - Blood Anaerobic Blood Culture - Final No growth in 5 days. Assessment/ Plan: Nephrology No dyspnea No chest pain Weakness and fatigue +BM No acute events overnight Vitals, medications, blood work and imaging reviewed in the chart. NAD. Obese. NCAT. MMM. Neck supple. Normal respiratory effort/ CTA. RRR. Abd ND. No C/C. LE Edema 2+. No rash. AAO. Normal speech. Stage I PATRIZIA CKD IIIb -No NSAIDs Hyponatremia -Encourage nutrition Metabolic Alkalosis in the setting of COPD -Continue Diamox and Spironolactone Hypomagnesemia -Replete prn Hypotension -Continue Midodrine at this time Hypoalbuminemia -Consider protein supplementation Anemia in chronic illness -Monitor H&H -Retacrit prn Case reviewed with Dr. Phelan
[2023-06-30 03:32] LABS: Potassium 4.1 mEq/L (3.5-5.1)
[2023-06-30] MEDS: acetaZOLAMIDE 250 MG TAB PO SCH (09:00)
[2023-06-30] MEDS: SPIRONOLACTONE 25 MG TABLET PO SCH (09:00)
[2023-06-30] MEDS: AMIODARONE HCL 200 MG TAB PO SCH ×2 (10:01→21:00)
[2023-06-30] MEDS: APIXABAN 5 MG TABLET PO SCH ×2 (10:01→20:59)
[2023-06-30] MEDS: MAGNESIUM OXIDE 400 MG TAB PO SCH ×2 (10:02→21:00)
[2023-06-30] MEDS: DULERA 200/5 (MOMETASONE/FORMOTEROL) INHALER IH SCH ×2 (10:06→21:00)
[2023-06-30] MEDS: MIDODRINE HCL 5 MG TABLET PO SCH ×3 (10:39→21:00)
--- NOTE | 2023-06-30 13:12 | P.PN ---
Subjective Date of Service: 06/30/23 Chief Complaint: Right-sided heart failure , diastolic dysfunction COPD Pt is resting comfortably in bed. She is using 2.5L and wheezing at bedside. BP is hypotensive. Will start midodrine. No other complaints. Review of Systems Unremarkable General: Unremarkable Eyes: Unremarkable ENT: Unremarkable Respiratory: SOB with Excertion Cardiovascular: Unremarkable Gastrointestinal: Unremarkable Genitourinary: Unremarkable Musculoskeletal: Unremarkable Integumentary: Unremarkable Neurological: Unremarkable Lymphatics: Unremarkable Physical Examination - Vital Signs Temperature: 98.2 F Blood Pressure: 95/64 Pulse: 80 Respirations: 17 Pulse Ox (%): 92 - Physical Exam General: Alert, In no apparent distress, Oriented x3 HEENT: Atraumatic, Normocephalic Neck: Supple, 2+ carotid pulse no bruit Respiratory: Clear to auscultation bilaterally, Normal air movement Cardiovascular: No edema, Normal pulses, Regular rate/rhythm, Normal S1 S2 Capillary refill: <2 Seconds Gastrointestinal: Normal bowel sounds, Soft and benign, Non-distended Musculoskeletal: No clubbing, No swelling Integumentary: No rashes, No breakdown Neurological: Normal gait, Normal speech, Normal strength at 5/5 x4 extr Lymphatics: No axilla or inguinal lymphadenopathy Assessment And Plan - Plan Acute COPDexacerbation: Will continue steroid, prn duoneb, advair, oxygen and iv abx. Continue prn BIPAP. Acute on chronic decompensated diastolic heart failure: Will continue lasix, spironolactone, strict I/O and daily weight. Acute resp failure with hypoxia: Due to CHF and COPD. Will continue treatment listed above. NSTEMI: Troponin trend is 65.0 -> 68.6 -> 40.0. Echo shows EF 55 - 60% with diastolic dysfunction (severe), left atrial enlargement, mild tricuspid regurgitation, mild mitral regurgitation and severe pulmonary hypertension with right ventricular systolic pressure of greater than 60 mmHg. Hypotension: Will continue midodrine. hypertension: Will hold BP meds. Hyperlipidemia: statin. History of chronic atrial fibrillation: Will continue telemetry and aspirin. BP is hypotensive. Will hold BB. . Hypokalemia: Potassium is 4.1. Will replete and monitor. PATRIZIA versus CKD: Creatinine is 1.77<- 1.85 <- 2.09. Will avoid nephrotoxin and monitor renal function. DVT Prophylaxis: heparin. CODE STATUS: Full code Disposition: Pending hospital course. Physician Review: Patient Assessed, Agree with Above Assessment and Plan
--- NOTE | 2023-06-30 19:45 | P.PN ---
Date of Service: 06/30/23 Vital Signs Temp Pulse Resp BP Pulse Ox 98.2 F 80 17 95/64 92 06/30/23 13:23 06/30/23 13:23 06/30/23 13:23 06/30/23 13:23 06/30/23 13:23 Medications Acetaminophen (Acetaminophen 325 Mg Tablet) 650 mg PO Q4HP PRN PRN Reason: Pain scale 2-4 (Mild) Acetazolamide (Acetazolamide 250 Mg Tab) 250 mg PO DAILY [facility] Albuterol Sulfate (Albuterol 2.5 Mg/3 Ml Neb Carolee) 2.5 mg NEB [id number] PRN PRN Reason: SHORTNESS OF BREATH Amiodarone HCl (Amiodarone Hcl 200 Mg Tab) 200 mg PO BID [facility] Last Admin: 06/30/23 10:01 Dose: 200 mg Apixaban (Apixaban 5 Mg Tablet) 5 mg PO BID [facility] Last Admin: 06/30/23 10:01 Dose: 5 mg Benzonatate (Benzonatate 100 Mg Cap) 200 mg PO TID PRN PRN Reason: COUGH Ipratropium Sawyer (Ipratropium Brom 0.5mg/2.5ml) 0.5 mg NEB [id number] PRN PRN Reason: SHORTNESS OF BREATH Magnesium Oxide (Magnesium Oxide 400 Mg Tab) 400 mg PO BID [facility] Last Admin: 06/30/23 10:02 Dose: 400 mg Methylprednisolone Sodium Succinate (Methylprednisolone 40 Mg Inj) 40 mg IV Q8HR [facility] Midodrine (Midodrine Hcl 5 Mg Tablet) 5 mg PO TID [facility] Last Admin: 06/30/23 15:48 Dose: 5 mg Ondansetron HCl (Ondansetron 4 Mg/2 Ml Vial) 4 mg IV Q6HP PRN PRN Reason: NAUSEA / VOMITING Spironolactone (Spironolactone 25 Mg Tablet) 25 mg PO DAILY [facility] Microbiology Results 06/20/23 16:45 Blood - Blood Aerobic Blood Culture - Final No growth in 5 days. 06/20/23 16:45 Blood - Blood Anaerobic Blood Culture - Final No growth in 5 days. 06/20/23 17:00 Blood - Blood Aerobic Blood Culture - Final No growth in 5 days. 06/20/23 17:00 Blood - Blood Anaerobic Blood Culture - Final No growth in 5 days. Assessment/ Plan: Nephrology No dyspnea No chest pain Weakness and fatigue No acute events overnight Vitals, medications, blood work and imaging reviewed in the chart. NAD. Obese. NCAT. MMM. Neck supple. Normal respiratory effort/ CTA. RRR. Abd ND. No C/C. LE Edema 2+. No rash. AAO. Normal speech. Stage I PATRIZIA CKD IIIb -No NSAIDs Hyponatremia -Encourage nutrition Metabolic Alkalosis in the setting of COPD -Continue Diamox and Spironolactone Hypomagnesemia -Replete prn Hypotension -Continue Midodrine at this time Hypoalbuminemia -Consider protein supplementation Anemia in chronic illness -Monitor H&H -Retacrit prn Hospitalist note reviewed
[2023-07-01] MEDS: METHYLPREDNISOLONE 40 MG INJ IV SCH ×3 (00:39→17:00)
[2023-07-01 02:18] LABS: Absolute Lymphocytes (CBC) 1.7 K/uL (0.7-4.9); Hematocrit 26.6 % (36.0-45.0); Lymphocytes % 18.9 % (15.3-44.8); MPV 9.3 fL (7.6-11.3); Platelets 275 thou/uL (152-406)
[2023-07-01 02:53] LABS: Albumin 2.5 g/dL (3.4-5.0); Bilirubin Total 0.6 mg/dL (0.2-1.0); Magnesium 2.1 mg/dL (1.6-2.4); Potassium 4.3 mEq/L (3.5-5.1); Protein, Total 7.1 g/dL (6.4-8.2)
[2023-07-01] MEDS: MAGNESIUM OXIDE 400 MG TAB PO SCH ×2 (09:00→21:00)
--- NOTE | 2023-07-01 10:51 | P.PN ---
Subjective Date of Service: 07/01/23 Chief Complaint: Right-sided heart failure , diastolic dysfunction COPD Pt is resting comfortably in bed. She is using 3L and wheezing at bedside. BP is hypotensive. Will continue midodrine. No other complaints. Review of Systems Unremarkable General: Unremarkable Eyes: Unremarkable ENT: Unremarkable Respiratory: Shortness of Breath Cardiovascular: Edema, Unremarkable Gastrointestinal: Unremarkable Genitourinary: Unremarkable Musculoskeletal: Unremarkable Integumentary: Unremarkable Neurological: Unremarkable Lymphatics: Unremarkable Physical Examination - Vital Signs Temperature: 97.2 F Blood Pressure: 115/57 Pulse: 100 Respirations: 20 Pulse Ox (%): 92 - Physical Exam General: Alert, In no apparent distress, Oriented x3 HEENT: Atraumatic, Normocephalic, PERRLA Neck: Supple, 2+ carotid pulse no bruit Respiratory: Diminished, Expiratory wheezes Cardiovascular: No edema, Normal pulses, Regular rate/rhythm Capillary refill: <2 Seconds Gastrointestinal: Normal bowel sounds, Soft and benign Musculoskeletal: No clubbing, No swelling Integumentary: No rashes, No breakdown Neurological: Normal gait, Normal speech, Normal strength at 5/5 x4 extr Lymphatics: No axilla or inguinal lymphadenopathy Assessment And Plan - Plan Acute COPDexacerbation: Will continue steroid, prn duoneb, advair, oxygen and iv abx. Continue prn BIPAP. Acute on chronic decompensated diastolic heart failure: Will continue lasix, spironolactone, strict I/O and daily weight. Acute resp failure with hypoxia: Due to CHF and COPD. Will continue treatment listed above. NSTEMI: Troponin trend is 65.0 -> 68.6 -> 40.0. Echo shows EF 55 - 60% with diastolic dysfunction (severe), left atrial enlargement, mild tricuspid regurgitation, mild mitral regurgitation and severe pulmonary hypertension with right ventricular systolic pressure of greater than 60 mmHg. Hypotension: Will continue midodrine. hypertension: Will hold BP meds. Hyperlipidemia: statin. History of chronic atrial fibrillation: Will continue telemetry and aspirin. BP is hypotensive. Will hold BB. . Hypokalemia: Potassium is 4.1. Will replete and monitor. PATRIZIA versus CKD: Creatinine is 1.84 <- 1.77<- 1.85 <- 2.09. Will avoid nephrotoxin and monitor renal function. DVT Prophylaxis: heparin. CODE STATUS: Full code Disposition: Pending hospital course. Physician Review: Patient Assessed, Agree with Above Assessment and Plan
[2023-07-01] MEDS: acetaZOLAMIDE 250 MG TAB PO SCH (11:08)
[2023-07-01] MEDS: APIXABAN 5 MG TABLET PO SCH ×2 (11:09→21:05)
[2023-07-01] MEDS: AMIODARONE HCL 200 MG TAB PO SCH ×2 (11:09→21:05)
[2023-07-01] MEDS: SPIRONOLACTONE 25 MG TABLET PO SCH (11:09)
[2023-07-01] MEDS: MIDODRINE HCL 5 MG TABLET PO SCH ×3 (11:09→21:05)
[2023-07-01] MEDS: DULERA 200/5 (MOMETASONE/FORMOTEROL) INHALER IH SCH ×2 (11:10→21:04)
--- NOTE | 2023-07-01 13:27 | P.DS ---
Admission Date: 06/22/23 Discharge Date: 07/01/23 Disposition: TRANSFER TO SNF - MEDICAL Discharge Condition: GOOD Reason for Admission: Right-sided heart failure , diastolic dysfunction COPD Brief History of Present Illness: 72-year-old female patient with medical history significant for COPD, hypertension, hyperlipidemia, chronic atrial fibrillation who came to the ED with complaint of worsening shortness of breath and lethargy. This has been going on for several months. Patient continues to have drop in oxygen saturation on ambulation so she was asked to be evaluated for inpatient care. Does know about episode of fever, chills, cough productive of sputum at the time of encounter. Imaging study showed no acute consolidation in the lung field with elevated CO2 and with routine lab she was started to have some CO2 reten tion so was put in for inpatient care. Hospital Course: Ms. Sunshine Mead is a pleasant 73 year old female with a past medical history significant for diastolic congestive heart failure, chronic obstructive pulmonary disease, severe pulmonary hypertension, chronic kidney disease stage III, atrial fibrillation, and hypertension who was admitted to the [facility] on 06/22/2023 for shortness of breath. She was admitted for acute hypercapnic hypoxemic respiratory failure due to an acute diastolic congestive heart failure and acute COPD exacerbation. Cardiology and Pulmonology were consulted and she was evaluated by Dr. Hook and Dr. Hutchins. She was treated with IV diuretics, steroids, and bronchodilators. Over the course of her hospitalization, her symptoms improved significantly. From their respective standpoints, Dr. Hutchins and Dr. Hook have cleared her for discharge. Dr. Hook has recommended a nuclear stress test as an outpatient. Additionally, she was found to have an acute kidney injury. Nephrology was consulted and she was evaluated by Dr. Callahan. Her creatinine returned to baseline after diuretics, suggesting cardiorenal syndrome. Today, she stated that she felt significantly better and would like to be discharged. Physical therapy evaluated her and recommended that she be discharged with continued therapy services. With the assistance of case management, she was accepted to a snf facility. Her discharge on 06/29/23 was canceled due to hypotension. We gave midodrine and BP improved. On 07/01/2023, she was seen on morning rounds and deemed medically stable for discharge to SNF. She was discharged with instructions to schedule follow-up appointments with her PCP/Hospital Carrier (Dr. Oneil), with Cardiology (Dr. Hook), and with Pulmonology (Dr. Hutchins). She was given the opportunity to ask questions and reported no further questions. Furthermore, all questions were answered to the best of my ability. A copy of this discharge summary will be sent to the above providers to facilitate continuity of care. Vital Signs/Physical Exam: Temp Pulse Resp BP Pulse Ox 97.1 F 94 H 20 117/64 96 07/01/23 12:00 07/01/23 12:00 07/01/23 12:00 07/01/23 12:07/01/23 12:00 Laboratory Data at Discharge: WBC 9.10 thou/uL (4.3-10.9) 07/01/23 02:02 Hgb 8.5 g/dL (12.0-15.0) L 07/01/23 02:02 Hct 26.6 % (36.0-45.0) L 07/01/23 02:02 Plt Count 275 thou/uL (152-406) 07/01/23 02:02 PT 21.1 SECONDS (9.5-12.5) H 06/20/23 18:10 INR 1.96 06/20/23 18:10 APTT 35.1 SECONDS (24.3-36.9) 06/20/23 18:10 Sodium 132 mEq/L (136-145) L 07/01/23 02:02 Potassium 4.3 mEq/L (3.5-5.1) 07/01/23 02:02 BUN 40 mg/dL (7-18) H 07/01/23 02:02 Creatinine 1.84 mg/dL (0.55-1.02) H 07/01/23 02:02 Glucose 100 mg/dL (74-106) 07/01/23 02:02 Uric Acid 10.0 mg/dL (2.6-6.0) H 07/01/23 02:02 Phosphorus 3.6 mg/dL (2.5-4.9) 06/28/23 02:07 Magnesium 2.1 mg/dL (1.6-2.4) 07/01/23 02:02 Total Bilirubin 0.6 mg/dL (0.2-1.0) 07/01/23 02:02 AST 24 U/L (15-37) 07/01/23 02:02 ALT 28 U/L (13-56) 07/01/23 02:02 Alkaline Phosphatase 98 U/L (45-117) 07/01/23 02:02 Home Medications: Albuterol Neb [Proventil 0.083% Neb Soln] 2.5 mg IH PRN PRN 09/13/17 Fluticasone/Vilanterol [Breo Ellipta 200-25 Mcg Inhalr] 1 each IH PRN PRN 09/13/17 Apixaban [Eliquis *] 5 mg PO BID 10/02/19 Amiodarone HCl [Pacerone] 200 mg PO BID 30 Days #60 tab 09/02/22 Spironolact/Hydrochlorothiazid [Spironolactone-Hctz 25-25 Tab] 25 mg PO DAILY 03/23/23 Torsemide 10 mg PO DAILY 03/23/23 acetaZOLAMIDE [Diamox*] 250 mg PO BID tab 06/29/23 Midodrine HCl [Proamatine*] 5 mg PO TID 30 Days #90 tab 07/01/23 acetaZOLAMIDE [Diamox*] 250 mg PO DAILY 15 Days #15 tab 07/01/23 New Medications: acetaZOLAMIDE [Diamox*] 250 mg PO DAILY 15 Days #15 tab Midodrine HCl [Proamatine*] 5 mg PO TID 30 Days #90 tab Physician Discharge Instructions: 1. Please call and schedule a follow-up appointment with your PCP (Dr. Oneil) in 3-5 days - Your blood work showed anemia. Please discuss further evaluation, including a colonoscopy, with your PCP 2. Please call and schedule a follow-up appointment with Pulmonology (Dr. Hutchins) in 5-7 days 3. Please call and schedule a follow-up appointment with Cardiology (Dr. Hook) in 5-7 days - He will schedule you for a cardiac stress test in his office Please follow-up with your PCP for medication refills/adjustments in 3-5 days -DC IV and DC home -Follow-up with PCP in 1 to 2 weeks -Follow-up with Pulmonary and Cardiology in 1 to 2 weeks -Please call Dr. Falcon at [phone] if any questions regarding hospital stay -Please call nursing station at [phone] if any nursing or medication questions -Return to the emergency room if symptoms worsen Diet: Low sodium Activity: Fall precautions Followup: Oscar Hutchins MD [ACTIVE - CAN ADMIT] - Remberto Oneil DO [Primary Care Provider] - Macho Hook MD [ACTIVE - CAN ADMIT] -
--- NOTE | 2023-07-01 19:20 | P.PN ---
Date of Service: 07/01/23 Vital Signs Temp Pulse Resp BP Pulse Ox 97.7 F 100 H 20 120/64 95 07/01/23 16:00 07/01/23 16:00 07/01/23 16:00 07/01/23 16:00 07/01/23 16:00 Medications Acetaminophen (Acetaminophen 325 Mg Tablet) 650 mg PO Q4HP PRN PRN Reason: Pain scale 2-4 (Mild) Acetazolamide (Acetazolamide 250 Mg Tab) 250 mg PO DAILY [facility] Last Admin: 07/01/23 11:08 Dose: 250 mg Albuterol Sulfate (Albuterol 2.5 Mg/3 Ml Neb Carolee) 2.5 mg NEB [id number] PRN PRN Reason: SHORTNESS OF BREATH Amiodarone HCl (Amiodarone Hcl 200 Mg Tab) 200 mg PO BID [facility] Last Admin: 07/01/23 11:09 Dose: 200 mg Apixaban (Apixaban 5 Mg Tablet) 5 mg PO BID [facility] Last Admin: 07/01/23 11:09 Dose: 5 mg Benzonatate (Benzonatate 100 Mg Cap) 200 mg PO TID PRN PRN Reason: COUGH Ipratropium [place] (Ipratropium Brom 0.5mg/2.5ml) 0.5 mg NEB [id number] PRN PRN Reason: SHORTNESS OF BREATH Magnesium Oxide (Magnesium Oxide 400 Mg Tab) 400 mg PO BID [facility] Last Admin: 07/01/23 09:00 Dose: 400 mg Methylprednisolone Sodium Succinate (Methylprednisolone 40 Mg Inj) 40 mg IV Q8HR [facility] Last Admin: 07/01/23 17:00 Dose: 40 mg Midodrine (Midodrine Hcl 5 Mg Tablet) 5 mg PO TID [facility] Last Admin: 07/01/23 14:01 Dose: 5 mg Ondansetron HCl (Ondansetron 4 Mg/2 Ml Vial) 4 mg IV Q6HP PRN PRN Reason: NAUSEA / VOMITING Spironolactone (Spironolactone 25 Mg Tablet) 25 mg PO DAILY [facility] Last Admin: 07/01/23 11:09 Dose: 25 mg Microbiology Results 06/20/23 16:45 Blood - Blood Aerobic Blood Culture - Final No growth in 5 days. 06/20/23 16:45 Blood - Blood Anaerobic Blood Culture - Final No growth in 5 days. 06/20/23 17:00 Blood - Blood Aerobic Blood Culture - Final No growth in 5 days. 06/20/23 17:00 Blood - Blood Anaerobic Blood Culture - Final No growth in 5 days. Assessment/ Plan: Nephrology No dyspnea No chest pain Weakness and fatigue +Appetite No acute events overnight Vitals, medications, blood work and imaging reviewed in the chart. NAD. Obese. NCAT. MMM. Neck supple. Normal respiratory effort/ CTA. RRR. Abd ND. No C/C. LE Edema 2+. No rash. AAO. Normal speech. Stage I PATRIZIA CKD IIIb -No NSAIDs Hyponatremia -Encourage nutrition Metabolic Alkalosis in the setting of COPD -Continue Diamox and Spironolactone Hypomagnesemia -Replete prn Hypotension -Continue Midodrine at this time Hypoalbuminemia -Consider protein supplementation Anemia in chronic illness -Monitor H&H -Retacrit prn Hospitalist note reviewed
[2023-07-02] MEDS: METHYLPREDNISOLONE 40 MG INJ IV SCH ×3 (01:35→17:53)
[2023-07-02 02:18] LABS: Absolute Lymphocytes (CBC) 0.6 K/uL (0.7-4.9); Lymphocytes % 9.7 % (15.3-44.8); MCV 86.6 fL (80-100); MPV 9.1 fL (7.6-11.3); Platelets 316 thou/uL (152-406); RBC Red Blood Cell Count 3.12 M/uL (3.86-4.86)
[2023-07-02 02:37] LABS: Potassium 4.3 mEq/L (3.5-5.1)
[2023-07-02 04:31] LABS: Blood Morphology Comment NOT SEEN (NOT SEEN); Platelet Estimate ADEQ
[2023-07-02] MEDS: MAGNESIUM OXIDE 400 MG TAB PO SCH ×2 (09:00→21:00)
[2023-07-02] MEDS: DULERA 200/5 (MOMETASONE/FORMOTEROL) INHALER IH SCH ×2 (09:54→21:31)
[2023-07-02] MEDS: SPIRONOLACTONE 25 MG TABLET PO SCH (09:55)
[2023-07-02] MEDS: APIXABAN 5 MG TABLET PO SCH ×2 (09:55→21:30)
[2023-07-02] MEDS: AMIODARONE HCL 200 MG TAB PO SCH ×2 (09:55→21:30)
[2023-07-02] MEDS: acetaZOLAMIDE 250 MG TAB PO SCH (09:55)
[2023-07-02] MEDS: MIDODRINE HCL 5 MG TABLET PO SCH ×3 (09:55→21:30)
--- NOTE | 2023-07-02 10:40 | P.PN ---
Subjective Date of Service: 07/02/23 Chief Complaint: Right-sided heart failure , diastolic dysfunction COPD Pt is resting comfortably in bed. She is using 4L. There was faint wheezing at bedside. We held her diacharge order yesterday due to V-tach. BP is improving. Will continue midodrine. No other complaints. Review of Systems Unremarkable General: Unremarkable Eyes: Unremarkable ENT: Unremarkable Respiratory: Shortness of Breath Cardiovascular: Edema Gastrointestinal: Unremarkable Genitourinary: Unremarkable Musculoskeletal: Unremarkable Integumentary: Unremarkable Neurological: Unremarkable Lymphatics: Unremarkable Physical Examination - Vital Signs Temperature: 97.6 F Blood Pressure: 109/49 Pulse: 88 Respirations: 22 Pulse Ox (%): 95 - Physical Exam General: Alert, In no apparent distress, Oriented x3 HEENT: Atraumatic, Normocephalic, PERRLA Neck: Supple, 2+ carotid pulse no bruit Respiratory: Normal air movement, Expiratory wheezes Cardiovascular: No edema, Normal pulses, Regular rate/rhythm, Normal S1 S2, Edema Capillary refill: <2 Seconds Gastrointestinal: Normal bowel sounds, Soft and benign, Non-distended Musculoskeletal: No clubbing, Swelling Integumentary: No rashes, No breakdown Neurological: Normal gait, Normal speech, Normal strength at 5/5 x4 extr Lymphatics: No axilla or inguinal lymphadenopathy Assessment And Plan - Plan Acute COPDexacerbation: Will continue steroid, prn duoneb, advair, oxygen and iv abx. Continue prn BIPAP. Acute on chronic decompensated diastolic heart failure: Will continue lasix, spironolactone, strict I/O and daily weight. Acute resp failure with hypoxia: Due to CHF and COPD. Will continue treatment listed above. NSTEMI: Troponin trend is 65.0 -> 68.6 -> 40.0. Echo shows EF 55 - 60% with diastolic dysfunction (severe), left atrial enlargement, mild tricuspid regurgitation, mild mitral regurgitation and severe pulmonary hypertension with right ventricular systolic pressure of greater than 60 mmHg. V-tach: Pt had 8 runs of V-tach yesterday. Electrolytes are within normal limit. Consulted Cardiology. Hypotension: Improving. Will continue midodrine. hypertension: Will hold BP meds. Hyperlipidemia: statin. History of chronic atrial fibrillation: Will continue telemetry and aspirin. BP is hypotensive. Will hold BB. . Hypokalemia: Potassium is 4.1. Will replete and monitor. PATRIZIA versus CKD: Creatinine is 1.92 <- 1.84 <- 1.77<- 1.85 <- 2.09. Will avoid nephrotoxin and monitor renal function. DVT Prophylaxis: heparin. CODE STATUS: Full code Disposition: Pending hospital course. Physician Review: Patient Assessed, Agree with Above Assessment and Plan
--- NOTE | 2023-07-02 13:35 | P.PN ---
Date of Service: 07/02/23 Vital Signs Temp Pulse Resp BP Pulse Ox 97.6 F 88 22 H 109/49 L 95 07/02/23 10:39 07/02/23 10:39 07/02/23 10:39 07/02/23 10:39 07/02/23 10:39 Medications Acetaminophen (Acetaminophen 325 Mg Tablet) 650 mg PO Q4HP PRN PRN Reason: Pain scale 2-4 (Mild) Acetazolamide (Acetazolamide 250 Mg Tab) 250 mg PO DAILY [facility] Last Admin: 07/02/23 09:55 Dose: 250 mg Albuterol Sulfate (Albuterol 2.5 Mg/3 Ml Neb Carolee) 2.5 mg NEB [id number] PRN PRN Reason: SHORTNESS OF BREATH Amiodarone HCl (Amiodarone Hcl 200 Mg Tab) 200 mg PO BID [facility] Last Admin: 07/02/23 09:55 Dose: 200 mg Apixaban (Apixaban 5 Mg Tablet) 5 mg PO BID [facility] Last Admin: 07/02/23 09:55 Dose: 5 mg Benzonatate (Benzonatate 100 Mg Cap) 200 mg PO TID PRN PRN Reason: COUGH Epoetin Angel (Epoetin Angel 10,000 Unit/Ml Vial) 10,000 unit SQ 1X ONE Stop: 07/02/23 14:01 Ipratropium [place] (Ipratropium Brom 0.5mg/2.5ml) 0.5 mg NEB [id number] PRN PRN Reason: SHORTNESS OF BREATH Magnesium Oxide (Magnesium Oxide 400 Mg Tab) 400 mg PO BID [facility] Last Admin: 07/02/23 09:00 Dose: 400 mg Methylprednisolone Sodium Succinate (Methylprednisolone 40 Mg Inj) 40 mg IV Q8HR [facility] Last Admin: 07/02/23 09:54 Dose: 40 mg Midodrine (Midodrine Hcl 5 Mg Tablet) 5 mg PO TID [facility] Last Admin: 07/02/23 09:55 Dose: 5 mg Ondansetron HCl (Ondansetron 4 Mg/2 Ml Vial) 4 mg IV Q6HP PRN PRN Reason: NAUSEA / VOMITING Spironolactone (Spironolactone 25 Mg Tablet) 25 mg PO DAILY [facility] Last Admin: 07/02/23 09:55 Dose: 25 mg Microbiology Results 06/20/23 16:45 Blood - Blood Aerobic Blood Culture - Final No growth in 5 days. 06/20/23 16:45 Blood - Blood Anaerobic Blood Culture - Final No growth in 5 days. 06/20/23 17:00 Blood - Blood Aerobic Blood Culture - Final No growth in 5 days. 06/20/23 17:00 Blood - Blood Anaerobic Blood Culture - Final No growth in 5 days. Assessment/ Plan: Nephrology No dyspnea No chest pain Weakness and fatigue No acute events overnight Vitals, medications, blood work and imaging reviewed in the chart. NAD. Obese. NCAT. MMM. Neck supple. Normal respiratory effort. RRR. Abd ND. No C/C. LE Edema 1-2+. No rash. Somnolent. Normal speech. LEFT VENTRICULAR WALL MOTION: NORMAL DOPPLER/COLOR FLOW: SEE BELOW COMMENTS: 1. NORMAL LEFT VENTRICULAR EJECTION FRACTINO 55-60% 2. DIASTOLIC DYSFUNCTION (SEVERE) 3. LEFT ATRIAL ENLARGEMENT 4. MILD TRICUSPID REGURGITATION 5. MILD MITRAL REGURGITATION 6. SEVERE PULMONARY HYPERTENSION WITH RIGHT VENTRICULAR SYSTOLIC PRESSURE OF GREATER THAN 60 mmHg Stage I PATRIZIA CKD IIIb -No NSAIDs Hyponatremia -Encourage nutrition Metabolic Alkalosis in the setting of COPD -Continue Diamox and Spironolactone Hypomagnesemia -Continue MagOx Hypotension -Continue Midodrine at this time Diastolic CHF, A/C Pulmonary HTN Peripheral Edema -Continue diureisis Hypoalbuminemia -Consider protein supplementation Anemia in chronic illness -Monitor H&H -Retacrit X1 Hospitalist note reviewed
[2023-07-02] MEDS ORDERED: EPOETIN ALFA 10,000 UNIT/ML VIAL SQ ONE (14:00)
[2023-07-03] MEDS: METHYLPREDNISOLONE 40 MG INJ IV SCH ×2 (00:20→08:38)
[2023-07-03 02:43] LABS: Absolute Lymphocytes (CBC) 0.6 K/uL (0.7-4.9); Hematocrit 26.3 % (36.0-45.0); Lymphocytes % 6.9 % (15.3-44.8); MCV 85.4 fL (80-100); MPV 9.3 fL (7.6-11.3); Platelets 319 thou/uL (152-406); RBC Red Blood Cell Count 3.09 M/uL (3.86-4.86)
[2023-07-03 02:56] LABS: Potassium 4.3 mEq/L (3.5-5.1)
[2023-07-03] MEDS: AMIODARONE HCL 200 MG TAB PO SCH ×2 (08:38→20:56)
[2023-07-03] MEDS: acetaZOLAMIDE 250 MG TAB PO SCH (08:38)
[2023-07-03] MEDS: MIDODRINE HCL 5 MG TABLET PO SCH ×3 (08:38→20:56)
[2023-07-03] MEDS: SPIRONOLACTONE 25 MG TABLET PO SCH (08:38)
[2023-07-03] MEDS: APIXABAN 5 MG TABLET PO SCH ×2 (08:38→20:56)
[2023-07-03] MEDS: DULERA 200/5 (MOMETASONE/FORMOTEROL) INHALER IH SCH ×2 (08:39→20:56)
[2023-07-03] MEDS: MAGNESIUM OXIDE 400 MG TAB PO SCH (08:39)
[2023-07-03] MEDS ORDERED: FUROSEMIDE 20 MG/ 2ML VIAL IV ONE (09:45)
--- NOTE | 2023-07-03 10:27 | P.PN ---
Subjective Date of Service: 07/03/23 Chief Complaint: Right-sided heart failure , diastolic dysfunction COPD Pt is resting comfortably in bed. She is using 3L. We held her discharge order due to V-tach. BP is improved with midodrine. Waiting for cardiology eval. No other complaints. Review of Systems Unremarkable General: Unremarkable Eyes: Unremarkable ENT: Unremarkable Respiratory: Shortness of Breath Cardiovascular: Unremarkable Gastrointestinal: Unremarkable Genitourinary: Unremarkable Musculoskeletal: Unremarkable Integumentary: Unremarkable Neurological: Unremarkable Lymphatics: Unremarkable Physical Examination - Vital Signs Temperature: 97.4 F Blood Pressure: 117/68 Pulse: 108 Respirations: 28 Pulse Ox (%): 93 - Physical Exam General: Alert, In no apparent distress, Oriented x3 HEENT: Atraumatic, Normocephalic, PERRLA Neck: Supple, 2+ carotid pulse no bruit Respiratory: Clear to auscultation bilaterally, Normal air movement Cardiovascular: No edema, Normal pulses, Normal S1 S2, Edema Capillary refill: <2 Seconds Gastrointestinal: Normal bowel sounds, Soft and benign, Non-distended Musculoskeletal: No clubbing, No swelling Integumentary: No rashes, No breakdown Neurological: Normal gait, Normal speech, Normal strength at 5/5 x4 extr Lymphatics: No axilla or inguinal lymphadenopathy Assessment And Plan - Plan Acute COPDexacerbation: Will continue steroid, prn duoneb, advair, oxygen and iv abx. Continue prn BIPAP. Acute on chronic decompensated diastolic heart failure: Will continue lasix, spironolactone, strict I/O and daily weight. Acute resp failure with hypoxia: Due to CHF and COPD. Will continue treatment listed above. NSTEMI: Troponin trend is 65.0 -> 68.6 -> 40.0. Echo shows EF 55 - 60% with diastolic dysfunction (severe), left atrial enlargement, mild tricuspid regurgitation, mild mitral regurgitation and severe pulmonary hypertension with right ventricular systolic pressure of greater than 60 mmHg. V-tach: Pt had 8 runs of V-tach yesterday. Electrolytes are within normal limit. Consulted Cardiology. Hypotension: Improved with midodrine. hypertension: Will hold BP meds. Hyperlipidemia: statin. History of chronic atrial fibrillation: Will continue telemetry and aspirin. BP is hypotensive. Will hold BB. . Hypokalemia: Potassium is 4.1. Will replete and monitor. PATRIZIA versus CKD: Creatinine is 2.1<- 1.92 <- 1.84 <- 1.77<- 1.85 <- 2.09. Will avoid nephrotoxin and monitor renal function. DVT Prophylaxis: heparin. CODE STATUS: Full code Disposition: Pending hospital course. Waiting for Cardiology eval. Physician Review: Patient Assessed, Agree with Above Assessment and Plan
--- NOTE | 2023-07-03 11:44 | P.PN ---
Date of Service: 07/03/23 Vital Signs Temp Pulse Resp BP Pulse Ox 97.4 F 108 H 28 H 117/68 93 07/03/23 10:28 07/03/23 10:28 07/03/23 10:28 07/03/23 10:28 07/03/23 10:28 Medications Acetaminophen (Acetaminophen 325 Mg Tablet) 650 mg PO Q4HP PRN PRN Reason: Pain scale 2-4 (Mild) Acetazolamide (Acetazolamide 250 Mg Tab) 250 mg PO DAILY [facility] Last Admin: 07/03/23 08:38 Dose: 250 mg Albuterol Sulfate (Albuterol 2.5 Mg/3 Ml Neb Carolee) 2.5 mg NEB [id number] PRN PRN Reason: SHORTNESS OF BREATH Amiodarone HCl (Amiodarone Hcl 200 Mg Tab) 200 mg PO BID [facility] Last Admin: 07/03/23 08:38 Dose: 200 mg Apixaban (Apixaban 5 Mg Tablet) 5 mg PO BID [facility] Last Admin: 07/03/23 08:38 Dose: 5 mg Benzonatate (Benzonatate 100 Mg Cap) 200 mg PO TID PRN PRN Reason: COUGH Ipratropium [place] (Ipratropium Brom 0.5mg/2.5ml) 0.5 mg NEB [id number] PRN PRN Reason: SHORTNESS OF BREATH Magnesium Oxide (Magnesium Oxide 400 Mg Tab) 400 mg PO BID [facility] Last Admin: 07/03/23 08:39 Dose: 400 mg Methylprednisolone Sodium Succinate (Methylprednisolone 40 Mg Inj) 40 mg IV Q8HR [facility] Last Admin: 07/03/23 08:38 Dose: 40 mg Midodrine (Midodrine Hcl 5 Mg Tablet) 5 mg PO TID [facility] Last Admin: 07/03/23 08:38 Dose: 5 mg Ondansetron HCl (Ondansetron 4 Mg/2 Ml Vial) 4 mg IV Q6HP PRN PRN Reason: NAUSEA / VOMITING Spironolactone (Spironolactone 25 Mg Tablet) 25 mg PO DAILY [facility] Last Admin: 07/03/23 08:38 Dose: 25 mg Microbiology Results 06/20/23 16:45 Blood - Blood Aerobic Blood Culture - Final No growth in 5 days. 06/20/23 16:45 Blood - Blood Anaerobic Blood Culture - Final No growth in 5 days. 06/20/23 17:00 Blood - Blood Aerobic Blood Culture - Final No growth in 5 days. 06/20/23 17:00 Blood - Blood Anaerobic Blood Culture - Final No growth in 5 days. Assessment/ Plan: Nephrology No dyspnea No chest pain Weakness and fatigue No acute events overnight Vitals, medications, blood work and imaging reviewed in the chart. NAD. Obese. NCAT. MMM. Neck supple. Normal respiratory effort. RRR. Abd ND. No C/C. LE Edema 1+. No rash. AAO. Poor hearing. Normal speech. LEFT VENTRICULAR WALL MOTION: NORMAL DOPPLER/COLOR FLOW: SEE BELOW COMMENTS: 1. NORMAL LEFT VENTRICULAR EJECTION FRACTINO 55-60% 2. DIASTOLIC DYSFUNCTION (SEVERE) 3. LEFT ATRIAL ENLARGEMENT 4. MILD TRICUSPID REGURGITATION 5. MILD MITRAL REGURGITATION 6. SEVERE PULMONARY HYPERTENSION WITH RIGHT VENTRICULAR SYSTOLIC PRESSURE OF GREATER THAN 60 mmHg Stage I PATRIZIA in the setting of diuresis CKD IIIb -No NSAIDs -NS 250ml X1 today Hyponatremia -Encourage nutrition Metabolic Alkalosis in the setting of COPD -Continue Diamox and Spironolactone Hypomagnesemia -Continue MagOx Hypotension -Continue Midodrine at this time Diastolic CHF, A/C Pulmonary HTN Peripheral Edema -Continue diuresis Hypoalbuminemia -Start Nepro Anemia in chronic illness -Monitor H&H -Retacrit prn Hospitalist note reviewed
[2023-07-03] MEDS ORDERED: NA CHLORIDE 0.9% 250 ML IV SCH (12:00)
--- NOTE | 2023-07-03 12:49 | P.PN ---
Subjective Date of Service: 07/03/23 Chief Complaint: Respiratory failure No change in patient's condition still has lower extremity edema this morning unresponsive unable to wake the patient up Review of Systems Unremarkable Physical Examination - Vital Signs Temperature: 97.4 F Blood Pressure: 117/68 Pulse: 108 Respirations: 28 Pulse Ox (%): 93 - Physical Exam General: Unresponsive Respiratory: Clear to auscultation bilaterally, Diminished Cardiovascular: Edema Assessment And Plan - Current Problems (Diagnosis) (1) COPD exacerbation Onset Date: ~06/20/23 Current Visit: Yes Status: Acute Plan: Improving Weakness has improved/ renal funtion is stable/ Nebs prn. Spriono lactone BID reduced dose of prednisone to 10 mg twice a day (2) Lower extremity weakness Current Visit: Yes Status: Acute Plan: Edema subsiding weakness improving physical therapy discharge planning Qualifiers: Laterality: bilateral Qualified Code(s): R29.898 - Other symptoms and signs involving the musculoskeletal system (3) Secondary pulmonary arterial hypertension Current Visit: Yes Status: Acute Plan: Severe secondary pulmonary hypertension secondary to combination of COPD and diastolic heart failure continue with diuretic no DVT of lower extremity (4) Chronic respiratory failure Current Visit: Yes Status: Acute Plan: Patient has chronic respiratory failure secondary to COPD is now stabilized will benefit from a noninvasive ventilator to prevent readmissions medical treatment has been optimized so far renal function is slightly worse patient started on some low-dose IV fluid titrate sat to 90% Qualifiers: Respiratory failure complication: hypoxia and hypercapnia Qualified Code(s): J96.11 - Chronic respiratory failure with hypoxia; J96.12 - Chronic respiratory failure with hypercapnia Physician Review: Patient Assessed, Agree with Above Assessment and Plan
[2023-07-03] MEDS: NEPRO SHAKE 237 ML CAN PO SCH (17:27)
[2023-07-03] MEDS: predniSONE 10 MG TAB PO SCH (20:56)
[2023-07-03] MEDS ORDERED: predniSONE 20 MG TAB PO SCH (21:00)
[2023-07-04 03:25] LABS: Absolute Lymphocytes (CBC) 0.6 K/uL (0.7-4.9); Hematocrit 26.8 % (36.0-45.0); Lymphocytes % 7.8 % (15.3-44.8); MCV 85.1 fL (80-100); MPV 9.4 fL (7.6-11.3); Platelets 323 thou/uL (152-406); RBC Red Blood Cell Count 3.16 M/uL (3.86-4.86)
[2023-07-04 03:44] LABS: Albumin 2.6 g/dL (3.4-5.0); Phosphorus 3.7 mg/dL (2.5-4.9); Potassium 4.5 mEq/L (3.5-5.1); Uric Acid 10.8 mg/dL (2.6-6.0)
[2023-07-04] MEDS: NEPRO SHAKE 237 ML CAN PO SCH ×2 (08:30→17:30)
[2023-07-04] MEDS: APIXABAN 5 MG TABLET PO SCH ×2 (10:13→21:37)
[2023-07-04] MEDS: DULERA 200/5 (MOMETASONE/FORMOTEROL) INHALER IH SCH ×2 (10:13→21:00)
[2023-07-04] MEDS: MIDODRINE HCL 5 MG TABLET PO SCH ×3 (10:13→21:37)
[2023-07-04] MEDS: predniSONE 10 MG TAB PO SCH ×2 (10:13→21:37)
[2023-07-04] MEDS: AMIODARONE HCL 200 MG TAB PO SCH ×2 (10:13→21:37)
--- NOTE | 2023-07-04 10:55 | P.PN ---
Subjective Date of Service: 07/04/23 Chief Complaint: Respiratory failure Pt is resting comfortably in bed. She is using 2L. We held her discharge order due to V-tach. BP is still hypotensive. Pt is getting midodrine. Waiting for cardiology eval. No other complaints. Review of Systems Unremarkable General: Unremarkable Eyes: Unremarkable ENT: Unremarkable Respiratory: Shortness of Breath Cardiovascular: Unremarkable Gastrointestinal: Unremarkable Genitourinary: Unremarkable Musculoskeletal: Unremarkable Integumentary: Unremarkable Neurological: Unremarkable Lymphatics: Unremarkable Physical Examination - Vital Signs Temperature: 97.2 F Blood Pressure: 96/55 Pulse: 94 Respirations: 20 Pulse Ox (%): 95 - Physical Exam General: Alert, In no apparent distress, Oriented x3, Obese HEENT: Atraumatic, Normocephalic, PERRLA Neck: Supple, 2+ carotid pulse no bruit Respiratory: Clear to auscultation bilaterally, Normal air movement Cardiovascular: Normal pulses, Regular rate/rhythm, Edema Capillary refill: <2 Seconds Gastrointestinal: Normal bowel sounds, Soft and benign, Non-distended Musculoskeletal: No clubbing, No swelling Integumentary: No rashes, No breakdown Neurological: Normal speech, Normal strength at 5/5 x4 extr, Normal tone, Sensation intact Lymphatics: No axilla or inguinal lymphadenopathy Assessment And Plan - Plan Acute COPDexacerbation: Will continue steroid, prn duoneb, advair, oxygen and iv abx. Continue prn BIPAP. Acute on chronic decompensated diastolic heart failure: Will continue lasix, spironolactone, strict I/O and daily weight. Acute resp failure with hypoxia: Due to CHF and COPD. Will continue treatment listed above. NSTEMI: Troponin trend is 65.0 -> 68.6 -> 40.0. Echo shows EF 55 - 60% with diastolic dysfunction (severe), left atrial enlargement, mild tricuspid regurgitation, mild mitral regurgitation and severe pulmonary hypertension with right ventricular systolic pressure of greater than 60 mmHg. V-tach: Pt had 8 runs of V-tach yesterday. Electrolytes are within normal limit. Consulted Cardiology. BP is still hypotensive. HR is 106 Hypotension: Improved with midodrine. hypertension: Will hold BP meds. Hyperlipidemia: statin. History of chronic atrial fibrillation: Will continue telemetry and aspirin. BP is hypotensive. Will hold BB. . Hypokalemia: Potassium is 4.1. Will replete and monitor. PATRIZIA versus CKD: Creatinine is 2.27<- 2.1<- 1.92 <- 1.84 <- 1.77<- 1.85 <- 2.09. Will avoid nephrotoxin and monitor renal function. DVT Prophylaxis: heparin. CODE STATUS: Full code Disposition: Pending hospital course. Waiting for Cardiology eval. Physician Review: Patient Assessed, Agree with Above Assessment and Plan
[2023-07-04] MEDS ORDERED: NA CHLORIDE 0.9% 1,000 ML IV SCH (11:00)
--- NOTE | 2023-07-04 13:01 | P.PN ---
Subjective Date of Service: 07/04/23 Chief Complaint: Respiratory failure Patient is feeling better shortness of breath is improved lower extremity edema has declined patient developed some V. tach Review of Systems General: Weakness Respiratory: Shortness of Breath Physical Examination - Vital Signs Temperature: 97.2 F Blood Pressure: 96/55 Pulse: 94 Respirations: 20 Pulse Ox (%): 95 - Physical Exam General: Alert, Oriented x3 Cardiovascular: Edema (Edema has reduced) Gastrointestinal: Normal bowel sounds, Soft and benign Assessment And Plan - Current Problems (Diagnosis) (1) COPD exacerbation Onset Date: ~06/20/23 Current Visit: Yes Status: Acute Plan: Improving continue with bronchodilator renal function is slightly worse patient was started on some IV fluids by nephrology (2) Lower extremity weakness Current Visit: Yes Status: Acute Plan: Edema is improving Qualifiers: Laterality: bilateral Qualified Code(s): R29.898 - Other symptoms and signs involving the musculoskeletal system (3) Secondary pulmonary arterial hypertension Current Visit: Yes Status: Acute Plan: Severe secondary pulmonary hypertension secondary to combination of COPD and diastolic heart failure continue with diuretic no DVT of lower extremity (4) Chronic respiratory failure Current Visit: Yes Status: Acute Plan: Patient is tolerating BiPAP in the hospital ordered through her [employer] company Qualifiers: Respiratory failure complication: hypoxia and hypercapnia Qualified Code(s): J96.11 - Chronic respiratory failure with hypoxia; J96.12 - Chronic respiratory failure with hypercapnia Physician Review: Patient Assessed, Agree with Above Assessment and Plan
--- NOTE | 2023-07-04 13:19 | P.PN ---
(S) Renal function tests worse over the past few days, ABG yesterday showed worsened hypercarbia, pt was back on BIPAP although on NC when seen. (O) Vitals reviewed in the EMR General: Alert, In no apparent distress, Cooperative HEENT: Normocephalic, Other (LFNC) Neck: Supple Respiratory: Normal air movement, Other (Diminished at bases) Cardiovascular: Other (Non tachy, no cardiac gallop heart sounds) Gastrointestinal: Soft and benign, No tenderness, Other (obese) Musculoskeletal: No tenderness, No warmth, Swelling (2+ distal b/l edema) Integumentary: No rashes Neurological: Normal speech, Normal tone, Normal affect Conclusions/Impression: A/P) Stage I PATRIZIA that was multifactorial but with possible Type 1 CRS component/other Prior PATRIZIA episode(s), underlying CKD NOS -Cr level initially lower on repeat testing from admission level but remaining above prior baseline range, but now worse in the setting of diuresis, relative hypotension, reduced renal plasma flow effects of hypercarbia/hypoxia. Hypotension, other -Paused diuretics other than Diamox, ordered IVF Diastolic CHF, acute on chronic. Probable obesity hypoventilation syndrome Mod to severe pulm HTN -Diuresing well, pause diuretics due to low BP this AM, obtain standing weights Metab alkalosis -Compensatory for underlying hypercarbia/COPD +/- CHF, diuretics related. Level lower than in prior days Jl Callahan MD, DEEDEE
--- NOTE | 2023-07-04 13:54 | EKG ---
Test Date: 2023-06-30 Test Time: 11:17:43 [employer] Dry Dock Manager: SHARI MEASUREMENT RESULTS: Intervals: Rate: 97 HI: QRSD: 108 QT: 384 QTc: 487 Kelly: P: HI: QRS: 90 T: 79 INTERPRETIVE STATEMENTS: Atrial flutter with variable AV block with premature ventricular or aberrantly conducted complexes Rightward axis Low voltage QRS Incomplete left bundle branch block Abnormal ECG Compared to ECG 06/30/2023 11:16:45 Right-axis deviation now present Prolonged QT interval no longer present Electronically Signed On 07-04-23 13:44:00 BULK DRIVER by Macho Hook
--- NOTE | 2023-07-04 13:54 | EKG ---
Test Date: 2023-06-30 Test Time: 11:16:45 Water Technician: SHARI MEASUREMENT RESULTS: Intervals: Rate: 92 FL: QRSD: 110 QT: 400 QTc: 494 [place]: P: FL: QRS: 84 T: 61 INTERPRETIVE STATEMENTS: Atrial flutter with variable AV block with premature ventricular or aberrantly conducted complexes Low voltage QRS Incomplete left bundle branch block Prolonged QT Abnormal ECG Compared to ECG 06/20/2023 16:47:55 Ventricular premature complex(es) now present Low QRS voltage now present Left bundle-branch block now present Prolonged QT interval now present Sinus rhythm no longer present Myocardial infarct finding no longer present Electronically Signed On 07-04-23 13:44:12 BOREMATIC OPERATOR by Macho Hook
--- NOTE | 2023-07-04 17:18 | P.DS ---
Admission Date: 06/22/23 Discharge Date: 07/04/23 Disposition: TRANSFER TO SNF - MEDICAL Discharge Condition: GOOD Reason for Admission: Respiratory failure Brief History of Present Illness: 72-year-old female patient with medical history significant for COPD, hypertension, hyperlipidemia, chronic atrial fibrillation who came to the ED with complaint of worsening shortness of breath and lethargy. This has been going on for several months. Patient continues to have drop in oxygen saturation on ambulation so she was asked to be evaluated for inpatient care. Does know about episode of fever, chills, cough productive of sputum at the time of encounter. Imaging study showed no acute consolidation in the lung field with elevated CO2 and with routine lab she was started to have some CO2 retention so was put in for inpatient care. Hospital Course: Ms. Sunshine Mead is a pleasant 73 year old female with a past medical history significant for diastolic congestive heart failure, chronic obstructive pu lmonary disease, severe pulmonary hypertension, chronic kidney disease stage III, atrial fibrillation, and hypertension who was admitted to the [facility] on 06/22/2023 for shortness of breath. She was admitted for acute hypercapnic hypoxemic respiratory failure due to an acute diastolic congestive heart failure and acute COPD exacerbation. Cardiology and Pulmonology were consulted and she was evaluated by Dr. Hook and Dr. Hutchins. She was treated with IV diuretics, steroids, and bronchodilators. Over the course of her hospitalization, her symptoms improved significantly. From their respective standpoints, Dr. Hutchins and Dr. Hook have cleared her for discharge. Dr. Hoko has recommended a nuclear stress test as an outpatient. Additionally, she was found to have an acute kidney injury. Nephrology was consulted and she was evaluated by Dr. Callahan. Her creatinine returned to baseline after diuretics, suggesting cardiorenal syndrome. Today, she stated that she felt significantly better and would like to be discharged. Physical therapy evaluated her and recommended that she be discharged with continued therapy services. With the assistance of case management, she was accepted [place] [facility] facility. Her discharge on 06/29/23 was canceled due to hypotension. We gave midodrine and BP improved. On 07/01/2023, Pt had 8 runs of v-tach and we replaced her electrolytes. Cardiology evaluated pt and obtained EKG. EKG did not show any V-tach and her QTc was 376. Cardiology cleared her for discharge. On 07/03/23, Pt was deemed medically stable for discharge to SNF. She was discharged with instructions to schedule follow-up appointments with her PCP/Recovery Advocate (Dr. Oneil), with Cardiology (Dr. Hook), and with Pulmonology (Dr. Hutchins). She was given the opportunity to ask questions and reported no further questions. Furthermore, all questions were answered to the best of my ability. A copy of this discharge summary will be sent to the above providers to facilitate continuity of care. Vital Signs/Physical Exam: Temp Pulse Resp BP Pulse Ox 97.2 F 94 H 20 96/55 L 95 07/04/23 13:01 07/04/23 13:01 07/04/23 13:01 07/04/23 13:01 07/04/23 13:01 Laboratory Data at Discharge: WBC 7.80 thou/uL (4.3-10.9) 07/04/23 02:42 Hgb 8.6 g/dL (12.0-15.0) L 07/04/23 02:42 Hct 26.8 % (36.0-45.0) L 07/04/23 02:42 Plt Count 323 thou/uL (152-406) 07/04/23 02:42 PT 21.1 SECONDS (9.5-12.5) H 06/20/23 18:10 INR 1.96 06/20/23 18:10 APTT 35.1 SECONDS (24.3-36.9) 06/20/23 18:10 Sodium 131 mEq/L (136-145) L 07/04/23 02:42 Potassium 4.5 mEq/L (3.5-5.1) 07/04/23 02:42 BUN 69 mg/dL (7-18) H 07/04/23 02:42 Creatinine 2.27 mg/dL (0.55-1.02) H 07/04/23 02:42 Glucose 121 mg/dL (74-106) H 07/04/23 02:42 Uric Acid 10.8 mg/dL (2.6-6.0) H 07/04/23 02:42 Phosphorus 3.7 mg/dL (2.5-4.9) 07/04/23 02:42 Magnesium 2.1 mg/dL (1.6-2.4) 07/01/23 02:02 Total Bilirubin 0.6 mg/dL (0.2-1.0) 07/01/23 02:02 AST 24 U/L (15-37) 07/01/23 02:02 ALT 28 U/L (13-56) 07/01/23 02:02 Alkaline Phosphatase 98 U/L (45-117) 07/01/23 02:02 Home Medications: Albuterol Neb [Proventil 0.083% Neb Soln] 2.5 mg IH PRN PRN 09/13/17 Fluticasone/Vilanterol [Breo Ellipta 200-25 Mcg Inhalr] 1 each IH PRN PRN 09/13/17 Apixaban [Eliquis *] 5 mg PO BID 10/02/19 Amiodarone HCl [Pacerone] 200 mg PO BID 30 Days #60 tab 09/02/22 Spironolact/Hydrochlorothiazid [Spironolactone-Hctz 25-25 Tab] 25 mg PO DAILY 03/23/23 Torsemide 10 mg PO DAILY 03/23/23 acetaZOLAMIDE [Diamox*] 250 mg PO BID tab 06/29/23 Midodrine HCl [Proamatine*] 5 mg PO TID 30 Days #90 tab 07/01/23 acetaZOLAMIDE [Diamox*] 250 mg PO DAILY 15 Days #15 tab 07/01/23 New Medications: acetaZOLAMIDE [Diamox*] 250 mg PO DAILY 15 Days #15 tab Midodrine HCl [Proamatine*] 5 mg PO TID 30 Days #90 tab Physician Discharge Instructions: 1. Please call and schedule a follow-up appointment with your PCP (Dr. Oneil) in 3-5 days - Your blood work showed anemia. Please discuss further evaluation, including a colonoscopy, with your PCP 2. Please call and schedule a follow-up appointment with Pulmonology (Dr. Hutchins) in 5-7 days 3. Please call and schedule a follow-up appointment with Cardiology (Dr. Hook) in 5-7 days - He will schedule you for a cardiac stress test in his office Please follow-up with your PCP for medication refills/adjustments in 3-5 days -DC IV and DC home -Follow-up with PCP in 1 to 2 weeks -Follow-up with Pulmonary and Cardiology in 1 to 2 weeks -Please call Dr. Falcon at [phone] if any questions regarding hospital stay -Please call nursing station at [phone] if any nursing or medication questions -Return to the emergency room if symptoms worsen Diet: Low sodium Activity: Fall precautions Followup: Oscar Hutchins MD [ACTIVE - CAN ADMIT] - 1-2 Weeks Remberto Oneil DO [Primary Care Provider] - 2-3 Days Macho Hook MD [ACTIVE - CAN ADMIT] - 1-2 Weeks
[2023-07-04 22:06] LABS: Specific Gravity 1.014 (1.005-1.030); Urine Bacteria <20 /HPF (<20); Urine Bilirubin NEGATIVE (Negative); Urine Blood Negative (Negative); Urine Clarity Extremely Turbid (Clear); Urine Color Light-Yellow (Yellow); Urine Glucose NEGATIVE (Negative); Urine Protein NEGATIVE (Negative); Urine RBC <5 /HPF (None Seen); Urine Urobilinogen Normal (Normal); Urine pH 6.5 (5.0-7.0)
[2023-07-05 08:55] LABS: Absolute Lymphocytes (CBC) 1.1 K/uL (0.7-4.9); Hematocrit 28.3 % (36.0-45.0); Lymphocytes % 12.3 % (15.3-44.8); MCV 85.1 fL (80-100); Platelets 328 thou/uL (152-406); RBC Red Blood Cell Count 3.33 M/uL (3.86-4.86)
[2023-07-05] MEDS ORDERED: SPIRONOLACTONE 25 MG TABLET PO SCH (09:00)
[2023-07-05] MEDS ORDERED: acetaZOLAMIDE 250 MG TAB PO SCH (09:00)
[2023-07-05 09:05] LABS: Potassium 4.4 mEq/L (3.5-5.1)
[2023-07-05] MEDS: MIDODRINE HCL 5 MG TABLET PO SCH (09:26)
[2023-07-05] MEDS: predniSONE 10 MG TAB PO SCH (09:26)
[2023-07-05] MEDS: AMIODARONE HCL 200 MG TAB PO SCH (09:27)
[2023-07-05] MEDS: DULERA 200/5 (MOMETASONE/FORMOTEROL) INHALER IH SCH (09:27)
[2023-07-05] MEDS: NEPRO SHAKE 237 ML CAN PO SCH (09:27)
[2023-07-05] MEDS: APIXABAN 5 MG TABLET PO SCH (09:27)
[2023-07-05] MEDS ORDERED: NA CHLORIDE 0.9% 1,000 ML IV SCH (10:00)
--- NOTE | 2023-07-05 10:39 | P.PN ---
Subjective Date of Service: 07/05/23 Chief Complaint: Respiratory failure Patient is improving doing better no complaints tolerating BiPAP Review of Systems General: Weakness Respiratory: Shortness of Breath Physical Examination - Vital Signs Temperature: 97.9 F Blood Pressure: 92/56 Pulse: 108 Respirations: 18 Pulse Ox (%): 95 - Physical Exam General: Alert, Oriented x3 Respiratory: Clear to auscultation bilaterally, Diminished Cardiovascular: Regular rate/rhythm, Edema Assessment And Plan - Current Problems (Diagnosis) (1) COPD exacerbation Onset Date: ~06/20/23 Current Visit: Yes Status: Acute Plan: Patient is clinically improving continue with bronchodilators (2) Lower extremity weakness Current Visit: Yes Status: Acute Plan: Edema is improving patient is ambulating Qualifiers: Laterality: bilateral Qualified Code(s): R29.898 - Other symptoms and signs involving the musculoskeletal system (3) Secondary pulmonary arterial hypertension Current Visit: Yes Status: Acute Plan: Severe secondary pulmonary hypertension secondary to combination of COPD and diastolic heart failure continue with diuretic no DVT of lower extremity (4) Chronic respiratory failure Current Visit: Yes Status: Acute Plan: Patient is tolerating BiPAP in the hospital ordered through her DME company DME company is requiring an overnight pulse ox renal function is improving oxygenation satisfactory stable for discharge continue with Diamox and spironolactone at discharge Qualifiers: Respiratory failure complication: hypoxia and hypercapnia Qualified Code(s): J96.11 - Chronic respiratory failure with hypoxia; J96.12 - Chronic respiratory failure with hypercapnia Physician Review: Patient Assessed, Agree with Above Assessment and Plan
[2023-07-05 12:39] VITALS: BP 111/50; TEMP 97.8
--- NOTE | 2023-07-05 13:06 | P.DS ---
Admission Date: 06/22/23 Discharge Date: 07/05/23 Disposition: TRANSFER TO SNF - MEDICAL Discharge Condition: GOOD Reason for Admission: Respiratory failure Brief History of Present Illness: 72-year-old female patient with medical history significant for COPD, hypertension, hyperlipidemia, chronic atrial fibrillation who came to the ED with complaint of worsening shortness of breath and lethargy. This has been going on for several months. Patient continues to have drop in oxygen saturation on ambulation so she was asked to be evaluated for inpatient care. Does know about episode of fever, chills, cough productive of sputum at the time of encounter. Imaging study showed no acute consolidation in the lung field with elevated CO2 and with routine lab she was started to have some CO2 retention so was put in for inpatient care. Hospital Course: Ms. Sunshine Mead is a pleasant 73 year old female with a past medical history significant for diastolic congestive heart failure, chronic obstructive pu lmonary disease, severe pulmonary hypertension, chronic kidney disease stage III, atrial fibrillation, and hypertension who was admitted to the [facility] on 06/22/2023 for shortness of breath. She was admitted for acute hypercapnic hypoxemic respiratory failure due to an acute diastolic congestive heart failure and acute COPD exacerbation. Cardiology and Pulmonology were consulted and she was evaluated by Dr. Hook and Dr. Hutchins. She was treated with IV diuretics, steroids, and bronchodilators. Over the course of her hospitalization, her symptoms improved significantly. From their respective standpoints, Dr. Hutchins and Dr. Hook have cleared her for discharge. Dr. Hook has recommended a nuclear stress test as an outpatient. Additionally, she was found to have an acute kidney injury. Nephrology was consulted and she was evaluated by Dr. Callahan. Her creatinine returned to baseline after diuretics, suggesting cardiorenal syndrome. Today, she stated that she felt significantly better and would like to be discharged. Physical therapy evaluated her and recommended that she be discharged with continued therapy services. With the assistance of case management, she was accepted to a shelter facility. Her discharge on 06/29/23 was canceled due to hypotension. We gave midodrine and BP improved. Pt also received gentle IVF for PATRIZIA. On 07/01/2023, Pt had 8 runs of v-tach and we replaced her electrolytes. Cardiology evaluated pt and obtained EKG. EKG did not show any V-tach and her QTc was 376. Cardiology cleared her for discharge. On 07/05/23, Pt was deemed medically stable for discharge to SNF. She was discharged with instructions to schedule follow-up appointments with her PCP/Virtual Classroom Manager (Dr. Oneil), with Cardiology (Dr. Hook), and with Pulmonology (Dr. Hutchins). She was given the opportunity to ask questions and reported no further questions. Furthermore, all questions were answered to the best of my ability. A copy of this discharge summary will be sent to the above providers to facilitate continuity of care. Vital Signs/Physical Exam: Temp Pulse Resp BP Pulse Ox 97.8 F 106 H 18 111/50 L 97 07/05/23 12:00 07/05/23 12:00 07/05/23 12:00 07/05/23 12:00 07/05/23 12:00 Laboratory Data at Discharge: WBC 8.80 thou/uL (4.3-10.9) 07/05/23 08:42 Hgb 9.1 g/dL (12.0-15.0) L 07/05/23 08:42 Hct 28.3 % (36.0-45.0) L 07/05/23 08:42 Plt Count 328 thou/uL (152-406) 07/05/23 08:42 PT 21.1 SECONDS (9.5-12.5) H 06/20/23 18:10 INR 1.96 06/20/23 18:10 APTT 35.1 SECONDS (24.3-36.9) 06/20/23 18:10 Sodium 134 mEq/L (136-145) L 07/05/23 08:42 Potassium 4.4 mEq/L (3.5-5.1) 07/05/23 08:42 BUN 75 mg/dL (7-18) H 07/05/23 08:42 Creatinine 2.13 mg/dL (0.55-1.02) H 07/05/23 08:42 Glucose 100 mg/dL (74-106) 07/05/23 08:42 Uric Acid 10.8 mg/dL (2.6-6.0) H 07/04/23 02:42 Phosphorus 3.7 mg/dL (2.5-4.9) 07/04/23 02:42 Magnesium 2.1 mg/dL (1.6-2.4) 07/01/23 02:02 Total Bilirubin 0.6 mg/dL (0.2-1.0) 07/01/23 02:02 AST 24 U/L (15-37) 07/01/23 02:02 ALT 28 U/L (13-56) 07/01/23 02:02 Alkaline Phosphatase 98 U/L (45-117) 07/01/23 02:02 Home Medications: Albuterol Neb [Proventil 0.083% Neb Soln] 2.5 mg IH PRN PRN 09/13/17 Fluticasone/Vilanterol [Breo Ellipta 200-25 Mcg Inhalr] 1 each IH PRN PRN 09/13/17 Apixaban [Eliquis *] 5 mg PO BID 10/02/19 Amiodarone HCl [Pacerone] 200 mg PO BID 30 Days #60 tab 09/02/22 Spironolact/Hydrochlorothiazid [Spironolactone-Hctz 25-25 Tab] 25 mg PO DAILY 03/23/23 Torsemide 10 mg PO DAILY 03/23/23 acetaZOLAMIDE [Diamox*] 250 mg PO BID tab 06/29/23 Midodrine HCl [Proamatine*] 5 mg PO TID 30 Days #90 tab 07/01/23 acetaZOLAMIDE [Diamox*] 250 mg PO DAILY 15 Days #15 tab 07/01/23 New Medications: acetaZOLAMIDE [Diamox*] 250 mg PO DAILY 15 Days #15 tab Midodrine HCl [Proamatine*] 5 mg PO TID 30 Days #90 tab Physician Discharge Instructions: 1. Please call and schedule a follow-up appointment with your PCP (Dr. Oneil) in 3-5 days - Your blood work showed anemia. Please discuss further evaluation, including a colonoscopy, with your PCP 2. Please call and schedule a follow-up appointment with Pulmonology (Dr. Hutchins) in 5-7 days 3. Please call and schedule a follow-up appointment with Cardiology (Dr. Hook) in 5-7 days - He will schedule you for a cardiac stress test in his office Please follow-up with your PCP for medication refills/adjustments in 3-5 days -DC IV and DC home -Follow-up with PCP in 1 to 2 weeks -Follow-up with Pulmonary and Cardiology in 1 to 2 weeks -Please call Dr. Falcon at [phone] if any questions regarding hospital stay -Please call nursing station at [phone] if any nursing or medication questions -Return to the emergency room if symptoms worsen Diet: Low sodium Activity: Fall precautions Followup: Oscar Hutchins MD [ACTIVE - CAN ADMIT] - 1-2 Weeks Remberto Oneil DO [Primary Care Provider] - 2-3 Days Macho Hook MD [ACTIVE - CAN ADMIT] - 1-2 Weeks
--- NOTE | 2023-07-05 13:07 | P.PN ---
Date of Service: 07/05/23 Vital Signs Temp Pulse Resp BP Pulse Ox 97.8 F 106 H 18 111/50 L 97 07/05/23 12:00 07/05/23 12:00 07/05/23 12:00 07/05/23 12:00 07/05/23 12:00 Medications Acetaminophen (Acetaminophen 325 Mg Tablet) 650 mg PO Q4HP PRN PRN Reason: Pain scale 2-4 (Mild) Acetazolamide (Acetazolamide 250 Mg Tab) 250 mg PO DAILY [facility] Last Admin: 07/05/23 09:27 Dose: 250 mg Albuterol Sulfate (Albuterol 2.5 Mg/3 Ml Neb Carolee) 2.5 mg NEB [id number] PRN PRN Reason: SHORTNESS OF BREATH Amiodarone HCl (Amiodarone Hcl 200 Mg Tab) 200 mg PO BID [facility] Last Admin: 07/05/23 09:27 Dose: 200 mg Apixaban (Apixaban 5 Mg Tablet) 5 mg PO BID [facility] Last Admin: 07/05/23 09:27 Dose: 5 mg Benzonatate (Benzonatate 100 Mg Cap) 200 mg PO TID PRN PRN Reason: COUGH Enteral Nutritional Formula (Nepro Shake 237 Ml Can) 237 ml PO BIDPC [facility] Last Admin: 07/05/23 09:27 Dose: 237 ml Sodium Chloride (Ns 1000 Ml Ivbag) 1,000 mls @ 50 mls/hr IV .Q20H [facility] Last Admin: 07/05/23 10:00 Dose: Not Given Ipratropium [place] (Ipratropium Brom 0.5mg/2.5ml) 0.5 mg NEB [id number] PRN PRN Reason: SHORTNESS OF BREATH Midodrine (Midodrine Hcl 5 Mg Tablet) 10 mg PO TID [facility] Last Admin: 07/05/23 09:26 Dose: 10 mg Ondansetron HCl (Ondansetron 4 Mg/2 Ml Vial) 4 mg IV Q6HP PRN PRN Reason: NAUSEA / VOMITING Prednisone (Prednisone 10 Mg Tab) 10 mg PO BID [facility] Last Admin: 07/05/23 09:26 Dose: 10 mg Spironolactone (Spironolactone 25 Mg Tablet) 25 mg PO DAILY [facility] Last Admin: 07/05/23 09:26 Dose: 25 mg Microbiology Results 06/20/23 16:45 Blood - Blood Aerobic Blood Culture - Final No growth in 5 days. 06/20/23 16:45 Blood - Blood Anaerobic Blood Culture - Final No growth in 5 days. 06/20/23 17:00 Blood - Blood Aerobic Blood Culture - Final No growth in 5 days. 06/20/23 17:00 Blood - Blood Anaerobic Blood Culture - Final No growth in 5 days. Assessment/ Plan: Nephrology No dyspnea. OLIVO Cough No chest pain Weakness and fatigue No acute events overnight Vitals, medications, blood work and imaging reviewed in the chart. NAD. Obese. NCAT. MMM. Neck supple. Normal respiratory effort. RRR. Abd ND. No C/C. LE Edema 1-2+. No rash. AAO. Poor hearing. Normal speech. LEFT VENTRICULAR WALL MOTION: NORMAL DOPPLER/COLOR FLOW: SEE BELOW COMMENTS: 1. NORMAL LEFT VENTRICULAR EJECTION FRACTINO 55-60% 2. DIASTOLIC DYSFUNCTION (SEVERE) 3. LEFT ATRIAL ENLARGEMENT 4. MILD TRICUSPID REGURGITATION 5. MILD MITRAL REGURGITATION 6. SEVERE PULMONARY HYPERTENSION WITH RIGHT VENTRICULAR SYSTOLIC PRESSURE OF GREATER THAN 60 mmHg Stage I PATRIZIA in the setting of diuresis CKD IIIb -No NSAIDs Hyponatremia -Encourage nutrition Metabolic Alkalosis in the setting of COPD -Continue Diamox and Spironolactone Hypomagnesemia -Continue MagOx Hypotension -Continue Midodrine at this time Diastolic CHF, A/C Pulmonary HTN Peripheral Edema -Continue diuresis Hypoalbuminemia -Continue Nepro Anemia in chronic illness -Monitor H&H -Retacrit x1 Hospitalist note reviewed
[2023-07-05] MEDS ORDERED: EPOETIN ALFA-EPBX 10,000 UNIT/ML VIAL SQ ONE (13:45)
[2023-07-05 14:53] VITALS: O2SAT 96
--- NOTE | 2023-07-07 12:29 | EKG ---
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
== END 2023-07-05 14:00 | DRG 190 ==
LOC: ER 15:07 → ERHOLD 19:40 → 2ND 21:06 → OBSVTOIN 06-22 21:01
PROVIDERS: ADMIT Internal Medicine Nephrology; ATTEND Hospitalist
PROC: 5A09357 Assistance with Respiratory Ventilation, Less than 24 Consecutive Hours, Continuous Positive Airway Pressure (ICD-10-PCS; principal; 2023-07-03)
DX: J44.1 Chronic obstructive pulmonary disease with (acute) exacerbation (principal); I21.A1 Myocardial infarction type 2; I50.33 Acute on chronic diastolic (congestive) heart failure; J96.22 Acute and chronic respiratory failure with hypercapnia; J96.21 Acute and chronic respiratory failure with hypoxia; I13.0 Hypertensive heart and chronic kidney disease with heart failure and stage 1 through stage 4 chronic kidney disease, or unspecified chronic kidney disease; N17.9 Acute kidney failure, unspecified; I48.20 Chronic atrial fibrillation, unspecified; E87.3 Alkalosis; Z68.41 Body mass index [BMI] 40.0-44.9, adult; E87.1 Hypo-osmolality and hyponatremia; I47.20 Ventricular tachycardia, unspecified; R65.10 Systemic inflammatory response syndrome (SIRS) of non-infectious origin without acute organ dysfunction; N18.32 Chronic kidney disease, stage 3b; Z88.0 Allergy status to penicillin; Z91.013 Allergy to seafood; Z79.01 Long term (current) use of anticoagulants; E78.5 Hyperlipidemia, unspecified; Z90.49 Acquired absence of other specified parts of digestive tract; Z98.51 Tubal ligation status; E87.6 Hypokalemia; D63.1 Anemia in chronic kidney disease; M62.81 Muscle weakness (generalized); E66.01 Morbid (severe) obesity due to excess calories; E83.42 Hypomagnesemia; I27.20 Pulmonary hypertension, unspecified
CPT/HCPCS: 36415; 36600; 71045; 80048; 80053; 80069; 80076; 81001; 82805; 83735; 83880; 84100; 84132; 84484; 84550; 85014; 85018; 85025; 85610; 85730; 87040; 93005; 93306; 93970; 94640; 94660; 94760; 96374; 97110; 97116; 97161; 97530; 99284; G0378; J1120; J1644; J1940; J2920; J3475; J3535; J7030; J7050; J7512; J7613; J7644; P9047; Q5106

== ENCOUNTER 2023-07-31 11:36 | Inpatient (IN) | payer OTHER ==
--- OUTSIDE RECORDS SUMMARY | 2023-07-31 16:30 | XMS REPORT | Continuity of Care Document ---
Author Name Unknown Address [address] [facility] [address] [place] [address] [facility] Address [address] [facility]. [address] [place] [address] Care Team Providers Care Manager Technical Sales Name Role Phone Remberto Oneil DO Primary Care Physician [phone] FRANCISCO J FRANKS Attending Clinician UnavailFrancisco J Brown MD Attending Clinician [phone] Doctor Unassigned, [place] Attending Clinician U navailable Only, Adc Test Attending Clinician Unavailable Pob, Adc Lab Main Attending Clinician UnavailFRANCISCO J Dave Admitting Clinician Unavailab robins Payers Payer Name Policy Type Policy Number Effective Date Expirati on Date Source [employer] MED[employer]ARE ADVANTAGE [id number] 2021 00:00:00 Allergies, Adverse Reactions, Alerts Allergy Name Allergy Type Status Severity Reaction(s) Onset Date Inactive Date Treating Clinician Comments Source CODEINE DRUG INGREDI Active N/V 12 00:00: 00 [facility] Codeine Drug Allergy Active Nausea and/or Vomiting 7-12 00:00: 00 [facility] Penicill ins Drug Allergy Active Itching 7-12 00:00: 00 [facility] PENICILL INS Drug Class Active ITCHING 7-12 00:00: 00 [facility] SULFA (SULFONA MIDE ANTIBIOT ICS) Drug Class Active High Rash 3-31 00:00: 00 [facility] Sulfa (Sulfona mide Antibiot ics) Drug Allergy Active Rash 09-27 00:00: 00 [facility] SHELLFIS H DERIVED DRUG INGREDI Active Hives 4- 00:00: 00 [facility] Shellfis h Derived Propensi ty to adverse reaction s Active Hives 4- 00:00: 00 [facility] NO KNOWN ALLERGIE S Drug Class Active [facility] Social History Social Habit Start Date Stop Date Quantity Comments Source History of tobacco use Cigarette Smoker [facility] Exposure to SARS-CoV-2 (event) 2022-01-01 00:00:00 2022-01-11 11:31:00 Not sure [facility] Tobacco use and exposure 2022-01-11 00:00:00 2022-01-11 00:00:00 Smokeless tobacco non-user [facility] Sex Assigned At 1950 00:00:00 1950 00:00:00 [facility] Smoking Status Start Date Stop Date Source Tobacco smoking consumption unknown [facility] Smokes tobacco daily 2022-01-11 00:00:00 [facility] Medications Ordered Medication Name Filled Medication Name Start Date Stop Date Current Medication? Ordering Clinician Indication Dosage Frequency Signature (SIG) Comments Components Source neomycin-po lymyxin-dex amethasone (MAXITROL) 3.5 mg/g-10,000 unit/g-0.1 % ophthalmic ointment 01-16 16:11: 00 01-16 16:13 :38 No PRN, Starting on Fri01/16/22 at 1111, Until Fri01/16/22 at 1113, Routine, Intra-op [facility] ceFAZolin (ANCEF) injection 01-16 16:09: 00 01-16 16:13 :38 No PRN, Starting on Fri01/16/22 at 1109, Until Fri01/16/22 at 1113, CARLOS, Intra-op [facility] carbachoL (MIOSTAT) 0.01 % intraocular injection 01-16 16:09: 00 01-16 16:13 :38 No PRN, Starting on Fri01/16/22 at 1109, Until Fri01/16/22 at 1113, Routine, Intra-op [facility] sodium chloride (NS) injection 01-16 16:09: 00 01-16 19:50 :32 No PRN, Starting on Fri01/16/22 at 1109, Until Fri01/16/22 at 1450, Routine, Intra-op [facility] dexamethaso ne (DECADRON PHOSPHATE) injection 01-16 16:09: 00 01-16 19:50 :32 No PRN, Starting on Fri01/16/22 at 1109, Until Fri01/16/22 at 1450, Routine, Intra-op [facility] EPINEPHrine 1:1,000 (1 mg/mL) (ADRENALIN) injection 01-16 15:56: 00 01-16 16:13 :38 No PRN, Starting on Fri01/16/22 at 1056, Until Fri01/16/22 at 1113, Routine, Intra-op [facility] chondroitin sulf-sod hyaluronate (DUOVISC VISCO ELASTIC) intraocular injection 01-16 15:56: 00 01-16 16:13 :38 No PRN, Starting on Fri01/16/22 at 1056, Until Fri01/16/22 at 1113, Routine, Intra-op [facility] balanced salt irrig soln comb1 (BSS PLUS) ophthalmic solution 500 mL bag 01-16 15:56: 00 01-16 16:13 :38 No PRN, Starting on Fri01/16/22 at 1056, Until Fri01/16/22 at 1113, Routine, Intra-op [facility] water for irrigation irrigation solution 01-16 15:52: 00 01-16 16:13 :38 No PRN, Starting on Fri01/16/22 at 1052, Until Fri01/16/22 at 1113, Routine, Intra-op [facility] Hyaluronida se, Human Recomb. (HYLENEX) injection 01-16 15:49: 00 01-16 16:13 :38 No PRN, Starting on Fri01/16/22 at 1049, Until Fri01/16/22 at 1113, Routine, Intra-op [facility] eye block syringe 11 mL 01-16 15:49: 00 01-16 16:13 :38 No PRN, Starting on Fri01/16/22 at 1049, Until Fri01/16/22 at 1113, Intra-op [facility] cyclopent 1%-tropic 1%-phenyl 2.5%-ketor 0.5% (MYDRIATIC #5) ophthalmic solution syringe 0.5 mL 01-16 14:30: 00 01-16 14:33 :00 No .5mL 0.5 mL, Left Eye, ONCE, 1 dose, On Fri01/16/22 at 0930, Routine, DSU Pre-op [facility] lactated ringers IV infusion 1,000 mL 01-16 14:30: 00 01-16 14:33 :00 No 1000mL at 42 mL/hr, 1,000 mL, IV Infusion, ONCE, 1 dose, On Fri01/16/22 at 0930, Routine, DSU Pre-op [facility] acetaminoph en (TYLENOL ARTHRITIS PAIN) 650 mg CR tablet 01-16 12:45: 27 Yes 650mg Take 650 mg by mouth every 8 (eight) hours as needed for Pain. Takes at bedtime [facility] diphenhydrA MINE 25 mg tablet 01-16 12:45: 27 Yes 25mg Take 25 mg by mouth at bedtime. [facility] acetaminoph en (TYLENOL ARTHRITIS PAIN) 650 mg CR tablet 01-16 12:45: 27 Yes 650mg Take 650 mg by mouth every 8 (eight) hours as needed for Pain. Takes at bedtime [facility] diphenhydrA MINE 25 mg tablet 01-16 12:45: 27 Yes 25mg Take 25 mg by mouth at bedtime. [facility] acetaminoph en (TYLENOL ARTHRITIS PAIN) 650 mg CR tablet 01-11 11:25: 56 Yes 650mg Take 650 mg by mouth every 8 (eight) hours as needed for Pain. Takes at bedtime [facility] diphenhydrA MINE 25 mg tablet 01-11 11:25: 56 Yes 25mg Take 25 mg by mouth at bedtime. [facility] ELIQUIS 5 mg tablet 12-18 00:00: 00 Yes 5mg Take 5 mg by mouth 2 (two) times daily. [facility] ELIQUIS 5 mg tablet 12-18 00:00: 00 Yes 5mg Take 5 mg by mouth 2 (two) times daily. [facility] ELIQUIS 5 mg tablet 12-18 00:00: 00 Yes 5mg Take 5 mg by mouth 2 (two) times daily. [facility] BREO ELLIPTA 200-25 mcg/dose DsDv 12-04 00:00: 00 Yes 1{puff} Inhale 1 Puff daily. [facility] BREO ELLIPTA 200-25 mcg/dose DsDv 12-04 00:00: 00 Yes 1{puff} Inhale 1 Puff daily. [facility] BREO ELLIPTA 200-25 mcg/dose DsDv 12-04 00:00: 00 Yes 1{puff} Inhale 1 Puff daily. [facility] sotaloL 80 mg tablet 11-21 00:00: 00 Yes 80mg Take 80 mg by mouth in the morning and 80 mg in the evening. [facility] sotaloL 80 mg tablet 11-21 00:00: 00 Yes 80mg Take 80 mg by mouth in the morning and 80 mg in the evening. [facility] sotaloL 80 mg tablet 11-21 00:00: 00 Yes 80mg Take 80 mg by mouth in the morning and 80 mg in the evening. [facility] escitalopra m oxalate 5 mg tablet 424 00:00: 00 Yes 5mg Take 5 mg by mouth in the morning. [facility] escitalopra m oxalate 5 mg tablet 10-21 00:00: 00 Yes 5mg Take 5 mg by mouth in the morning. [facility] escitalopra m oxalate 5 mg tablet 24 00:00: 00 Yes 5mg Take 5 mg by mouth in the morning. [facility] spironolact one-hydroch lorothiazid e 25-25 mg per tablet 10-19 00:00: 00 Yes 1{tbl} Take 1 tablet by mouth every morning. [facility] spironolact one-hydroch lorothiazid e 25-25 mg per tablet 10-19 00:00: 00 Yes 1{tbl} Take 1 tablet by mouth every morning. [facility] spironolact one-hydroch lorothiazid e 25-25 mg per tablet 10-19 00:00: 00 Yes 1{tbl} Take 1 tablet by mouth every morning. [facility] albuterol 2.5 mg /3 mL (0.083 %) nebulizer solution 03-29 00:00: 00 03-30 04:59 :00 No 2.5mg Inhale 2.5 mg every 6 (six) hours as needed. [facility] albuterol 90 mcg/actuati on inhaler 03-29 00:00: 00 03-30 04:59 :00 No 2{puff} Inhale 2 Puffs every 6 (six) hours as needed. [facility] albuterol 2.5 mg /3 mL (0.083 %) nebulizer solution 03-29 00:00: 00 03-30 04:59 :00 No 2.5mg Inhale 2.5 mg every 6 (six) hours as needed. [facility] albuterol 90 mcg/actuati on inhaler 03-29 00:00: 03-30 04:59 :00 No 2{puff} Inhale 2 Puffs every 6 (six) hours as needed. [facility] albuterol 2.5 mg /3 mL (0.083 %) nebulizer solution 03-29 00:00: 00 03-30 04:59 :00 No 2.5mg Inhale 2.5 mg every 6 (six) hours as needed. [facility] albuterol 90 mcg/actuati on inhaler 03-29 00:00: 00 03-30 04:59 :00 No 2{puff} Inhale 2 Puffs every 6 (six) hours as needed. [facility] Vital Signs Vital Name Observation Time Observation Value Comments S ource Oxygen saturation in Arterial blood by Pulse oximetry 2022-01-16 14:30:00 96 /min [facility] Systolic blood pressure 2022-01-16 14:30:00 134 mm[Hg] [facility] Diastolic blood pressure 2022-01-16 14:30:00 60 mm[Hg] [facility] Heart rate 2022-01-16 14:30:00 61 /min [facility] Body temperature 2022-01-16 14:30:00 36.11 Sarah [facility] Respiratory rate 2022-01-16 14:30:00 18 /min [facility] Body height 2022-01-08 18:53:00 170.3 cm [facility] Body weight 2022-01-08 18:53:00 99.8 kg [facility] BMI 2022-01-08 18:53:00 34.41 kg/m2 [facility] Procedures Procedure Date / Time Performed Performing Clinician Source PHACOEMULSIFICATION OF CATARACT WITH INTRAOCULAR LENS IMPLANT 2022-01-16 15:39:00 Francisco J Franks [facility] DAY SURGERY - ADC 2022-01-16 05:01:00 Doctor Unassigned, [place] [facility] Encounters Start Date/Time End Date/Time Encounter Type Admission Type Attending Clinicians Care Facility Care Department Encounter ID Source 2022-01-16 09:19:00 2022-01-16 11:51:00 Outpatient FRANCISCO J CAMARENA [facility] OPH [id number] [facility] 2022-01-16 10:06:00 2022-01-16 10:39:00 Surgery Francisco J Franks [facility] [place] [id number] [facility] 2022-01-16 00:00:00 2022-01-16 00:00:00 Orders Only Doctor Unassigned, [place] [facility] [id number] [facility] 2022-01-14 10:45:00 2022-01-14 11:00:00 Laboratory Only Only, Adc Test Francisco J Franks [facility] [id number] [facility] 2022-01-14 10:45:00 2022-01-14 10:45:00 Outpatient R FRANCISCO J FRANKS [facility] [id number] [facility] 2022-01-07 11:45:00 2022-01-07 12:00:00 Harmonica Maker Visit Pob, Adc Lab Main [facility] [id number] [facility] 2022-01-07 11:45:00 2022-01-07 11:45:00 Outpatient R FRANCISCO J FRANKS [facility] [id number] [facility]
[2023-07-31 17:58] LABS: Specific Gravity 1.014 (1.005-1.030); Urine Bacteria <20 /HPF (<20); Urine Bilirubin NEGATIVE (Negative); Urine Blood Negative (Negative); Urine Clarity Extremely Turbid (Clear); Urine Color Yellow (Yellow); Urine Glucose NEGATIVE (Negative); Urine Mucus Slight /HPF (None Seen); Urine Protein NEGATIVE (Negative); Urine RBC <5 /HPF (None Seen); Urine Urobilinogen 1+ (Normal); Urine pH 5.5 (5.0-7.0)
[2023-07-31] MEDS ORDERED: VILANTEROL IH PRN (18:01)
[2023-07-31] MEDS ORDERED: FLUTICASONE FUROATE IH PRN (18:01)
[2023-07-31 18:05] VITALS: BMI 44.9
[2023-07-31] MEDS ORDERED: MELATONIN 3 MG TABLET PO PRN (18:05)
[2023-07-31] MEDS ORDERED: ALBUTEROL 2.5 MG/3 ML NEB SOL NEB PRN (18:09)
[2023-07-31] MEDS: NYSTATIN PWDR 100000 UNIT/GM TOP SCH (18:46)
[2023-07-31] MEDS: TRAZODONE 50 MG TABLET PO PRN (19:53)
[2023-07-31] MEDS: AMIODARONE HCL 200 MG TAB PO SCH (19:54)
[2023-07-31] MEDS: APIXABAN 2.5 MG TABLET PO SCH (19:54)
[2023-07-31] MEDS: DOCUSATE NA/SENNA CONC 1 TAB PO PRN (19:54)
[2023-07-31] MEDS: acetaZOLAMIDE 250 MG TAB PO SCH (19:54)
[2023-07-31] MEDS: MIDODRINE HCL 5 MG TABLET PO SCH (19:55)
--- NOTE | 2023-08-01 02:42 | HP ---
Date of Admission: 07/31/2023 Time Of Service: 6 p.m. Chief Complaint: "I have problems breathing, I get short of breath, and I need oxygen." History Of Present Illness: Ms. Mead is a 73-year-old right-handed patient with COPD, hy pertension, dyslipidemia, chronic atrial fibrillation, who came initially to [facility] on 06/18/2023 with COPD exacerbation. She was admitted and followed by Cardiology, pulmonary service, and hospitalist service. She was addressed with oxygenation, nebulizer treatment and followed by Cardiology as well. She was seen by Physical Therapy and found to be at a level of m oderate assistance for bed mobilization, ambulation of only 25 feet with a rolling walker. She was d ischarged to [facility] where she continued to fail to thrive. She had signif icant desaturation when attempting to work with the therapists. She required an additional respirato ry evaluation and monitoring and was found to require 2 to 3 L of oxygen via nasal cannula, but would have oxygen saturations down to the 60s and 70s with a few feet of ambulation. She was consistently short of breath and unable to ambulate any meaningful distances. She did work with Speech Therapy f or dysphagia to avoid aspiration. She also has been experiencing significant edema in the lower extr emities and has requirement for new approaches to decrease swelling, wrapping, elevation, and diureti cs. In addition, she requires monitoring for cognitive functioning to help her make safe decisions a nd reduce significant risk of falling. She requires nutrition. She at this point has a class 3 obes ity with BMI of 45 and needs adjustments in diet to decrease the risk of worsening diabetes mellitus, stroke, and cardiovascular disease such as myocardial infarction. She prior to her hospital admissi on last year was able to ambulate household distances with a cane and was independent with activities of daily living. Currently, she is at a maximum assistance level for ambulation, moderate assistanc e for transfers and wheelchair mobilization and she did have a fall on July 29, while at [facility]. She did not suffer injury. She is of course functioning well below her baseline and has complicate d medical conditions, which require inpatient monitoring. As a result, she is admitted to the critical access hospital ent rehabilitation unit for physical, occupational, and speech therapy along with aggressive manageme nt of her comorbid conditions. Past Medical History: Diabetes mellitus, asthma, hypertension. Past Surgical History: Cholecystectomy, appendectomy, right hip replacement, COPD, tubal ligation. Allergies: PENICILLIN, CODEINE, SHELLFISH DERIVATIVES, AND ENVIRONMENTAL ALLERGENS. Family History: Noncontributory. Social History: No alcohol, tobacco, or IV drug use. The patient lives with family. Medications: Tylenol 650 mg every 6 hours as needed, Diamox 250 mg twice daily, albuterol nebulizer 2.5 mg nebulizer every 6 hours, Cordarone 200 mg twice daily, Eliquis 2.5 mg twice daily, midodrine 1 0 mg 3 times daily, nystatin powder apply topically twice daily to abdominal area, Senokot-S 2 at bed time, Aldactone 25 mg daily, Demadex 10 mg daily, and trazodone 25 mg at night as needed for insomnia . Review of Systems: She has shortness of breath as noted, which is worsened with any significant attempts to ambulate and levels of saturation may go to the 70s, but with 2 to 3 L of oxygen back to the 90s, and once she ta kes several breathes that improves fairly quickly. Otherwise, mild myalgias, arthralgias. She does have swelling and some edema in the legs. She has very long toenails and some moderate to significan t for edema in the feet. Current Level Of Functioning: Setup assistance for eating, oral hygiene. Moderate assistance for to ileting and toilet hygiene. Bathing, maximum assist. Upper body dressing, moderate assistance. Low er body dressing at maximum assistance. Donning and doffing of footwear, maximum assistance. Darrius g left to right, right to left and sitting up in bed, moderate assistance required. Transfer from be d to toilet to chair, moderate assistance. Ambulation, she covered 50 feet with Rollator with maximu m assistance and wheelchair mobilization also done with moderate assistance 50 feet. Physical Examination: Vital Signs: Blood pressure 122/75, pulse 86, respiratory rate 16, temperature 97.0, oxygen saturati on 95%. Weight 287 pounds, height 5 feet 7 inches, BMI 40.5. General: Ms. Mead is lying in bed. She is in no significant distress. HEENT: She appears normocephalic, atraumatic. She has oxygen via nasal cannula. She is, otherwise, anicteric. Oropharynx moist. Neck: Supple. Chest: Clear except there are mildly decreased breath sounds bilaterally. Abdomen: Obese. Extremities: Show moderate edema in the feet and ankles and she has very long toenails bilaterally. Neurologic: She has diffuse weakness of lower extremities. No focal deficits. Stocking-glove loss, light touch, temperature . Depressed reflexes. Laboratory Studies: White blood cell count 8.8, hemoglobin 9.1, platelets 328. INR 1.96. Sodium 13 4, potassium 4.4, chloride 96, BUN 75, creatinine 2.13, glucose 100, calcium 8.8, albumin 2.6. Urina lysis is extremely turbid, 1+ nitrite, 1+ urobilinogen, 500 esterase, greater than 50 white blood candida ls, bacteria less than 20, hyaline casts 5 to 10. X-ray/imaging: No recent x-rays or imaging. She had an electrocardiogram done on July 04 and the study shows sinus rhythm, did not rule out anterior infarct, age undetermined. Heart rate was 104. Rehabilitation And Medical Assessment And Plan: Ms. Mead is admitted to the inpatient rehabilitati on unit with impairment category 15, pulmonary. Impairment group code is 10.1, chronic obstructive p ulmonary disease. Etiologic diagnosis: Chronic obstructive pulmonary disease exacerbation. Comorbi dities include atrial fibrillation, chronic kidney disease, cognitive deficits, decreased mobility, d ecrease in physical functioning, dehydration, diastolic congestive heart failure, dysphagia, lower ex tremity edema, extended overgrowing toenails, essential hypertension, dyslipidemia, class 3 obesity, shortness of breath, and falls. Plan: 1.She will have physical, occupational, and speech therapy for 3-1/2 hours 5 of 7 days. 2.We will continue with Tylenol 650 mg every 6 hours for pain, Diamox 250 mg twice daily along with spironolactone 25 mg daily for fluid management. Continue midodrine 10 mg 3 times daily for blood pr essure support. Continue Eliquis 2.5 mg twice daily for DVT prophylaxis, amiodarone 200 mg twice armen ly for heart rate control, albuterol nebulizer for her COPD exacerbation, and Desyrel 25 mg at bedtim e for insomnia. She has nystatin powder applied to the abdominal area where there is mild fungal inf ection noted. We will have wound care. She has a stage II sacral decubitus ulcer and Wound Care dante l be involved. Comorbidities That Are Impacting Her Rehabilitation: 1.She does have as noted stage II sacral decubitus ulcer. She will be offloaded and have Wound Care address the wound. Also, she has nystatin powder applied to fungal area in the abdominal region. Her urinalysis suggested urinary tract infection. Urine cultures will be awaited and the p arabella antibiotics may be instituted. 2.She has significant fall risk and has fallen recently. She will have fall precautions adhered to at all times. If need be, bed alarm and chair alarm will be in place. She will have a gait belt and ambulate with a walker at all times. Rehab Specific Plan: Ms. Mead will have physical, occupational, and speech therapy for 3-1/2 hours 5 of 7 days. She will use adaptive equipment as appropriate. She will use a rolling walker, gait b elt, reachers for donning and doffing her shoes and for lower extremity clothing. She will have ther apy for improving her ability to transfer from bed to chair to toilet to perform showering and activi ties of daily living. Ms. Mead has a good understanding of the process of admission to the inpatient rehabilitation [facility] and that she will benefit from physical, occupational, and speech therapy. If need be, damari l services from the cardiology service, pulmonary service, and the hospitalist service may be consult ed. Given her complex medical condition and risk of further complications, rehabilitation cannot be safely or effectively performed at a lower level facility such as residential. Barriers To Discharge: Currently, she has stage II to III obesity and is a high fall risk and may re quire long-term monitoring and may be difficult for her to go back home with family. However, she ap pears to be motivated to do well. She also has significant shortness of breath and may require long time for recovery. She will have incentive spirometry and an attempt to decrease or minimize the nee d for oxygen, but she may require oxygen to go home. Length Of Stay: Around 14 days. Disposition: Home with family and continued therapy with home health. Prognosis: Fair. Rehabilitation Goals: 1.Become independent with upper and lower body dressing, toileting, showering, and donning and doffi ng shoes. 2.Independently ambulate 250 feet with a rolling walker. 3.Independently propel a wheelchair 250 feet. 4.Independently go up and down 10 steps with bilateral hand rails. 5.Independently perform cognitive functioning for safety awareness, medication management, and all f ollowup with physicians and activities of daily living. The above goals were reviewed with Ms. Mead and she is in agreement. By signing this document, I acknowledge I personally performed a full physical examination on Ms. Mitzi valverde no later than 24 hours after her admission to the inpatient rehabilitation facility and determine d that she is able to tolerate the above course of treatment at an intensive level for a reasonable p eriod of time. A detailed individualized plan of care for her will be completed by hospital day 4 hernan hatfield on the preadmission screen, history and physical, and therapy evaluations. KATERIN Voice ID: [id number]
[2023-08-01] MEDS: SPIRONOLACTONE 25 MG TABLET PO SCH (07:45)
[2023-08-01] MEDS: TORSEMIDE 20 MG TAB PO SCH (07:45)
[2023-08-01 07:47] LABS: Absolute Lymphocytes (CBC) 1.7 K/uL (0.7-4.9); Hematocrit 28.7 % (36.0-45.0); Lymphocytes % 28.4 % (15.3-44.8); MCV 85.9 fL (80-100); MPV 9.2 fL (7.6-11.3); Platelets 228 thou/uL (152-406); RBC Red Blood Cell Count 3.34 M/uL (3.86-4.86)
[2023-08-01 08:02] LABS: Albumin 2.4 g/dL (3.4-5.0); Magnesium 1.8 mg/dL (1.6-2.4); Potassium 3.7 mEq/L (3.5-5.1); Prealbumin 12.3 mg/dL (20-40)
[2023-08-01] MEDS ORDERED: ALBUTEROL 2.5 MG/3 ML NEB SOL NEB PRN (13:36)
[2023-08-01] MEDS: CRANBERRY FRUIT EXTRACT 200 MG CAP PO SCH (19:28)
[2023-08-01] MEDS: JUVEN PACKET PO SCH (19:29)
[2023-08-01] MEDS: ENSURE HIGH PROTEIN 237 ML CAN PO SCH (19:29)
[2023-08-02] MEDS: FE SULF/FA/VIT B COMP & C TAB PO SCH (08:23)
[2023-08-02] MEDS: FERROUS SULFATE 325 MG TAB PO SCH (08:23)
--- NOTE | 2023-08-02 10:11 | P.PN ---
Date of Service: 08/02/23 Subjective: "hard time ambulating" Current Level Of Functioning: Setup assistance for eating, oral hygiene. Moderate assistance for toileting and toilet hygiene. Bathing, maximum assist. Upper body dressing, moderate assistance. Lower body dressing at maximum assistance. Donning and doffing of footwear, maximum assistance. Rolling left to right, right to left and sitting up in bed, moderate assistance required. Transfer from bed to toilet to chair, moderate assistance. Ambulation, she covered 50 feet with Rollator with maximum assistance and wheelchair mobilization also done with moderate assistance 50 feet. Physical Examination: Vital Signs: reviewed General: Ms. Mead is lying in bed. She is in no significant distress. HEENT: She appears normocephalic, atraumatic. She has oxygen via nasal cannula. She is, otherwise, anicteric. Oropharynx moist. Neck: Supple. Chest: Clear except there are mildly decreased breath sounds bilaterally. Abdomen: Obese. Extremities: Show moderate edema in the feet and ankles and she has very long toenails bilaterally. Neurologic: She has diffuse weakness of lower extremities. No focal deficits. Stocking-glove loss, light touch, temperature . Depressed reflexes. Plan: 1. She will have physical, occupational, and speech therapy for 3-1/2 hours 5 of 7 days. 2. We will continue with Tylenol 650 mg every 6 hours for pain, Diamox 250 mg twice daily along with spironolactone 25 mg daily for fluid management. Continue midodrine 10 mg 3 times daily for blood pressure support. Continue Eliquis 2.5 mg twice daily for DVT prophylaxis, amiodarone 200 mg twice daily for heart rate control, albuterol nebulizer for her COPD exacerbation, and Desyrel 25 mg at bedtime for insomnia. She has nystatin powder applied to the abdominal area where there is mild fungal infection noted. We will have wound care. She has a stage II sacral decubitus ulcer and Wound Care will be involved. Comorbidities That Are Impacting Her Rehabilitation: 1. She does have as noted stage II sacral decubitus ulcer. She will be offloaded and have Wound Care address the wound. Also, she has nystatin powder applied to fungal area in the abdominal region. Her urinalysis suggested urinary tract infection. Urine cultures will be awaited and the proper antibiotics may be instituted. 2. She has significant fall risk and has fallen recently. She will have fall precautions adhered to at all times. If need be, bed alarm and chair alarm will be in place. She will have a gait belt and ambulate with a walker at all times. Rehab Specific Plan: Ms. Mead will have physical, occupational, and speech therapy for 3-1/2 hours 5 of 7 days. She will use adaptive equipment as appropriate. She will use a rolling walker, gait belt, reachers for donning and doffing her shoes and for lower extremity clothing. She will have therapy for improving her ability to transfer from bed to chair to toilet to perform showering and activities of daily living. Ms. Mead has a good understanding of the process of admission to the inpatient rehabilitation facility and that she will benefit from physical, occupational, and speech therapy. If need be, additional services from the cardiology service, pulmonary service, and the hospitalist service may be consulted. Given her complex medical condition and risk of further complications, rehabilitation cannot be safely or effectively performed at a lower level facility such as senior care. Barriers To Discharge: Currently, she has stage II to III obesity and is a high fall risk and may require long-term monitoring and may be difficult for her to go back home with family. However, she appears to be motivated to do well. She also has significant shortness of breath and may require long time for recovery. She will have incentive spirometry and an attempt to decrease or minimize the need for oxygen, but she may require oxygen to go home. Length Of Stay: Around 14 days. Disposition: Home with family and continued therapy with home health. Prognosis: Fair. Rehabilitation Goals:
--- NOTE | 2023-08-03 08:29 | RAD REPORT ---
EXAM DESCRIPTION: Peter Single View08/03/2023 6:15 am CLINICAL HISTORY: Chest pain COMPARISON: May 2023 FINDINGS: Mild bilateral pulmonary opacities Moderate cardiomegaly IMPRESSION: Mild CHF
[2023-08-03] MEDS: FUROSEMIDE 20 MG/ 2ML VIAL IV ONE (12:12)
[2023-08-03] MEDS: DOXYCYCLINE 100 MG CAP PO SCH (12:40)
[2023-08-03 13:15] LABS: Hematocrit 28.4 % (36.0-45.0); Platelets 203 thou/uL (152-406); RBC Red Blood Cell Count 3.34 M/uL (3.86-4.86)
[2023-08-03 13:16] LABS: Absolute Lymphocytes (CBC) 2.1 K/uL (0.7-4.9); Lymphocytes % 31.7 % (15.3-44.8)
[2023-08-03 13:27] LABS: Potassium 3.5 mEq/L (3.5-5.1)
[2023-08-03] MEDS: FUROSEMIDE 20 MG/ 2ML VIAL IV SCH (16:31)
[2023-08-03] MEDS ORDERED: FUROSEMIDE 20 MG/ 2ML VIAL IV SCH (17:00)
[2023-08-03] MEDS: ALBUTEROL 2.5 MG/3 ML NEB SOL NEB SCH (21:08)
[2023-08-04] MEDS: ACETAMINOPHEN 325 MG TABLET PO PRN (06:34)
[2023-08-04 07:34] LABS: Absolute Lymphocytes (CBC) 1.5 K/uL (0.7-4.9); Hematocrit 26.7 % (36.0-45.0); Lymphocytes % 24.5 % (15.3-44.8); MCV 84.5 fL (80-100); MPV 8.9 fL (7.6-11.3); Platelets 204 thou/uL (152-406); RBC Red Blood Cell Count 3.16 M/uL (3.86-4.86)
[2023-08-04 07:54] LABS: Potassium 3.3 mEq/L (3.5-5.1)
[2023-08-04] MEDS ORDERED: CIPROFLOXACIN HCL 500 MG TAB PO SCH (08:00)
--- NOTE | 2023-08-04 09:59 | P.CNS ---
Date of Consult: 08/04/23 Reason for Consult: painful toenails Allergies Penicillins Allergy (Verified 09/04/18 00:53) Unknown codeine Adverse Reaction (Verified 10/02/19 01:03) Itching shellfish derived Adverse Reaction (Verified 09/04/18 00:53) Hives/Rash Home Medications: Albuterol Neb [Proventil 0.083% Neb Soln] 2.5 mg IH Q6H PRN 09/13/17 Fluticasone/Vilanterol [Breo Ellipta 200-25 Mcg Inhalr] 1 each IH Q8H PRN 09/13/17 Apixaban [Eliquis *] 2.5 mg PO BID 10/02/19 Amiodarone HCl [Pacerone] 200 mg PO BID 30 Days #60 tab 09/02/22 Torsemide 10 mg PO DAILY 03/23/23 acetaZOLAMIDE [Diamox*] 250 mg PO BID tab 06/29/23 Acetaminophen [Tylenol] 650 mg PO Q6H PRN 08/01/23 Midodrine HCl [Proamatine*] 10 mg PO TID 08/01/23 Spironolactone [Aldactone*] 25 mg PO DAILY 08/01/23 Trazodone [Desyrel*] 25 mg PO BEDTIME 08/01/23 - Past Medical/Surgical History Diabetic: No -: Afib -: COPD -: Asthma -: Hypertension -: Renal insufficiency followed by Dr. Oneil -: dalia -: appy -: R. hip replacement -: Tubal ligation Psychosocial/ Personal History: Patient lives at home, alone. - Family History Father Medical History: Cancer - Social History Smoking Status: Current every day smoker Alcohol use: No CD- Drugs: No Caffeine use: No Place of Residence: [place] Review of Systems 10-point ROS is otherwise unremarkable Physical Examination Temp Pulse Resp BP Pulse Ox 97.5 F 63 20 199/100 H 92 08/04/23 08:00 08/04/23 08:00 08/04/23 08:00 08/04/23 08:00 08/04/23 08:00 General: Alert, In no apparent distress, Oriented x3 Cardiovascular: Edema (+1 pitting edema bilateral lower extremity), Abnormal pulses (0/4 dp and pt pulses bilateral lower extremity) Capillary refill: >2 Seconds Musculoskeletal: No clubbing, No swelling, No contractures, No erythema, No tenderness, No warmth Integumentary: No rashes, No breakdown, No significant lesion, No tenderness/swelling, No erythema, No warmth, No cyanosis, Other (Thickened hypertrophic bilateral hallux nails with subungual debris, elongate digit nails 2-5 bilateral) Neurological: Sensation intact Laboratory Data (last 24 hrs) 08/04/23 08/04/23 08/03/23 07:19 07:19 12:43 WBC 6.20 Hgb 8.2 L Hct 26.7 L Plt Count 204 Sodium 139 137 Potassium 3.3 L 3.5 BUN 32 H 32 H Creatinine 1.99 H 1.97 H Glucose 94 106 08/03/23 12:43 WBC 6.70 Hgb 8.7 L Hct 28.4 L Plt Count 203 Sodium Potassium BUN Creatinine Glucose - Problems (1) Tinea unguium Current Visit: Yes Status: Acute (2) Onychogryphosis Current Visit: Yes Status: Acute (3) [facility] (current) use of anticoagulants Current Visit: Yes Status: Acute Conclusions/Impression: Mechanical debridment of nails x 10 Physician Review: Patient Assessed, Agree with Above Assessment and Plan
[2023-08-04] MEDS ORDERED: FUROSEMIDE 40 MG/4 ML VIAL ONE (10:01)
[2023-08-04] MEDS: FUROSEMIDE 40 MG/4 ML VIAL IV ONE (10:04)
[2023-08-04 13:26] LABS: Blood O2 Saturation 96.2 % (92-98.5)
--- NOTE | 2023-08-05 00:36 | PN ---
Date of Progress Note: 08/04/2023 Time Of Service: 1:25 p.m. Subjective: Ms. Mead is resting comfortably. She does have some issues of shortness of breath and confusion. She did have an arterial blood gas study that showed CO2 retention of CO2 of 65.9. Her pO2 was normal at 86.9. It is determined that she does need more ventilation and incentive spirometr y is encouraged. She will have a BiPAP also placed and followed by the Pulmonary Service. Review of Systems: Again, mild shortness of breath, mild confusion. No chon fevers or chills. No significant nausea o r vomiting. No rash, headache, weight change. Physical Examination: Vital Signs: Blood pressure 120/65, pulse 64, respiratory rate 18, temperature 97.1, oxygen saturati on 98%. She has CPAP and BiPAP again in place. HEENT: She is again normocephalic, atraumatic. Sclerae anicteric. Oropharynx moist. Neck: Supple. Chest: Decreased breath sounds. Abdomen: Soft. Extremities: Show mild edema in the lower extremities. Laboratory Studies: ABG show pH of 7.3, pCO2 of 65.9, pO2 of 86.9, HC03 31.0, hemoglobin 6.2, hemato crit 8.2, platelets 204. Sodium 139, potassium 3.3, chloride 101, carbon dioxide 33, BUN 32, creatin ine 1.99, glucose 94, calcium 8.2. It is noted that her beta-natriuretic peptide improved from 16,91 2 to 13,775. She did receive 2 doses of Lasix 10 mg daily with I's and O's being monitored and she i s doing well. She was able to put out 555 cc and took in orally 480 cc with -70 cc measured at 7 thi s morning. Her weight remained the same around 277 pounds. X-ray/imaging: Yesterday, she had a chest x-ray which showed mild CHF pattern. Consultation: She was seen by Dr. Jonah Mcgowan for her addressing the toes and nails. Medications: Tylenol 650 mg every 6 hours as needed, Diamox 250 mg twice daily, Proventil nebulizer 0.083% at 2.5 mg of that nebulizer every 6 hours as needed, amiodarone 200 mg twice daily, Eliquis 2. 5 mg twice daily, Vibramycin, which is for her urinary tract infection 100 mg twice daily, ferrous drummond lfate 325 mg twice daily, Lasix 10 mg IV. She received that twice on Masood 1 packet twice daily, midodrine 10 mg 3 times daily, Hemocyte Plus 1 tablet with breakfast, Ensure Enlive 237 mL twice armen ly, Senokot-S 2 at bedtime, spironolactone 25 mg daily, Demadex 10 mg daily, trazodone 25 mg at bedti me. Progress Made With Her Physical, Occupational, And Speech Therapy: Today with physical therapy, comp leted bed mobilization including turning in bed with maximum assistance. Bzenap-hw-[id number] maximal myrna tance, she needs 3 attempts, maximum assistance for [id number] transfers, wheelchair mobilization, she completed 85 feet 3 times with verbal cues and she had significant shaking. Her desaturation was 86% on room air and she had 88% to 91% on 2 L of oxygen via nasal cannula. With speech, worked on c ognitive skills such as sustained attention, working memory, short-term memory, organizational thinki ng. She did appear to be very confused in the morning and again the arterial blood gas that shows re tention of CO2. She is able to recall 2 of 3 unrelated items after 30-second delay and she was able to name 4 items within a given category in 1 minute with maximum assistance. Ms. Mead did have some confusion, likely due to retention of CO2, making it little bit difficult fo r her to follow commands appropriately. She now has BiPAP that will be helpful for her ventilation a nd she was encouraged to use incentive spirometry at least 10 times every hour. Assessment: Ms. Mead is a 73-year-old patient, admitted to rehabilitation with COPD exacerbation a nd hypercapnia with decreased ventilation. She now has BiPAP in place. She has incentive spirometry in place. She of course has chronic obstructive pulmonary disease exacerbation. She has atrial fib rillation, chronic kidney disease, decreased mobility, decreased physical functioning, lower extremit y edema and extensive overgrown toenails were addressed by Dr. Mcgowan. She has essential hypertension , dyslipidemia, class 2 obesity, and of course falls. Plan: 1.She will continue with physical, occupational, and speech therapy for 3.5 hours, 5 of 7 days. 2.Her multiple comorbid conditions are addressed by continuing on list of medications including diur etics. She has daily weights. She will have SCDs as appropriate. She has amiodarone for heart rate and blood pressure control, Eliquis for DVT prophylaxis, nebulizer treatment as scheduled. She has a sacral decubital ulcer. Wound Care is involved in following her. Comorbidities That Are Continuing To Impact Her Rehabilitation: Currently, with COPD exacerbation an d shortness of breath, she has incentive spirometry, she has BiPAP, especially at nighttime, and she will have fall precautions because of significant weakness in the extremities. Otherwise, she is com pleting antibiotics. MELONY/MARYA Voice ID: [id number] Report ID: [id number]
[2023-08-05 00:45] VITALS: O2SAT 100
[2023-08-05 06:24] LABS: Arterial Blood Carboxyhemoglob 1.1 % (0-1.5); Blood Gas Oxyhemoglobin 84.2 % (94-97); Blood O2 Saturation 86.2 % (92-98.5)
[2023-08-05 07:47] VITALS: BP 132/65; TEMP 97.4
--- NOTE | 2023-08-24 21:59 | DS ---
Date of Discharge: 08/05/2023 Discharge Condition: Serious. Discharge Activity: Weightbearing as tolerated. Allergies: PENICILLIN, CODEINE, SHELLFISH DERIVATIVES. Medications: Tylenol 650 mg every 6 hours as needed, Diamox 200 mg twice daily, albuterol nebulizer 2.5 mg every 6 hours as needed, Cordarone 200 mg twice daily, Eliquis 2.5 mg twice daily, Brovana 15 mcg nebulizer daily, ferrous sulfate 325 mg daily, melatonin 3 mg at bedtime, Lopressor 12.5 mg daily , midodrine 10 mg twice daily, Hemocyte Plus 1 tablet daily, nystatin apply topically twice daily as needed, potassium 10 mEq daily, prednisone 10 mg daily, Senokot-S 2 at bedtime, Revatio 20 mg daily, Aldactone 25 mg daily, Demadex 10 mg every 24 hours, and Desyrel 25 mg at bedtime as needed. Laboratory Studies: White blood cell count 6.2, hemoglobin 8.2, platelets 204. On the , she did have arterial blood gas done, which showed pH of 7.29, pCO2 elevated to 72.4, pO2 was low at 81, bica rb at 33.9. Sodium 139, potassium 3.3, carbon dioxide 33, BUN 32, creatinine 1.99. Beta-natriuretic peptide elevated to 13,775. Urine cultures did grow Citrobacter freundii complex with sensitive to Bactrim, nitrofurantoin, levofloxacin, tobramycin, cefepime, and ciprofloxacin. Please note in terms of the patient's discharge, she was actually discharged to acute care floor because of acute respira tory failure. As indicated above, she had arterial blood gas. Hospital Course: As noted, she did develop significant retention of carbon dioxide, was more disorie nted and confused and had the arterial blood gas done, which identified a low pH, retention of CO2, a nd hypoxia. As a result, she was determined to require acute care and was sent to the acute care [facility] or. In terms of speech by her discharge, she is actually doing well, word conversations i n terms of intelligibility, moderate assistance required for verbal expression, sentence formation. For her occupational therapy, she was again doing fairly well, but because of worsening respiratory c ondition, required maximum assistance for lower body dressing, upper body dressing, toileting, bathin g, grooming, and shower transfers. Synopsis Of Events That Led To Admission: Ms. Mead is a 73-year-old patient with COPD and multiple medical problems, followed by Cardiology, who was found to have significant desaturation while to have physical therapy. She required 3 L of oxygen via nasal cannula, but oxygen saturations were down to 60s and 70s. She was also seen by Speech Therapy and found to require significant help with respiration. She had swelling in the feet and was determined to require diuretics for dehiscen ce. She also had class 3 obesity with BMI of 45 and had some significant difficulty mobilizing. She was therefore determined to be a candidate for hospitalization and rehabilitation. She had recently fallen and was unable to thrive. Again, during hospitalization, she initially did well, but became more confused, disoriented, and required more oxygenation and then arterial blood gases we re done. She was found to be hypoxic with acidosis and hypercapnic. She was discharged to acute car e floor for higher level of care. MELONY/MARYA Voice ID: [id number] Report ID: [id number]
== END 2023-08-05 07:45 | disposition short-term general hospital (02) | DRG 191 ==
LOC: 5TH 16:20
PROVIDERS: ADMIT Psychiatry & Neurology Neurology with Special Qualifications in Child Neurology; ATTEND Psychiatry & Neurology Neurology with Special Qualifications in Child Neurology
PROC: 0HBRXZZ Excision of Toe Nail, External Approach (ICD-10-PCS; principal; 2023-08-04)
PROC: 0HBRXZZ Excision of Toe Nail, External Approach (ICD-10-PCS; 2023-08-04)
PROC: 0HBRXZZ Excision of Toe Nail, External Approach (ICD-10-PCS; 2023-08-04)
PROC: 0HBRXZZ Excision of Toe Nail, External Approach (ICD-10-PCS; 2023-08-04)
PROC: 0HBRXZZ Excision of Toe Nail, External Approach (ICD-10-PCS; 2023-08-04)
PROC: 0HBRXZZ Excision of Toe Nail, External Approach (ICD-10-PCS; 2023-08-04)
PROC: 0HBRXZZ Excision of Toe Nail, External Approach (ICD-10-PCS; 2023-08-04)
PROC: 0HBRXZZ Excision of Toe Nail, External Approach (ICD-10-PCS; 2023-08-04)
PROC: 5A09357 Assistance with Respiratory Ventilation, Less than 24 Consecutive Hours, Continuous Positive Airway Pressure (ICD-10-PCS; 2023-08-04)
DX: J44.1 Chronic obstructive pulmonary disease with (acute) exacerbation (principal); I13.0 Hypertensive heart and chronic kidney disease with heart failure and stage 1 through stage 4 chronic kidney disease, or unspecified chronic kidney disease; Z68.42 Body mass index [BMI] 45.0-49.9, adult; I50.30 Unspecified diastolic (congestive) heart failure; N39.0 Urinary tract infection, site not specified; E66.01 Morbid (severe) obesity due to excess calories; E11.9 Type 2 diabetes mellitus without complications; I10 Essential (primary) hypertension; I48.91 Unspecified atrial fibrillation; E11.22 Type 2 diabetes mellitus with diabetic chronic kidney disease; N18.9 Chronic kidney disease, unspecified; E86.0 Dehydration; R13.10 Dysphagia, unspecified; L89.152 Pressure ulcer of sacral region, stage 2; E78.5 Hyperlipidemia, unspecified; J45.909 Unspecified asthma, uncomplicated; B35.1 Tinea unguium; L60.2 Onychogryphosis; R06.89 Other abnormalities of breathing; F17.210 Nicotine dependence, cigarettes, uncomplicated; Z86.73 Personal history of transient ischemic attack (TIA), and cerebral infarction without residual deficits; Z79.01 Long term (current) use of anticoagulants
CPT/HCPCS: 36415; 36600; 71045; 80048; 81001; 82040; 82805; 83735; 83880; 84134; 85025; 87077; 87086; 87088; 87186; 92523; 94640; 94660; 97110; 97116; 97129; 97163; 97165; 97530; 97542; J1940; J7613

== ENCOUNTER 2023-08-05 08:30 | Inpatient (IN) | payer OTHER ==
--- OUTSIDE RECORDS SUMMARY | 2023-08-05 08:33 | XMS REPORT | Continuity of Care Document ---
Author Name Unknown Address [address] [facility] [address] [place] [address] [facility] Address [address] [facility]. [address] [place] [address] Care Team Providers Care Sales Strategy Manager Name Role Phone Remberto Oneil DO Primary Care Physician [phone] FRANCISCO J FRANKS Attending Clinician UnavailFrancisco J Brown MD Attending Clinician [phone] Doctor Unassigned, [place] Attending Clinician U navailable Only, Adc Test Attending Clinician Unavailable Pob, Adc Lab Main Attending Clinician UnavailFRANCISCO J Dave Admitting Clinician Unavailab robins Payers Payer Name Policy Type Policy Number Effective Date Expirati on Date Source [employer] MED[employer]ARE ADVANTAGE [id number] 2021 00:00:00 Allergies, Adverse Reactions, Alerts Allergy Name Allergy Type Status Severity Reaction(s) Onset Date Inactive Date Treating Clinician Comments Source CODEINE DRUG INGREDI Active N/V 12 00:00: 00 [facility] Codeine Drug Allergy Active Nausea and/or Vomiting 7-12 00:00: 00 [facility] Penicill ins Drug Allergy Active Itching 7-12 00:00: 00 [facility] PENICILL INS Drug Class Active ITCHING 7-12 00:00: 00 [facility] SULFA (SULFONA MIDE ANTIBIOT ICS) Drug Class Active High Rash 3-31 00:00: 00 [facility] Sulfa (Sulfona mide Antibiot ics) Drug Allergy Active Rash 09-27 00:00: 00 [facility] SHELLFIS H DERIVED DRUG INGREDI Active Hives 4- 00:00: 00 [facility] Shellfis h Derived Propensi ty to adverse reaction s Active Hives 4- 00:00: 00 [facility] NO KNOWN ALLERGIE S Drug Class Active [facility] Social History Social Habit Start Date Stop Date Quantity Comments Source History of tobacco use Cigarette Smoker [facility] Exposure to SARS-CoV-2 (event) 2022-01-01 00:00:00 2022-01-11 11:31:00 Not sure [facility] Tobacco use and exposure 2022-01-11 00:00:00 2022-01-11 00:00:00 Smokeless tobacco non-user [facility] Sex Assigned At 1950 00:00:00 1950 00:00:00 [facility] Smoking Status Start Date Stop Date Source Tobacco smoking consumption unknown [facility] Smokes tobacco daily 2022-01-11 00:00:00 [facility] Medications Ordered Medication Name Filled Medication Name Start Date Stop Date Current Medication? Ordering Clinician Indication Dosage Frequency Signature (SIG) Comments Components Source neomycin-po lymyxin-dex amethasone (MAXITROL) 3.5 mg/g-10,000 unit/g-0.1 % ophthalmic ointment 01-16 16:11: 00 01-16 16:13 :38 No PRN, Starting on Fri01/16/22 at 1111, Until Fri01/16/22 at 1113, Routine, Intra-op [facility] ceFAZolin (ANCEF) injection 01-16 16:09: 00 01-16 16:13 :38 No PRN, Starting on Fri01/16/22 at 1109, Until Fri01/16/22 at 1113, CARLOS, Intra-op [facility] carbachoL (MIOSTAT) 0.01 % intraocular injection 01-16 16:09: 00 01-16 16:13 :38 No PRN, Starting on Fri01/16/22 at 1109, Until Fri01/16/22 at 1113, Routine, Intra-op [facility] [place] [place] sodium chloride (NS) injection 01-16 16:09: 00 01-16 19:50 :32 No PRN, Starting on Fri01/16/22 at 1109, Until Fri01/16/22 at 1450, Routine, Intra-op [facility] [place] [place] dexamethaso ne (DECADRON PHOSPHATE) injection 01-16 16:09: 00 01-16 19:50 :32 No PRN, Starting on Fri01/16/22 at 1109, Until Fri01/16/22 at 1450, Routine, Intra-op [facility] [place] [place] EPINEPHrine 1:1,000 (1 mg/mL) (ADRENALIN) injection 01-16 15:56: 00 01-16 16:13 :38 No PRN, Starting on Fri01/16/22 at 1056, Until Fri01/16/22 at 1113, Routine, Intra-op [facility] [place] [place] chondroitin sulf-sod hyaluronate (DUOVISC VISCO ELASTIC) intraocular injection 01-16 15:56: 00 01-16 16:13 :38 No PRN, Starting on Fri01/16/22 at 1056, Until Fri01/16/22 at 1113, Routine, Intra-op [facility] [place] [place] balanced salt irrig soln comb1 (BSS PLUS) ophthalmic solution 500 mL bag 01-16 15:56: 00 01-16 16:13 :38 No PRN, Starting on Fri01/16/22 at 1056, Until Fri01/16/22 at 1113, Routine, Intra-op [facility] [place] [place] water for irrigation irrigation solution 01-16 15:52: 00 01-16 16:13 :38 No PRN, Starting on Fri01/16/22 at 1052, Until Fri01/16/22 at 1113, Routine, Intra-op [facility] [place] [place] Hyaluronida se, Human Recomb. (HYLENEX) injection 01-16 15:49: 00 01-16 16:13 :38 No PRN, Starting on Fri01/16/22 at 1049, Until Fri01/16/22 at 1113, Routine, Intra-op [facility] eye block syringe 11 mL 01-16 15:49: 00 01-16 16:13 :38 No PRN, Starting on Fri01/16/22 at 1049, Until Fri01/16/22 at 1113, Intra-op [facility] cyclopent 1%-tropic 1%-phenyl 2.5%-ketor 0.5% (MYDRIATIC #5) ophthalmic solution syringe 0.5 mL 01-16 14:30: 00 01-16 14:33 :00 No .5mL 0.5 mL, Left Eye, ONCE, 1 dose, On Fri01/16/22 at 0930, Routine, DSU Pre-op [facility] lactated ringers IV infusion 1,000 mL 01-16 14:30: 00 01-16 14:33 :00 No 1000mL at 42 mL/hr, 1,000 mL, IV Infusion, ONCE, 1 dose, On Fri01/16/22 at 0930, Routine, DSU Pre-op [facility] acetaminoph en (TYLENOL ARTHRITIS PAIN) 650 mg CR tablet 01-16 12:45: 27 Yes 650mg Take 650 mg by mouth every 8 (eight) hours as needed for Pain. Takes at bedtime [facility] diphenhydrA MINE 25 mg tablet 01-16 12:45: 27 Yes 25mg Take 25 mg by mouth at bedtime. [facility] acetaminoph en (TYLENOL ARTHRITIS PAIN) 650 mg CR tablet 01-16 12:45: 27 Yes 650mg Take 650 mg by mouth every 8 (eight) hours as needed for Pain. Takes at bedtime [facility] diphenhydrA MINE 25 mg tablet 01-16 12:45: 27 Yes 25mg Take 25 mg by mouth at bedtime. [facility] acetaminoph en (TYLENOL ARTHRITIS PAIN) 650 mg CR tablet 01-11 11:25: 56 Yes 650mg Take 650 mg by mouth every 8 (eight) hours as needed for Pain. Takes at bedtime [facility] diphenhydrA MINE 25 mg tablet 01-11 11:25: 56 Yes 25mg Take 25 mg by mouth at bedtime. [facility] ELIQUIS 5 mg tablet 12-18 00:00: 00 Yes 5mg Take 5 mg by mouth 2 (two) times daily. [facility] ELIQUIS 5 mg tablet 12-18 00:00: 00 Yes 5mg Take 5 mg by mouth 2 (two) times daily. [facility] ELIQUIS 5 mg tablet 12-18 00:00: 00 Yes 5mg Take 5 mg by mouth 2 (two) times daily. [facility] BREO ELLIPTA 200-25 mcg/dose DsDv 12-04 00:00: 00 Yes 1{puff} Inhale [address] [facility] BREO ELLIPTA 200-25 mcg/dose DsDv 12-04 00:00: 00 Yes 1{puff} Inhale [address] [facility] BREO ELLIPTA 200-25 mcg/dose DsDv 12-04 00:00: 00 Yes 1{puff} Inhale [address] [facility] sotaloL 80 mg tablet 11-21 00:00: 00 Yes 80mg Take 80 mg by mouth in the morning and 80 mg in the evening. [facility] sotaloL 80 mg tablet 11-21 00:00: 00 Yes 80mg Take 80 mg by mouth in the morning and 80 mg in the evening. [facility] sotaloL 80 mg tablet 11-21 00:00: 00 Yes 80mg Take 80 mg by mouth in the morning and 80 mg in the evening. [facility] escitalopra m oxalate 5 mg tablet 424 00:00: 00 Yes 5mg Take 5 mg by mouth in the morning. [facility] escitalopra m oxalate 5 mg tablet 10-21 00:00: 00 Yes 5mg Take 5 mg by mouth in the morning. [facility] escitalopra m oxalate 5 mg tablet 24 00:00: 00 Yes 5mg Take 5 mg by mouth in the morning. [facility] spironolact one-hydroch lorothiazid e 25-25 mg per tablet 10-19 00:00: 00 Yes 1{tbl} Take 1 tablet by mouth every morning. [facility] spironolact one-hydroch lorothiazid e 25-25 mg per tablet 10-19 00:00: 00 Yes 1{tbl} Take 1 tablet by mouth every morning. [facility] spironolact one-hydroch lorothiazid e 25-25 mg per tablet 10-19 00:00: 00 Yes 1{tbl} Take 1 tablet by mouth every morning. [facility] albuterol 2.5 mg /3 mL (0.083 %) nebulizer solution 03-29 00:00: 00 03-30 04:59 :00 No 2.5mg Inhale 2.5 mg every 6 (six) hours as needed. [facility] albuterol 90 mcg/actuati on inhaler 03-29 00:00: 00 03-30 04:59 :00 No 2{puff} Inhale 2 Puffs every 6 (six) hours as needed. [facility] albuterol 2.5 mg /3 mL (0.083 %) nebulizer solution 03-29 00:00: 00 03-30 04:59 :00 No 2.5mg Inhale 2.5 mg every 6 (six) hours as needed. [facility] albuterol 90 mcg/actuati on inhaler 03-29 00:00: 03-30 04:59 :00 No 2{puff} Inhale 2 Puffs every 6 (six) hours as needed. [facility] albuterol 2.5 mg /3 mL (0.083 %) nebulizer solution 03-29 00:00: 00 03-30 04:59 :00 No 2.5mg Inhale 2.5 mg every 6 (six) hours as needed. [facility] albuterol 90 mcg/actuati on inhaler 03-29 00:00: 00 03-30 04:59 :00 No 2{puff} Inhale 2 Puffs every 6 (six) hours as needed. [facility] Vital Signs Vital Name Observation Time Observation Value Comments S ource Oxygen saturation in Arterial blood by Pulse oximetry 2022-01-16 14:30:00 96 /min [facility] Systolic blood pressure 2022-01-16 14:30:00 134 mm[Hg] [facility] Diastolic blood pressure 2022-01-16 14:30:00 60 mm[Hg] [facility] Heart rate 2022-01-16 14:30:00 61 /min [facility] Body temperature 2022-01-16 14:30:00 36.11 Sarah [facility] Respiratory rate 2022-01-16 14:30:00 18 /min [facility] Body height 2022-01-08 18:53:00 170.3 cm [facility] Body weight 2022-01-08 18:53:00 99.8 kg [facility] BMI 2022-01-08 18:53:00 34.41 kg/m2 [facility] Procedures Procedure Date / Time Performed Performing Clinician Source PHACOEMULSIFICATION OF CATARACT WITH INTRAOCULAR LENS IMPLANT 2022-01-16 15:39:00 Francisco J Franks [facility] DAY SURGERY - ADC 2022-01-16 05:01:00 Doctor Unassigned, [place] [facility] Encounters Start Date/Time End Date/Time Encounter Type Admission Type Attending Clinicians Care Facility Care Department Encounter ID Source 2022-01-16 09:19:00 2022-01-16 11:51:00 Outpatient FRANCISCO J CAMARENA [facility] OPH [id number] [facility] 2022-01-16 10:06:00 2022-01-16 10:39:00 Surgery Francisco J Franks [facility] [place] [id number] [facility] 2022-01-16 00:00:00 2022-01-16 00:00:00 Orders Only Doctor Unassigned, [place] [facility] [id number] [facility] 2022-01-14 10:45:00 2022-01-14 11:00:00 Laboratory Only Only, Adc Test Francisco J Franks [facility] [id number] [facility] 2022-01-14 10:45:00 2022-01-14 10:45:00 Outpatient R FRANCISCO J FRANKS [facility] [id number] [facility] 2022-01-07 11:45:00 2022-01-07 12:00:00 Marketing Production Specialist Visit Pob, Adc Lab Main Francisco [facility] [id number] [facility] 2022-01-07 11:45:00 2022-01-07 11:45:00 Outpatient R FRANCISCO J FRANKS [facility] [id number] [facility]
[2023-08-05] MEDS ORDERED: ALBUTEROL 2.5 MG/3 ML NEB SOL NEB PRN (09:09)
[2023-08-05] MEDS ORDERED: IPRATROPIUM BROM 0.5MG/2.5ML NEB PRN (09:09)
--- NOTE | 2023-08-05 10:46 | P.HP ---
Certification for Inpatient Patient admitted to: Observation With expected LOS: >2 Midnights Patient will require the following post-hospital care: None Practitioner: I am a practitioner with admitting privileges, knowledge of patient current condition, hospital course, and medical plan of care. Services: Services provided to patient in accordance with Admission requirements found in Title 42 Section 412.3 of the Code of Federal Regulations Patient History Date of Service: 08/05/23 Reason for admission: respiratory failure History of Present Illness: Sunshine Aaronor 72-year-old female with past medical history significant for COPD, hypertension, hyperlipidemia, chronic atrial fibrillation who was previously admitted to the hospital 06/21/2023 with acute hypercapnic hypoxemic respiratory failure due to acute diastolic congestive heart failure and acute COPD exacerbation. Sunshine was discharged to SNF after a month long stay in the hospital but was transferred to inpatient rehab on fifth floor due to declining status. This morning ABG showing hypercapnia and hypoxemia requiring BiPAP. Dr. Sands was consulted for admission. Allergies Penicillins Allergy (Verified 09/04/18 00:53) Unknown codeine Adverse Reaction (Verified 10/02/19 01:03) Itching shellfish derived Adverse Reaction (Verified 09/04/18 00:53) Hives/Rash Home Medications: Albuterol Neb [Proventil 0.083% Neb Soln] 2.5 mg IH Q6H PRN 09/13/17 Fluticasone/Vilanterol [Breo Ellipta 200-25 Mcg Inhalr] 1 each IH Q8H PRN 09/13/17 Apixaban [Eliquis *] 2.5 mg PO BID 10/02/19 Amiodarone HCl [Pacerone] 200 mg PO BID 30 Days #60 tab 09/02/22 Torsemide 10 mg PO DAILY 03/23/23 acetaZOLAMIDE [Diamox*] 250 mg PO BID tab 06/29/23 Acetaminophen [Tylenol] 650 mg PO Q6H PRN 08/01/23 Midodrine HCl [Proamatine*] 10 mg PO TID 08/01/23 Spironolactone [Aldactone*] 25 mg PO DAILY 08/01/23 Trazodone [Desyrel*] 25 mg PO BEDTIME 08/01/23 - Past Medical/Surgical History Diabetic: No -: Afib -: COPD -: Asthma -: Hypertension -: Renal insufficiency followed by Dr. Oneil -: dalia -: appy -: R. hip replacement -: Tubal ligation Psychosocial/ Personal History: Patient lives at home, alone. - Family History Father -: Cancer - Social History Alcohol use: No CD- Drugs: No Caffeine use: No Review of Systems Respiratory: Shortness of Breath Physical Examination - Vital Signs Temperature: 97.4 F Blood Pressure: 133/60 Pulse: 63 Respirations: 20 Pulse Ox (%): 99 - Physical Exam General: Alert, In no apparent distress, Oriented x3 HEENT: Atraumatic, Normocephalic, PERRLA Neck: Supple, 2+ carotid pulse no bruit Respiratory: Normal air movement, Rhonchi/gurgles Cardiovascular: Regular rate/rhythm, Normal S1 S2, Edema (bilateral extremities) Capillary refill: <2 Seconds Gastrointestinal: Normal bowel sounds, Soft and benign Musculoskeletal: No clubbing, No contractures Integumentary: No rashes, No significant lesion Assessment and Plan - Plan Assessment and plan Acute hypercanpic hypoxemic respiratory failure due to acute diastolic congestive heart failure and acute COPD exacerbation On Bipap will wean to nasal cannula when able ABG: Ph 7.293, pCO2 72.4, pO2 61.0, HCO3 33.[address] Hutchins consulted Prednisone, sildenafil, Daliresp, Aldactone Hx hypertension now with hypotension midodrine TID monitor Q4 hr Hx hyperlipidemia Continue home statin Chronic atrial fibrillation Restart home medications DVT PPx Full code LOS 2 to 3 days Plan to discharge in: 48 Hours - Advance Directives Does patient have a Living Will: No Does patient have a Durable POA for Healthcare: No Time Spent Managing Pts Care (In Minutes): 50
[2023-08-05] MEDS ORDERED: HOME MED 1 EA UNK (Fluticasone/Vilanterol [Breo Ellipta 200-25 Mcg Inhalr] Blst.W.Dev) IH PRN (11:09)
[2023-08-05 11:38] VITALS: BMI 43.4
[2023-08-05] MEDS: METHYLPREDNISOLONE 125 MG INJ IV SCH (11:53)
[2023-08-05] MEDS: ARFORMOTEROL TARTRATE 15 MCG/2 ML VIAL.NEB NEB SCH (12:33)
--- NOTE | 2023-08-05 12:41 | P.CNS ---
Date of Consult: 08/05/23 Reason for Consult: Respiratory failure Chief Complaint: Respiratory failure History of Present Illness: Patient is 73 years of age was in rehab for severe COPD lower extremity weakness transferred back with hypercapnic respiratory failure she is currently on BiPAP responsive cooperative cooperative patient has chronic hypercapnia severe diastolic dysfunction with secondary pulmonary hypertension patient also developed worsening lower extremity edema Allergies Penicillins Allergy (Verified 09/04/18 00:53) Unknown codeine Adverse Reaction (Verified 10/02/19 01:03) Itching shellfish derived Adverse Reaction (Verified 09/04/18 00:53) Hives/Rash Home Medications: Albuterol Neb [Proventil 0.083% Neb Soln] 2.5 mg IH Q6H PRN 09/13/17 Fluticasone/Vilanterol [Breo Ellipta 200-25 Mcg Inhalr] 1 each IH Q8H PRN 09/13/17 Apixaban [Eliquis *] 2.5 mg PO BID 10/02/19 Amiodarone HCl [Pacerone] 200 mg PO BID 30 Days #60 tab 09/02/22 Torsemide 10 mg PO DAILY 03/23/23 acetaZOLAMIDE [Diamox*] 250 mg PO BID tab 06/29/23 Acetaminophen [Tylenol] 650 mg PO Q6H PRN 08/01/23 Midodrine HCl [Proamatine*] 10 mg PO TID 08/01/23 Spironolactone [Aldactone*] 25 mg PO DAILY 08/01/23 Trazodone [Desyrel*] 25 mg PO BEDTIME 08/01/23 - Past Medical/Surgical History Diabetic: No -: Afib -: COPD -: Asthma -: Hypertension -: Renal insufficiency followed by Dr. Oneil -: dalia -: appy -: R. hip replacement -: Tubal ligation Psychosocial/ Personal History: Patient lives at home, alone. - Family History Father Medical History: Cancer - Social History Smoking Status: Current every day smoker Alcohol use: No CD- Drugs: No Caffeine use: No Review of Systems General: Weakness Respiratory: Shortness of Breath Cardiovascular: Edema Physical Examination Temp Pulse Resp BP Pulse Ox 97.4 F 63 20 133/60 99 08/05/23 11:49 08/05/23 11:49 08/05/23 11:49 08/05/23 11:49 08/05/23 11:49 General: Alert, In no apparent distress, Oriented x3 Respiratory: Diminished Cardiovascular: Regular rate/rhythm (3+ edema), Edema Gastrointestinal: Normal bowel sounds, Hypoactive, Non-distended - Problems (1) Chronic respiratory failure Current Visit: No Status: Acute Plan: Patient is 73 years of age with a history of chronic respiratory failure I suspect secondary to COPD has some lower extremity weakness now transferred to from the rehab unit with worsening hypercapnia and lower extremity edema she has baseline hypercapnia to titrate sat to 90% with O2 check ABGs add Daliresp reduce her dose of steroids to prednisone scheduled Brovana Qualifiers: Respiratory failure complication: hypoxia and hypercapnia Qualified Code(s): J96.11 - Chronic respiratory failure with hypoxia; J96.12 - Chronic respiratory failure with hypercapnia (2) Pulmonary hypertension Current Visit: Yes Status: Acute Plan: Patient has underlying severe pulmonary hypertension I suspect secondary to diastolic dysfunction I will add a low-dose of sildenafil for now patient also has chronic renal failure continue with IV Lasix
[2023-08-05] MEDS: ROFLUMILAST 500 MCG TABLET PO SCH (13:01)
[2023-08-05] MEDS: IPRATROPIUM BROM 0.5MG/2.5ML NEB SCH (13:47)
[2023-08-05] MEDS ORDERED: MIDODRINE HCL 5 MG TABLET PO SCH (14:00)
[2023-08-05] MEDS: SILDENAFIL CITRATE 20 MG TABLET PO SCH (14:17)
[2023-08-05] MEDS: INFLUENZA VACCINE (for 6+ mo) 0.5 ML DOSE IMVAC ONE (15:00)
[2023-08-05] MEDS: PNEUMOCOCCAL VACCINE 0.5 ML IMVAC ONE (15:00)
[2023-08-05 15:31] LABS: Specific Gravity 1.006 (1.005-1.030); Urine Bacteria <20 /HPF (<20); Urine Bilirubin NEGATIVE (Negative); Urine Blood Negative (Negative); Urine Clarity Turbid (Clear); Urine Color Light-Yellow (Yellow); Urine Crystals Unidentified Few /HPF (None Seen); Urine Glucose NEGATIVE (Negative); Urine Mucus Slight /HPF (None Seen); Urine Protein NEGATIVE (Negative); Urine RBC <5 /HPF (None Seen); Urine Urobilinogen Normal (Normal); Urine pH 6.5 (5.0-7.0)
[2023-08-05 16:04] LABS: Blood Gas Oxyhemoglobin 86.6 % (94-97); Blood O2 Saturation 88.7 % (92-98.5)
[2023-08-05 16:06] LABS: Arterial Blood Carboxyhemoglob 1.2 % (0-1.5)
[2023-08-05] MEDS: FUROSEMIDE 40 MG/4 ML VIAL IV SCH (16:12)
[2023-08-05 16:35] LABS: Potassium 3.4 mEq/L (3.5-5.1)
[2023-08-05] MEDS: POTASSIUM 25 MEQ EFFERV TAB PO ONE (17:55)
[2023-08-05] MEDS: acetaZOLAMIDE 250 MG TAB PO SCH (21:02)
[2023-08-05] MEDS: predniSONE 20 MG TAB PO SCH (21:02)
[2023-08-05] MEDS: TRAZODONE 50 MG TABLET PO SCH (21:03)
[2023-08-05] MEDS: AMIODARONE HCL 200 MG TAB PO SCH (21:03)
[2023-08-05] MEDS: NYSTATIN PWDR 100000 UNIT/GM TOP SCH (21:03)
[2023-08-05] MEDS: APIXABAN 2.5 MG TABLET PO SCH (21:03)
[2023-08-06 05:22] LABS: Absolute Lymphocytes (CBC) 0.8 K/uL (0.7-4.9); Hematocrit 26.8 % (36.0-45.0); Lymphocytes % 22.3 % (15.3-44.8); MCV 82.3 fL (80-100); MPV 9.3 fL (7.6-11.3); Platelets 203 thou/uL (152-406); RBC Red Blood Cell Count 3.25 M/uL (3.86-4.86)
[2023-08-06 05:35] LABS: Magnesium 1.6 mg/dL (1.6-2.4); Phosphorus 3.5 mg/dL (2.5-4.9); Potassium 3.3 mEq/L (3.5-5.1)
[2023-08-06] MEDS: MAGNESIUM SULFATE 1 gm IVPB 1 GM/100 ML BAG IV ONE (05:44)
[2023-08-06] MEDS: POTASSIUM 25 MEQ EFFERV TAB PO ONE (05:44)
[2023-08-06] MEDS ORDERED: SPIRONOLACTONE 25 MG TABLET PO SCH (09:00)
[2023-08-06] MEDS: SPIRONOLACTONE 25 MG TABLET PO SCH (09:00)
[2023-08-06] MEDS: ACETAMINOPHEN 325 MG TABLET PO PRN (10:09)
--- NOTE | 2023-08-06 12:27 | P.PN ---
Subjective Date of Service: 08/06/23 Chief Complaint: respiratory failure Subjective: Improving (Patient is doing better swelling is decreased) Review of Systems General: Weakness Respiratory: Shortness of Breath Cardiovascular: Edema Physical Examination - Vital Signs Temperature: 97.8 F Blood Pressure: 116/65 Pulse: 93 Respirations: 20 Pulse Ox (%): 93 - Physical Exam General: Alert, In no apparent distress, Oriented x3 HEENT: Atraumatic Neck: Supple Respiratory: Clear to auscultation bilaterally, Diminished Cardiovascular: Edema (2+ edema) Gastrointestinal: Normal bowel sounds, Soft and benign - Studies Laboratory Data (last 24 hrs) 08/06/23 08/06/23 08/05/23 04:59 04:59 15:47 WBC 3.60 L Hgb 8.4 L Hct 26.8 L Plt Count 203 Sodium 138 138 Potassium 3.3 L 3.4 L BUN 28 H 34 H Creatinine 1.84 H 1.94 H Glucose 110 H 116 H Phosphorus 3.5 Magnesium 1.6 Assessment And Plan - Current Problems (Diagnosis) (1) Chronic respiratory failure Current Visit: No Status: Acute Plan: Patient is 73 years of age admitted with chronic respiratory failure diastolic heart failure with secondary pulmonary hypertension is doing much better today patient's blood pressures are low will reduce her dose of Lasix to 40 mg p.o. daily patient will qualify for a noninvasive ventilator he has a history of COPD to prevent hospital readmission oxygenation satisfactory on 93% on 4 L patient is able to ambulate with a walker CO2 is back to her baseline renal function is a little better Qualifiers: Respiratory failure complication: hypoxia and hypercapnia Qualified Code(s): J96.11 - Chronic respiratory failure with hypoxia; J96.12 - Chronic respiratory failure with hypercapnia (2) Pulmonary hypertension Current Visit: Yes Status: Acute Plan: Continue with sildenafil
--- NOTE | 2023-08-06 15:43 | P.PN ---
Subjective Date of Service: 08/06/23 Chief Complaint: respiratory failure Patient is awake, interactive and tolerating oxygen by nasal cannula. She appears confused. Physical Examination - Vital Signs Temperature: 97.8 F Blood Pressure: 116/65 Pulse: 93 Respirations: 20 Pulse Ox (%): 93 - Physical Exam General: Oriented x1, Obese, Other (Awake) HEENT: Mucous membr. moist/pink, Sclerae nonicteric Neck: Supple, JVD not distended Respiratory: Diminished (Bilateral), Other (No crackles heard) Cardiovascular: Normal S1 S2, Edema (Trace bilateral lower extremity edema), Irregular heart rate/rhythm Gastrointestinal: Soft and benign, Non-distended, No tenderness, Other (Obese abdomen) Musculoskeletal: No swelling, No tenderness Integumentary: No cyanosis Neurological: Other (No focal motor deficit) - Studies Laboratory Data (last 24 hrs) 08/06/23 08/06/23 08/06/23 12:56 04:59 04:59 WBC 3.60 L Hgb 8.4 L Hct 26.8 L Plt Count 203 Sodium 138 Potassium 3.6 3.3 L BUN 28 H Creatinine 1.84 H Glucose 110 H Phosphorus 3.5 Magnesium 1.6 08/05/23 15:47 WBC Hgb Hct Plt Count Sodium 138 Potassium 3.4 L BUN 34 H Creatinine 1.94 H Glucose 116 H Phosphorus Magnesium Assessment And Plan - Plan Diagnosis Acute respiratory failure with hypercapnia and hypoxemia COPD exacerbation Acute diastolic heart failure Pulmonary hypertension Chronic atrial fibrillation Morbid obesity Plan: Acute hypercanpic hypoxemic respiratory failure due to acute diastolic congestive heart failure and acute COPD exacerbation Patient weaned off BiPAP. Now tolerating oxygen by nasal cannula. Likelihood of obesity hypoventilation syndrome. BiPAP as needed nebulizers PRN Dr. Hutchins input appreciated. IV Lasix transition to p.o. On sildenafil for pulmonary hypertension Steroid Continue Aldactone and Daliresp Chronic hypertension Continue midodrine Hx hyperlipidemia Continue home statin Chronic atrial fibrillation Continue amiodarone and Eliquis. Impaired mobility Resume PT DVT prophylaxis: Eliquis Disposition: Anticipating disposition to inpatient rehab.
[2023-08-07 05:23] LABS: Absolute Lymphocytes (CBC) 1.3 K/uL (0.7-4.9); Hematocrit 25.9 % (36.0-45.0); Lymphocytes % 18.9 % (15.3-44.8); MCV 81.4 fL (80-100); MPV 9.4 fL (7.6-11.3); Platelets 197 thou/uL (152-406); RBC Red Blood Cell Count 3.18 M/uL (3.86-4.86)
[2023-08-07 05:31] LABS: Magnesium 1.8 mg/dL (1.6-2.4); Potassium 3.7 mEq/L (3.5-5.1)
[2023-08-07] MEDS: MAGNESIUM SULFATE 1 gm IVPB 1 GM/100 ML BAG IV ONE (06:49)
[2023-08-07] MEDS: POTASSIUM 25 MEQ EFFERV TAB PO ONE (06:49)
[2023-08-07] MEDS: FUROSEMIDE 40 MG TABLET PO SCH (09:31)
[2023-08-07] MEDS: predniSONE 10 MG TAB PO SCH (09:31)
--- NOTE | 2023-08-07 12:23 | P.PN ---
Subjective Date of Service: 08/07/23 Chief Complaint: respiratory failure Subjective: Improving (Patient is doing much better and is able to ambulate at home) Review of Systems General: Weakness Respiratory: Shortness of Breath Physical Examination - Vital Signs Temperature: 97.2 F Blood Pressure: 120/61 Pulse: 102 Respirations: 19 Pulse Ox (%): 94 - Physical Exam General: Alert, Oriented x3 Neck: Supple Respiratory: Clear to auscultation bilaterally Cardiovascular: Edema (Lower extremity edema has decreased significant) - Studies Laboratory Data (last 24 hrs) 08/07/23 08/07/23 08/06/23 04:52 04:52 12:56 WBC 6.90 Hgb 8.2 L Hct 25.9 L Plt Count 197 Sodium 137 Potassium 3.7 3.6 BUN 39 H Creatinine 1.98 H Glucose 123 H Magnesium 1.8 Assessment And Plan - Current Problems (Diagnosis) (1) Chronic respiratory failure Current Visit: No Status: Acute Plan: Respiratory failure patient is doing good for noninvasive ventilator renal function stable mildly anemic reviewed discharge planning Qualifiers: Respiratory failure complication: hypoxia and hypercapnia Qualified Code(s): J96.11 - Chronic respiratory failure with hypoxia; J96.12 - Chronic respiratory failure with hypercapnia (2) Pulmonary hypertension Current Visit: Yes Status: Acute Plan: Continue with sildenafil
--- NOTE | 2023-08-07 15:03 | P.PN ---
Subjective Date of Service: 08/07/23 Chief Complaint: respiratory failure Patient is awake, interactive but a bit confused. She was on the phone talking to someone when I saw her. She has been tolerating oxygen by nasal cannula. Physical Examination - Vital Signs Temperature: 97.2 F Blood Pressure: 120/61 Pulse: 102 Respirations: 19 Pulse Ox (%): 94 - Physical Exam General: In no apparent distress, Confused HEENT: Mucous membr. moist/pink Neck: Supple, JVD not distended Respiratory: Diminished, Other (Mild bibasilar crackles) Cardiovascular: Normal S1 S2, Edema (1+ bilateral lower extremity edema), Irregular heart rate/rhythm Gastrointestinal: Soft and benign, Non-distended, Other (Obese abdomen) Musculoskeletal: No tenderness Integumentary: Other (Bilateral lower extremity venous stasis dermatitis) Neurological: Other (No focal motor deficit) - Studies Laboratory Data (last 24 hrs) 08/07/23 08/07/23 04:52 04:52 WBC 6.90 Hgb 8.2 L Hct 25.9 L Plt Count 197 Sodium 137 Potassium 3.7 BUN 39 H Creatinine 1.98 H Glucose 123 H Magnesium 1.8 Assessment And Plan - Plan Diagnosis Acute respiratory failure with hypercapnia and hypoxemia COPD exacerbation Acute diastolic heart failure Pulmonary hypertension Chronic atrial fibrillation Morbid obesity Plan: Acute hypercanpic hypoxemic respiratory failure due to acute diastolic congestive heart failure and acute COPD exacerbation/obesity hypoventilation syndrome Patient weaned off BiPAP. She has tolerated oxygen by nasal cannula. BiPAP as needed nebulizers PRN Pulmonary Dr. Hutchins is following. IV Lasix transitioned to oral Lasix Continue sildenafil for pulmonary hypertension Steroid Continue Aldactone and Daliresp Chronic hypertension Continue midodrine Hx hyperlipidemia Continue home statin Chronic atrial fibrillation Continue amiodarone and Eliquis. Impaired mobility Significantly impaired mobility Physical therapy working with her and currently doing bed mobility. DVT prophylaxis: Eliquis Disposition: Social service assisting with reauthorization for inpatient rehab.
[2023-08-08 05:31] LABS: Absolute Lymphocytes (CBC) 1.2 K/uL (0.7-4.9); Hematocrit 25.7 % (36.0-45.0); Lymphocytes % 15.9 % (15.3-44.8); MCV 81.9 fL (80-100); MPV 9.1 fL (7.6-11.3); Platelets 194 thou/uL (152-406); RBC Red Blood Cell Count 3.14 M/uL (3.86-4.86)
--- NOTE | 2023-08-08 09:11 | P.PN ---
Subjective Date of Service: 08/08/23 Chief Complaint: respiratory failure Subjective: Improving (Patient is doing much better edema has reduced she is more alert) Review of Systems General: Weakness Respiratory: Shortness of Breath Physical Examination - Vital Signs Temperature: 97.2 F Blood Pressure: 135/63 Pulse: 102 Respirations: 18 Pulse Ox (%): 99 - Physical Exam General: Alert, In no apparent distress, Oriented x3 Neck: Supple Respiratory: Clear to auscultation bilaterally Cardiovascular: Normal S1 S2 Gastrointestinal: Normal bowel sounds - Studies Laboratory Data (last 24 hrs) 08/08/23 08/08/23 05:07 05:07 WBC 7.70 Hgb 8.1 L Hct 25.7 L Plt Count 194 Sodium 136 Potassium 4.0 BUN 43 H Creatinine 1.88 H Glucose 113 H Assessment And Plan - Current Problems (Diagnosis) (1) Chronic respiratory failure Current Visit: No Status: Acute Plan: Patient has chronic respiratory failure has improved significantly vital signs oxygenation stable patient to use a noninvasive ventilator at night labs reviewed kidney function is stable I have reduced the dose of prednisone to 10 mg daily otherwise no change able to be transferred to a rehab Qualifiers: Respiratory failure complication: hypoxia and hypercapnia Qualified Code(s): J96.11 - Chronic respiratory failure with hypoxia; J96.12 - Chronic respiratory failure with hypercapnia (2) Pulmonary hypertension Current Visit: Yes Status: Acute Plan: Continue with sildenafil
[2023-08-08] MEDS: predniSONE 10 MG TAB PO SCH (09:21)
[2023-08-08 11:00] LABS: Arterial Blood Carboxyhemoglob 1.2 % (0-1.5); Blood Gas Oxyhemoglobin 89.3 % (94-97); Blood O2 Saturation 91.5 % (92-98.5)
--- NOTE | 2023-08-08 14:04 | P.PN ---
Subjective Date of Service: 08/08/23 Chief Complaint: respiratory failure Patient is awake, interactive. She is slightly confused She has been stable on oxygen by nasal cannula. Physical Examination - Vital Signs Temperature: 97.3 F Blood Pressure: 110/55 Pulse: 105 Respirations: 18 Pulse Ox (%): 95 - Studies Laboratory Data (last 24 hrs) 08/08/23 08/08/23 05:07 05:07 WBC 7.70 Hgb 8.1 L Hct 25.7 L Plt Count 194 Sodium 136 Potassium 4.0 BUN 43 H Creatinine 1.88 H Glucose 113 H Assessment And Plan - Plan Physical examination General: Oriented x2, NAD, morbidly obese. Neck: Supple, no elevated JVD Heart: Heart sounds 1 and 2 normal, irregular rhythm, normal rate, trace lower extremity pedal edema. Lungs: Diminished breath sounds bilaterally, mild bibasilar crackles, no rhonchi. Abdomen: Soft, nondistended, nontender, normal bowel sounds. Extremities: No tenderness, no deformity Skin: Normal skin turgor. Neuro: No focal motor deficit. Psychiatry: Normal mood, no agitation. Mildly confused. Diagnosis Acute respiratory failure with hypercapnia and hypoxemia COPD exacerbation Acute diastolic heart failure Pulmonary hypertension Chronic atrial fibrillation Morbid obesity Plan: Acute hypercanpic hypoxemic respiratory failure due to acute diastolic congestive heart failure and acute COPD exacerbation/obesity hypoventilation syndrome Patient weaned off BiPAP. She is stable oxygen by nasal cannula. BiPAP as needed nebulizers PRN Pulmonary Dr. Hutchins is following. IV Lasix transitioned to oral Lasix. Continue oral Lasix Continue sildenafil for pulmonary hypertension On Steroid Continue Aldactone and Daliresp Chronic hypertension Continue midodrine Hx hyperlipidemia Continue home statin Chronic atrial fibrillation Continue amiodarone and Eliquis. Impaired mobility Significantly impaired mobility Physical therapy working with her and stood up for the first time since admission today. Insurance denied acute rehab. DVT prophylaxis: Eliquis Disposition: Social service assisting with inpatient rehab placement.
[2023-08-09] MEDS: FUROSEMIDE 40 MG/4 ML VIAL IV ONE (06:24)
--- NOTE | 2023-08-09 11:33 | P.PN ---
Subjective Date of Service: 08/09/23 Chief Complaint: respiratory failure Subjective: Improving (Patient is improving complains on BiPAP) Review of Systems General: Weakness Respiratory: Shortness of Breath Physical Examination - Vital Signs Temperature: 97.1 F Blood Pressure: 92/53 Pulse: 107 Respirations: 18 Pulse Ox (%): 95 - Physical Exam General: Alert, Oriented x3 Respiratory: Clear to auscultation bilaterally Cardiovascular: Regular rate/rhythm, Normal S1 S2, Edema - Studies Microbiology Data (last 24 hrs): 08/05/23 15:20 Clean Catch Urine [place] Count - Final >100,000 CFU/ML. 08/05/23 15:20 Clean Catch Urine - Final Citrobacter Freundii Complex Proteus Mirabilis Esbl Assessment And Plan - Current Problems (Diagnosis) (1) Chronic respiratory failure Current Visit: No Status: Acute Plan: And is doing better no new complaints blood pressure is slightly low will reduce the dose of spironolactone and Diamox continue with Lasix feeling better edema has decreased multiple organisms isolated in the urine add low-dose ciprofloxacin Qualifiers: Respiratory failure complication: hypoxia and hypercapnia Qualified Code(s): J96.11 - Chronic respiratory failure with hypoxia; J96.12 - Chronic respiratory failure with hypercapnia (2) Pulmonary hypertension Current Visit: Yes Status: Acute Plan: Continue with sildenafil
[2023-08-09] MEDS: CIPROFLOXACIN HCL 250 MG TAB PO SCH (12:04)
[2023-08-09] MEDS ORDERED: VANCOMYCIN 1 GM in NA CHLORIDE 0.9% 250 ML IVPB SCH (13:31)
--- NOTE | 2023-08-09 13:48 | P.PN ---
Subjective Date of Service: 08/09/23 Chief Complaint: respiratory failure Patient is awake, interactive but remains confused She was placed on BiPAP last night. Currently on oxygen by nasal cannula. Physical Examination - Vital Signs Temperature: 97.0 F Blood Pressure: 105/55 Pulse: 92 Respirations: 14 Pulse Ox (%): 95 - Studies Microbiology Data (last 24 hrs): 08/05/23 15:20 Clean Catch Urine [place] Count - Final >100,000 CFU/ML. 08/05/23 15:20 Clean Catch Urine - Final Citrobacter Freundii Complex Proteus Mirabilis Esbl Enterococcus Faecalis Assessment And Plan - Plan Physical examination General: Oriented x2, NAD, morbidly obese. Confused. Neck: Supple, no elevated JVD Heart: Heart sounds 1 and 2 normal, irregular rhythm, normal rate, lower extremity pedal edema. Lungs: Diminished breath sounds bilaterally, mild bibasilar crackles, diffuse wheezes. Abdomen: Soft, nondistended, nontender, normal bowel sounds. Extremities: No tenderness, no deformity Skin: Normal skin turgor. Neuro: No focal motor deficit. Psychiatry: Normal mood, no agitation. Confused. Diagnosis Acute respiratory failure with hypercapnia and hypoxemia COPD exacerbation Acute diastolic heart failure Pulmonary hypertension Chronic atrial fibrillation Morbid obesity Plan: Acute hypercanpic hypoxemic respiratory failure due to acute diastolic congestive heart failure and acute COPD exacerbation/obesity hypoventilation syndrome Metabolic encephalopathy Continue BiPAP as needed for CO2 retention and obesity hypoventilation. Aggressive bronchodilator therapy. Patient is on Brovana. Oxygen by nasal cannula, titrate to SaO2 of 92%. Pulmonary Dr. Hutchins is following. Lasix changed to Diamox due to metabolic alkalosis. Repeat chest x-ray to reevaluate CHF Continue sildenafil for pulmonary hypertension On Steroid Continue Aldactone and Daliresp Chronic hypertension Continue midodrine Hx hyperlipidemia Continue home statin Chronic atrial fibrillation Continue amiodarone and Eliquis. Acute cystitis without hematuria Urine culture growing multiple organisms including Citrobacter, Enterococcus and ESBL Proteus. Patient started on IV meropenem. Impaired mobility Significantly impaired mobility Continue PT Insurance denied acute rehab. Decision appealed. DVT prophylaxis: Eliquis Disposition: Social service assisting with inpatient rehab placement.
[2023-08-09] MEDS: Meropenem 1,000 MG in NA CHLORIDE 0.9% 100 ML IV SCH (14:08)
--- NOTE | 2023-08-09 15:46 | RAD REPORT ---
EXAM DESCRIPTION: RAD - Chest Single View - 08/09/2023 3:15 pm CLINICAL HISTORY: Follow-up CHF COMPARISON: Chest Single View dated 08/03/2023; Chest Single View dated 06/28/2023; Chest Single View dated 06/25/2023; Chest Single View dated 06/22/2023 FINDINGS: Lines: None. Lungs: Diffuse prominence of the pulmonary interstitium with marginal improvement compared with 08/03. Pleural: Small pleural effusions are present . Cardiac: Cardiomegaly. Mediastinum: Within normal limits. Bones: No acute fractures. Other: None IMPRESSION: Marginal improvement in pulmonary edema/congestive heart failure.
[2023-08-10] MEDS: acetaZOLAMIDE 250 MG TAB PO SCH (08:30)
[2023-08-10] MEDS: SPIRONOLACTONE 25 MG TABLET PO SCH (08:30)
--- NOTE | 2023-08-10 16:39 | P.PN ---
Subjective Date of Service: 08/10/23 Chief Complaint: respiratory failure No major changes from yesterday. Patient is stable on oxygen by nasal cannula She remained mildly confused. Physical Examination - Vital Signs Temperature: 97.0 F Blood Pressure: 80/50 Pulse: 103 Respirations: 20 Pulse Ox (%): 96 - Studies Microbiology Data (last 24 hrs): 08/05/23 15:20 Clean Catch Urine [place] Count - Final >100,000 CFU/ML. 08/05/23 15:20 Clean Catch Urine - Final Citrobacter Freundii Complex Proteus Mirabilis Esbl Enterococcus Faecalis Assessment And Plan - Plan Physical examination General: Oriented x2, NAD, morbidly obese. Confused. Neck: Supple, no elevated JVD Heart: Heart sounds 1 and 2 normal, irregular rhythm, normal rate, lower extremity pedal edema significantly improved Lungs: Diminished breath sounds bilaterally, mild scattered wheezes-worse on the right. Abdomen: Soft, nondistended, nontender, normal bowel sounds. Extremities: No tenderness, no deformity Skin: No rashes. Neuro: No focal motor deficit. Psychiatry: Normal mood, no agitation. Confused. Diagnosis Acute respiratory failure with hypercapnia and hypoxemia COPD exacerbation Acute diastolic heart failure Pulmonary hypertension Chronic atrial fibrillation Morbid obesity Plan: Acute hypercanpic hypoxemic respiratory failure due to acute diastolic congestive heart failure and acute COPD exacerbation/obesity hypoventilation syndrome Metabolic encephalopathy Continue BiPAP as needed for CO2 retention and obesity hypoventilation. Aggressive bronchodilator therapy. Patient is on Brovana. Oxygen by nasal cannula, titrate to SaO2 of 92%. Pulmonary Dr. Hutchins is following. Diamox due to metabolic alkalosis. BP running low, patient not tolerating Lasix Mariah as needed as her BP will tolerate. Repeat chest x-ray shows some improvement in vascular congestion Continue sildenafil for pulmonary hypertension On Steroid Continue Aldactone and Daliresp Chronic hypotension Continue midodrine Encourage oral intake. Hx hyperlipidemia Continue home statin Chronic atrial fibrillation Continue amiodarone and Eliquis. Acute cystitis without hematuria/ESBL UTI Urine culture growing multiple organisms including Citrobacter, Enterococcus and ESBL Proteus. Continue IV meropenem. Patient to complete at least 7 days of treatment. Impaired mobility Significantly impaired mobility Continue PT Insurance denied acute rehab. Decision appealed. DVT prophylaxis: Eliquis Disposition: Social service assisting with inpatient rehab placement.
[2023-08-11 05:18] LABS: Magnesium 1.9 mg/dL (1.6-2.4); Potassium 4.3 mEq/L (3.5-5.1)
--- NOTE | 2023-08-11 15:01 | P.PN ---
Subjective Date of Service: 08/11/23 Chief Complaint: respiratory failure No major changes from yesterday. Patient is stable on oxygen by nasal cannula. Blood pressure readings relatively better today Physical Examination - Vital Signs Temperature: 98.3 F Blood Pressure: 102/49 Pulse: 86 Respirations: 16 Pulse Ox (%): 97 - Studies Laboratory Data (last 24 hrs) 08/11/23 04:32 Sodium 134 L Potassium 4.3 BUN 40 H Creatinine 1.60 H Glucose 94 Magnesium 1.9 Assessment And Plan - Plan Physical examination General: Oriented x2, NAD, morbidly obese. Mildly Confused. Neck: Supple, no elevated JVD Heart: Heart sounds 1 and 2 normal, irregular rhythm, normal rate, lower extremity edema resolved. Lungs: Diminished breath sounds bilaterally, no wheezes. Abdomen: Soft, nondistended, nontender, normal bowel sounds. Extremities: No tenderness, no deformity Skin: No rashes. Neuro: No focal motor deficit. Psychiatry: Normal mood, no agitation. Confused. Diagnosis Acute respiratory failure with hypercapnia and hypoxemia COPD exacerbation Acute diastolic heart failure Pulmonary hypertension Chronic atrial fibrillation Morbid obesity Plan: Acute hypercanpic hypoxemic respiratory failure due to acute diastolic congestive heart failure and acute COPD exacerbation/obesity hypoventilation syndrome Metabolic encephalopathy Continue BiPAP as needed for CO2 retention and obesity hypoventilation. Aggressive bronchodilator therapy. Patient is on Brovana. Oxygen by nasal cannula, titrate to SaO2 of 92%. Pulmonary Dr. Hutchins is following. On Diamox due to metabolic alkalosis. BP readings better today. Laxis as needed as her BP will tolerate. Repeat chest x-ray shows some improvement in vascular congestion Continue sildenafil for pulmonary hypertension On Steroid Continue Aldactone and Daliresp Chronic hypotension Continue midodrine Encourage oral intake. Hx hyperlipidemia Continue home statin Chronic atrial fibrillation Continue amiodarone and Eliquis. Acute cystitis without hematuria/ESBL UTI Urine culture growing multiple organisms including Citrobacter, Enterococcus and ESBL Proteus. Continue IV meropenem. Patient to complete at least 14 days of treatment. Antibiotics day 4. Infectious disease consult Impaired mobility Significantly impaired mobility Continue PT Insurance denied acute rehab. Decision appealed. DVT prophylaxis: Eliquis Disposition: Social service assisting with inpatient rehab placement.
[2023-08-11] MEDS: Mupirocin NASAL 2 APPL/1 GM TUBE NAS SCH (20:01)
[2023-08-11] MEDS: NA CHLORIDE 0.9% 250 ML ONE (20:04)
--- NOTE | 2023-08-11 22:07 | RAD REPORT ---
EXAM DESCRIPTION: RAD - Chest Single View - 08/11/2023 9:21 pm CLINICAL HISTORY: Device placement PICC line placement IMPRESSION: PICC line with its tip in the superior vena cava
[2023-08-12 06:15] LABS: Absolute Lymphocytes (CBC) 1.8 K/uL (0.7-4.9); Hematocrit 25.7 % (36.0-45.0); Lymphocytes % 19.3 % (15.3-44.8); MCV 81.4 fL (80-100); MPV 9.6 fL (7.6-11.3); Platelets 185 thou/uL (152-406); RBC Red Blood Cell Count 3.15 M/uL (3.86-4.86)
[2023-08-12 06:28] LABS: Potassium 4.1 mEq/L (3.5-5.1)
--- NOTE | 2023-08-12 08:11 | P.CNS ---
Date of Consult: 08/12/23 Reason for Consult: PATRIZIA/ CKD Requesting Physician: King Donaldson Chief Complaint: respiratory failure History of Present Illness: Sunshine Aaronor 72-year-old female with past medical history significant for COPD, hypertension, hyperlipidemia, chronic atrial fibrillation who was previously admitted to the hospital 06/21/2023 with acute hypercapnic hypoxemic respiratory failure due to acute diastolic congestive heart failure and acute COPD exacerbation. Sunshine was discharged to SNF after a month long stay in the hospital but was transferred to inpatient rehab on fifth floor due to declining status. This morning ABG showing hypercapnia and hypoxemia requiring BiPAP. Dr. Sands was consulted for admission. Allergies Penicillins Allergy (Verified 09/04/18 00:53) Unknown codeine Adverse Reaction (Verified 10/02/19 01:03) Itching shellfish derived Adverse Reaction (Verified 09/04/18 00:53) Hives/Rash Home medications list reviewed: Yes Home Medications: Albuterol Neb [Proventil 0.083% Neb Soln] 2.5 mg IH Q6H PRN 09/13/17 Fluticasone/Vilanterol [Breo Ellipta 200-25 Mcg Inhalr] 1 each IH Q8H PRN 09/13/17 Apixaban [Eliquis *] 2.5 mg PO BID 10/02/19 Amiodarone HCl [Pacerone] 200 mg PO BID 30 Days #60 tab 09/02/22 Torsemide 10 mg PO DAILY 03/23/23 acetaZOLAMIDE [Diamox*] 250 mg PO BID tab 06/29/23 Acetaminophen [Tylenol] 650 mg PO Q6H PRN 08/01/23 Spironolactone [Aldactone*] 25 mg PO DAILY 08/01/23 Trazodone [Desyrel*] 25 mg PO BEDTIME 08/01/23 Sildenafil Citrate 20 mg PO BID 30 Days #60 tab 08/07/23 - Past Medical/Surgical History Diabetic: No -: Afib -: COPD -: Asthma -: Hypertension -: CKD (Dr. Oneil/ Dr. Callahan) -: choley -: appy -: R. hip replacement -: Tubal ligation Psychosocial/ Personal History: Patient lives at home, alone. - Family History Father Medical History: Cancer - Social History Smoking Status: Current every day smoker Alcohol use: No CD- Drugs: No Caffeine use: No Review of Systems 10-point ROS is otherwise unremarkable General: Weakness, Malaise Respiratory: SOB with Excertion Physical Examination Temp Pulse Resp BP Pulse Ox 96.9 F 98 H 18 96/50 L 95 08/12/23 04:00 08/12/23 04:00 08/12/23 04:00 08/12/23 04:00 08/12/23 04:00 General: Oriented x3, Cooperative HEENT: Atraumatic Neck: Supple Respiratory: Diminished Cardiovascular: Regular rate/rhythm, Edema Gastrointestinal: Non-distended Musculoskeletal: No clubbing, No contractures Integumentary: No rashes, No cyanosis Neurological: Normal speech Laboratory Data (last 24 hrs) 08/12/23 08/12/23 05:59 05:59 WBC 9.50 Hgb 8.1 L Hct 25.7 L Plt Count 185 Sodium 135 L Potassium 4.1 BUN 43 H Creatinine 1.47 H Glucose 94 Magnesium 2.0 Imagings Data: [id number] EXAM DESCRIPTION: RAD - Chest Single View - 08/11/2023 9:21 pm CLINICAL HISTORY: Device placement PICC line placement IMPRESSION: PICC line with its tip in the superior vena cava [id number] EXAM DESCRIPTION: RAD - Chest Single View - 08/09/2023 3:15 pm CLINICAL HISTORY: Follow-up CHF COMPARISON: Chest Single View dated 08/03/2023; Chest Single View dated 06/28/2023; Chest Single View dated 06/25/2023; Chest Single View dated 06/22/2023 FINDINGS: Lines: None. Lungs: Diffuse prominence of the pulmonary interstitium with marginal improvement compared with 08/03/2023. Pleural: Small pleural effusions are present . Cardiac: Cardiomegaly. Mediastinum: Within normal limits. Bones: No acute fractures. Other: None IMPRESSION: Marginal improvement in pulmonary edema/congestive heart failure. Conclusions/Impression: Stage I PATRIZIA likely CRS CKD III -No NSAIDs -Continue diuresis Hyponatremia -Continue furosemide Metabolic Alkalosis -Continue Diamox Chronic Hypotension -Midodrine prn Acute/ Chronic hypercapnic & hypoxemic respiratory failure/ COPD Exacerbation Diastolic CHF, A/C Pulmonary HTN -Continue furosemide and spironolactone -Continue prednisone -Pulmonary following Anemia in chronic illness -Monitor H&H Acute Cystitis -Continue Abx Case reviewed with Dr. Donaldson Thank you kindly for the consultation
--- NOTE | 2023-08-12 09:42 | P.CNS ---
Date of Consult: 08/12/23 Reason for Consult: ESBL UTI Requesting Physician: anne pathak Chief Complaint: respiratory failure History of Present Illness: Patient is a 72-year-old female with past medical history significant for COPD, hypertension, hyperlipidemia, chronic atrial fibrillation who was previously admitted to the hospital 06/21/2023 with acute hypercapnic hypoxemic respiratory failure due to acute diastolic congestive heart failure and acute COPD exacerbation. She was then discharged to SNF after a month long stay in the hospital but was transferred to inpatient rehab on fifth floor due to declining status. While in inpatient rehab, ABG showed hypercapnia and hypoxemia requring BiPAP. Urine culture growing citrobacter, proteus ESBL, and Enterococcus faecalis. Infectious disease was consulted. Allergies Penicillins Allergy (Verified 09/04/18 00:53) Unknown codeine Adverse Reaction (Verified 10/02/19 01:03) Itching shellfish derived Adverse Reaction (Verified 09/04/18 00:53) Hives/Rash Home medications list reviewed: Yes Home Medications: Albuterol Neb [Proventil 0.083% Neb Soln] 2.5 mg IH Q6H PRN 09/13/17 Fluticasone/Vilanterol [Breo Ellipta 200-25 Mcg Inhalr] 1 each IH Q8H PRN 09/13/17 Apixaban [Eliquis *] 2.5 mg PO BID 10/02/19 Amiodarone HCl [Pacerone] 200 mg PO BID 30 Days #60 tab 09/02/22 Torsemide 10 mg PO DAILY 03/23/23 acetaZOLAMIDE [Diamox*] 250 mg PO BID tab 06/29/23 Acetaminophen [Tylenol] 650 mg PO Q6H PRN 08/01/23 Spironolactone [Aldactone*] 25 mg PO DAILY 08/01/23 Trazodone [Desyrel*] 25 mg PO BEDTIME 08/01/23 Sildenafil Citrate 20 mg PO BID 30 Days #60 tab 08/07/23 - Past Medical/Surgical History Diabetic: No -: Afib -: COPD -: Asthma -: Hypertension -: CKD (Dr. Oneil/ Dr. Callahan) -: choley -: appy -: R. hip replacement -: Tubal ligation Psychosocial/ Personal History: Patient lives at home, alone. - Family History Father Medical History: Cancer - Social History Smoking Status: Current every day smoker Alcohol use: No CD- Drugs: No Caffeine use: No Review of Systems 10-point ROS is otherwise unremarkable General: Weakness Respiratory: Shortness of Breath Physical Examination Temp Pulse Resp BP Pulse Ox 97.0 F 106 H 18 102/60 95 08/12/23 08:00 08/12/23 09:26 08/12/23 08:00 08/12/23 09:26 08/12/23 08:00 General: In no apparent distress, Oriented x3, Other (intermittent confusion) HEENT: Atraumatic, Normocephalic Respiratory: Diminished, Other (unlabored respirations on 3L nasal cannula) Cardiovascular: Regular rate/rhythm, Edema (BLE 1+) Gastrointestinal: Normal bowel sounds, Soft and benign Integumentary: Pressure ulcer (sacrum pressure injury stage I), Other (ertyhema under breasts and abdominal folds) Neurological: Normal speech Laboratory Data (last 24 hrs) 08/12/23 08/12/23 05:59 05:59 WBC 9.50 Hgb 8.1 L Hct 25.7 L Plt Count 185 Sodium 135 L Potassium 4.1 BUN 43 H Creatinine 1.47 H Glucose 94 Magnesium 2.0 Microbiology Data - Reviewed Imagings Data: - Reviewed Conclusions/Impression: Problem List Acute Cystitis Acute respiratory failure with hypercapnia and hypoxemia COPD exacerbation Acute diastolic heart failure Atrial Fibrillation Hyperlipidemia Acute Cystitis - Urine culture 08/05: Citrobacter freundii , Proteus mirabilis ESBL, Enterococcus faecalis - On meropenem (started 08/09) Afebrile. denies any urinary symptoms. Recommendations - Continue meropenem for 14 days (08/09-08/18). renally dosed. pharmacy consulted. - Monitor WBC and fever trends - physical therapy - Continue supportive care Case discussed with Rachel Burgos
--- NOTE | 2023-08-12 11:16 | P.PN ---
Date of Service: 08/12/23 Subjective: Feeling a little better today Breathing a little more comfortably Working with PT. improving Able to transfer to chair today with assistance; easily fatigued approved for home NIV, to be delivered on discharge pending rehab appeal ROS: 10 point ROS as noted above, otherwise negative Physical Exam: GEN: Alert, orientedx2, NAD HEENT: Normal conjunctiva, sclera anicteric CV: Regular rate and rhythm, no edema Pulm: Nonlabored respirations on 3L NC, diminished at bases b/l ABD: Soft, nontender, nondistended Neuro: Normal speech, normal affect PICC in place vitals reviewed Problem List: Acute hypercanpic and hypoxemic respiratory failure secondary to acute diastolic CHF / acute COPD exacerbation / obesity hypoventilation syndrome Metabolic encephalopathy Pulmonary Hypertension Acute cystitis without hematuria Chronic atrial fibrillation, on anticoagulation Chronic hypotension Hyperlipidemia Impaired mobility/Morbid obesity Acute hypercanpic and hypoxemic respiratory failure secondary to acute diastolic CHF / acute COPD exacerbation / obesity hypoventilation syndrome Metabolic encephalopathy Pulmonary Hypertension Continue BiPAP as needed for CO2 retention and obesity hypoventilation. wean oxygen as tolerated - currently on 3L NC home NIV approved. To be delivered on discharge Dr. Liset yeboah is following. Repeat CXR (08/09): marginal improvement in pulm edema Continue PO lasix, spironolactone Continue sildenafil for pulmonary hypertension Continue PO prednisone Continue diamox and Daliresp continue brovana Acute cystitis without hematuria Urine cx (08/05): growing multiple organisms including Citrobacter Freundii Complex, Enterococcus Faecalis, and ESBL Proteus. Continue IV meropenem (08/09-) ID consulted for antibiotic assistance pt improving on meropenem monotherapy, which may be providing coverage for enterococcus, will discuss with ID whether to continue monotherapy vs add a 2nd agent will need 2 weeks of IV antibiotics total PICC line placed 08/11 CXR (08/11): PICC line with tip in superior vena cava afebrile, no leukocytosis Chronic atrial fibrillation, on anticoagulation Continue amiodarone and Eliquis. Chronic hypotension patient was started on midodrine during last hospitalization, uncertain if still taking this, will review Hx hyperlipidemia Continue statin Impaired mobility/Morbid obesity Significantly impaired mobility Continue PT Insurance denied acute rehab. Pending appeal VTE: home eliquis Code: Full Dispo: IPR Pending rehab appeal
[2023-08-13 05:25] LABS: Magnesium 1.9 mg/dL (1.6-2.4); Potassium 3.8 mEq/L (3.5-5.1)
--- NOTE | 2023-08-13 08:39 | P.PN ---
Date of Service: 08/13/23 Subjective: Feeling better today Continues to work with PT. easily fatigable per PT note yesterday. she states she is very motivated and wanting to move / work with PT denies dizziness/lightheadedness when moving Pending rehab appeal no n/v/d. afebrile ROS: 10 point ROS as noted above, otherwise negative Physical Exam: GEN: Alert, orientedx2, NAD HEENT: Normal conjunctiva, sclera anicteric CV: Regular rate and rhythm, no edema Pulm: Nonlabored respirations on 3L NC, diminished at bases b/l ABD: Soft, nontender, nondistended Neuro: Normal speech, normal affect PICC in place vitals reviewed Problem List: Acute hypercanpic and hypoxemic respiratory failure secondary to acute diastolic CHF / acute COPD exacerbation / obesity hypoventilation syndrome Metabolic encephalopathy Pulmonary Hypertension Acute cystitis without hematuria Chronic atrial fibrillation, on anticoagulation Chronic hypotension Hyperlipidemia Impaired mobility/Morbid obesity Acute hypercanpic and hypoxemic respiratory failure secondary to acute diastolic CHF / acute COPD exacerbation / obesity hypoventilation syndrome Metabolic encephalopathy Pulmonary Hypertension Continue BiPAP as needed for CO2 retention and obesity hypoventilation. wean oxygen as tolerated - currently on 3L NC home NIV approved. To be delivered on discharge Dr. Liset yeboah is following. Repeat CXR (08/09): marginal improvement in pulm edema Continue PO lasix, spironolactone Continue sildenafil for pulmonary hypertension Continue PO prednisone Continue diamox and Daliresp continue brovana Acute cystitis without hematuria Urine cx (08/05): growing multiple organisms including Citrobacter Freundii Complex, Enterococcus Faecalis, and ESBL Proteus. Continue IV meropenem (08/09-) ID consulted for antibiotic assistance pt improving on meropenem monotherapy, discussed with ID, continue merrem will need 10 days of IV antibiotics total - end date 08/18 PICC line placed 08/11 CXR (08/11): PICC line with tip in superior vena cava afebrile, no leukocytosis Chronic atrial fibrillation, on anticoagulation Continue amiodarone and Eliquis. Chronic hypotension patient was started on midodrine during last hospitalization, uncertain if still taking this, will review Hx hyperlipidemia Continue statin Impaired mobility/Morbid obesity Significantly impaired mobility Continue PT Insurance denied acute rehab. Pending appeal VTE: home eliquis Code: Full Dispo: IPR Pending rehab appeal
--- NOTE | 2023-08-13 09:02 | P.PN ---
Date of Service: 08/13/23 Chief Complaint: respiratory failure Subjective: Patient seen and examined at bedside. No acute events overnight. + shortness of breath Denies any urinary symptoms. In no apparent distress. Physical Examination Temp Pulse Resp BP Pulse Ox 97.3 F 75 18 106/53 L 96 08/13/23 08:00 08/13/23 08:00 08/13/23 08:00 08/13/23 08:00 08/13/23 08:00 General: In no apparent distress, Oriented x3. HEENT: Atraumatic, Normocephalic Respiratory: inspiratory and expiratory wheezing noted. Crackles. Unlabored respirations on 3L nasal cannula. Cardiovascular: Regular rate and rhythm. BLE edema 1+. Gastrointestinal: Normal bowel sounds. Nondistended. Nontender. Integumentary: sacrum pressure injury stage I. Erythema under breasts and abdominal folds Laboratory Data - Reviewed Microbiology Data - Reviewed Imagings Data: - Reviewed Medications List: Reviewed Assessment and Plan Problem List Acute Cystitis Acute respiratory failure with hypercapnia and hypoxemia COPD exacerbation Acute diastolic heart failure Atrial Fibrillation Hyperlipidemia Acute Cystitis - Urine culture 08/05: Citrobacter freundii , Proteus mirabilis ESBL, Enterococcus faecalis - On meropenem (started 08/09) - improving. Denies any urinary symptoms. - Afebrile. no leukocytosis. Recommendations - UTI: Continue meropenem for 10 days (08/09-08/18). renally dosed. pharmacy consulted. - Monitor WBC and fever trends - Pressure offloading measures - Keep area under breasts and abdominal folds clean and dry. - physical therapy - Continue supportive care Case discussed with Rachel Burgos
[2023-08-13] MEDS: POTASSIUM CL SA 10 MEQ TAB PO ONE (09:30)
--- NOTE | 2023-08-13 10:15 | P.PN ---
Date of Service: 08/13/23 Vital Signs Temp Pulse Resp BP Pulse Ox 97.3 F 78 18 102/58 L 96 08/13/23 08:00 08/13/23 09:29 08/13/23 08:00 08/13/23 09:29 08/13/23 08:00 Medications Acetaminophen (Acetaminophen 325 Mg Tablet) 650 mg PO Q6H PRN PRN Reason: Pain scale 2-4 (Mild) Last Admin: 08/06/23 10:09 Dose: 650 mg Acetazolamide (Acetazolamide 250 Mg Tab) 250 mg PO DAILY [facility] Last Admin: 08/13/23 09:29 Dose: 250 mg Albuterol Sulfate (Albuterol 2.5 Mg/3 Ml Neb Carole[place]) 2.5 mg NEB Q6HP PRN PRN Reason: SHORTNESS OF BREATH Amiodarone HCl (Amiodarone Hcl 200 Mg Tab) 200 mg PO BID [facility] Last Admin: 08/13/23 09:30 Dose: 200 mg Apixaban (Apixaban 2.5 Mg Tablet) 2.5 mg PO BID [facility] Last Admin: 08/13/23 09:30 Dose: 2.5 mg Arformoterol Tartrate (Arformoterol Tartrate 15 Mcg/2 Ml Vial.Neb) 15 mcg NEB BIDRESP [facility] Last Admin: 08/13/23 07:53 Dose: 15 mcg Furosemide (Furosemide 40 Mg Tablet) 40 mg PO DAILY [facility] Last Admin: 08/13/23 09:29 Dose: 40 mg Home Med (Fluticasone/Vilanterol [Breo Ellipta 200-25 Mcg Inhalr]) 1 each IH Q8H PRN PRN Reason: SHORTNESS OF BREATH Meropenem 1,000 mg/ Sodium (Chloride) 100 mls @ 200 mls/hr IV Q12HR [facility] Last Admin: 08/13/23 09:28 Dose: 100 mls Ipratropium [place] (Ipratropium Brom 0.5mg/2.5ml) 0.5 mg NEB [id number] [facility] Last Admin: 08/13/23 07:53 Dose: 0.5 mg Mupirocin (Mupirocin Nasal 2 Appl/1 Gm Tube) 1 appl HUMZA BID [facility] Stop: 08/16/23 09:01 Last Admin: 08/13/23 09:30 Dose: 1 appl Prednisone (Prednisone 10 Mg Tab) 10 mg PO DAILY [facility] Last Admin: 08/13/23 09:30 Dose: 10 mg Roflumilast (Roflumilast 500 Mcg Tablet) 500 mcg PO DAILY [facility] Last Admin: 08/13/23 09:29 Dose: 500 mcg Sildenafil Citrate (Sildenafil Citrate 20 Mg Tablet) 20 mg PO DAILY [facility] Last Admin: 08/13/23 09:28 Dose: 20 mg Spironolactone (Spironolactone 25 Mg Tablet) 25 mg PO DAILY [facility] Last Admin: 08/13/23 09:29 Dose: 25 mg Trazodone HCl (Trazodone 50 Mg Tablet) 25 mg PO BEDTIME [facility] Last Admin: 08/12/23 19:23 Dose: 25 mg Lab Results (last 24 hrs) 08/13/23 04:57: Sodium 136, Potassium 3.8, Chloride 101, Carbon Dioxide 34 H, Anion Gap 4.8 L, BUN 37 H, Creatinine 1.55 H, Est GFR (CKD-EPI) 35 L, Glucose 99, Calcium 8.2 L, Magnesium 1.9 Microbiology Results 08/05/23 15:20 Clean Catch Urine [place] Count - Final >100,000 CFU/ML. 08/05/23 15:20 Clean Catch Urine - Final Citrobacter Freundii Complex Proteus Mirabilis Esbl Enterococcus Faecalis Assessment/ Plan: Nephrology Dyspnea improved No chest pain No acute events overnight Vitals, medications, blood work and imaging reviewed in the chart General: Oriented x3, Cooperative HEENT: Atraumatic Neck: Supple Respiratory: Diminished Cardiovascular: Regular rate/rhythm, Edema Gastrointestinal: Non-distended Musculoskeletal: No clubbing, No contractures Integumentary: No rashes, No cyanosis Neurological: Normal speech Laboratory Data (last 24 hrs) 08/12/23 08/12/23 05:59 05:59 WBC 9.50 Hgb 8.1 L Hct 25.7 L Plt Count 185 Sodium 135 L Potassium 4.1 BUN 43 H Creatinine 1.47 H Glucose 94 Magnesium 2.0 Imagings Data: [id number] EXAM DESCRIPTION: RAD - Chest Single View - 08/11/2023 9:21 pm CLINICAL HISTORY: Device placement PICC line placement IMPRESSION: PICC line with its tip in the superior vena cava [id number] EXAM DESCRIPTION: RAD - Chest Single View - 08/09/2023 3:15 pm CLINICAL HISTORY: Follow-up CHF COMPARISON: Chest Single View dated 08/03/2023; Chest Single View dated 06/28/2023; Chest Single View dated 06/25/2023; Chest Single View dated FINDINGS: Lines: None. Lungs: Diffuse prominence of the pulmonary interstitium with marginal improvement compared with 08/03/2023. Pleural: Small pleural effusions are present . Cardiac: Cardiomegaly. Mediastinum: Within normal limits. Bones: No acute fractures. Other: None IMPRESSION: Marginal improvement in pulmonary edema/congestive heart failure. Conclusions/Impression: Stage I PATRIZIA likely CRS CKD III -No NSAIDs -Continue diuresis Hyponatremia -Continue furosemide Metabolic Alkalosis -Continue Diamox Chronic Hypotension -Midodrine prn Acute/ Chronic hypercapnic & hypoxemic respiratory failure/ COPD Exacerbation Diastolic CHF, A/C Pulmonary HTN -Continue furosemide and spironolactone -Continue prednisone -Pulmonary following Anemia in chronic illness -Monitor H&H -Check anemia labs Acute Cystitis -Continue Abx Case reviewed with Dr. Donaldson
[2023-08-13 11:19] LABS: Ferritin 61.5 ng/mL (8-388)
[2023-08-14 01:42] VITALS: O2SAT 95
[2023-08-14 05:33] LABS: Hematocrit 26.3 % (36.0-45.0); Lymphocytes % 21.9 % (15.3-44.8); MCV 81.7 fL (80-100); MPV 9.5 fL (7.6-11.3); Platelets 176 thou/uL (152-406); RBC Red Blood Cell Count 3.22 M/uL (3.86-4.86)
[2023-08-14 05:54] LABS: Albumin 2.1 g/dL (3.4-5.0); Bilirubin Total 0.4 mg/dL (0.2-1.0); Potassium 3.9 mEq/L (3.5-5.1); Protein, Total 5.2 g/dL (6.4-8.2); Uric Acid 8.5 mg/dL (2.6-6.0)
--- NOTE | 2023-08-14 08:55 | P.PN ---
Date of Service: 08/14/23 Chief Complaint: respiratory failure Subjective: In no apparent distress. No acute events overnight. + shortness of breath on exertion. No new or worsening complaints at this time. Pending inpatient rehab. Physical Examination Temp Pulse Resp BP Pulse Ox 97.1 F 101 H 18 100/55 L 96 08/14/23 04:00 08/14/23 04:00 08/14/23 04:00 08/14/23 04:00 08/14/23 04:00 General: In no apparent distress, Oriented x3. HEENT: Atraumatic, Normocephalic Respiratory: Expiratory wheezing noted. Diminished at bases. Unlabored respirations on 3L nasal cannula. Cardiovascular: Regular rate and rhythm. BLE edema 1+. Gastrointestinal: Normal bowel sounds. Nondistended. Nontender. Integumentary: sacrum pressure injury stage I. Erythema under breasts and abdominal folds Laboratory Data - Reviewed Microbiology Data - Reviewed Imagings Data: - Reviewed Medications List: Acetaminophen (Acetaminophen 325 Mg Tablet) 650 mg PO Q6H PRN PRN Reason: Pain scale 2-4 (Mild) Last Admin: 08/06/23 10:09 Dose: 650 mg Acetazolamide (Acetazolamide 250 Mg Tab) 250 mg PO DAILY [facility] Last Admin: 08/13/23 09:29 Dose: 250 mg Albuterol Sulfate (Albuterol 2.5 Mg/3 Ml Neb Carolee) 2.5 mg NEB Q6HP PRN PRN Reason: SHORTNESS OF BREATH Amiodarone HCl (Amiodarone Hcl 200 Mg Tab) 200 mg PO BID [facility] Last Admin: 08/13/23 21:18 Dose: 200 mg Apixaban (Apixaban 2.5 Mg Tablet) 2.5 mg PO BID [facility] Last Admin: 08/13/23 21:18 Dose: 2.5 mg Arformoterol Tartrate (Arformoterol Tartrate 15 Mcg/2 Ml Vial.Neb) 15 mcg NEB BIDRESP [facility] Last Admin: 08/14/23 07:35 Dose: 15 mcg Furosemide (Furosemide 40 Mg Tablet) 40 mg PO DAILY [facility] Last Admin: 08/13/23 09:29 Dose: 40 mg Home Med (Fluticasone/Vilanterol [Breo Ellipta 200-25 Mcg Inhalr]) 1 each IH Q8H PRN PRN Reason: SHORTNESS OF BREATH Meropenem 1,000 mg/ Sodium (Chloride) 100 mls @ 200 mls/hr IV Q12HR [facility] Last Admin: 08/13/23 21:18 Dose: 100 mls Ipratropium [place] (Ipratropium Brom 0.5mg/2.5ml) 0.5 mg NEB [id number] [facility] Last Admin: 08/14/23 07:35 Dose: 0.5 mg Mupirocin (Mupirocin Nasal 2 Appl/1 Gm Tube) 1 appl HUMZA BID [facility] Stop: 08/16/23 09:01 Last Admin: 08/13/23 21:18 Dose: 1 appl Potassium Chloride (Potassium Cl Sa 10 Meq Tab) 20 meq PO 1X ONE Stop: 08/14/23 09:01 Prednisone (Prednisone 10 Mg Tab) 10 mg PO DAILY [facility] Last Admin: 08/13/23 09:30 Dose: 10 mg Roflumilast (Roflumilast 500 Mcg Tablet) 500 mcg PO DAILY [facility] Last Admin: 08/13/23 09:29 Dose: 500 mcg Sildenafil Citrate (Sildenafil Citrate 20 Mg Tablet) 20 mg PO DAILY [facility] Last Admin: 08/13/23 09:28 Dose: 20 mg Spironolactone (Spironolactone 25 Mg Tablet) 25 mg PO DAILY [facility] Last Admin: 08/13/23 09:29 Dose: 25 mg Trazodone HCl (Trazodone 50 Mg Tablet) 25 mg PO BEDTIME [facility] Last Admin: 08/13/23 21:18 Dose: 25 mg Assessment and Plan Problem List Acute Cystitis Acute respiratory failure with hypercapnia and hypoxemia COPD exacerbation Acute diastolic heart failure Atrial Fibrillation Hyperlipidemia Acute Cystitis - Urine culture 08/05: Citrobacter freundii , Proteus mirabilis ESBL, Enterococc us faecalis - On meropenem (started 08/09) - improving. Denies any urinary symptoms. - Afebrile. no leukocytosis. no elevated neutrophils. Recommendations - UTI: Continue meropenem for 10 days (08/09-08/18). - Monitor WBC and fever trends - Pressure offloading measures - Keep area under breasts and abdominal folds clean and dry. - physical therapy - Continue supportive care Case discussed with Rachel Burgos
[2023-08-14] MEDS: POTASSIUM CL SA 10 MEQ TAB PO ONE (09:36)
--- NOTE | 2023-08-14 10:56 | P.DS ---
Admission Date: 08/05/23 Discharge Date: 08/14/23 Disposition: TRANSFER TO SNF - REHAB Reason for Admission: respiratory failure Consultations: Pulmonology - Dr. Liset DIEGO - Dr. Kowalski Nephrology - Dr. Oneil Brief History of Present Illness: 72yo F, PMH: COPD, hypertension, hyperlipidemia, chronic atrial fibrillation Patient who was previously admitted to the hospital 06/21/2023 with acute hypercapnic hypoxemic respiratory failure due to acute diastolic congestive heart failure and acute COPD exacerbation. [place]shine was discharged to SNF after a month long stay in the hospital but was transferred to inpatient rehab on fifth floor due to declining status. This morning ABG showing hypercapnia and hypoxemia requiring BiPAP. Dr. Sands was consulted for admission. Hospital Course: Problem List: Acute hypercanpic and hypoxemic respiratory failure secondary to acute diastolic CHF / acute COPD exacerbation / obesity hypoventilation syndrome Metabolic encephalopathy Pulmonary Hypertension Acute cystitis without hematuria Chronic atrial fibrillation, on anticoagulation Chronic hypotension Hyperlipidemia Impaired mobility/Morbid obesity Patient admitted to medical floor from 5th floor acute inpatient rehab due to worsening shortness of breath. ABG on admission demonstrated hypercapnia and hypoxemia. Patient was placed on BiPAP for CO2 retention / obesity hypoventilation and had some improvement of her symptoms. She also received bronchodilators, steroids, diamox, daliresp while hospitalized. Repeat CXR demonstrated improvement of pulm edema. Patient was feeling better, breathing improved, afebrile > 48 hours and was deemed stable for discharge back to inpatient rehab where she can continue to work on strength / endurance to return to prior level of function before returning home. Patient was approved for home NIV and is to be delivered to patients home at time of discharge. Urine culture while in rehab on 07/31/23 noted to grow Citrobacter Freundii complex. Urine culture after admission 08/05/23 noted to grow multiple organisms - citrobacter freundii complex, protesu mirabilis Esbl, Enterococcus Faecalis. ID was consulted for antibiotic assistance. Patient was started on IV meropenem monotherapy and had improvement of her symptoms. Patient has been afebrile throughout hospitalization. Leukocytosis resolved. PICC line was placed 08/11 for continued IV antibiotics on discharge. Patient is to complete 4 more days IV meropenem for total of 10 days of IV meropenem. Iron studies this hospitalization consistent with iron deficiency anemia. (Iron: 18, Transferrin%: 7.3). Patient reports being told she was anemic in the past hasn't been told to take iron in the past. Hgb remained stable throughout hospitalization. Recommend to start oral iron supplementation on discharge. Advised to repeat blood work in a few months to check iron levels. She was noted to have borderline low blood pressure readings after diuresis. She was was also noted to have been recently prescribed Midodrine on discharge ~1 month prior to this hospitalization, however was not on admission med list. Blood pressures remain in low-normal range for several days and midodrine was not restarted, however if blood pressures decrease, may warrant restarting on midodrine. Recommend to continue to monitor while at rehab and a blood pressure diary once home. Medications: IV meropenem 4 more days (End Date: 08/18/23) to complete 10 day course Iron tablets (over the counter) 4 more days of prednisone Daliresp as recommended by Dr. Hutchins continue other home meds as previously prescribed. Follow up: PCP 3-5 days Pulmonology 1-2 weeks. Nephrology in ~2-3 weeks Physical Exam: GEN: Alert, orientedx2, NAD HEENT: Normal conjunctiva, sclera anicteric CV: Regular rate and rhythm, no edema Pulm: Nonlabored respirations on 3L NC, diminished at bases b/l ABD: Soft, nontender, nondistended Neuro: Normal speech, normal affect Vital Signs/Physical Exam: Temp Pulse Resp BP Pulse Ox 98.1 F 116 H 20 121/57 L 95 08/14/23 08:00 08/14/23 08:00 08/14/23 08:00 08/14/23 08:00 08/14/23 08:00 Laboratory Data at Discharge: WBC 8.90 thou/uL (4.3-10.9) 08/14/23 05:20 Hgb 8.2 g/dL (12.0-15.0) L 08/14/23 05:20 Hct 26.3 % (36.0-45.0) L 08/14/23 05:20 Plt Count 176 thou/uL (152-406) 08/14/23 05:20 Sodium 138 mEq/L (136-145) 08/14/23 05:20 Potassium 3.9 mEq/L (3.5-5.1) 08/14/23 05:20 BUN 37 mg/dL (7-18) H 08/14/23 05:20 Creatinine 1.51 mg/dL (0.55-1.02) H 08/14/23 05:20 Glucose 87 mg/dL (74-106) 08/14/23 05:20 Uric Acid 8.5 mg/dL (2.6-6.0) H 08/14/23 05:20 Phosphorus 3.5 mg/dL (2.5-4.9) 08/06/23 04:59 Magnesium 1.9 mg/dL (1.6-2.4) 08/13/23 04:57 Total Bilirubin 0.4 mg/dL (0.2-1.0) 08/14/23 05:20 AST 18 U/L (15-37) 08/14/23 05:20 ALT 29 U/L (13-56) 08/14/23 05:20 Alkaline Phosphatase 70 U/L (45-117) 08/14/23 05:20 Home Medications: Albuterol Neb [Proventil 0.083% Neb Soln] 2.5 mg IH Q6H PRN 09/13/17 Fluticasone/Vilanterol [Breo Ellipta 200-25 Mcg Inhalr] 1 each IH Q8H PRN 09/13/17 Apixaban [Eliquis *] 2.5 mg PO BID 10/02/19 Amiodarone HCl [Pacerone] 200 mg PO BID 30 Days #60 tab 09/02/22 Torsemide 10 mg PO DAILY 03/23/23 acetaZOLAMIDE [Diamox*] 250 mg PO BID tab 06/29/23 Acetaminophen [Tylenol] 650 mg PO Q6H PRN 08/01/23 Spironolactone [Aldactone*] 25 mg PO DAILY 08/01/23 Trazodone [Desyrel*] 25 mg PO BEDTIME 08/01/23 Sildenafil Citrate 20 mg PO BID 30 Days #60 tab 08/07/23 Ferrous Sulfate 325 mg PO DAILY 30 Days #30 tab 08/14/23 Roflumilast [Daliresp*] 500 mcg PO DAILY 08/14/23 predniSONE [Deltasone*] 10 mg PO DAILY 4 Days tab 08/14/23 New Medications: Ferrous Sulfate 325 mg PO DAILY 30 Days #30 tab Sildenafil Citrate 20 mg PO BID 30 Days #60 tab Physician Discharge Instructions: Patient admitted to medical floor from 5th floor acute inpatient rehab due to worsening shortness of breath. ABG on admission demonstrated hypercapnia and hypoxemia. Patient was placed on BiPAP for CO2 retention / obesity hypoventilation and had some improvement of her symptoms. She also received bronchodilators, steroids, diamox, daliresp while hospitalized. Repeat CXR demonstrated improvement of pulm edema. Patient was feeling better, breathing improved, afebrile > 48 hours and was deemed stable for discharge back to inpatient rehab where she can continue to work on strength / endurance to return to prior level of function before returning home. Patient was approved for home NIV and is to be delivered to patients home at time of discharge. Urine culture while in rehab on 07/31/23 noted to grow Citrobacter Freundii complex. Urine culture after admission 08/05/23 noted to grow multiple organisms - citrobacter freundii complex, protesu mirabilis Esbl, Enterococcus Faecalis. ID was consulted for antibiotic assistance. Patient was started on IV meropenem monotherapy and had improvement of her symptoms. Patient has been afebrile throughout hospitalization. Leukocytosis resolved. PICC line was placed 08/11 for continued IV antibiotics on discharge. Patient is to complete 4 more days IV meropenem for total of 10 days of IV meropenem. Iron studies this hospitalization consistent with iron deficiency anemia. (Iron: 18, Transferrin%: 7.3). Patient reports being told she was anemic in the past hasn't been told to take iron in the past. Hgb remained stable throughout hospitalization. Recommend to start oral iron supplementation on discharge. Advised to repeat blood work in a few months to check iron levels. She was noted to have borderline low blood pressure readings after diuresis. She was was also noted to have been recently prescribed Midodrine on discharge ~1 month prior to this hospitalization, however was not on admission med list. Blood pressures remain in low-normal range for several days and midodrine was not restarted, however if blood pressures decrease, may warrant restarting on midodrine. Recommend to continue to monitor while at rehab and a blood pressure diary once home. Medications: IV meropenem 4 more days (End Date: 08/18/23) to complete 10 day course Iron tablets (over the counter) 4 more days of prednisone Daliresp as recommended by Dr. Hutchins continue other home meds as previously prescribed. Follow up: PCP 3-5 days Pulmonology 1-2 weeks. Nephrology in ~2-3 weeks Followup: Oscar Hutchins MD [ACTIVE - CAN ADMIT] - 1-2 Weeks Remberto Oneil DO [ACTIVE - CAN ADMIT] - (F/U in 2-3 weeks) Time spent managing pt's care (in minutes): 45
--- NOTE | 2023-08-14 11:11 | P.PN ---
Date of Service: 08/14/23 Vital Signs Temp Pulse Resp BP Pulse Ox 98.1 F 116 H 20 121/57 L 95 08/14/23 08:00 08/14/23 08:00 08/14/23 08:00 08/14/23 08:00 08/14/23 08:00 Medications Acetaminophen (Acetaminophen 325 Mg Tablet) 650 mg PO Q6H PRN PRN Reason: Pain scale 2-4 (Mild) Last Admin: 08/06/23 10:09 Dose: 650 mg Acetazolamide (Acetazolamide 250 Mg Tab) 250 mg PO DAILY [facility] Last Admin: 08/14/23 09:37 Dose: 250 mg Albuterol Sulfate (Albuterol 2.5 Mg/3 Ml Neb Carolee) 2.5 mg NEB Q6HP PRN PRN Reason: SHORTNESS OF BREATH Amiodarone HCl (Amiodarone Hcl 200 Mg Tab) 200 mg PO BID [facility] Last Admin: 08/14/23 09:37 Dose: 200 mg Apixaban (Apixaban 2.5 Mg Tablet) 2.5 mg PO BID [facility] Last Admin: 08/14/23 09:37 Dose: 2.5 mg Arformoterol Tartrate (Arformoterol Tartrate 15 Mcg/2 Ml Vial.Neb) 15 mcg NEB BIDRESP [facility] Last Admin: 08/14/23 07:35 Dose: 15 mcg Furosemide (Furosemide 40 Mg Tablet) 40 mg PO DAILY [facility] Last Admin: 08/14/23 09:37 Dose: 40 mg Home Med (Fluticasone/Vilanterol [Breo Ellipta 200-25 Mcg Inhalr]) 1 each IH Q8H PRN PRN Reason: SHORTNESS OF BREATH Meropenem 1,000 mg/ Sodium (Chloride) 100 mls @ 200 mls/hr IV Q12HR [facility] Last Admin: 08/14/23 09:36 Dose: 100 mls Ipratropium Spencer (Ipratropium Brom 0.5mg/2.5ml) 0.5 mg NEB [id number] [facility] Last Admin: 08/14/23 07:35 Dose: 0.5 mg Mupirocin (Mupirocin Nasal 2 Appl/1 Gm Tube) 1 appl HUMZA BID [facility] Stop: 08/16/23 09:01 Last Admin: 08/14/23 09:36 Dose: 1 appl Prednisone (Prednisone 10 Mg Tab) 10 mg PO DAILY [facility] Last Admin: 08/14/23 09:37 Dose: 10 mg Roflumilast (Roflumilast 500 Mcg Tablet) 500 mcg PO DAILY [facility] Last Admin: 08/14/23 09:37 Dose: 500 mcg Sildenafil Citrate (Sildenafil Citrate 20 Mg Tablet) 20 mg PO DAILY [facility] Last Admin: 08/14/23 09:36 Dose: 20 mg Spironolactone (Spironolactone 25 Mg Tablet) 25 mg PO DAILY [facility] Last Admin: 08/14/23 09:37 Dose: 25 mg Trazodone HCl (Trazodone 50 Mg Tablet) 25 mg PO BEDTIME [facility] Last Admin: 08/13/23 21:18 Dose: 25 mg Lab Results (last 24 hrs) 08/14/23 05:20: Sodium 138, Potassium 3.9, Chloride 102, Carbon Dioxide 35 H, Anion Gap 4.9 L, BUN 37 H, Creatinine 1.51 H, Est GFR (CKD-EPI) 36 L, Glucose 87, Uric Acid 8.5 H, Calcium 8.2 L, Total Bilirubin 0.4, AST 18, ALT 29, Alkaline Phosphatase 70, Serum Total Protein 5.2 L, Albumin 2.1 L, Globulin 3.1, Albumin/Globulin Ratio 0.7 L 08/14/23 05:20: WBC 8.90, RBC 3.22 L, Hgb 8.2 L, Hct 26.3 L, MCV 81.7, MCH 25.5 L, MCHC 31.2 L, RDW 18.6 H, Plt Count 176, MPV 9.5, Neutrophils % 69.8, Lymphocytes % 21.9, Monocytes % 7.7, Eosinophils % 0.4, Basophils % 0.2, Absolute Neutrophils 6.2, Absolute Lymphocytes 2.0, Absolute Monocytes 0.7, Absolute Eosinophils 0.0, Absolute Basophils 0.0 08/13/23 04:57: Iron 18.0 L, TIBC 246 L, Transferrin 176 L, Transferrin % Sat 7.3 L, Ferritin 61.5, Vitamin B12 336 Microbiology Results 08/05/23 15:20 Clean Catch Urine [place] Count - Final >100,000 CFU/ML. 08/05/23 15:20 Clean Catch Urine - Final Citrobacter Freundii Complex Proteus Mirabilis Esbl Enterococcus Faecalis Assessment/ Plan: Nephrology Dyspnea improved No chest pain Poor sleep overnight +Appetite No acute events overnight Vitals, medications, blood work and imaging reviewed in the chart General: Oriented x3, Cooperative HEENT: Atraumatic Neck: Supple Respiratory: Diminished Cardiovascular: Regular rate/rhythm, Edema Gastrointestinal: Non-distended Musculoskeletal: No clubbing, No contractures Integumentary: No rashes, No cyanosis Neurological: Normal speech Laboratory Data (last 24 hrs) 08/12/23 08/12/23 05:59 05:59 WBC 9.50 Hgb 8.1 L Hct 25.7 L Plt Count 185 Sodium 135 L Potassium 4.1 BUN 43 H Creatinine 1.47 H Glucose 94 Magnesium 2.0 Imagings Data: [id number] EXAM DESCRIPTION: RAD - Chest Single View - 08/11/2023 9:21 pm CLINICAL HISTORY: Device placement PICC line placement IMPRESSION: PICC line with its tip in the superior vena cava [id number] EXAM DESCRIPTION: RAD - Chest Single View - 08/09/2023 3:15 pm CLINICAL HISTORY: Follow-up CHF COMPARISON: Chest Single View dated 08/03/2023; Chest Single View dated 06/28/2023; Chest Single View dated 06/25/2023; Chest Single View dated 06/22/2023 FINDINGS: Lines: None. Lungs: Diffuse prominence of the pulmonary interstitium with marginal improvement compared with 08/03/2023. Pleural: Small pleural effusions are present . Cardiac: Cardiomegaly. Mediastinum: Within normal limits. Bones: No acute fractures. Other: None IMPRESSION: Marginal improvement in pulmonary edema/congestive heart failure. Conclusions/Impression: Stage I PATRIZIA likely CRS CKD III -No NSAIDs -Continue diuresis Hyponatremia -Continue furosemide Metabolic Alkalosis -Continue Diamox Chronic Hypotension -Midodrine prn Acute/ Chronic hypercapnic & hypoxemic respiratory failure/ COPD Exacerbation Diastolic CHF, A/C Pulmonary HTN -Continue furosemide and spironolactone -Continue prednisone -Pulmonary following Anemia in chronic illness -Monitor H&H -Check anemia labs Acute Cystitis -Continue Abx Hospitalist and ID notes reviewed
[2023-08-14 12:57] VITALS: BP 96/54; TEMP 97
== END 2023-08-14 15:02 | DRG 291 ==
LOC: 4TH 08:30
PROVIDERS: ADMIT Internal Medicine; ATTEND Hospitalist
PROC: 5A09557 Assistance with Respiratory Ventilation, Greater than 96 Consecutive Hours, Continuous Positive Airway Pressure (ICD-10-PCS; principal; 2023-08-05)
PROC: 02HV33Z Insertion of Infusion Device into Superior Vena Cava, Percutaneous Approach (ICD-10-PCS; 2023-08-11)
DX: I13.0 Hypertensive heart and chronic kidney disease with heart failure and stage 1 through stage 4 chronic kidney disease, or unspecified chronic kidney disease (principal); G93.41 Metabolic encephalopathy; I50.31 Acute diastolic (congestive) heart failure; J96.01 Acute respiratory failure with hypoxia; J96.02 Acute respiratory failure with hypercapnia; I48.20 Chronic atrial fibrillation, unspecified; J44.1 Chronic obstructive pulmonary disease with (acute) exacerbation; Z68.41 Body mass index [BMI] 40.0-44.9, adult; E66.2 Morbid (severe) obesity with alveolar hypoventilation; E87.3 Alkalosis; N30.00 Acute cystitis without hematuria; Z16.12 Extended spectrum beta lactamase (ESBL) resistance; N17.9 Acute kidney failure, unspecified; E87.1 Hypo-osmolality and hyponatremia; N18.30 Chronic kidney disease, stage 3 unspecified; D63.1 Anemia in chronic kidney disease; D50.9 Iron deficiency anemia, unspecified; E78.5 Hyperlipidemia, unspecified; I87.8 Other specified disorders of veins; I87.2 Venous insufficiency (chronic) (peripheral); I95.89 Other hypotension; I27.20 Pulmonary hypertension, unspecified; F17.200 Nicotine dependence, unspecified, uncomplicated; B95.2 Enterococcus as the cause of diseases classified elsewhere; B96.4 Proteus (mirabilis) (morganii) as the cause of diseases classified elsewhere; B96.89 Other specified bacterial agents as the cause of diseases classified elsewhere; Z88.0 Allergy status to penicillin; Z60.2 Problems related to living alone; Z88.5 Allergy status to narcotic agent; Z98.51 Tubal ligation status; Z79.52 Long term (current) use of systemic steroids; Z90.49 Acquired absence of other specified parts of digestive tract; Z79.01 Long term (current) use of anticoagulants; Z91.013 Allergy to seafood; Z79.899 Other long term (current) drug therapy; Z96.641 Presence of right artificial hip joint
CPT/HCPCS: 36415; 36600; 71045; 80048; 80053; 81001; 82607; 82728; 82805; 83540; 83735; 84100; 84132; 84466; 84550; 85025; 87077; 87086; 87088; 87186; 94660; 94760; 97110; 97116; 97161; 97165; 97530; J1940; J2185; J2930; J3475; J7050; J7512; J7605; J7644

== ENCOUNTER 2023-09-18 13:04 | Inpatient (IN) | payer OTHER ==
--- OUTSIDE RECORDS SUMMARY | 2023-09-18 13:07 | XMS REPORT | Continuity of Care Document ---
Author Name Unknown Address [address] [facility] [address] [place] [address] [facility] thconnect Address [address] [facility]. [address] [place] [address] Care Team Providers Care Fuel Pilot Engineer Name Role Phone Remberto Oneil DO Primary Care Physician [phone] FRANCISCO J FRANKS Attending Clinician UnavailFrancisco J Brown MD Attending Clinician [phone] Doctor Unassigned, Snelling Attending Clinician U navailable Only, Adc Test Attending Clinician Unavailable Pob, Adc Lab Main Attending Clinician UnavailFRANCISCO J Dave Admitting Clinician Unavailab robins Payers Payer Name Policy Type Policy Number Effective Date Expirati on Date Source [employer] MED[employer]ARE ADVANTAGE [id number] 2021 00:00:00 Allergies, Adverse Reactions, Alerts Allergy Name Allergy Type Status Severity Reaction(s) Onset Date Inactive Date Treating Clinician Comments Source CODEINE DRUG INGREDI Active N/V 12 00:00: 00 [facility] Codeine Drug Allergy Active Nausea and/or Vomiting 7-12 00:00: 00 [facility] Penicill ins Drug Allergy Active Itching 7-12 00:00: 00 [facility] PENICILL INS Drug Class Active ITCHING 7-12 00:00: 00 [facility] SULFA (SULFONA MIDE ANTIBIOT ICS) Drug Class Active High Rash 3-31 00:00: 00 [facility] Sulfa (Sulfona mide Antibiot ics) Drug Allergy Active Rash 09-27 00:00: 00 [facility] SHELLFIS H DERIVED DRUG INGREDI Active Hives 4- 00:00: 00 [facility] Shellfis h Derived Propensi ty to adverse reaction s Active Hives 4- 00:00: 00 [facility] NO KNOWN ALLERGIE S Drug Class Active [facility] Social History Social Habit Start Date Stop Date Quantity Comments Source History of tobacco use Cigarette Smoker [facility] Exposure to SARS-CoV-2 (event) 2022-01-01 00:00:00 2022-01-11 11:31:00 Not sure [facility] Tobacco use and exposure 2022-01-11 00:00:00 2022-01-11 00:00:00 Smokeless tobacco non-user [facility] Sex Assigned At 1950 00:00:00 1950 00:00:00 [facility] Smoking Status Start Date Stop Date Source Tobacco smoking consumption unknown [facility] Smokes tobacco daily 2022-01-11 00:00:00 [facility] Medications Ordered Medication Name Filled Medication Name Start Date Stop Date Current Medication? Ordering Clinician Indication Dosage Frequency Signature (SIG) Comments Components Source neomycin-po lymyxin-dex amethasone (MAXITROL) 3.5 mg/g-10,000 unit/g-0.1 % ophthalmic ointment 01-16 16:11: 00 01-16 16:13 :38 No PRN, Starting on Fri01/16/22 at 1111, Until Fri01/16/22 at 1113, Routine, Intra-op [facility] ceFAZolin (ANCEF) injection 01-16 16:09: 00 01-16 16:13 :38 No PRN, Starting on Fri01/16/22 at 1109, Until Fri01/16/22 at 1113, CARLOS, Intra-op [facility] carbachoL (MIOSTAT) 0.01 % intraocular injection 01-16 16:09: 00 01-16 16:13 :38 No PRN, Starting on Fri01/16/22 at 1109, Until Fri01/16/22 at 1113, Routine, Intra-op [facility] sodium chloride (NS) injection 01-16 16:09: 00 01-16 19:50 :32 No PRN, Starting on Fri01/16/22 at 1109, Until Fri01/16/22 at 1450, Routine, Intra-op [facility] dexamethaso ne (DECADRON PHOSPHATE) injection 01-16 16:09: 00 01-16 19:50 :32 No PRN, Starting on Fri01/16/22 at 1109, Until Fri01/16/22 at 1450, Routine, Intra-op [facility] EPINEPHrine 1:1,000 (1 mg/mL) (ADRENALIN) injection 01-16 15:56: 00 01-16 16:13 :38 No PRN, Starting on Fri01/16/22 at 1056, Until Fri01/16/22 at 1113, Routine, Intra-op [facility] chondroitin sulf-sod hyaluronate (DUOVISC VISCO ELASTIC) intraocular injection 01-16 15:56: 00 01-16 16:13 :38 No PRN, Starting on Fri01/16/22 at 1056, Until Fri01/16/22 at 1113, Routine, Intra-op [facility] balanced salt irrig soln comb1 (BSS PLUS) ophthalmic solution 500 mL bag 01-16 15:56: 00 01-16 16:13 :38 No PRN, Starting on Fri01/16/22 at 1056, Until Fri01/16/22 at 1113, Routine, Intra-op [facility] water for irrigation irrigation solution 01-16 15:52: 00 01-16 16:13 :38 No PRN, Starting on Fri01/16/22 at 1052, Until Fri01/16/22 at 1113, Routine, Intra-op [facility] Hyaluronida se, Human Recomb. (HYLENEX) injection 01-16 15:49: 00 01-16 16:13 :38 No PRN, Starting on Fri01/16/22 at 1049, Until Fri01/16/22 at 1113, Routine, Intra-op [facility] eye block syringe 11 mL 01-16 15:49: 00 01-16 16:13 :38 No PRN, Starting on Fri01/16/22 at 1049, Until Fri01/16/22 at 1113, Intra-op [facility] cyclopent 1%-tropic 1%-phenyl 2.5%-ketor 0.5% (MYDRIATIC #5) ophthalmic solution syringe 0.5 mL 01-16 14:30: 00 01-16 14:33 :00 No .5mL 0.5 mL, Left Eye, ONCE, 1 dose, On Fri01/16/22 at 0930, Routine, DSU Pre-op [facility] lactated ringers IV infusion 1,000 mL 01-16 14:30: 00 01-16 14:33 :00 No 1000mL at 42 mL/hr, 1,000 mL, IV Infusion, ONCE, 1 dose, On Fri01/16/22 at 0930, Routine, DSU Pre-op [facility] acetaminoph en (TYLENOL ARTHRITIS PAIN) 650 mg CR tablet 01-16 12:45: 27 Yes 650mg Take 650 mg by mouth every 8 (eight) hours as needed for Pain. Takes at bedtime [facility] diphenhydrA MINE 25 mg tablet 01-16 12:45: 27 Yes 25mg Take 25 mg by mouth at bedtime. [facility] acetaminoph en (TYLENOL ARTHRITIS PAIN) 650 mg CR tablet 01-16 12:45: 27 Yes 650mg Take 650 mg by mouth every 8 (eight) hours as needed for Pain. Takes at bedtime [facility] diphenhydrA MINE 25 mg tablet 01-16 12:45: 27 Yes 25mg Take 25 mg by mouth at bedtime. [facility] acetaminoph en (TYLENOL ARTHRITIS PAIN) 650 mg CR tablet 01-11 11:25: 56 Yes 650mg Take 650 mg by mouth every 8 (eight) hours as needed for Pain. Takes at bedtime [facility] diphenhydrA MINE 25 mg tablet 01-11 11:25: 56 Yes 25mg Take 25 mg by mouth at bedtime. [facility] ELIQUIS 5 mg tablet 12-18 00:00: 00 Yes 5mg Take 5 mg by mouth 2 (two) times daily. [facility] ELIQUIS 5 mg tablet 12-18 00:00: 00 Yes 5mg Take 5 mg by mouth 2 (two) times daily. [facility] ELIQUIS 5 mg tablet 12-18 00:00: 00 Yes 5mg Take 5 mg by mouth 2 (two) times daily. [facility] BREO ELLIPTA 200-25 mcg/dose DsDv 12-04 00:00: 00 Yes 1{puff} Inhale 1 Puff daily. [facility] BREO ELLIPTA 200-25 mcg/dose DsDv 12-04 00:00: 00 Yes 1{puff} Inhale 1 Puff daily. [facility] BREO ELLIPTA 200-25 mcg/dose DsDv 12-04 00:00: 00 Yes 1{puff} Inhale 1 Puff daily. [facility] sotaloL 80 mg tablet 11-21 00:00: 00 Yes 80mg Take 80 mg by mouth in the morning and 80 mg in the evening. [facility] sotaloL 80 mg tablet 11-21 00:00: 00 Yes 80mg Take 80 mg by mouth in the morning and 80 mg in the evening. [facility] sotaloL 80 mg tablet 11-21 00:00: 00 Yes 80mg Take 80 mg by mouth in the morning and 80 mg in the evening. [facility] escitalopra m oxalate 5 mg tablet 424 00:00: 00 Yes 5mg Take 5 mg by mouth in the morning. [facility] escitalopra m oxalate 5 mg tablet 10-21 00:00: 00 Yes 5mg Take 5 mg by mouth in the morning. [facility] escitalopra m oxalate 5 mg tablet 24 00:00: 00 Yes 5mg Take 5 mg by mouth in the morning. [facility] spironolact one-hydroch lorothiazid e 25-25 mg per tablet 10-19 00:00: 00 Yes 1{tbl} Take 1 tablet by mouth every morning. [facility] spironolact one-hydroch lorothiazid e 25-25 mg per tablet 10-19 00:00: 00 Yes 1{tbl} Take 1 tablet by mouth every morning. [facility] spironolact one-hydroch lorothiazid e 25-25 mg per tablet 10-19 00:00: 00 Yes 1{tbl} Take 1 tablet by mouth every morning. [facility] albuterol 2.5 mg /3 mL (0.083 %) nebulizer solution 03-29 00:00: 00 03-30 04:59 :00 No 2.5mg Inhale 2.5 mg every 6 (six) hours as needed. [facility] albuterol 90 mcg/actuati on inhaler 03-29 00:00: 00 03-30 04:59 :00 No 2{puff} Inhale 2 Puffs every 6 (six) hours as needed. [facility] albuterol 2.5 mg /3 mL (0.083 %) nebulizer solution 03-29 00:00: 00 03-30 04:59 :00 No 2.5mg Inhale 2.5 mg every 6 (six) hours as needed. [facility] albuterol 90 mcg/actuati on inhaler 03-29 00:00: 03-30 04:59 :00 No 2{puff} Inhale 2 Puffs every 6 (six) hours as needed. [facility] albuterol 2.5 mg /3 mL (0.083 %) nebulizer solution 03-29 00:00: 00 03-30 04:59 :00 No 2.5mg Inhale 2.5 mg every 6 (six) hours as needed. [facility] albuterol 90 mcg/actuati on inhaler 03-29 00:00: 00 03-30 04:59 :00 No 2{puff} Inhale 2 Puffs every 6 (six) hours as needed. [facility] Vital Signs Vital Name Observation Time Observation Value Comments S ource Oxygen saturation in Arterial blood by Pulse oximetry 2022-01-16 14:30:00 96 /min [facility] Systolic blood pressure 2022-01-16 14:30:00 134 mm[Hg] [facility] Diastolic blood pressure 2022-01-16 14:30:00 60 mm[Hg] [facility] Heart rate 2022-01-16 14:30:00 61 /min [facility] Body temperature 2022-01-16 14:30:00 36.11 Sarah [facility] Respiratory rate 2022-01-16 14:30:00 18 /min [facility] Body height 2022-01-08 18:53:00 170.3 cm [facility] Body weight 2022-01-08 18:53:00 99.8 kg [facility] BMI 2022-01-08 18:53:00 34.41 kg/m2 [facility] Procedures Procedure Date / Time Performed Performing Clinician Source PHACOEMULSIFICATION OF CATARACT WITH INTRAOCULAR LENS IMPLANT 2022-01-16 15:39:00 Francisco J Franks [facility] DAY SURGERY - ADC 2022-01-16 05:01:00 Doctor Unassigned, Snelling [facility] Encounters Start Date/Time End Date/Time Encounter Type Admission Type Attending Clinicians Care Facility Care Department Encounter ID Source 2022-01-16 09:19:00 2022-01-16 11:51:00 Outpatient FRANCISCO J CAMARENA [facility] OPH [id number] [facility] 2022-01-16 10:06:00 2022-01-16 10:39:00 Surgery Francisco J Franks [facility] [id number] [facility] 2022-01-16 00:00:00 2022-01-16 00:00:00 Orders Only Doctor Unassigned, Snelling [facility] [id number] [facility] 2022-01-14 10:45:00 2022-01-14 11:00:00 Laboratory Only Only, Adc Test Francisco J Franks [facility] [id number] [facility] 2022-01-14 10:45:00 2022-01-14 10:45:00 Outpatient R FRANCISCO J FRANKS [facility] [id number] [facility] 2022-01-07 11:45:00 2022-01-07 12:00:00 Manager Integrated Visit Pob, Adc Lab Main [facility] [id number] [facility] 2022-01-07 11:45:00 2022-01-07 11:45:00 Outpatient R FRANCISCO J FRANKS [facility] [id number] [facility]
[2023-09-18 14:26] LABS: Specific Gravity 1.008 (1.005-1.030); Sqamous Epithelial <5 /HPF (None Seen); Urine Bacteria 20-50 /HPF (<20); Urine Bilirubin NEGATIVE (Negative); Urine Blood Trace (Negative); Urine Clarity Extremely Turbid (Clear); Urine Color Yellow (Yellow); Urine Culture Reflex Order REFLEXED; Urine Glucose NEGATIVE (Negative); Urine Ketones NEGATIVE (Negative); Urine Micro Reflex YN NO BILL MICROSCOPIC; Urine Mucus Slight /HPF (None Seen); Urine Nitrite NEGATIVE (Negative); Urine Protein NEGATIVE (Negative); Urine Urobilinogen Normal (Normal); Urine WBC >50 /HPF (<5); Urine WBC Clump Occasional /HPF (None Seen)
[2023-09-18 14:32] LABS: Absolute Lymphocytes (CBC) 1.9 K/uL (0.7-4.9); Absolute Monocytes 0.7 K/uL (0.1-1.3); Absolute Neutrophil 5.8 K/uL (1.8-8.0); Basophils % 0.2 % (0-1.3); Eosinophils % 0.4 % (0-4.4); Hematocrit 31.3 % (36.0-45.0); Hemoglobin 9.9 g/dL (12.0-15.0); Lymphocytes % 22.2 % (15.3-44.8); MCH 25.3 pg (27.0-35.0); MCHC 31.6 g/dL (32.0-36.0); MCV 80.2 fL (80-100); MPV 8.6 fL (7.6-11.3); Monocytes % 8.6 % (3.3-12.3); Neutrophils % 68.6 % (41.7-73.7); Nucleated Red Blood Cells % 0.1 % (0-0); Platelets 220 thou/uL (152-406); Red Cell Distribution Width 22.1 % (12.1-15.2)
[2023-09-18 14:34] LABS: PT Prothrombin Time 17.5 SECONDS (9.5-12.5); Protime INR 1.61
[2023-09-18 14:49] LABS: Albumin 2.2 g/dL (3.4-5.0); Albumin/Globulin Ratio 0.6 (1.1-1.8); Anion Gap 9.8 mEq/L (5.0-15.0); Bilirubin Direct 0.7 mg/dL (0-0.2); Bilirubin Indirect, Calculated 0.8 mg/dL (0.2-0.8); Bilirubin Total 1.5 mg/dL (0.2-1.0); Globulin 3.9 g/dL (2.3-3.5); Magnesium 1.4 mg/dL (1.6-2.4); Protein, Total 6.1 g/dL (6.4-8.2); Troponin High Sensitivity 42.4 pg/mL (<58.9)
[2023-09-18 14:51] LABS: Potassium 1.8 mEq/L (3.5-5.1)
[2023-09-18] MEDS ORDERED: POTASSIUM CL SA 10 MEQ TAB PO ONE (15:06)
[2023-09-18] MEDS ORDERED: Levofloxacin500mg IV 500 MG/100 ML BAG IV ONE (15:07)
[2023-09-18] MEDS ORDERED: NA CHLORIDE 0.9% 500 ML ONE (15:07)
[2023-09-18] MEDS ORDERED: KCL 20 MEQ/100 mL IVPB 100 ML IV ONE (15:07)
--- NOTE | 2023-09-18 15:24 | RAD REPORT ---
EXAM DESCRIPTION: CT - Abdomen Pelvis Wo Contrast - 09/18/2023 3:09 pm CLINICAL HISTORY: Abdominal pain COMPARISON: None TECHNIQUE: Computed axial tomography of the abdomen and pelvis was obtained. IV and oral contrast we re not requested. All CT scans are performed using dose optimization technique as appropriate and may include automated exposure control or mA/KV adjustment according to patient size. FINDINGS: The evaluation of solid organs, vessels and bowel is limited secondary to the lack of con trast administration. The liver, spleen, pancreas, adrenals and kidneys appear grossly normal. The appendix is not visualized. No secondary findings of appendicitis seen No adnexal mass Right hip arthroplasty IMPRESSION: No acute abnormality is displayed.
--- NOTE | 2023-09-18 15:30 | EDPHYS ---
Physician Documentation [facility] Name: Sunshine Meda Age: 73 yrs Sex: Female : 1950 Arrival Date: 09/18/2023 Time: 13:04 Bed 12 Private MD: ED Physician Jaspreet Leiva HPI: 09/17 13:52 This 73 yrs old Female presents to ER via Unassigned with complaints of abdominal pain, sp3 generalized weakness. 13:52 73-year-old female with a history of atrial fibrillation on Eliquis, COPD, sp3 hypertension, asthma now presents to the ED via EMS for chief complaint epigastric abdominal pain and generalized weakness for several days. Patient denies any other complaints including fever, URI symptoms, headache, neck pain, chest pain, back pain, dysuria, urinary frequency, known sick contacts, travel history, focal weakness, full syncope, or any other signs or symptoms on ROS at this time. Pain is described as coming and going in waves.. Historical: - Allergies: 14:03 Codeine; kd3 14:03 PENICILLINS; kd3 14:03 SHELLFISH; kd3 - PMHx: 14:03 Asthma; Hypertension; COPD; Atrial Fib; kd3 - Immunization history:: Adult Immunizations up to date. - Social history:: Smoking status: unknown. ROS: 13:53 Constitutional: Negative for fever, chills, and weight loss, Eyes: Negative for injury, sp3 pain, redness, and discharge, ENT: Negative for injury, pain, and discharge, Neck: Negative for injury, pain, and swelling, Cardiovascular: Negative for chest pain, palpitations, and edema, Respiratory: Negative for shortness of breath, cough, wheezing, and pleuritic chest pain, Back: Negative for injury and pain, MS/Extremity: Negative for injury and deformity, Skin: Negative for injury, rash, and discoloration, Neuro: Negative for headache, weakness, numbness, tingling, and seizure, Psych: Negative for depression, anxiety, suicide ideation, homicidal ideation, and hallucinations, Allergy/Immunology: Negative for hives, rash, and allergies, Endocrine: Negative for neck swelling, polydipsia, polyuria, polyphagia, and marked weight changes, Hematologic/Lymphatic: Negative for swollen nodes, abnormal bleeding, and unusual bruising, 13:53 All other systems are negative, Exam: 13:53 Constitutional: This is a well developed, well nourished patient who is awake, alert, sp3 and in no acute distress. Head/Face: Normocephalic, atraumatic. Eyes: Pupils equal round and reactive to light, extra-ocular motions intact. Lids and lashes normal. Conjunctiva and sclera are non-icteric and not injected. Cornea within normal limits. Periorbital areas with no swelling, redness, or edema. Neck: Trachea midline, no thyromegaly or masses palpated, and no cervical lymphadenopathy. Supple, full range of motion without nuchal rigidity, or vertebral point tenderness. No Meningismus. Chest/axilla: Normal chest wall appearance and motion. Nontender with no deformity. No lesions are appreciated. Cardiovascular: Regular rate and rhythm with a normal S1 and S2. No gallops, murmurs, or rubs. Normal PMI, no JVD. No pulse deficits. Respiratory: Lungs have equal breath sounds bilaterally, clear to auscultation and percussion. No rales, rhonchi or wheezes noted. No increased work of breathing, no retractions or nasal flaring. Back: No spinal tenderness. No costovertebral tenderness. Full range of motion. Skin: Warm, dry with normal turgor. Normal color with no rashes, no lesions, and no evidence of cellulitis. 13:56 Abdomen/GI: Mild pain to palpation diffusely in the abdomen without peritoneal signs, sp3 rebound or guarding., 13:57 ECG was reviewed by the Attending Physician. sp3 14:34 ECG was reviewed by the Attending Physician. EKG demonstrates atrial fibrillation at 96 sp3 bpm with right bundle branch block and nonspecific diffuse ST's ST changes without evidence of acute ischemia. Vital Signs: 13:01 BP 69 / 46; Pulse 109; Resp 15; Temp 97.9(O); Pulse Ox 88% on R/A; Weight 117.93 kg; kd3 Pain 4/10; 13:22 BP 108 / 96; Pulse 98; Resp 19; Pulse Ox 100% on 2 lpm NC; kd3 13:30 BP 88 / 44; Pulse 97; Resp 18; Pulse Ox 100% on 2 lpm NC; kd3 13:30 BP 97 / 79; Pulse 89; Resp 17; Pulse Ox 100% on 2 lpm NC; kd3 14:19 BP 92 / 80; Pulse 88; Resp 17; Pulse Ox 99% on 2 lpm NC; kd3 16:20 BP 108 / 70; Pulse 92; Resp 16; Pulse Ox 99% on 2 lpm NC; kd3 19:52 BP 101 / 60; Pulse 94; Resp 21; Pulse Ox 100% on 2 lpm NC; kd3 13:01 Pain Scale: Adult kd3 MDM: 13:14 Patient medically screened. sp3 13:57 Data reviewed: vital signs, nurses notes, lab test result(s), EKG, radiologic studies. sp3 13:58 ED course: 73-year-old female with PMH above with diffuse abdominal pain and near sp3 syncope type symptoms with generalized weakness. Differential diagnosis includes abdominal pathology including surgical the patient has a nonsurgical abdomen with no peritonitis. Other options include electrolyte abnormality, dehydration, ACS, infection, among others. Patient does not have SIRS criteria currently. Workup will include laboratory values, CT scan of the abdomen pelvis with IV contrast, urinalysis and general observation. EKG is also pending. Disposition pending workup and patient course.. 09/17 13:21 Order name: Basic Metabolic Panel; Complete Time: 15:22 sp3 09/17 13:21 Order name: CBC with Diff sp3 09/17 13:21 Order name: LFT's; Complete Time: 15:22 sp3 09/17 13:21 Order name: Magnesium; Complete Time: 15:22 sp3 09/17 13:21 Order name: NT PRO-BNP; Complete Time: 15:22 sp3 09/17 13:21 Order name: PT-INR; Complete Time: 14:51 sp3 09/17 13:21 Order name: Troponin HS; Complete Time: 15:22 sp3 09/17 13:21 Order name: Lipase; Complete Time: 15:22 sp3 09/17 13:21 Order name: UAM; Complete Time: 14:51 sp3 09/17 14:31 Order name: Urine Culture EDMS 09/17 19:26 Order name: CBC Smear Scan EDMS 09/17 20:00 Order name: Urinalysis w/ reflexes EDMS 09/17 20:00 Order name: CBC with Automated Diff EDMS 09/17 20:00 Order name: CBC with Automated Diff EDMS 09/17 20:00 Order name: CBC with Automated Diff EDMS 09/17 20:00 Order name: CBC with Automated Diff EDMS 09/17 20:00 Order name: Comprehensive Metabolic Panel EDMS 09/17 20:00 Order name: Comprehensive Metabolic Panel EDMS 09/17 20:00 Order name: Comprehensive Metabolic Panel EDMS 09/17 20:00 Order name: Comprehensive Metabolic Panel EDMS 09/17 20:00 Order name: Magnesium EDMS 09/17 20:00 Order name: Magnesium EDMS 09/17 20:00 Order name: Phosphorus EDMS 09/17 20:00 Order name: Phosphorus EDMS 09/17 20:01 Order name: Basic Metabolic Panel EDMS 09/17 13:21 Order name: XRAY Chest (1 view); Complete Time: 15:50 sp3 09/17 14:57 Order name: Abdomen ; Complete Time: 15:50 EDMS 09/17 13:21 Order name: EKG; Complete Time: 13:21 sp3 09/17 13:21 Order name: Cardiac monitoring; Complete Time: 14:09 sp3 09/17 13:21 Order name: EKG - Nurse/Tech; Complete Time: 14:09 sp3 09/17 13:21 Order name: IV Saline Lock; Complete Time: 14:09 sp3 09/17 13:21 Order name: Labs collected and sent; Complete Time: 14:09 sp3 09/17 13:21 Order name: O2 Per Protocol; Complete Time: 14:09 sp3 09/17 13:21 Order name: O2 Sat Monitoring; Complete Time: 14:09 sp3 Administered Medications: 15:26 Drug: Potassium Chloride IV 10 mEq IV at calculated rate once; administer over 1-2 kd3 hours Route: IV; Rate: calculated rate; Site: right antecubital; 19:52 Follow up: Response: No adverse reaction kd3 15:26 Drug: Potassium Chloride IV 10 mEq IV at calculated rate once; administer over 1-2 kd3 hours Route: IV; Rate: calculated rate; Site: right antecubital; 19:52 Follow up: Response: No adverse reaction kd3 15:27 Drug: levofloxacin IVPB 500 mg 100 ml IVPB once over 60 mins Volume: 100 ml; Route: kd3 IVPB; Infused Over: 60 mins; Site: right forearm; 19:52 Follow up: Response: No adverse reaction kd3 15:27 Drug: Potassium Chloride PO 40 mEq PO once Route: PO; kd3 19:52 Follow up: Response: No adverse reaction kd3 Disposition Summary: 09/18/23 15:29 Hospitalization Ordered Notes: Hospitalization Status: Inpatient Admission sp3 Provider: Conor Sands Location: Telemetry/MedSurg (Inpatient) sp3 Condition: Stable sp3 Problem: an acute exacerbation sp3 Symptoms: have worsened sp3 Bed/Room Type: Standard sp3 Room Assignment: 212(09/18/23 21:09) rv1 Diagnosis - UTI, hypokalemia, CHF sp3 Forms: - Medication Reconciliation Form sp3 - SBAR form sp3 - Leadership Thank You Letter sp3 Signatures: Dispatcher [employer] EDMS Jaspreet Leiva MD MD sp3 Judith Duckworth RN RN kd3 Nataly Londono rv1 Corrections: (The following items were deleted from the chart) 13:57 13:53 Constitutional: This is a well developed, well nourished patient who is awake, sp3 alert, and in no acute distress. Head/Face: Normocephalic, atraumatic. Eyes: Pupils equal round and reactive to light, extra-ocular motions intact. Lids and lashes normal. Conjunctiva and sclera are non-icteric and not injected. Cornea within normal limits. Periorbital areas with no swelling, redness, or edema. Neck: Trachea midline, no thyromegaly or masses palpated, and no cervical lymphadenopathy. Supple, full range of motion without nuchal rigidity, or vertebral point tenderness. No Meningismus. Chest/axilla: Normal chest wall appearance and motion. Nontender with no deformity. No lesions are appreciated. Cardiovascular: Regular rate and rhythm with a normal S1 and S2. No gallops, murmurs, or rubs. Normal PMI, no JVD. No pulse deficits. Respiratory: Lungs have equal breath sounds bilaterally, clear to auscultation and percussion. No rales, rhonchi or wheezes noted. No increased work of breathing, no retractions or nasal flaring. Back: No spinal tenderness. No costovertebral tenderness. Full range of motion. Skin: Warm, dry with normal turgor. Normal color with no rashes, no lesions, and no evidence of cellulitis. sp3 14:57 13:22 Abdomen Pelvis W Con+CT.RAD.BRZ ordered. EDMS EDMS 20:37 15:29 sp3 rv1 21:09 20:37 206 rv1 rv1
--- NOTE | 2023-09-18 15:30 | ER ---
Nurse's Notes [facility] Name: Sunshine Mead Age: 73 yrs Sex: Female : 1950 Arrival Date: 09/18/2023 Time: 13:04 Bed 12 Private MD: Diagnosis: UTI, hypokalemia, CHF Presentation: 09/17 13:01 Chief complaint: EMS states: Pt was picked up by EMS from her home, pt is cared for by 3 family members. EMS was toned out for dizziness and hypotensive. Pt has had fainting spells for 3 days. Pt is alert and oriented in the ER stretcher but is hard of hearing. Pt reports a 5/10 abdominal pain that has been going on for a few days as well as diarrhea. Pt is noted to be hypotensive on the monitor and saturating at 88% on room air. EMS reports that she is typically on 2 L nasal canula but they took it off of her because "it was making her dehydrated". Pt placed back on 2 L nasal canula and is now saturating 100%. IV fluids bloused with pressure bag and now has a BP of 108/96. Pt had a finger stick of 135 in route. 13:01 Coronavirus screen: unknown. Ebola Screen: No symptoms or risks identified at this kd3 time. Initial Sepsis Screen: Does the patient meet any 2 criteria? Systolic BP < 90 mmHg. HR > 90 bpm. Yes Does the patient have a suspected source of infection? No. Patient's initial sepsis screen is negative. Risk Assessment: Do you want to hurt yourself or someone else? Patient reports no desire to harm self or others. Onset of symptoms was September 15, 2023. 13:01 Method Of Arrival: EMS: [facility] kd3 13:01 Acuity: AZRA 3 kd3 Triage Assessment: 14:03 General: Appears uncomfortable, Behavior is calm, cooperative. Pain: Complains of pain kd3 in right lower quadrant. Historical: - Allergies: 14:03 Codeine; kd3 14:03 PENICILLINS; kd3 14:03 SHELLFISH; kd3 - PMHx: 14:03 Asthma; Hypertension; COPD; Atrial Fib; kd3 - Immunization history:: Adult Immunizations up to date. - Social history:: Smoking status: unknown. Screenin:21 Abuse screen: Denies threats or abuse. Denies injuries from another. kd3 19:51 [facility] ED Fall Risk Assessment (Adult) History of falling in the last 3 months, kd3 including since admission No falls in past 3 months (0 pts) Confusion or Disorientation No (0 pts) Intoxicated or Sedated No (0 pts) Impaired Gait Yes (1 pt) Mobility Assist Device Used Yes (1 pt) Altered Elimination Yes (1 pt) Score/Fall Risk Level 3 or more points = High Risk Maintained a safe environment, Educated pt \\T\\ family on fall prevention, incl call for assistance when getting out of bed, Assessed \\T\\ reinforced patient's understanding of fall precautions, Provided non-skid footwear, Hourly rounding (assess needs \\T\\ fall precautionary measures) done, Used ambulatory aids as needed (educated on \\T\\ assisted with). Nutritional screening: No deficits noted. Tuberculosis screening: No symptoms or risk factors identified. Assessment: 14:06 General: Appears uncomfortable, Behavior is calm, cooperative, Pt has redness to the kd3 sacral area and to the perineal area with 2 small spots of skin breakdown. PT's brief is clean and dry. Pt straight catheterized for urine. Pt urine is malodorous and cloudy. Pt provided warm blankets for comfort. . Neuro: Level of Consciousness is awake, alert, obeys commands, Oriented to person, place, time, situation. Respiratory: Airway is patent Trachea midline Respiratory effort is even, unlabored, Respiratory pattern is regular, symmetrical. 14:20 General: Pt blood work recollected and sent to the lab, new IV access in the right A/C. kd3 15:45 Reassessment: No changes from previously documented assessment. Patient and/or family kd3 updated on plan of care and expected duration. Pain level reassessed. Patient is alert, oriented x 3, equal unlabored respirations, skin warm/dry/pink. Patient states symptoms have improved. 16:50 Neuro: Level of Consciousness is awake, alert, obeys commands, Oriented to person, kd3 place, time, situation. Respiratory: Airway is patent Trachea midline Respiratory effort is even, unlabored, Respiratory pattern is regular, symmetrical. 18:00 Reassessment: No changes from previously documented assessment. Patient and/or family kd3 updated on plan of care and expected duration. Pain level reassessed. Patient is alert, oriented x 3, equal unlabored respirations, skin warm/dry/pink. Patient states symptoms have improved. General:. 19:48 General: Pt changed of incontinence, fresh sheets placed on the stretcher with warm kd3 blankets. Pt readjusted in the bed. . 21:46 General: Pt cleaned of incontinence, fresh brief placed on the patient. Pt provided kd3 with warm blankets. . Vital Signs: 13:01 BP 69 / 46; Pulse 109; Resp 15; Temp 97.9(O); Pulse Ox 88% on R/A; Weight 117.93 kg; kd3 Pain 4/10; 13:22 BP 108 / 96; Pulse 98; Resp 19; Pulse Ox 100% on 2 lpm NC; kd3 13:30 BP 88 / 44; Pulse 97; Resp 18; Pulse Ox 100% on 2 lpm NC; kd3 13:30 BP 97 / 79; Pulse 89; Resp 17; Pulse Ox 100% on 2 lpm NC; kd3 14:19 BP 92 / 80; Pulse 88; Resp 17; Pulse Ox 99% on 2 lpm NC; kd3 16:20 BP 108 / 70; Pulse 92; Resp 16; Pulse Ox 99% on 2 lpm NC; kd3 19:52 BP 101 / 60; Pulse 94; Resp 21; Pulse Ox 100% on 2 lpm NC; kd3 13:01 Pain Scale: Adult kd3 ED Course: 13:14 Patient arrived in ED. sp3 13:14 Jaspreet Leiva MD is Attending Physician. sp3 14:03 Triage completed. kd3 14:03 Arm band placed on right wrist. EKG completed in triage. Results shown to . kd3 14:04 Initial lab(s) drawn, by nm, sent to lab. Urine collected: straight cath specimen, kd3 cloudy, EKG done, by ED staff. 14:09 Basic Metabolic Panel Sent. kd3 14:09 CBC with Diff Sent. kd3 14:09 LFT's Sent. kd3 14:09 Magnesium Sent. kd3 14:09 NT PRO-BNP Sent. kd3 14:09 PT-INR Sent. kd3 14:09 Troponin HS Sent. kd3 14:09 UAM Sent. kd3 14:09 Lipase Sent. kd3 14:19 Judith Duckworth, RN is Primary Nurse. kd3 14:20 Lab(s) recollected. Inserted saline lock: 22 gauge in right antecubital area, using kd3 aseptic technique. Blood collected. 14:21 Maintain EMS IV. Dressing intact. Good blood return noted. Site clean \\T\\ dry. Gauge \\T\\ kd 3 site: 20 gauge right forearm . 14:35 XRAY Chest (1 view) In Process Unspecified. EDMS 14:51 Notified ED physician of a critical lab result(s). K+ 1.8. mb9 15:11 Abdomen In Process Unspecified. EDMS 15:29 Conor Sands is Hospitalizing Provider. sp3 19:50 No provider procedures requiring assistance completed. kd3 19:51 Patient has correct armband on for positive identification. kd3 19:55 Repositioned patient. Cleaned of incontinence. Linen changed. mb9 22:21 Patient admitted, IV remains in place. kd3 Administered Medications: 15:26 Drug: Potassium Chloride IV 10 mEq IV at calculated rate once; administer over 1-2 kd3 hours Route: IV; Rate: calculated rate; Site: right antecubital; 19:52 Follow up: Response: No adverse reaction kd3 15:26 Drug: Potassium Chloride IV 10 mEq IV at calculated rate once; administer over 1-2 kd3 hours Route: IV; Rate: calculated rate; Site: right antecubital; 19:52 Follow up: Response: No adverse reaction kd3 15:27 Drug: levofloxacin IVPB 500 mg 100 ml IVPB once over 60 mins Volume: 100 ml; Route: kd3 IVPB; Infused Over: 60 mins; Site: right forearm; 19:52 Follow up: Response: No adverse reaction kd3 15:27 Drug: Potassium Chloride PO 40 mEq PO once Route: PO; kd3 19:52 Follow up: Response: No adverse reaction kd3 Medication: 19:51 VIS not applicable for this client. kd3 Outcome: 15:29 Decision to Hospitalize by Provider. sp3 22:21 Admitted to Med/surg kd3 22:21 Condition: stable 22:21 Discharge instructions given to patient, Instructed on the need for admit, 22:21 Patient left the ED. kd3 Signatures: Dispatcher [employer] EDMS Jaspreet Leiva MD MD sp3 Judith Duckworth RN RN kd3 Breneman, Melissa, RN RN mb9
--- NOTE | 2023-09-18 15:44 | RAD REPORT ---
EXAM DESCRIPTION: Peter Single View09/18/2023 2:33 pm CLINICAL HISTORY: Syncope and hiatal tension COMPARISON: July 2023 FINDINGS: The lungs appear clear of acute infiltrate. The heart is mildly to moderately enlarged IMPRESSION: No acute abnormalities displayed
--- NOTE | 2023-09-18 15:50 | P.HP ---
Certification for Inpatient Patient admitted to: Inpatient With expected LOS: >2 Midnights Practitioner: I am a practitioner with admitting privileges, knowledge of patient current condition, hospital course, and medical plan of care. Services: Services provided to patient in accordance with Admission requirements found in Title 42 Section 412.3 of the Code of Federal Regulations Patient History Date of Service: 09/18/23 Reason for admission: severe hypokalemia, CHF History of Present Illness: Sunshine Mead is a 73 year old female with Pmhx Asthma; Hypertension; COPD; Atrial Fibrillation on Eliquis who presents to the ED with chief complaint of epigastric pain and generalized weakness for several days. She reports dizziness for the last few days and her legs gave out once this week, she fell and her son helped her get back in bed. She states she is unable to care for herself as her son works most of the day and night. She remains in the bed and is using a "diaper" instead of the bedside commode. She was found to have a UTI and severe hypokalemia. On examination, she is congested, crackles to bilateral lung stoddard, bottom teeth decaying, hypotensive, and dehydrated. She reports not drinking very much today. Potassium replacement began in the ED and she tolerated it well. Initial vitals BP 69 / 46; Pulse 109; Resp 15; Temp 97.9(O); Pulse Ox 88% on R/A. Laboratory evaluation BNP 10,233, troponin 42.4, potassium 1.8, BUN/creatinine 65/2.36, GFR 21, lipase 13, AST/ALT 63/82, TBili 1.5, Dbili 0.7. CT ab/pelvis reports "No acute abnormality is displayed." Sunshine will be admitted to hospitalist service for further evaluation and treatment of severe hypkalemia and CHF. Allergies Penicillins Allergy (Verified 09/04/18 00:53) Unknown codeine Adverse Reaction (Verified 10/02/19 01:03) Itching shellfish derived Adverse Reaction (Verified 09/04/18 00:53) Hives/Rash Home Medications: Albuterol Neb [Proventil 0.083% Neb Soln] 2.5 mg IH Q6H PRN 09/13/17 Fluticasone/Vilanterol [Breo Ellipta 200-25 Mcg Inhalr] 1 each IH Q8H PRN 09/13/17 Apixaban [Eliquis *] 2.5 mg PO BID 10/02/19 Amiodarone HCl [Pacerone] 200 mg PO BID 30 Days #60 tab 09/02/22 Torsemide 10 mg PO DAILY 03/23/23 Acetaminophen [Tylenol] 650 mg PO Q6H PRN 08/01/23 Spironolactone [Aldactone*] 25 mg PO DAILY 08/01/23 Trazodone [Desyrel*] 25 mg PO BEDTIME 08/01/23 Sildenafil Citrate 20 mg PO BID 30 Days #60 tab 08/07/23 Ferrous Sulfate 325 mg PO DAILY 30 Days #30 tab 08/14/23 Roflumilast [Daliresp*] 500 mcg PO DAILY 08/14/23 predniSONE [Deltasone*] 10 mg PO DAILY 4 Days tab 08/14/23 acetaZOLAMIDE [Diamox*] 250 mg PO DAILY 08/15/23 Acetaminophen [Tylenol*] 650 mg PO Q6H PRN tab 08/27/23 Cranberry Fruit Extract 200 mg PO BID cap 08/27/23 Docusate/Senna [Senokot-S*] 2 tab PO BID tab 08/27/23 Ensure High Protein 237 ml PO BID can 08/27/23 Ferrous Sulfate [Ferrous Sulfate*] 325 mg PO DAILY tab 08/27/23 Iron/FA/Vit B-Com W/C [Hemocyte Plus*] 1 tab PO DAILY WITH BREAKFAST #30 tab 08/27/23 Metoprolol Tartrate [Lopressor*] 12.5 mg PO [id number] #30 tab 08/27/23 Nystatin Powder [Mycostatin (Powder)*] 1 appl TOP BID #2 bottle 08/27/23 - Past Medical/Surgical History Diabetic: No -: Afib -: COPD -: Asthma -: Hypertension -: CKD (Dr. Oneil/ Dr. Callahan) -: choley -: appy -: R. hip replacement -: Tubal ligation Psychosocial/ Personal History: Patient lives at home, alone. - Family History Father -: Cancer - Social History Alcohol use: No CD- Drugs: No Caffeine use: No Review of Systems General: Weakness Respiratory: Other (congestion) Neurological: Other (dizziness) Physical Examination - Physical Exam General: Alert, In no apparent distress, Oriented x3 HEENT: Atraumatic, Normocephalic, PERRLA, Other (teeth decay) Neck: Supple, 2+ carotid pulse no bruit, JVD not distended Respiratory: Normal air movement, Crackles/rales, Other (3 LNC) Cardiovascular: Regular rate/rhythm, Normal S1 S2, Edema (3+ ) Capillary refill: <2 Seconds Gastrointestinal: Normal bowel sounds, No tenderness, Distended (obese) Musculoskeletal: No clubbing, No contractures Integumentary: No rashes Neurological: Normal speech, Normal strength at 5/5 x4 extr, Normal tone - Studies Laboratory Data (last 24 hrs) 09/18/23 09/18/23 09/18/23 14:17 14:17 14:17 WBC 8.50 Hgb 9.9 L Hct 31.3 L Plt Count 220 PT 17.5 H INR 1.61 Sodium 138 Potassium 1.8 L* BUN 65 H Creatinine 2.36 H Glucose 107 H Magnesium 1.4 L Total Bilirubin 1.5 H AST 63 H ALT 82 H Alkaline Phosphatase 92 Lipase 13 Assessment and Plan - Plan Assessment and Plan Severe hypokalemia K 1.8 Replaced in the ED recheck potassium pending continuous telemetry Hypomagnasemia Mag1.4 Magox monitor in AM labs History of Hypertension presents with Hypotensive gentle IVF hold antihypertensives for now monitor Q4H CHF exacerbation History of Afib BNP 10,233 will hold off on lasix with soft BP restart home medications when available History of COPD/asthma restart home medications when available ipratropium/albuterol supplemental oxygen PRN PATRIZIA BUN/creatinine 65/2.36, GFR [address] Oneil UTI (POA) levaquin Transaminitis AST/ALT 63/82 IVF tonight DVT ppx heparin Full code LOS 2-3 days Discharge Plan: Assisted Plan to discharge in: 48 Hours - Advance Directives Does patient have a Living Will: No Does patient have a Durable POA for Healthcare: No Time Spent Managing Pts Care (In Minutes): 50
[2023-09-18 19:25] LABS: White Blood Cell Scan OK (OK)
[2023-09-18 19:26] LABS: Anisocytosis 2+; Blood Morphology Comment NOTED (NOT SEEN); Hypochromasia 1+; Ovalocytes 1+; Platelet Estimate ADEQ; Poikilocytosis 1+
[2023-09-18] MEDS ORDERED: ONDANSETRON 4 MG/2 ML VIAL IV PRN (19:56)
[2023-09-18] MEDS ORDERED: MAGNESIUM HYDROXIDE 8% 30 ML PO PRN (19:56)
[2023-09-18] MEDS: NA CHLORIDE 0.9% 1,000 ML IV SCH ×2 (20:00→22:24)
[2023-09-18] MEDS ORDERED: ALBUTEROL 2.5 MG/3 ML NEB SOL NEB PRN (20:55)
[2023-09-18] MEDS ORDERED: IPRATROPIUM BROM 0.5MG/2.5ML NEB PRN (20:55)
[2023-09-18 21:15] LABS: Anion Gap 8.1 mEq/L (5.0-15.0)
[2023-09-18 21:17] LABS: Potassium 2.1 mEq/L (3.5-5.1)
[2023-09-18] MEDS: MAGNESIUM OXIDE 400 MG TAB PO SCH (22:25)
[2023-09-18] MEDS: Magnesium Sulfate 2gm IVPB 2 G/50 ML BAG IV ONE (22:57)
[2023-09-18] MEDS: KCL 20 MEQ/100 mL IVPB 20 MEQ/100 ML BAG IV SCH (22:58)
[2023-09-19] MEDS: POTASSIUM CL SA 10 MEQ TAB PO ONE ×2 (00:22→04:50)
[2023-09-19] MEDS: HEPARIN 5000 UNIT/ML 1 ML VIAL SQ SCH (00:22)
[2023-09-19 03:08] LABS: Absolute Monocytes 0.7 K/uL (0.1-1.3); Absolute Neutrophil 5.3 K/uL (1.8-8.0); Basophils % 0.3 % (0-1.3); Eosinophils % 0.5 % (0-4.4); Hematocrit 27.1 % (36.0-45.0); Hemoglobin 8.6 g/dL (12.0-15.0); Lymphocytes % 24.4 % (15.3-44.8); MCH 25.3 pg (27.0-35.0); MCHC 31.8 g/dL (32.0-36.0); MCV 79.7 fL (80-100); MPV 8.8 fL (7.6-11.3); Monocytes % 8.4 % (3.3-12.3); Neutrophils % 66.4 % (41.7-73.7); Platelets 197 thou/uL (152-406); Red Cell Distribution Width 22.2 % (12.1-15.2)
[2023-09-19 03:34] LABS: Albumin 1.9 g/dL (3.4-5.0); Albumin/Globulin Ratio 0.6 (1.1-1.8); Anion Gap 10.5 mEq/L (5.0-15.0); Globulin 3.3 g/dL (2.3-3.5); Protein, Total 5.2 g/dL (6.4-8.2)
[2023-09-19 04:04] LABS: Potassium 2.5 mEq/L (3.5-5.1)
[2023-09-19] MEDS: POTASSIUM PHOS IN 0.9 % NACL 15 MMOL/250 ML BAG IV ONE ×2 (04:50→18:52)
--- NOTE | 2023-09-19 07:23 | P.PN ---
Date of Service: 09/19/23 Subjective Awake and complaining of not feeling well, feeling nauseous. Hypotensive overnight likely cause of nausea Uncomfortable in bed ROS 10 point ROS as noted above, otherwise negative Physical Exam General: AAOx3, uncomfortable HEENT: Atraumatic, Normocephalic, PERRLA, Other (teeth decay) Neck: Supple, 2+ carotid pulse no bruit, JVD not distended Respiratory: Normal air movement, Crackles/rales, Other (3 LNC) Cardiovascular: RRR, S1 S2 present, Edema (3+ ) Capillary refill: <2 Seconds Gastrointestinal: positive bowel sounds, soft and benign on palpation, Distended (obese) Musculoskeletal: No clubbing, No contractures Integumentary: No rashes Neurological: Normal speech, Normal strength at 5/5 x4 extr, Normal tone Vitals Reviewed Problem list Metabolic alkalosis Severe hypokalemia Hypomagnasemia Hypophosphatemia History of Hypertension with Hypotensive CHF exacerbation History of Afib History of COPD/asthma Stage I/II PATRIZIA UTI (POA) Transaminitis Assessment and Plan Metabolic alkalosis Severe hypokalemia Hypomagnasemia Hypophosphatemia K 2.5, mag 2.0, Phos 1.0 Initially replaced in the ED recheck potassium, phosphorus, and magnesium in 4 hours Potassium, phosphorus, and magnesium IV this AM continuous telemetry Magox BID monitor in AM labs Reduced PO intake History of Hypertension with Hypotensive gentle IVF hold antihypertensives and diuretics for now monitor Q4H Albumin- improved BP midodrine TID CHF exacerbation History of Afib initial BNP 10,233 will hold off on lasix with soft BP Resume home medications History of COPD/asthma restart home medications when available ipratropium/albuterol supplemental oxygen PRN Stage I/II PATRIZIA BUN/creatinine 69/2.22, GFR 23 Nephrology following UTI (POA) levaquin Transaminitis AST/ALT 47/63 Improved with IVF DVT ppx heparin Full code LOS 3 days <Ute Weaver - Last Filed: 09/19/23 18:44> Patient seen and examined. Patient has been getting home health with [facility]. However, she looks to be much more debilitated at this time. Patient with generalized weakness and patient appears to have significant malnourishment per labs. Patient is severely abnormal lab findingPatient with acute on chronic renal insufficiency along with severe dehydration and multiple electrolyte abnormalities including hypokalemia, hypomagnesemia, hypophosphatemia. Patient is gently being hydrated and patient is tolerating her diet. As her caloric intake has been minimal at this time, We have encouraged patient to supplement her diet with Ensure with high-protein. Will also replace patient's electrolytes. I will get physical therapy to work with the patient but since she is needing a lot more help she needs to get with physical therapy and we need to find if she needs fdc facility or rehab placement.Patient also has a urinary tract infection for which she is being treated with antibiotics. Patient with atrial fibrillation with cardiomyopathy. Continue with monitoring volume status and diuresing as needed. At this time patient will be further evaluated with fdc facility placement. She is wanting to go to [facility] per her request. <Lin Falcon - Last Filed: 09/22/23 04:16>
[2023-09-19] MEDS: SILDENAFIL CITRATE 20 MG TABLET PO SCH ×2 (09:00→14:25)
[2023-09-19] MEDS: ALBUMIN HUMAN 25% 100 ML IV SCH (09:33)
[2023-09-19] MEDS: MIDODRINE HCL 5 MG TABLET PO SCH (09:35)
[2023-09-19] MEDS: FE SULF/FA/VIT B COMP & C TAB PO SCH (09:35)
[2023-09-19] MEDS: AMIODARONE HCL 200 MG TAB PO SCH (09:36)
[2023-09-19] MEDS: APIXABAN 2.5 MG TABLET PO SCH (09:36)
[2023-09-19] MEDS: FERROUS SULFATE 325 MG TAB PO SCH (09:36)
[2023-09-19] MEDS: acetaZOLAMIDE 250 MG TAB PO SCH (09:36)
[2023-09-19] MEDS: DOCUSATE NA/SENNA CONC 1 TAB PO SCH (09:36)
[2023-09-19] MEDS: ROFLUMILAST 500 MCG TABLET PO SCH (09:36)
[2023-09-19] MEDS: NYSTATIN PWDR 100000 UNIT/GM TOP SCH (09:36)
--- NOTE | 2023-09-19 11:54 | P.CNS ---
Date of Consult: 09/19/23 Reason for Consult: Renal insufficiency, electrolyte imbalances Requesting Physician: Ute Weaver Chief Complaint: severe hypokalemia, CHF History of Present Illness: Pt is a 73 year old female well known to our service with a hx of chronic COPD, pulm HTN, chronic atrial fibrillation on Eliquis, CKD with recent episodes of PATRIZIA who presented to the ED with chief complaint of epigastric pain and generalized weakness for several days. She reported dizziness and at least one fall at home. She does not report GI losses but electrolyte levels were all quite low. Unclear what her PO intake has been like. BP has been low. UA on ad mission abnormal. She has chronic shortness of breath and is on O2 Allergies Penicillins Allergy (Verified 09/04/18 00:53) Unknown codeine Adverse Reaction (Verified 10/02/19 01:03) Itching shellfish derived Adverse Reaction (Verified 09/04/18 00:53) Hives/Rash Home Medications: Apixaban [Eliquis *] 2.5 mg PO BID 10/02/19 Amiodarone HCl [Pacerone] 200 mg PO BID 30 Days #60 tab 09/02/22 Torsemide 10 mg PO DAILY 03/23/23 Spironolactone [Aldactone*] 25 mg PO DAILY 08/01/23 Trazodone [Desyrel*] 25 mg PO BEDTIME 08/01/23 Sildenafil Citrate 20 mg PO BID 30 Days #60 tab 08/07/23 Roflumilast [Daliresp*] 500 mcg PO DAILY 08/14/23 acetaZOLAMIDE [Diamox*] 250 mg PO DAILY 08/15/23 Cranberry Fruit Extract 200 mg PO BID cap 08/27/23 Docusate/Senna [Senokot-S*] 2 tab PO BID tab 08/27/23 Ferrous Sulfate [Ferrous Sulfate*] 325 mg PO DAILY tab 08/27/23 Iron/FA/Vit B-Com W/C [Hemocyte Plus*] 1 tab PO DAILY WITH BREAKFAST #30 tab Metoprolol Tartrate [Lopressor*] 12.5 mg PO [id number] #30 tab 08/27/23 Nystatin Powder [Mycostatin (Powder)*] 1 appl TOP BID #2 bottle 08/27/23 - Past Medical/Surgical History Diabetic: No -: Afib -: COPD -: Asthma -: Hypertension -: CKD (Dr. Oneil) -: choley -: appy -: R. hip replacement -: Tubal ligation Psychosocial/ Personal History: Patient lives at home, alone. - Family History Father Medical History: Cancer - Social History Smoking Status: Unknown if ever smoked Alcohol use: No CD- Drugs: No Caffeine use: Yes Place of Residence: Home Review of Systems General: Weakness, As per HPI Eyes: Unremarkable ENT: Unremarkable Respiratory: Shortness of Breath, Wheezing, As per HPI Cardiovascular: Other (Low VBP), As per HPI Gastrointestinal: Abdominal Pain Genitourinary: As per HPI Musculoskeletal: Leg Pain, Other Integumentary: Unremarkable Neurological: Weakness, As per HPI Physical Examination Temp Pulse Resp BP Pulse Ox 97.8 F 99 H 19 86/53 L 98 09/19/23 08:00 09/19/23 08:00 09/19/23 08:00 09/19/23 08:00 09/19/23 08:00 General: Other (Appears lethargic, chronically ill) HEENT: Atraumatic, Normocephalic, Other (LFNC) Respiratory: Other (b/l air entry, scattered wheezes, mild tachypnea) Cardiovascular: Other (Tachy, irregular) Gastrointestinal: Soft and benign, Non-distended, No tenderness Musculoskeletal: Other (lower shins tender, reduced edema c/w prev) Integumentary: No rashes Neurological: Other (Lethargic but awake, responds briefly, no speech dysarthria or tremors) Laboratory Data (last 24 hrs) 09/18/23 09/18/23 09/18/23 14:17 14:17 14:17 WBC 8.50 Hgb 9.9 L Hct 31.3 L Plt Count 220 PT 17.5 H INR 1.61 Sodium 138 Potassium 1.8 L* BUN 65 H Creatinine 2.36 H Glucose 107 H Magnesium 1.4 L Total Bilirubin 1.5 H AST 63 H ALT 82 H Alkaline Phosphatase 92 Lipase 13 Conclusions/Impression: A/P) Stage I/II PATRIZIA episodes recently that have been multifactorial Underlying CKD Stage III unspecified -Cr levels have continued to fluctuate in the setting of diuresis, relative hypotension, reduced renal plasma flow effects of hypercarbia/hypoxia. Cont to monitor closely. Cr level slowly downward trending since admission Hypotension, other -Recurrent but latest in the setting of UTI, reduced PO intake, recent diuresis. Holding diuretics, IV Albumin doses ordered by primary team. Bolus crystalloids as needeed Diastolic CHF, chronic. Probable obesity hypoventilation syndrome Mod to severe pulm HTN Chronic peripheral edema Low albumin state -Had been sent out on maintenance diuretics with Amiloride and low dose Torsemide, K/Mg/Phos all profoundly low, check TTKG and other if levels remain low, loop and K sparing diuretics on hold -BNP chronically elevated, follow weights and clinically Hypokalemia, hypomagnesemia, hypophosphatemia -Severe, cont to replete, will investigate if levels remain low, will need to clarify dietary intake at home Metab alkalosis -Acute in the setting of hypokalemia on chronic 2nd to underlying hypercarbia/COPD +/- CHF, diuretics related. Trend closely Jl Callahan MD, DEEDEE
[2023-09-19] MEDS: NA CHLORIDE 0.9% 250 ML ONE (11:57)
[2023-09-19] MEDS: KCL 20 MEQ/100 mL IVPB 20 MEQ/100 ML BAG IV SCH (12:00)
[2023-09-19] MEDS: POTASSIUM 25 MEQ EFFERV TAB PO ONE (13:36)
[2023-09-19] MEDS ORDERED: Levofloxacin 250mg IV 250 MG/50 ML BAG IV SCH (15:00)
[2023-09-19] MEDS: JUVEN PACKET PO SCH (17:09)
[2023-09-19] MEDS: Levofloxacin 750mg IV 750 MG/150 ML BAG IV SCH (17:09)
[2023-09-19 17:59] LABS: Potassium 3.4 mEq/L (3.5-5.1)
[2023-09-19 18:11] LABS: Phosphorus 1.3 mg/dL (2.5-4.9)
[2023-09-19] MEDS: TRAZODONE 50 MG TABLET PO SCH (20:03)
[2023-09-20] MEDS: ALPRAZOLAM 0.25 MG TABLET PO PRN (01:18)
[2023-09-20 07:11] LABS: Absolute Eosinophils 0.1 K/uL (0-0.5); Absolute Lymphocytes (CBC) 2.1 K/uL (0.7-4.9); Absolute Monocytes 0.5 K/uL (0.1-1.3); Absolute Neutrophil 3.8 K/uL (1.8-8.0); Basophils % 0.3 % (0-1.3); Eosinophils % 1.1 % (0-4.4); Hematocrit 24.6 % (36.0-45.0); Hemoglobin 7.8 g/dL (12.0-15.0); MCH 25.4 pg (27.0-35.0); MCHC 31.6 g/dL (32.0-36.0); MCV 80.4 fL (80-100); MPV 8.9 fL (7.6-11.3); Monocytes % 8.1 % (3.3-12.3); Neutrophils % 58.5 % (41.7-73.7); Nucleated Red Blood Cells % 0.1 % (0-0); Platelets 175 thou/uL (152-406); RBC Red Blood Cell Count 3.06 M/uL (3.86-4.86); Red Cell Distribution Width 22.1 % (12.1-15.2)
--- NOTE | 2023-09-20 07:35 | P.PN ---
Date of Service: 09/20/23 Subjective Continues to be hypotensive Afebrile overnight Continues atrial fibrillation with more controlled heart rate of 102 Feeling better this morning ROS 10 point ROS as noted above, otherwise negative Physical Exam General: AAOx3, NAD HEENT: Atraumatic, Normocephalic, PERRLA, Other (teeth decay) Neck: Supple, 2+ carotid pulse no bruit, JVD not distended Respiratory: Normal air movement, Crackles/rales, Other (3 LNC), breathing improved Cardiovascular: S1 S2 present, regular rate and rhythm, edema (3+ ) Capillary refill: <2 Seconds Gastrointestinal: soft and benign on palpation, Distended (obese), bowel sounds present Musculoskeletal: No clubbing, No contractures Integumentary: No rashes Neurological: Normal speech, Normal strength at 5/5 x4 extr, Normal tone Vitals Reviewed Problem list Metabolic alkalosis Severe hypokalemia Hypomagnasemia Hypophosphatemia History of Hypertension with Hypotensive CHF exacerbation History of Afib History of COPD/asthma Acute/chronic hypercapnic and hypoxemic respiratory failure Stage I/II PATRIZIA UTI (POA) Transaminitis iron deficiency/chronic disease anemia Assessment and Plan Metabolic alkalosis Severe hypokalemia Hypomagnasemia Hypophosphatemia K 2.5, mag 2.0, Phos 0.9 Initially replaced in the ED recheck potassium, phosphorus, and magnesium in 4 hours Potassium, phosphorus, and magnesium IV this AM continuous telemetry Magox BID monitor in AM labs Reduced PO intake Diamox History of Hypertension with Hypotensive gentle IVF hold antihypertensives and diuretics for now monitor Q4H Albumin- improved BP midodrine TID Anemia of chronic disease iron deficiency initial H/H 9.9/31.3 H/H 7.8/24.6, recheck this afternoon transfuse PRN CHF exacerbation History of Afib initial BNP 10,233 will hold off on lasix with soft BP Resume home medications History of COPD/asthma Acute/chronic hypercapnic and hypoxemic respiratory failure restart home medications when available ipratropium/albuterol amiloride, sildinafil, diamox supplemental oxygen PRN Stage I/II PATRIZIA BUN/creatinine 69/2.22, GFR 23 Nephrology following UTI (POA) levaquin Transaminitis AST/ALT 47/63 Improved with IVF DVT ppx heparin Full code LOS 3 days <Ute Weaver - Last Filed: 09/20/23 13:39> I performed a substantial part of the MDM during this patient's hospital visit. I personally made or approved the documented management plan and acknowledge its risk of complications. I agree with the findings and documentation provided in the [facility]A's notes. Patient is a 73 y/o F with a PMH of atrial fibrillation, CHF, Acute on chronic kidney failure, urinary tract infection with generalized weakness and encephalopathy.Patient with a history of morbid obesity and COPD with obstructive sleep apnea; however, in spite of patient's weight she looks to be malnourished with severe electrolyte abnormalities and hypoalbuminemia. She has not been eating well for the last few weeks and has been having a lot of diarrhea. Will holding off on her stool softeners.Working on placement at this time. <Lin Falcon - Last Filed: 09/22/23 04:20>
[2023-09-20 08:00] LABS: Albumin 2.3 g/dL (3.4-5.0); Albumin/Globulin Ratio 0.8 (1.1-1.8); Anion Gap 7.2 mEq/L (5.0-15.0); Globulin 2.8 g/dL (2.3-3.5); Potassium 3.2 mEq/L (3.5-5.1); Protein, Total 5.1 g/dL (6.4-8.2)
[2023-09-20 08:07] LABS: Phosphorus 0.9 mg/dL (2.5-4.9)
[2023-09-20] MEDS: POTASSIUM PHOS 30 MM in NA CHLORIDE 0.9% 500 ML IV ONE (10:03)
--- NOTE | 2023-09-20 11:47 | P.PN ---
Date of Service: 09/20/23 Vital Signs Temp Pulse Resp BP Pulse Ox 97.5 F 104 H 17 82/48 L 96 09/20/23 08:00 09/20/23 08:00 09/20/23 08:00 09/20/23 08:00 09/20/23 08:00 Medications Acetaminophen (Acetaminophen 500 Mg Tab) 500 mg PO Q4HP PRN PRN Reason: Pain scale 2-4 (Mild) Acetazolamide (Acetazolamide 250 Mg Tab) 250 mg PO DAILY [facility] Last Admin: 09/20/23 10:05 Dose: 250 mg Albuterol Sulfate (Albuterol 2.5 Mg/3 Ml Neb Carolee) 2.5 mg NEB [id number] PRN PRN Reason: SHORTNESS OF BREATH Alprazolam (Alprazolam 0.25 Mg Tablet) 0.25 mg PO BEDTIME PRN PRN PRN Reason: INSOMNIA Last Admin: 09/20/23 01:18 Dose: 0.25 mg Amiodarone HCl (Amiodarone Hcl 200 Mg Tab) 200 mg PO BID [facility] Last Admin: 09/20/23 10:06 Dose: 200 mg Apixaban (Apixaban 2.5 Mg Tablet) 2.5 mg PO BID [facility] Last Admin: 09/20/23 10:06 Dose: 2.5 mg Ferrous Sulfate (Ferrous Sulfate 325 Mg Tab) 325 mg PO DAILY [facility] Last Admin: 09/20/23 10:06 Dose: 325 mg Levofloxacin/Dextrose (Levaquin 750 Mg/150 Ml Ivpb (Premix)) 750 mg in 150 mls @ 100 mls/hr IV Q48H [facility]; Protocol Last Admin: 09/19/23 17:09 Dose: 150 mls Potassium Phosphate 30 mm/ (Sodium Chloride) 500 mls @ 100 mls/hr IV 1X ONE; Protocol Stop: 09/20/23 13:59 Last Admin: 09/20/23 10:03 Dose: 500 mls Ipratropium [place] (Ipratropium Brom 0.5mg/2.5ml) 0.5 mg NEB [id number] PRN PRN Reason: SHORTNESS OF BREATH L-Arginine/L-Glutamine/HMB (Masood Packet) 1 pkt PO BIDWM [facility] Last Admin: 09/20/23 10:07 Dose: 1 pkt Magnesium Hydroxide (Magnesium Hydroxide 8% 30 Ml) 30 ml PO DAILYPRN PRN PRN Reason: CONSTIPATION Magnesium Oxide (Magnesium Oxide 400 Mg Tab) 400 mg PO BID [facility] Last Admin: 09/20/23 10:07 Dose: 400 mg Midodrine (Midodrine Hcl 5 Mg Tablet) 10 mg PO TID [facility] Last Admin: 09/20/23 10:06 Dose: 10 mg Multivitamins/Iron (Fe Sulf/Fa/Vit B Comp & C Tab) 1 tab PO DAILY WITH BREAKFAST [facility] Last Admin: 09/20/23 10:06 Dose: 1 tab Nystatin (Nystatin Pwdr [id number] Unit/Gm) 1 appl TOP BID [facility] Last Admin: 09/20/23 10:07 Dose: 1 appl Ondansetron HCl (Ondansetron 4 Mg/2 Ml Vial) 4 mg IV Q6HP PRN PRN Reason: NAUSEA / VOMITING Roflumilast (Roflumilast 500 Mcg Tablet) 500 mcg PO DAILY [facility] Last Admin: 09/20/23 10:05 Dose: 500 mcg Senna/Docusate Sodium (Docusate Na/Senna Conc 1 Tab) 2 tab PO BID [facility] Last Admin: 09/20/23 10:05 Dose: 2 tab Sildenafil Citrate (Sildenafil Citrate 20 Mg Tablet) 20 mg PO BID [facility] Last Admin: 09/19/23 20:04 Dose: 20 mg Trazodone HCl (Trazodone 50 Mg Tablet) 25 mg PO BEDTIME [facility] Last Admin: 09/19/23 20:03 Dose: 25 mg Microbiology Results 09/18/23 13:45 Clean Catch Urine [place] Count - Preliminary >100,000 CFU/ML. 09/18/23 13:45 Clean Catch Urine - Preliminary Assessment/ Plan: Nephrology Progress Note No Dyspnea No Chest Pain Weakness and fatigue No Acute Events Overnight Vital Signs, Medications, Blood Work, and Imaging reviewed in the chart NAD. Obese. NCAT. MMM. Neck Supple. Normal Respiratory Effort/ CTA. RRR. Abd ND. No C/C. LE Edema 1+. No Rash. AAO. Normal Speech. Assessment & Plan Stage I PATRIZIA complicated by CRS CKD III -No NSAIDs -Continue diuresis Hypokalemia -Replete as ordered -Start Amiloride Metabolic Alkalosis -Continue Diamox daily Hypophosphatemia -Replete as ordered Chronic Hypotension -Continue Midodrine 10mg BID Acute/ Chronic hypercapnic & hypoxemic respiratory failure/ COPD Exacerbation Diastolic CHF, A/C Pulmonary HTN -Continue Diamox -Start Amiloride -Continue Sildenafil Anemia in chronic illness Iron Deficiency 13.6% -Monitor H&H -PRBC prn -Recheck iron level -Consider IV iron -Continue MVI with iron Cigarette Smoker -Nicotine TD prn -Recommend cessation
[2023-09-20 13:05] LABS: Ferritin 140.5 ng/mL (8-388)
[2023-09-20] MEDS: EPOETIN ALFA-EPBX 10,000 UNIT/ML VIAL SQ ONE (13:53)
[2023-09-20] MEDS: AMILORIDE HCL 5 MG TABLET PO SCH (13:54)
[2023-09-20 14:09] LABS: Hematocrit 24.9 % (36.0-45.0)
[2023-09-20] MEDS: ACETAMINOPHEN 500 MG TAB PO PRN (20:42)
[2023-09-20 22:03] LABS: Phosphorus 2.1 mg/dL (2.5-4.9); Potassium 3.5 mEq/L (3.5-5.1)
[2023-09-20] MEDS: POTASSIUM PHOS IN 0.9 % NACL 15 MMOL/250 ML BAG IV ONE (22:40)
[2023-09-21 07:29] LABS: Absolute Eosinophils 0.1 K/uL (0-0.5); Absolute Lymphocytes (CBC) 2.7 K/uL (0.7-4.9); Absolute Monocytes 0.6 K/uL (0.1-1.3); Absolute Neutrophil 4.3 K/uL (1.8-8.0); Basophils % 0.6 % (0-1.3); Hematocrit 27.6 % (36.0-45.0); Hemoglobin 8.7 g/dL (12.0-15.0); Lymphocytes % 35.6 % (15.3-44.8); MCH 25.5 pg (27.0-35.0); MCHC 31.6 g/dL (32.0-36.0); MCV 80.5 fL (80-100); MPV 8.8 fL (7.6-11.3); Monocytes % 7.4 % (3.3-12.3); Neutrophils % 55.4 % (41.7-73.7); Platelets 204 thou/uL (152-406); RBC Red Blood Cell Count 3.42 M/uL (3.86-4.86); Red Cell Distribution Width 22.3 % (12.1-15.2)
[2023-09-21 07:47] LABS: Albumin 2.4 g/dL (3.4-5.0); Albumin/Globulin Ratio 0.8 (1.1-1.8); Anion Gap 9.5 mEq/L (5.0-15.0); Globulin 3.2 g/dL (2.3-3.5); Magnesium 1.8 mg/dL (1.6-2.4); Phosphorus 2.7 mg/dL (2.5-4.9); Potassium 3.5 mEq/L (3.5-5.1); Protein, Total 5.6 g/dL (6.4-8.2); Uric Acid 12.6 mg/dL (2.6-6.0)
--- NOTE | 2023-09-21 08:07 | P.PN ---
Date of Service: 09/21/23 Subjective Awake and eating breakfast Electrolytes have improved Still hypotensive Feeling the same as yesterday No new complaints ROS 10 point ROS as noted above, otherwise negative Physical Exam General: No acute distress, AAOx3 HEENT: Atraumatic, Normocephalic, PERRLA, Other (teeth decay) Neck: Supple, 2+ carotid pulse no bruit, JVD not distended Respiratory: Normal air movement, Crackles/rales, Other (2 LNC), breathing continues to improved Cardiovascular: S1 S2 present, RRR, 3+ pitting edema Capillary refill: <2 Seconds Gastrointestinal: Normoactive Bowel Sounds, soft and benign on palpation, Distended (obese) Musculoskeletal: No clubbing, No contractures Integumentary: No rashes Neurological: Normal speech, Normal strength at 5/5 x4 extr, Normal tone Vitals Reviewed Problem list Metabolic alkalosis Severe hypokalemia Hypomagnasemia Hypophosphatemia History of Hypertension with Hypotensive CHF exacerbation History of Afib History of COPD/asthma Acute/chronic hypercapnic and hypoxemic respiratory failure Stage I/II PATRIZIA UTI (POA) Transaminitis iron deficiency/chronic disease anemia Assessment and Plan Metabolic alkalosis Severe hypokalemia Hypomagnasemia Hypophosphatemia K 3.5, mag 1.8, Phos 2.7- improved recheck potassium, phosphorus, and magnesium daily Replaced per protocol continuous telemetry Magox BID Reduced PO intake Diamox History of Hypertension with Hypotensive Consistent hypotension 92/54, 81/50, 94/60 hold antihypertensives and diuretics for now monitor Q4H Albumin- improved BP midodrine TID Anemia of chronic disease iron deficiency initial H/H 8.7/27.6- stable transfuse PRN CHF exacerbation History of Afib initial BNP 10,233 will hold off on lasix with soft BP Atrial fibrillation with HR 94 continue home medications History of COPD/asthma Acute/chronic hypercapnic and hypoxemic respiratory failure restart home medications when available ipratropium/albuterol amiloride, sildinafil, diamox supplemental oxygen PRN Stage I/II PATRIZIA BUN/creatinine 53/2.02, GFR 26 Nephrology following UTI (POA) levaquin Transaminitis-resolved AST/ALT 33/42 Improved with IVF DVT ppx heparin Full code LOS 3 days <Ute Weaver - Last Filed: 09/21/23 16:47> Patient was seen and examined. Events of the last 24 hours have been noted. Spoke with with [facility] regarding patient's clinical picture after evaluating and examining the patient independently. I performed a substantial part of the MDM during this patient's care today.. I personally made or approved the documented management plan and acknowledge its risk of complications. I agree with the findings and documentation provided in the [facility]ESA's notes. Patient is a 73 y/o F with a PMH of atrial fibrillation, CHF, Acute on chronic kidney failure, urinary tract infection with generalized weakness and encephalopathy.Patient with a history of morbid obesity and COPD with obstructive sleep apnea; however, in spite of patient's weight she looks to be malnourished with severe electrolyte abnormalities and hypoalbuminemia. She has not been eating well for the last few weeks and has been having a lot of diarrhea. Patient nutritional status has improved. All electrolytes have been corrected. Awaiting for physical therapy evaluation in the morning and then hopefully case management can get her placed to a senior care facility. Continue monitoring renal function and electrolyte abnormalities and correct as needed. <Lin Falcon - Last Filed: 09/22/23 04:23>
[2023-09-21] MEDS ORDERED: AMILORIDE HCL 5 MG TABLET PO SCH (09:00)
[2023-09-21] MEDS: POTASSIUM 25 MEQ EFFERV TAB PO ONE (10:23)
[2023-09-22 01:18] VITALS: BMI 35.8
[2023-09-22] MEDS: METHYLPREDNISOLONE 125 MG INJ IV SCH (05:14)
[2023-09-22 09:10] LABS: Absolute Lymphocytes (CBC) 1.3 K/uL (0.7-4.9); Absolute Monocytes 0.2 K/uL (0.1-1.3); Absolute Neutrophil 5.2 K/uL (1.8-8.0); Basophils % 0.5 % (0-1.3); Eosinophils % 0.3 % (0-4.4); Hematocrit 27.7 % (36.0-45.0); Hemoglobin 8.6 g/dL (12.0-15.0); Lymphocytes % 18.9 % (15.3-44.8); MCH 25.4 pg (27.0-35.0); MCHC 31.3 g/dL (32.0-36.0); MCV 81.1 fL (80-100); MPV 8.8 fL (7.6-11.3); Monocytes % 3.2 % (3.3-12.3); Neutrophils % 77.1 % (41.7-73.7); Platelets 218 thou/uL (152-406); RBC Red Blood Cell Count 3.41 M/uL (3.86-4.86)
[2023-09-22 09:24] LABS: Anion Gap 7.4 mEq/L (5.0-15.0); Magnesium 1.9 mg/dL (1.6-2.4); Potassium 4.4 mEq/L (3.5-5.1)
[2023-09-22] MEDS: IPRATROPIUM BROM 0.5MG/2.5ML NEB PRN (09:39)
[2023-09-22] MEDS: ALBUTEROL 2.5 MG/3 ML NEB SOL NEB PRN (09:39)
[2023-09-22] MEDS: MAGNESIUM CHLORIDE 64 MG TAB PO SCH (09:41)
--- NOTE | 2023-09-22 10:26 | P.PN ---
Date of Service: 09/22/23 Subjective Continues to be hypotensive, cannot administer sildenafil safely electrolytes have improved, replacing phosphorus this AM She is sleeping and cried when aroused. She settled down and became clear of thought She has been in atrial fibrillation this admission, continuing home amiodarone ROS 10 point ROS as noted above, otherwise negative Physical Exam General: NAD, AAOx3, calm HEENT: Atraumatic, Normocephalic, PERRLA, Other (teeth decay) Neck: Supple, 2+ carotid pulse no bruit, JVD not distended Respiratory: Symmetrical chest wall movement, Crackles/rales, Other (2 LNC), breathing continues to improved Cardiovascular: atrial fibrillation HR 100, S1-S2 present, 3+ pitting edema Capillary refill: <2 Seconds Gastrointestinal: Bowel Sounds present, soft and benign on palpation, nontender, distended (obese) Musculoskeletal: No clubbing, No contractures Integumentary: No rashes Neurological: Normal speech, Normal strength at 5/5 x4 extr, Normal tone Vitals Reviewed Problem list Metabolic alkalosis Generalized weakness Severe hypokalemia Hypomagnasemia Hypophosphatemia History of Hypertension with Hypotensive CHF exacerbation History of Afib History of COPD/asthma Acute/chronic hypercapnic and hypoxemic respiratory failure Stage I/II PATRIZIA UTI (POA) Transaminitis iron deficiency/chronic disease anemia Assessment and Plan Metabolic alkalosis Generalized weakness Severe hypokalemia Hypomagnasemia Hypophosphatemia K 4.4, mag 1.9, Phos 2.0-improved since admission recheck potassium, phosphorus, and magnesium daily Replaced per protocol continuous telemetry Magox BID Reduced PO intake Diamox History of Hypertension with Hypotensive Consistent hypotension 96/49, 99/55, 85/50 hold antihypertensives and diuretics for now monitor Q4H Albumin- improved BP midodrine TID Anemia of chronic disease iron deficiency initial H/H 8.6/27.7- stable transfuse PRN CHF exacerbation History of Afib initial BNP 10,233 will hold off on lasix with soft BP Atrial fibrillation with HR 100 continue home medications History of COPD/asthma Acute/chronic hypercapnic and hypoxemic respiratory failure restart home medications when available ipratropium/albuterol amiloride, sildinafil, diamox supplemental oxygen PRN Stage I/II PATRIZIA BUN/creatinine 52/2.10, GFR 24 Nephrology following UTI (POA) levaquin Transaminitis-resolved AST/ALT 33/42 Improved with IVF DVT ppx heparin Full code LOS 3 days <Ute Weaver - Last Filed: 09/22/23 12:40> Patient was seen and examined. Events of the last 24 hours have been noted. Spoke with with [facility] regarding patient's clinical picture after evaluating and examining the patient independently. I performed a substantial part of the MDM during this patient's care today. I personally made or approved the documented management plan and acknowledge its risk of complications. I agree with the findings and documentation provided in the [facility]A's notes. patient is a 73-year-old female who was admitted for weakness and worsening renal function. Patient with severe electrolyte abnormalities which have been corrected. Patient continues to be weak and would benefit from penitentiary placement. However, discussing with the son regarding financials. If unable to provide assistance with penitentiary placement then patient may need to go home with home health. . Currently patient is working with physical therapy but she remains really weak. Patient also with atrial fibrillation. On amiodarone and Eliquis. Patient on a potassium-sparing diuretic-amiloride. Patient on Acetazolamide for obesity hypoventilation syndrome. Long-term prognosis is very poor and may need to consider do not attempt resuscitation. <Lin Falcon - Last Filed: 09/23/23 03:39>
--- NOTE | 2023-09-22 14:31 | EKG ---
Test Date: 2023-09-18 Test Time: 13:17:21 Annual Campaign Manager: HENRY MEASUREMENT RESULTS: Intervals: Rate: 96 NV: QRSD: 178 QT: 472 QTc: 596 [place]: P: NV: QRS: 78 T: 51 INTERPRETIVE STATEMENTS: Atrial fibrillation Right bundle branch block Abnormal ECG Compared to ECG 08/22/2023 14:27:44 Right bundle-branch block now present Electronically Signed On 09-22-23 14:17:59 CDT by Macho Hook
--- NOTE | 2023-09-22 22:24 | P.PN ---
Date of Service: 09/22/23 Vital Signs Temp Pulse Resp BP Pulse Ox 97.7 F 102 H 20 109/59 L 96 09/22/23 20:00 09/22/23 20:00 09/22/23 20:00 09/22/23 20:00 09/22/23 20:00 Medications Acetaminophen (Acetaminophen 500 Mg Tab) 500 mg PO Q4HP PRN PRN Reason: Pain scale 2-4 (Mild) Last Admin: 09/20/23 20:42 Dose: 500 mg Acetazolamide (Acetazolamide 250 Mg Tab) 250 mg PO DAILY [facility] Last Admin: 09/22/23 09:41 Dose: 250 mg Albuterol Sulfate (Albuterol 2.5 Mg/3 Ml Neb Carolee) 2.5 mg NEB [id number] PRN PRN Reason: SHORTNESS OF BREATH Last Admin: 09/22/23 19:07 Dose: 2.5 mg Alprazolam (Alprazolam 0.25 Mg Tablet) 0.25 mg PO BEDTIME PRN PRN PRN Reason: INSOMNIA Last Admin: 09/20/23 20:42 Dose: 0.25 mg Amiloride HCl (Amiloride Hcl 5 Mg Tablet) 5 mg PO DAILY [facility] Last Admin: 09/22/23 09:00 Dose: Not Given Amiodarone HCl (Amiodarone Hcl 200 Mg Tab) 200 mg PO BID [facility] Last Admin: 09/22/23 22:03 Dose: 200 mg Apixaban (Apixaban 2.5 Mg Tablet) 2.5 mg PO BID [facility] Last Admin: 09/22/23 22:03 Dose: 2.5 mg Ferrous Sulfate (Ferrous Sulfate 325 Mg Tab) 325 mg PO DAILY [facility] Last Admin: 09/22/23 09:41 Dose: 325 mg Levofloxacin/Dextrose (Levaquin 750 Mg/150 Ml Ivpb (Premix)) 750 mg in 150 mls @ 100 mls/hr IV Q48H [facility]; Protocol Last Admin: 09/21/23 15:36 Dose: 150 mls Ipratropium [place] (Ipratropium Brom 0.5mg/2.5ml) 0.5 mg NEB [id number] PRN PRN Reason: SHORTNESS OF BREATH Last Admin: 09/22/23 19:06 Dose: 0.5 mg L-Arginine/L-Glutamine/HMB (Masood Packet) 1 pkt PO BIDWM [facility] Last Admin: 09/22/23 17:00 Dose: 1 pkt Magnesium Chloride (Magnesium Chloride 64 Mg Tab) 64 mg PO DAILY [facility] Last Admin: 09/22/23 09:41 Dose: 64 mg Magnesium Hydroxide (Magnesium Hydroxide 8% 30 Ml) 30 ml PO DAILYPRN PRN PRN Reason: CONSTIPATION Midodrine (Midodrine Hcl 5 Mg Tablet) 10 mg PO TID [facility] Last Admin: 09/22/23 22:03 Dose: 10 mg Multivitamins/Iron (Fe Sulf/Fa/Vit B Comp & C Tab) 1 tab PO DAILY WITH BREAKFAST [facility] Last Admin: 09/22/23 09:41 Dose: 1 tab Nystatin (Nystatin Pwdr [id number] Unit/Gm) 1 appl TOP BID [facility] Last Admin: 09/22/23 21:00 Dose: 1 appl Ondansetron HCl (Ondansetron 4 Mg/2 Ml Vial) 4 mg IV Q6HP PRN PRN Reason: NAUSEA / VOMITING Roflumilast (Roflumilast 500 Mcg Tablet) 500 mcg PO DAILY [facility] Last Admin: 09/22/23 09:41 Dose: 500 mcg Sildenafil Citrate (Sildenafil Citrate 20 Mg Tablet) 20 mg PO BID [facility] Last Admin: 09/22/23 21:00 Dose: Not Given Trazodone HCl (Trazodone 50 Mg Tablet) 25 mg PO BEDTIME [facility] Last Admin: 09/22/23 22:03 Dose: 25 mg Microbiology Results 09/18/23 13:45 Clean Catch Urine [place] Count - Final >100,000 CFU/ML. 09/18/23 13:45 Clean Catch Urine - Final Enterobacter Cloacae Klebsiella Oxytoca Assessment/ Plan: Nephrology Progress Note No Dyspnea No Chest Pain Weakness and fatigue No Acute Events Overnight Vital Signs, Medications, Blood Work, and Imaging reviewed in the chart NAD. Obese. NCAT. MMM. Neck Supple. Normal Respiratory Effort/ CTA. RRR. Abd ND. No C/C. R>L LE Edema 1+. No Rash. AAO. Normal Speech. Assessment & Plan Stage I PATRIZIA complicated by CRS CKD III -No NSAIDs -Continue diuresis Hypokalemia -Replete prn -Continue Amiloride Metabolic Alkalosis -Continue Diamox daily Hypophosphatemia -Replete as ordered Chronic Hypotension -Continue Midodrine 10mg BID Diastolic CHF, A/C Pulmonary HTN -Continue Diamox -Continue Amiloride -Continue Sildenafil -LE Ext Venous Doppler negative for DVT Anemia in chronic illness Iron Deficiency 13.6% -Monitor H&H -PRBC prn -Consider IV iron -Continue MVI with iron Cigarette Smoker -Nicotine TD prn -Recommend cessation Case reviewed with Dr. Donaldson
[2023-09-23 03:54] LABS: Absolute Lymphocytes (CBC) 2.1 K/uL (0.7-4.9); Absolute Monocytes 0.4 K/uL (0.1-1.3); Absolute Neutrophil 6.5 K/uL (1.8-8.0); Basophils % 0.1 % (0-1.3); Hematocrit 25.7 % (36.0-45.0); Hemoglobin 8.1 g/dL (12.0-15.0); Lymphocytes % 23.4 % (15.3-44.8); MCH 25.4 pg (27.0-35.0); MCHC 31.5 g/dL (32.0-36.0); MCV 80.6 fL (80-100); MPV 8.9 fL (7.6-11.3); Monocytes % 4.3 % (3.3-12.3); Neutrophils % 72.2 % (41.7-73.7); Platelets 225 thou/uL (152-406); RBC Red Blood Cell Count 3.19 M/uL (3.86-4.86)
[2023-09-23 04:02] LABS: Red Cell Distribution Width 22.5 % (12.1-15.2)
[2023-09-23 04:47] LABS: Anion Gap 7.5 mEq/L (5.0-15.0); Phosphorus 1.7 mg/dL (2.5-4.9); Potassium 4.5 mEq/L (3.5-5.1)
--- NOTE | 2023-09-23 08:33 | RAD REPORT ---
EXAM DESCRIPTION: USExtrem Venous W Compress Bil09/23/2023 12:04 am CLINICAL HISTORY: Leg edema COMPARISON: none FINDINGS: The common femoral, superficial femoral, greater saphenous, popliteal and posterior tibial veins bilaterally are compressible and demonstrate augmentation. Doppler demonstrates good flow. Grayscale, color and spectral analysis performed on all vessels IMPRESSION: No evidence of deep venous thrombosis involving either lower extremity.
--- NOTE | 2023-09-23 09:23 | P.PN ---
Date of Service: 09/23/23 Subjective C/O worsening cough No acute events overnight ROS 10 point ROS as noted above, otherwise negative Physical Exam General: NAD, AAOx3, calm HEENT: Atraumatic, Normocephalic, PERRLA, Other (tooth decay) Neck: Supple, 2+ carotid pulse no bruit, JVD not distended Respiratory: Symmetrical chest wall movement, Crackles/rales, Other (2 LNC), breathing continues to improved Cardiovascular: atrial fibrillation HR 90s, S1-S2 present, 3+ pitting edema Capillary refill: <2 Seconds Gastrointestinal: Bowel Sounds present, soft and benign on palpation, nontender, distended (obese) Musculoskeletal: No clubbing, No contractures Integumentary: No rashes Neurological: Normal speech, Normal strength at 5/5 x4 extr, Normal tone Vitals Reviewed Problem list Metabolic alkalosis Generalized weakness Severe hypokalemia Hypomagnasemia Hypophosphatemia Chronic Hypotension History of Afib History of COPD/asthma Acute on chronic diastolic congestive heart failure Severe Pulmonary hypertension Acute/chronic hypercapnic and hypoxemic respiratory failure Stage I/II PATRIZIA UTI (POA) Transaminitis iron deficiency/chronic disease anemia Plan Metabolic alkalosis Generalized weakness Severe hypokalemia Hypomagnasemia Hypophosphatemia improved since admission recheck potassium, phosphorus, and magnesium daily Replace per protocol continuous telemetry Magox BID PT consult Chronic Hypotension midodrine TID Anemia of chronic disease iron deficiency transfuse PRN Acute on chronic diastolic congestive heart failure Severe Pulmonary hypertension History of COPD/asthma Acute/chronic hypercapnic and hypoxemic respiratory failure Lower extremity edema Cough C/O worsening cough, CXR ordered negative for DVT SARTHAK 09/22 amiloride, sildinafil, diamox supplemental oxygen PRN Stage I/II PATRIZIA Nephrology following With lower extremity edema Diuresing with amiloride, diamox UTI (POA) Switched to IV Rocephin 09/22 Transaminitis-resolved DVT ppx home dose eliquis Full code LOS 1-2 days days
--- NOTE | 2023-09-23 09:41 | RAD REPORT ---
EXAM DESCRIPTION: Peter Single View09/23/2023 9:04 am CLINICAL HISTORY: Cough COMPARISON: September 18, 2023 FINDINGS: The lungs appear clear of acute infiltrate. The heart is mildly to moderately enlarged IMPRESSION: No acute abnormalities displayed
[2023-09-23] MEDS: POTASS/SODIUM PHOSPHATE 1 PKT POWD.PACK PO SCH (09:42)
[2023-09-23] MEDS: CEFTRIAXONE 1,000 MG in NA CHLORIDE 0.9% 50 ML IVPB SCH (09:42)
--- NOTE | 2023-09-23 21:09 | P.PN ---
Date of Service: 09/23/23 Vital Signs Temp Pulse Resp BP Pulse Ox 97.4 F 125 H 26 H 101/55 L 95 09/23/23 16:00 09/23/23 16:00 09/23/23 16:00 09/23/23 16:00 09/23/23 16:00 Medications Acetaminophen (Acetaminophen 500 Mg Tab) 500 mg PO Q4HP PRN PRN Reason: Pain scale 2-4 (Mild) Last Admin: 09/20/23 20:42 Dose: 500 mg Acetazolamide (Acetazolamide 250 Mg Tab) 250 mg PO DAILY [facility] Last Admin: 09/23/23 09:42 Dose: 250 mg Albuterol Sulfate (Albuterol 2.5 Mg/3 Ml Neb Carolee) 2.5 mg NEB [id number] PRN PRN Reason: SHORTNESS OF BREATH Last Admin: 09/22/23 19:07 Dose: 2.5 mg Alprazolam (Alprazolam 0.25 Mg Tablet) 0.25 mg PO BEDTIME PRN PRN PRN Reason: INSOMNIA Last Admin: 09/20/23 20:42 Dose: 0.25 mg Amiloride HCl (Amiloride Hcl 5 Mg Tablet) 5 mg PO DAILY [facility] Last Admin: 09/23/23 09:43 Dose: 5 mg Amiodarone HCl (Amiodarone Hcl 200 Mg Tab) 200 mg PO BID [facility] Last Admin: 09/23/23 20:59 Dose: 200 mg Apixaban (Apixaban 2.5 Mg Tablet) 2.5 mg PO BID [facility] Last Admin: 09/23/23 20:59 Dose: 2.5 mg Ferrous Sulfate (Ferrous Sulfate 325 Mg Tab) 325 mg PO DAILY [facility] Last Admin: 09/23/23 09:42 Dose: 325 mg Ceftriaxone Sodium 1,000 mg/ (Sodium Chloride) 50 mls @ 100 mls/hr IVPB DAILY [facility]; Protocol Last Admin: 09/23/23 09:42 Dose: 50 mls Ipratropium Crystal (Ipratropium Brom 0.5mg/2.5ml) 0.5 mg NEB [id number] PRN PRN Reason: SHORTNESS OF BREATH Last Admin: 09/22/23 19:06 Dose: 0.5 mg L-Arginine/L-Glutamine/HMB (Masood Packet) 1 pkt PO BIDWM [facility] Last Admin: 09/23/23 17:00 Dose: 1 pkt Magnesium Chloride (Magnesium Chloride 64 Mg Tab) 64 mg PO DAILY [facility] Last Admin: 09/23/23 09:47 Dose: 64 mg Magnesium Hydroxide (Magnesium Hydroxide 8% 30 Ml) 30 ml PO DAILYPRN PRN PRN Reason: CONSTIPATION Midodrine (Midodrine Hcl 5 Mg Tablet) 10 mg PO TID [facility] Last Admin: 09/23/23 20:59 Dose: 10 mg Multivitamins/Iron (Fe Sulf/Fa/Vit B Comp & C Tab) 1 tab PO DAILY WITH BREAKFAST [facility] Last Admin: 09/23/23 09:42 Dose: 1 tab Nystatin (Nystatin Pwdr 133203 Unit/Gm) 1 appl TOP BID [facility] Last Admin: 09/23/23 20:59 Dose: 1 appl Ondansetron HCl (Ondansetron 4 Mg/2 Ml Vial) 4 mg IV Q6HP PRN PRN Reason: NAUSEA / VOMITING Roflumilast (Roflumilast 500 Mcg Tablet) 500 mcg PO DAILY [facility] Last Admin: 09/23/23 09:48 Dose: 500 mcg Sildenafil Citrate (Sildenafil Citrate 20 Mg Tablet) 20 mg PO BID [facility] Last Admin: 09/23/23 20:59 Dose: Not Given Trazodone HCl (Trazodone 50 Mg Tablet) 25 mg PO BEDTIME [facility] Last Admin: 09/23/23 20:59 Dose: 25 mg Microbiology Results 09/18/23 13:45 Clean Catch Urine [place] Count - Final >100,000 CFU/ML. 09/18/23 13:45 Clean Catch Urine - Final Enterobacter Cloacae Klebsiella Oxytoca Assessment/ Plan: Nephrology Progress Note No Dyspnea No Chest Pain Weakness and fatigue No Acute Events Overnight Vital Signs, Medications, Blood Work, and Imaging reviewed in the chart NAD. Obese. NCAT. MMM. Neck Supple. Normal Respiratory Effort/ CTA. RRR. Abd ND. No C/C. R>L LE Edema 1+. No Rash. AAO. Normal Speech. Assessment & Plan Stage I PATRIZIA complicated by CRS CKD III -No NSAIDs -Continue diuresis Hypokalemia -Replete prn -Continue Amiloride Metabolic Alkalosis -Continue Diamox daily Hypophosphatemia -Replete as ordered Chronic Hypotension -Continue Midodrine 10mg BID Diastolic CHF, A/C Pulmonary HTN -Continue Diamox -Continue Amiloride -Continue Sildenafil -LE Ext Venous Doppler negative for DVT Anemia in chronic illness Iron Deficiency 19% -Monitor H&H -PRBC prn -Consider IV iron -Continue MVI with iron Cigarette Smoker -Nicotine TD prn -Recommend cessation Case reviewed with Dr. Donaldson
[2023-09-24 03:51] LABS: Absolute Monocytes 0.5 K/uL (0.1-1.3); Basophils % 0.3 % (0-1.3); Eosinophils % 0.3 % (0-4.4); Hemoglobin 7.8 g/dL (12.0-15.0); Lymphocytes % 34.6 % (15.3-44.8); MCH 24.8 pg (27.0-35.0); MCHC 30.1 g/dL (32.0-36.0); MCV 82.3 fL (80-100); MPV 9.1 fL (7.6-11.3); Monocytes % 5.9 % (3.3-12.3); Neutrophils % 58.9 % (41.7-73.7); Platelets 233 thou/uL (152-406); RBC Red Blood Cell Count 3.17 M/uL (3.86-4.86)
[2023-09-24 03:52] LABS: Red Cell Distribution Width 22.9 % (12.1-15.2)
[2023-09-24 03:55] LABS: Anion Gap 7.8 mEq/L (5.0-15.0); Phosphorus 1.6 mg/dL (2.5-4.9); Potassium 4.8 mEq/L (3.5-5.1)
[2023-09-24] MEDS: POTASS/SODIUM PHOSPHATE 1 PKT POWD.PACK PO SCH (09:15)
[2023-09-24] MEDS: SOD FERRIC GLUC COMPLX/SUCROSE 125 MG in NA CHLORIDE 0.9% 100 ML IV SCH (10:41)
--- NOTE | 2023-09-24 11:48 | P.PN ---
Date of Service: 09/24/23 Subjective Cough improved from yesterday No acute events overnight ROS 10 point ROS as noted above, otherwise negative Physical Exam General: NAD, AAOx3, calm HEENT: Atraumatic, Normocephalic, PERRLA, Other (tooth decay) Neck: Supple, 2+ carotid pulse no bruit, JVD not distended Respiratory: Symmetrical chest wall movement, Crackles/rales, Other (2 LNC), breathing continues to improved Cardiovascular: atrial fibrillation HR 90s, S1-S2 present, 3+ pitting edema Capillary refill: <2 Seconds Gastrointestinal: Bowel Sounds present, soft and benign on palpation, nontender, distended (obese) Musculoskeletal: No clubbing, No contractures Integumentary: No rashes Neurological: Normal speech, Normal strength at 5/5 x4 extr, Normal tone Vitals Reviewed Problem list Metabolic alkalosis Generalized weakness Severe hypokalemia Hypomagnasemia Hypophosphatemia Chronic Hypotension History of Afib History of COPD/asthma Acute on chronic diastolic congestive heart failure Severe Pulmonary hypertension Acute/chronic hypercapnic and hypoxemic respiratory failure Stage I/II PATRIZIA UTI (POA) Transaminitis iron deficiency/chronic disease anemia Plan Metabolic alkalosis Generalized weakness Severe hypokalemia Hypomagnasemia Hypophosphatemia improved since admission recheck potassium, phosphorus, and magnesium daily Replace per protocol continuous telemetry Magox BID PT consult Chronic Hypotension midodrine TID Anemia of chronic disease iron deficiency transfuse PRN Continue iron Acute on chronic diastolic congestive heart failure Severe Pulmonary hypertension History of COPD/asthma Acute/chronic hypercapnic and hypoxemic respiratory failure Lower extremity edema Cough C/O worsening cough, CXR ordered negative for DVT SARTHAK 09/22 amiloride, sildinafil, diamox supplemental oxygen PRN Dose of torsemide per nephrology Stage I/II PATRIZIA Nephrology following With lower extremity edema Diuresing with amiloride, diamox UTI (POA) Switched to IV Rocephin 09/22-continue Transaminitis-resolved DVT ppx home dose eliquis Full code LOS 1-2 days days
--- NOTE | 2023-09-24 21:24 | P.PN ---
Date of Service: 09/24/23 Vital Signs Temp Pulse Resp BP Pulse Ox 97.1 F 88 19 133/69 93 09/24/23 20:00 09/24/23 20:00 09/24/23 20:00 09/24/23 20:00 09/24/23 20:00 Medications Acetaminophen (Acetaminophen 500 Mg Tab) 500 mg PO Q4HP PRN PRN Reason: Pain scale 2-4 (Mild) Last Admin: 09/24/23 20:37 Dose: 500 mg Acetazolamide (Acetazolamide 250 Mg Tab) 250 mg PO DAILY [facility] Last Admin: 09/24/23 09:16 Dose: 250 mg Albuterol Sulfate (Albuterol 2.5 Mg/3 Ml Neb Carolee) 2.5 mg NEB [id number] PRN PRN Reason: SHORTNESS OF BREATH Last Admin: 09/22/23 19:07 Dose: 2.5 mg Amiloride HCl (Amiloride Hcl 5 Mg Tablet) 5 mg PO DAILY [facility] Last Admin: 09/24/23 09:16 Dose: 5 mg Amiodarone HCl (Amiodarone Hcl 200 Mg Tab) 200 mg PO BID [facility] Last Admin: 09/24/23 20:37 Dose: 200 mg Apixaban (Apixaban 2.5 Mg Tablet) 2.5 mg PO BID [facility] Last Admin: 09/24/23 20:37 Dose: 2.5 mg Ferrous Sulfate (Ferrous Sulfate 325 Mg Tab) 325 mg PO DAILY [facility] Last Admin: 09/24/23 09:15 Dose: 325 mg Ceftriaxone Sodium 1,000 mg/ (Sodium Chloride) 50 mls @ 100 mls/hr IVPB DAILY [facility]; Protocol Last Admin: 09/24/23 09:15 Dose: 50 mls Ferric Sodium Gluconate Complex 125 mg/ Sodium Chloride 110 mls @ 50 mls/hr IV DAILY [facility] Stop: 09/27/23 11:11 Last Admin: 09/24/23 10:41 Dose: 110 mls Ipratropium [place] (Ipratropium Brom 0.5mg/2.5ml) 0.5 mg NEB [id number] PRN PRN Reason: SHORTNESS OF BREATH Last Admin: 09/22/23 19:06 Dose: 0.5 mg L-Arginine/L-Glutamine/HMB (Masood Packet) 1 pkt PO BIDWM [facility] Last Admin: 09/24/23 16:59 Dose: 1 pkt Magnesium Chloride (Magnesium Chloride 64 Mg Tab) 64 mg PO DAILY [facility] Last Admin: 09/24/23 09:16 Dose: 64 mg Magnesium Hydroxide (Magnesium Hydroxide 8% 30 Ml) 30 ml PO DAILYPRN PRN PRN Reason: CONSTIPATION Midodrine (Midodrine Hcl 5 Mg Tablet) 10 mg PO TID [facility] Last Admin: 09/24/23 20:37 Dose: 10 mg Multivitamins/Iron (Fe Sulf/Fa/Vit B Comp & C Tab) 1 tab PO DAILY WITH BREAKFAST [facility] Last Admin: 09/24/23 09:16 Dose: 1 tab Nystatin (Nystatin Pwdr [id number] Unit/Gm) 1 appl TOP BID [facility] Last Admin: 09/24/23 20:40 Dose: 1 appl Ondansetron HCl (Ondansetron 4 Mg/2 Ml Vial) 4 mg IV Q6HP PRN PRN Reason: NAUSEA / VOMITING Roflumilast (Roflumilast 500 Mcg Tablet) 500 mcg PO DAILY [facility] Last Admin: 09/24/23 09:16 Dose: 500 mcg Sildenafil Citrate (Sildenafil Citrate 20 Mg Tablet) 20 mg PO BID [facility] Last Admin: 09/24/23 20:37 Dose: 20 mg Torsemide (Torsemide 20 Mg Tab) 20 mg PO 1X ONE Stop: 09/25/23 13:01 Trazodone HCl (Trazodone 50 Mg Tablet) 25 mg PO BEDTIME [facility] Last Admin: 09/24/23 20:37 Dose: 25 mg Microbiology Results 09/18/23 13:45 Clean Catch Urine [place] Count - Final >100,000 CFU/ML. 09/18/23 13:45 Clean Catch Urine - Final Enterobacter Cloacae Klebsiella Oxytoca Assessment/ Plan: Nephrology Progress Note No Dyspnea No Chest Pain Weakness and fatigue No Acute Events Overnight Vital Signs, Medications, Blood Work, and Imaging reviewed in the chart NAD. Obese. NCAT. MMM. Neck Supple. Normal Respiratory Effort/ CTA. RRR. Abd ND. No C/C. LE Edema 1+. No Rash. AAO. Normal Speech. Assessment & Plan Stage I PATRIZIA complicated by CRS CKD III -No NSAIDs -Continue diuresis Hypokalemia -Replete prn -Continue Amiloride Metabolic Alkalosis -Continue Diamox daily Hypophosphatemia -Replete as ordered Chronic Hypotension -Continue Midodrine 10mg BID Diastolic CHF, A/C Pulmonary HTN -Continue Diamox -Continue Amiloride -Continue Sildenafil -LE Ext Venous Doppler negative for DVT -Torsemide X1 today Anemia in chronic illness Iron Deficiency 19% -Monitor H&H -PRBC prn -Start IV iron -Continue MVI with iron Cigarette Smoker -Nicotine TD prn -Recommend cessation Case reviewed with Dr. Donaldson
[2023-09-25 03:42] LABS: Absolute Eosinophils 0.1 K/uL (0-0.5); Absolute Lymphocytes (CBC) 2.4 K/uL (0.7-4.9); Absolute Monocytes 0.4 K/uL (0.1-1.3); Absolute Neutrophil 2.8 K/uL (1.8-8.0); Basophils % 0.4 % (0-1.3); Hematocrit 25.7 % (36.0-45.0); Hemoglobin 7.7 g/dL (12.0-15.0); Lymphocytes % 41.7 % (15.3-44.8); MCH 24.8 pg (27.0-35.0); MCHC 29.9 g/dL (32.0-36.0); MCV 82.9 fL (80-100); MPV 8.9 fL (7.6-11.3); Monocytes % 7.2 % (3.3-12.3); Neutrophils % 49.7 % (41.7-73.7); Platelets 216 thou/uL (152-406)
[2023-09-25 04:00] LABS: Anion Gap 6.6 mEq/L (5.0-15.0); Phosphorus 2.2 mg/dL (2.5-4.9); Potassium 4.6 mEq/L (3.5-5.1)
[2023-09-25 04:14] LABS: Red Cell Distribution Width 23.7 % (12.1-15.2)
[2023-09-25] MEDS: POTASS/SODIUM PHOSPHATE 1 PKT POWD.PACK PO SCH (05:27)
[2023-09-25] MEDS ORDERED: NA CHLORIDE 0.9% 250 ML IV SCH (07:00)
[2023-09-25] MEDS ORDERED: POTASS/SODIUM PHOSPHATE 1 PKT POWD.PACK PO SCH (12:00)
[2023-09-25] MEDS: NA CHLORIDE 0.9% 250 ML ONE (12:30)
[2023-09-25] MEDS ORDERED: TORSEMIDE 20 MG TAB PO ONE ×2 (13:00)
[2023-09-25] MEDS: BENZONATATE 100 MG CAP PO PRN (14:58)
--- NOTE | 2023-09-25 15:14 | P.PN ---
Date of Service: 09/25/23 Subjective Still feeling weak with lower extremity edema no acute events overnight ROS 10 point ROS as noted above, otherwise negative Physical Exam General: NAD, AAOx3, calm HEENT: Atraumatic, Normocephalic, PERRLA, Other (tooth decay) Neck: Supple, 2+ carotid pulse no bruit, JVD not distended Respiratory: Symmetrical chest wall movement, Crackles/rales, Other (2 LNC), breathing continues to improved Cardiovascular: atrial fibrillation HR 90s, S1-S2 present, 2+ pitting edema Capillary refill: <2 Seconds Gastrointestinal: Bowel Sounds present, soft and benign on palpation, nontender, distended (obese) Musculoskeletal: No clubbing, No contractures Integumentary: No rashes Neurological: Normal speech, Normal strength at 5/5 x4 extr, Normal tone Vitals Reviewed Problem list Metabolic alkalosis Generalized weakness Severe hypokalemia Hypomagnasemia Hypophosphatemia Chronic Hypotension History of Afib History of COPD/asthma Acute on chronic diastolic congestive heart failure Severe Pulmonary hypertension Acute/chronic hypercapnic and hypoxemic respiratory failure Stage I/II PATRIZIA UTI (POA) Transaminitis iron deficiency/chronic disease anemia Plan Metabolic alkalosis Generalized weakness Severe hypokalemia Hypomagnasemia Hypophosphatemia improved since admission recheck potassium, phosphorus, and magnesium daily Replace per protocol continuous telemetry Magox BID PT consult Chronic Hypotension midodrine TID Cardiology consulted repeat echo from May which showed severe diastolic dysfunction and pulmonary HTN Anemia of chronic disease iron deficiency One Unit PRBS ordered/given 09/24 as pt was more weak than baseline, hypotensive, HR running high Continue iron 09/25 Acute on chronic diastolic congestive heart failure Severe Pulmonary hypertension History of COPD/asthma Acute/chronic hypercapnic and hypoxemic respiratory failure Lower extremity edema Cough C/O worsening cough, CXR ordered-negative for acute findings negative for DVT SARTHAK 09/22 amiloride, sildinafil, diamox supplemental oxygen PRN Dose of torsemide per nephrology Stage I/II PATRIZIA Nephrology following With lower extremity edema Diuresing with amiloride, diamox UTI (POA) Switched to IV Rocephin 09/22-continue Transaminitis-resolved DVT ppx home dose eliquis Full code LOS 1-2 days days
[2023-09-25 18:36] LABS: Hematocrit 30.7 % (36.0-45.0); Hemoglobin 9.9 g/dL (12.0-15.0)
--- NOTE | 2023-09-25 21:17 | P.PN ---
Date of Service: 09/25/23 Vital Signs Temp Pulse Resp BP Pulse Ox 96.9 F 96 H 18 122/55 L 92 09/25/23 20:00 09/25/23 20:00 09/25/23 20:00 09/25/23 20:00 09/25/23 20:00 Medications Acetaminophen (Acetaminophen 500 Mg Tab) 500 mg PO Q4HP PRN PRN Reason: Pain scale 2-4 (Mild) Last Admin: 09/24/23 20:37 Dose: 500 mg Acetazolamide (Acetazolamide 250 Mg Tab) 250 mg PO DAILY [facility] Last Admin: 09/25/23 09:10 Dose: 250 mg Albuterol Sulfate (Albuterol 2.5 Mg/3 Ml Neb Carolee) 2.5 mg NEB [id number] PRN PRN Reason: SHORTNESS OF BREATH Last Admin: 09/22/23 19:07 Dose: 2.5 mg Amiloride HCl (Amiloride Hcl 5 Mg Tablet) 5 mg PO DAILY [facility] Last Admin: 09/25/23 09:09 Dose: 5 mg Amiodarone HCl (Amiodarone Hcl 200 Mg Tab) 200 mg PO BID [facility] Last Admin: 09/25/23 09:10 Dose: 200 mg Apixaban (Apixaban 2.5 Mg Tablet) 2.5 mg PO BID [facility] Last Admin: 09/25/23 09:10 Dose: 2.5 mg Benzonatate (Benzonatate 100 Mg Cap) 100 mg PO TID PRN PRN Reason: COUGH Last Admin: 09/25/23 14:58 Dose: 100 mg Ferrous Sulfate (Ferrous Sulfate 325 Mg Tab) 325 mg PO DAILY [facility] Last Admin: 09/25/23 09:10 Dose: 325 mg Ceftriaxone Sodium 1,000 mg/ (Sodium Chloride) 50 mls @ 100 mls/hr IVPB DAILY [facility]; Protocol Last Admin: 09/25/23 09:10 Dose: 50 mls Ferric Sodium Gluconate Complex 125 mg/ Sodium Chloride 110 mls @ 50 mls/hr IV DAILY [facility] Last Admin: 09/25/23 09:11 Dose: 110 mls Sodium Chloride (Sodium Chloride) 250 mls @ 0 mls/hr IV .Q0M [facility] Ipratropium Nogal (Ipratropium Brom 0.5mg/2.5ml) 0.5 mg NEB [id number] PRN PRN Reason: SHORTNESS OF BREATH Last Admin: 09/22/23 19:06 Dose: 0.5 mg L-Arginine/L-Glutamine/HMB (Masood Packet) 1 pkt PO BIDWM [facility] Last Admin: 09/25/23 15:47 Dose: Not Given Magnesium Chloride (Magnesium Chloride 64 Mg Tab) 64 mg PO DAILY [facility] Last Admin: 09/25/23 09:09 Dose: 64 mg Magnesium Hydroxide (Magnesium Hydroxide 8% 30 Ml) 30 ml PO DAILYPRN PRN PRN Reason: CONSTIPATION Midodrine (Midodrine Hcl 5 Mg Tablet) 10 mg PO TID [facility] Last Admin: 09/25/23 12:50 Dose: 10 mg Multivitamins/Iron (Fe Sulf/Fa/Vit B Comp & C Tab) 1 tab PO DAILY WITH BREAKFAST [facility] Last Admin: 09/25/23 09:09 Dose: 1 tab Nystatin (Nystatin Pwdr [id number] Unit/Gm) 1 appl TOP BID [facility] Last Admin: 09/25/23 09:10 Dose: 1 appl Ondansetron HCl (Ondansetron 4 Mg/2 Ml Vial) 4 mg IV Q6HP PRN PRN Reason: NAUSEA / VOMITING Roflumilast (Roflumilast 500 Mcg Tablet) 500 mcg PO DAILY [facility] Last Admin: 09/25/23 09:09 Dose: 500 mcg Sildenafil Citrate (Sildenafil Citrate 20 Mg Tablet) 20 mg PO BID [facility] Last Admin: 09/25/23 09:09 Dose: 20 mg Trazodone HCl (Trazodone 50 Mg Tablet) 25 mg PO BEDTIME [facility] Last Admin: 09/24/23 20:37 Dose: 25 mg Microbiology Results 09/18/23 13:45 Clean Catch Urine [place] Count - Final >100,000 CFU/ML. 09/18/23 13:45 Clean Catch Urine - Final Enterobacter Cloacae Klebsiella Oxytoca Assessment/ Plan: Nephrology Progress Note No Dyspnea No Chest Pain Weakness and fatigue Dizziness with standing yesterday and today No Acute Events Overnight Vital Signs, Medications, Blood Work, and Imaging reviewed in the chart NAD. Obese. NCAT. MMM. Neck Supple. Normal Respiratory Effort/ CTA. RRR. Abd ND. No C/C. LE Edema 1+. No Rash. AAO. Normal Speech. Assessment & Plan Stage I PATRIZIA complicated by CRS CKD III -No NSAIDs -Continue diuresis Hypokalemia -Replete prn -Continue Amiloride Metabolic Alkalosis -Continue Diamox daily Hypophosphatemia -Replete as ordered Chronic Hypotension -Continue Midodrine 10mg BID Diastolic CHF, A/C Pulmonary HTN -Continue Diamox -Continue Amiloride -Continue Sildenafil -LE Ext Venous Doppler negative for DVT Anemia in chronic illness Iron Deficiency 19% -Monitor H&H -PRBC X1 -Continue IV iron -Continue MVI with iron Cigarette Smoker -Nicotine TD prn -Recommend cessation Case reviewed with Dr. Donaldson
[2023-09-26 04:44] LABS: Absolute Eosinophils 0.1 K/uL (0-0.5); Absolute Lymphocytes (CBC) 2.7 K/uL (0.7-4.9); Absolute Monocytes 0.5 K/uL (0.1-1.3); Basophils % 0.5 % (0-1.3); Eosinophils % 0.9 % (0-4.4); Hematocrit 28.5 % (36.0-45.0); Hemoglobin 8.9 g/dL (12.0-15.0); Lymphocytes % 42.5 % (15.3-44.8); MCHC 31.1 g/dL (32.0-36.0); MCV 83.5 fL (80-100); MPV 8.6 fL (7.6-11.3); Neutrophils % 48.1 % (41.7-73.7); Platelets 214 thou/uL (152-406); RBC Red Blood Cell Count 3.42 M/uL (3.86-4.86); Red Cell Distribution Width 22.3 % (12.1-15.2)
[2023-09-26 04:56] LABS: Anion Gap 6.8 mEq/L (5.0-15.0); Magnesium 1.9 mg/dL (1.6-2.4); Phosphorus 2.1 mg/dL (2.5-4.9); Potassium 4.8 mEq/L (3.5-5.1)
[2023-09-26] MEDS: POTASS/SODIUM PHOSPHATE 1 PKT POWD.PACK PO SCH (08:00)
--- NOTE | 2023-09-26 11:15 | P.PN ---
Nephrology note (S) Pt seen lying in bed, has not been OOB, reports intermittent shortness of breath and wheezing. Renal function tests stable overall. Appetite fair. (O) Vitals reviewed in the EMR General: Other (Appears less lethargic, chronically ill) HEENT: Atraumatic, Normocephalic, Other (LFNC) Respiratory: Other (b/l air entry, scattered wheezes, mild tachypnea) Cardiovascular: Other (Tachy, irregular) Gastrointestinal: Soft and benign, Non-distended, No tenderness Musculoskeletal: Other (lower shins less tender, reduced edema c/w prev) Integumentary: No rashes Neurological: Other (Awake, responds appropriately, no speech dysarthria or tremors) Conclusions/Impression: A/P) Stage I/II PATRIZIA episodes recently that have been multifactorial Underlying CKD Stage III unspecified -Cr levels have continued to fluctuate in the setting of diuresis, relative hypotension, reduced renal plasma flow effects of hypercarbia/hypoxia. Cont to monitor closely. Cr level has downward trended from peak Hypotension, other -Recurrent on admission in the setting of UTI, reduced PO intake, recent diuresis. BP remains soft despite max dose Midodrine. Sildenafil may be contributing Diastolic CHF, chronic. Probable obesity hypoventilation syndrome Mod to severe pulm HTN Chronic peripheral edema Low albumin state -BNP chronically elevated, follow weights and clinically -Cont diuretic regimen as ordered for now with holding parameters Hypokalemia, hypomagnesemia, hypophosphatemia -K level no longer low, > 4.5 mmol/L on Amiloride. Not currently on Spir onolactone Metab alkalosis -Acute in the setting of hypokalemia on chronic 2nd to underlying hypercarbia/COPD +/- CHF, diuretics related. Improved since. Jl Callahan MD, [facility]
--- NOTE | 2023-09-26 12:10 | ECHO ---
HEIGHT: 5 ft 7 in WEIGHT: 217 lb 3.2 oz DATE OF STUDY: 09/26/[address]: Rogerio Irvin NP 2-DIMENSIONAL: YES M.MODE: YES DOPPLER: YES COLOR FLOW: YES TDS: PORTABLE: YES DEFINITY: BUBBLE STUDY: DIAGNOSIS: HYPOTENSION/ SEVERE DIASTOLIC DYSFUNCTION/ PULMONARY HYPERTENSION CARDIAC HISTORY: CATHERIZATION: SURGERY: PROSTHETIC VALVE: PACEMAKER: MEASUREMENTS (cm) DIASTOLIC (NORMALS) SYSTOLIC (NORMALS) IVSd 0.9 (0.6-1.2) LA Diam 4.3 (1.9-4.0) LVEF 57% LVIDd 5.4 (3.5-5.7) LVIDs 3.7 (2.0-3.5) %FS 30% LVPWd 1.1 (0.6-1.2) Ao Diam 2.6 (2.0-3.7) 2 DIMENSIONAL ASSESSMENT: RIGHT ATRIUM: NORMAL LEFT ATRIUM: ENLARGED RIGHT VENTRICLE: NORMAL LEFT VENTRICLE: NORMAL TRICUSPID VALVE: MODERATE TRICUSPID REGURGITATION MITRAL VALVE: MILD MITRAL REGURGITATION PULMONIC VALVE: MILD PULMONIC INSUFFICIENCY AORTIC VALVE: MILD AORTIC INSUFFICIENCY PERICARDIAL EFFUSION: NONE AORTIC ROOT: NORMAL LEFT VENTRICULAR WALL MOTION: NORMAL DOPPLER/COLOR FLOW: SEE BELOW COMMENTS: 1. NORMAL LEFT VENTRICULAR EJECTION FRACTION 55-60% 2. ATRIAL FIBRILLATION 3. LEFT ATRIAL ENLARGEMENT 4. MILD MITRAL REGURGITATION, AORTIC INSUFFICIENCY 5. MODERATE TRICUSPID REGURGITATION TECHNOLOGIST: BO MOSHER
--- NOTE | 2023-09-26 12:47 | P.PN ---
Date of Service: 09/26/23 Subjective Feeling ok today reports chronic cough without worsening ROS 10 point ROS as noted above, otherwise negative Physical Exam General: NAD, AAOx3, calm HEENT: Atraumatic, Normocephalic, PERRLA, Other (tooth decay) Neck: Supple, 2+ carotid pulse no bruit, JVD not distended Respiratory: Symmetrical chest wall movement, Crackles/rales, Other (2 LNC), breathing continues to improved Cardiovascular: atrial fibrillation HR 90s, S1-S2 present, no edema Capillary refill: <2 Seconds Gastrointestinal: Bowel Sounds present, soft and benign on palpation, nontender, distended (obese) Musculoskeletal: No clubbing, No contractures Integumentary: No rashes Neurological: Normal speech, Normal strength at 5/5 x4 extr, Normal tone Vitals Reviewed Problem list Metabolic alkalosis Generalized weakness Severe hypokalemia Hypomagnasemia Hypophosphatemia Chronic Hypotension History of Afib History of COPD/asthma Acute on chronic diastolic congestive heart failure Severe Pulmonary hypertension Acute/chronic hypercapnic and hypoxemic respiratory failure Stage I/II PATRIZIA UTI (POA) Transaminitis iron deficiency/chronic disease anemia Plan Metabolic alkalosis Generalized weakness Severe hypokalemia Hypomagnasemia Hypophosphatemia improved since admission recheck potassium, phosphorus, and magnesium daily Replace per protocol continuous telemetry Magox BID PT consult-able to sit up on side of bed but has not gotten out of bed Chronic Hypotension midodrine TID Anemia of chronic disease iron deficiency One Unit PRBS ordered/given 09/24 as pt was more weak than baseline, hypotensive, HR running high Continue iron 09/25 HGB improved Acute on chronic diastolic congestive heart failure Severe Pulmonary hypertension History of COPD/asthma Acute/chronic hypercapnic and hypoxemic respiratory failure Lower extremity edema Cough negative for DVT SARTHAK 09/22 Echo 09/25 1. NORMAL LEFT VENTRICULAR EJECTION FRACTION 55-60% 2. ATRIAL FIBRILLATION 3. LEFT ATRIAL ENLARGEMENT 4. MILD MITRAL REGURGITATION, AORTIC INSUFFICIENCY 5. MODERATE TRICUSPID REGURGITATION amiloride, sildinafil, diamox supplemental oxygen PRN Stage I/II PATRIZIA Nephrology following With lower extremity edema Diuresing with amiloride, diamox UTI (POA) Switched to IV Rocephin 09/22-continue Transaminitis-resolved DVT ppx home dose eliquis Full code LOS 1-2 days days
--- NOTE | 2023-09-26 13:03 | CON ---
Date of Consultation: 09/26/2023 Reason For Consultation: CHF. History Of Present Illness: A 73-year-old female, history of hypertension, COPD, atrial fibrillation , presented to the emergency room with epigastric pain and generalized weakness, found to have severe urinary tract infection, septic, severely hypokalemic. She has been in the hospital for few days. I was asked to evaluate her for congestive heart failure. Saw by bedside. There is no shortness of breath, orthopnea. No significant lower extremity edema, but she does get short of breath with activ ities. Past Medical History: As outlined above in the HPI. Medications: Refer reconciliation sheet for detailed list. Allergies: PENICILLIN, CODEINE. Family History: No premature coronary artery disease or cancer. Social History: She does not smoke or drink. Does not use any drugs. Review of Systems: All systems reviewed, they are negative except as mentioned in HPI. Physical Examination: Vital Signs: Reviewed. Head and Neck: Pupils are equal, reactive to light. Intact eye movements. No JVD. No cervical lym phadenopathy. Neck is supple. Thyroid is not enlarged. Lungs: Clear to auscultation bilaterally. No rhonchi, rales, or crackles. No accessory muscle use. Heart: Irregularly irregular. No extra sounds. Abdomen: Soft, nontender. Bowel sounds positive. No organomegaly. No mass or hernia. No rigidity or rebound. Extremities: No edema, clubbing, cyanosis. Intact pulses. Skin: No rash or nodule. Neurologic: Alert, awake, oriented x3. No acute focal deficits appreciated. Lymph Nodes: No cervical or axillary lymphadenopathy. Investigations: BUN is 47, creatinine 1.88, and hemoglobin is 8.9. Assessment/recommendation: 1.Chronic congestive heart failure. NT-proBNP is elevated. She does not look fluid overloaded at t his moment. I do not see a reason to give any IV diuretics. Obtain an echo to evaluate her filling pressures and ejection fraction and plan accordingly. 2.Severe urinary tract infection, on ceftriaxone. 3.Atrial fibrillation, rate is controlled, on Eliquis. Continue current management. 4.Acute on chronic renal failure, and creatinine is improving slowly. SR/MODL Voice ID: [id number] Report ID: [id number]
[2023-09-26 15:23] LABS: C.diff Antigen/Toxin Ag neg : Tox neg (NEG : NEG); CDIFF INTERNAL NEG CONTROL White Background (WHITE BKGD); STOOL CONSISTENCY Liquid/Semi-Solid
[2023-09-27 08:33] LABS: Absolute Eosinophils 0.1 K/uL (0-0.5); Absolute Lymphocytes (CBC) 3.1 K/uL (0.7-4.9); Absolute Monocytes 0.5 K/uL (0.1-1.3); Absolute Neutrophil 3.2 K/uL (1.8-8.0); Basophils % 0.7 % (0-1.3); Eosinophils % 0.8 % (0-4.4); Hematocrit 29.4 % (36.0-45.0); Hemoglobin 9.3 g/dL (12.0-15.0); Lymphocytes % 44.6 % (15.3-44.8); MCH 26.5 pg (27.0-35.0); MCHC 31.7 g/dL (32.0-36.0); MCV 83.4 fL (80-100); MPV 8.5 fL (7.6-11.3); Monocytes % 6.8 % (3.3-12.3); Neutrophils % 47.1 % (41.7-73.7); Nucleated Red Blood Cells % 0.1 % (0-0); Platelets 227 thou/uL (152-406); RBC Red Blood Cell Count 3.53 M/uL (3.86-4.86); Red Cell Distribution Width 22.8 % (12.1-15.2)
[2023-09-27 08:53] LABS: Anion Gap 8.8 mEq/L (5.0-15.0); Magnesium 1.9 mg/dL (1.6-2.4); Phosphorus 2.7 mg/dL (2.5-4.9); Potassium 4.8 mEq/L (3.5-5.1)
[2023-09-27] MEDS: AMILORIDE HCL 5 MG TABLET PO SCH (09:01)
--- NOTE | 2023-09-27 10:45 | P.PN ---
Date of Service: 09/27/23 Subjective Feeling ok today denies complaints no acute events overnight ROS 10 point ROS as noted above, otherwise negative Physical Exam General: NAD, AAOx3, calm HEENT: Atraumatic, Normocephalic, PERRLA, Other (tooth decay) Neck: Supple, 2+ carotid pulse no bruit, JVD not distended Respiratory: Symmetrical chest wall movement, Crackles/rales, Other (2 LNC), breathing continues to improved Cardiovascular: atrial fibrillation HR 90s, S1-S2 present, no edema Capillary refill: <2 Seconds Gastrointestinal: Bowel Sounds present, soft and benign on palpation, nontender, distended (obese) Musculoskeletal: No clubbing, No contractures Integumentary: No rashes Neurological: Normal speech, Normal strength at 5/5 x4 extr, Normal tone Vitals Reviewed Problem list Metabolic alkalosis Generalized weakness Severe hypokalemia Hypomagnasemia Hypophosphatemia Chronic Hypotension History of Afib History of COPD/asthma Acute on chronic diastolic congestive heart failure Severe Pulmonary hypertension Acute/chronic hypercapnic and hypoxemic respiratory failure Stage I/II PATRIZIA UTI (POA) Transaminitis iron deficiency/chronic disease anemia Plan Metabolic alkalosis Generalized weakness Severe hypokalemia Hypomagnasemia Hypophosphatemia improved since admission recheck potassium, phosphorus, and magnesium daily Replace per protocol continuous telemetry PT consult-able to sit up on side of bed but has not gotten out of bed will plan for dc to home with home health has hospital bed at home, lives with sherrell Ho Chronic Hypotension midodrine TID Anemia of chronic disease iron deficiency One Unit PRBS ordered/given 09/24 as pt was more weak than baseline, hypotensive, HR running high Continue iron 09/25 HGB improved Acute on chronic diastolic congestive heart failure Severe Pulmonary hypertension History of COPD/asthma Acute/chronic hypercapnic and hypoxemic respiratory failure Lower extremity edema Cough negative for DVT SARTHAK 09/22 Echo 09/25 1. NORMAL LEFT VENTRICULAR EJECTION FRACTION 55-60% 2. ATRIAL FIBRILLATION 3. LEFT ATRIAL ENLARGEMENT 4. MILD MITRAL REGURGITATION, AORTIC INSUFFICIENCY 5. MODERATE TRICUSPID REGURGITATION Continue amiloride, diamox per nephrology supplemental oxygen PRN discontinued sildenafil 09/25 Stage I/II PATRIZIA Nephrology following With lower extremity edema Diuresing with amiloride, diamox UTI (POA) Switched to IV Rocephin 09/22-DC after dose on 09/27 Transaminitis-resolved DVT ppx home dose eliquis Full code LOS 1-2 days days
--- NOTE | 2023-09-27 14:38 | PN ---
Date of Progress Note: 09/27/2023 Subjective: The patient was seen and examined at bedside. She is doing okay. Denies any complaints other than abdominal discomfort which she describes as epigastric discomfort. Physical Examination: Vital Signs: Blood pressure continues to be in the 90s, pulse rate slightly high at 105, but sinus r hythm. General: She appears in no acute distress. HEENT: Atraumatic head. Heart: Regular rate and rhythm. Extremities: No evidence of edema. Abdomen: Mild epigastric tenderness. Laboratory Data: Creatinine of 1.7, which is slowly improving, BUN improving to 37, chloride of 111. CBC showing stable hemoglobin, hematocrit, and platelet count. Impression: 1.Acute on chronic renal insufficiency secondary to cardiorenal syndrome, currently with improving r enal function. Continue with current regimen of diuretics. 2.Generalized weakness. We will need to continue ongoing physical therapy. 3.Metabolic alkalosis has resolved. 4.Epigastric pain, unclear. The patient has been on Rocephin for UTI. We will need to evaluate her for gastroenteritis and manage her conservatively. 5.Transaminitis, currently with improving liver function tests as well. 6.Hypotension. The patient was on sildenafil, which has been discontinued. She is also on midodrin e. Continue the same and will follow up closely. Plan: Overall the patient is clinically stable. Renal function is improving. Diuretics currently o n amiloride 5 mg a day and also on midodrine. Continue to monitor renal function and we will follow up. VV/MODL Voice ID: [id number] Report ID: [id number]
[2023-09-28 07:55] LABS: Absolute Basophils 0.1 K/uL (0-0.5); Absolute Eosinophils 0.1 K/uL (0-0.5); Absolute Lymphocytes (CBC) 3.1 K/uL (0.7-4.9); Absolute Monocytes 0.5 K/uL (0.1-1.3); Absolute Neutrophil 3.9 K/uL (1.8-8.0); Basophils % 0.8 % (0-1.3); Eosinophils % 0.9 % (0-4.4); Hematocrit 31.9 % (36.0-45.0); Hemoglobin 9.9 g/dL (12.0-15.0); Lymphocytes % 40.6 % (15.3-44.8); MCH 26.3 pg (27.0-35.0); MCHC 30.9 g/dL (32.0-36.0); MPV 8.6 fL (7.6-11.3); Monocytes % 6.7 % (3.3-12.3); Nucleated Red Blood Cells % 0.1 % (0-0); Platelets 220 thou/uL (152-406); RBC Red Blood Cell Count 3.75 M/uL (3.86-4.86); Red Cell Distribution Width 22.4 % (12.1-15.2)
[2023-09-28 08:09] LABS: Anion Gap 9.2 mEq/L (5.0-15.0); Phosphorus 2.8 mg/dL (2.5-4.9); Potassium 5.2 mEq/L (3.5-5.1)
[2023-09-28 08:47] LABS: Anisocytosis 1+; Blood Morphology Comment NOTED (NOT SEEN); Platelet Estimate ADEQ; White Blood Cell Scan OK (OK)
--- NOTE | 2023-09-28 11:47 | P.PN ---
Date of Service: 09/28/23 Subjective Feeling ok today denies complaints no acute events overnight Bp improved ROS 10 point ROS as noted above, otherwise negative Physical Exam General: NAD, AAOx3, calm HEENT: Atraumatic, Normocephalic, PERRLA, Other (tooth decay) Neck: Supple, 2+ carotid pulse no bruit, JVD not distended Respiratory: Symmetrical chest wall movement, Crackles/rales, Other (2 LNC), breathing continues to improved Cardiovascular: atrial fibrillation HR 90s, S1-S2 present, no edema Capillary refill: <2 Seconds Gastrointestinal: Bowel Sounds present, soft and benign on palpation, nontender, distended (obese) Musculoskeletal: No clubbing, No contractures Integumentary: No rashes Neurological: Normal speech, Normal strength at 5/5 x4 extr, Normal tone Vitals Reviewed Problem list Metabolic alkalosis Generalized weakness Severe hypokalemia Hypomagnasemia Hypophosphatemia Chronic Hypotension History of Afib History of COPD/asthma Acute on chronic diastolic congestive heart failure Severe Pulmonary hypertension Acute/chronic hypercapnic and hypoxemic respiratory failure Stage I/II PATRIZIA UTI (POA) Transaminitis iron deficiency/chronic disease anemia Plan Metabolic alkalosis Generalized weakness Severe hypokalemia Hypomagnasemia Hypophosphatemia improved since admission recheck potassium, phosphorus, and magnesium daily Replace per protocol continuous telemetry PT consult-able to sit up on side of bed but has not gotten out of bed will plan for dc to home with home health has hospital bed at home, lives with sherrell Ho Plan for possible DC 09/28 after neprhology evaluated diuretics Chronic Hypotension midodrine TID BP improved after DC sildenafil Anemia of chronic disease iron deficiency One Unit PRBS ordered/given 09/24 as pt was more weak than baseline, hypotensive, HR running high Continue iron 09/25 HGB improved -continue to monitor H/H Acute on chronic diastolic congestive heart failure Severe Pulmonary hypertension History of COPD/asthma Acute/chronic hypercapnic and hypoxemic respiratory failure Lower extremity edema Cough negative for DVT SARTHAK 09/22 Echo 09/25 1. NORMAL LEFT VENTRICULAR EJECTION FRACTION 55-60% 2. ATRIAL FIBRILLATION 3. LEFT ATRIAL ENLARGEMENT 4. MILD MITRAL REGURGITATION, AORTIC INSUFFICIENCY 5. MODERATE TRICUSPID REGURGITATION Continue amiloride, diamox per nephrology supplemental oxygen PRN discontinued sildenafil 09/25 Stage I/II PATRIZIA Nephrology following With lower extremity edema Diuresing with amiloride, diamox UTI (POA) Completed ABX inpatien Transaminitis-resolved DVT ppx home dose eliquis Full code LOS 1-2 days days
--- NOTE | 2023-09-28 16:20 | PN ---
Date of Progress Note: 09/28/2023 Subjective: The patient is seen and examined at bedside. She is confused, but denies any other comp laints. She is a poor historian. Physical Examination: Vital Signs: Reviewed and are stable. Blood pressure are slowly improving. General: She appears in no acute distress. Lungs: Clear to auscultation. Abdomen: Soft and nontender. Extremities: Showed no evidence of edema. Laboratory Data: Showing creatinine improving to 1.69, potassium is slightly elevated to 5.2, bicarb is normal. CBC showing stable hemoglobin, hematocrit, and platelet count. Current Medications: Include amiloride 5 mg a day, amlodipine, Diamox 250 mg daily, amiodarone, Eliq uis, midodrine 10 mg 3 times a day, Daliresp. Impression: 1.Acute on chronic renal insufficiency, currently with improving renal function. 2.Atrial fibrillation. Currently rate controlled. Continue amiodarone. 3.Mild hyperkalemia. The patient's potassium is slightly high. Continue low-dose amyloid and we wi ll discontinue Diamox and monitor her closely. 4.Severe pulmonary hypertension, currently stable. 5.Hypotension, currently on midodrine. Sildenafil has been discontinued. Plan: Overall, patient is clinically stable. Slight hyperkalemia noted, but we will continue to mon itor. Follow up on labs and we will adjust diuretics. VV/MODL Voice ID: [id number] Report ID: [id number]
[2023-09-29 05:05] LABS: Absolute Basophils 0.1 K/uL (0-0.5); Absolute Lymphocytes (CBC) 2.4 K/uL (0.7-4.9); Absolute Monocytes 0.6 K/uL (0.1-1.3); Absolute Neutrophil 3.9 K/uL (1.8-8.0); Basophils % 0.9 % (0-1.3); Eosinophils % 0.7 % (0-4.4); Hematocrit 32.6 % (36.0-45.0); Hemoglobin 10.3 g/dL (12.0-15.0); Lymphocytes % 34.9 % (15.3-44.8); MCH 26.6 pg (27.0-35.0); MCHC 31.5 g/dL (32.0-36.0); MCV 84.4 fL (80-100); MPV 8.5 fL (7.6-11.3); Monocytes % 8.5 % (3.3-12.3); Nucleated Red Blood Cells % 0.1 % (0-0); Platelets 239 thou/uL (152-406); RBC Red Blood Cell Count 3.86 M/uL (3.86-4.86)
[2023-09-29 05:07] LABS: Anion Gap 10.3 mEq/L (5.0-15.0); Magnesium 1.9 mg/dL (1.6-2.4); Phosphorus 3.2 mg/dL (2.5-4.9); Potassium 5.3 mEq/L (3.5-5.1)
[2023-09-29 05:08] LABS: Red Cell Distribution Width 23.1 % (12.1-15.2)
[2023-09-29 11:21] VITALS: O2SAT 98
[2023-09-29 12:57] VITALS: BP 99/56; TEMP 97.5
[2023-09-29] MEDS: SODIUM ZIRCONIUM CYCLOSILICATE 10 GM/PKT PO ONE (13:04)
--- NOTE | 2023-09-29 15:10 | P.DS ---
Admission Date: 09/18/23 Discharge Date: 09/29/23 Disposition: DC HOME/HOME HEALTH CARE Discharge Condition: FAIR Reason for Admission: severe hypokalemia, CHF Consultations: Cardiology, nephrology-Dr. Oneil Brief History of Present Illness: Sunshine Mead is a 73 year old female with Pmhx Asthma; Hypertension; COPD; Atrial Fibrillation on Eliquis who presents to the ED with chief complaint of epigastric pain and generalized weakness for several days. She reports dizziness for the last few days and her legs gave out once this week, she fell and her son helped her get back in bed. She states she is unable to care for herself as her son works most of the day and night. She remains in the bed and is using a "diaper" instead of the bedside commode. She was found to have a UTI and severe hypokalemia. On examination, she is congested, crackles to bilateral lung stoddard, bottom teeth decaying, hypotensive, and dehydrated. She reports not drinking very much today. Hospital Course: Patient was admitted to the hospital for severe hypokalemia, CHF. Her initial potassium level was 1.8 magnesium 1.4 and phosphorus 1.0. Electrolytes were replaced and diuretics were adjusted as well as receiving gentle IV fluids. After giving gentle IV fluids and replace electrolytes patient was still volume overloaded with her underlying CHF and blood pressure was on the low side, her midodrine needed to be increased from 5 mg 3 times daily to 10 mg 3 times daily, nephrology was following closely and adjusting diuretics throughout the stay. Patient's electrolytes, renal function and volume status have remained stable over the past 3 to 4 days. Her blood pressure does run on the soft side with systolic in the 90s and heart rate around 90 as well. Initially an attempt was made for care home versus inpatient rehab although patient did not have any more days with her insurance. She is stable for discharge home with home health and care home/PT, does have a hospital bed at home. Her son Vic is working on long-term placement at [facility]. During hospitalization patient was noted to be anemic she did receive 1 unit PRBC and IV iron, hemoglobin 10.3 at discharge, has remained stable past few days creatinine at discharge 1.66 Patient stable for discharge with the following medication changes below Amiloride 5 mg by mouth daily Torsemide 20 mg by mouth daily Amiodarone 200 mg by mouth twice daily Midodrine 10 mg by mouth 3 times daily Eliquis 5 mg by mouth twice daily rosuvastatin 5 mg once at bedtime Trazodone 25 mg at bedtime Please discontinue metoprolol tartrate, spironolactone, acetazolamide Dose on torsemide increased from 10 mg daily to 20 mg by mouth daily Increased midodrine from 5 mg 3 times daily to 10 mg by mouth 3 times daily Prescription was sent to the pharmacy for new/adjusted medications and refills requested including: Amiloride, amiodarone, torsemide, Eliquis, midodrine, rosuvastatin Home health arranged with weekly BMPs to further monitor electrolytes/kidney function discussed with Dr. Oneil setting up telemedicine visit 2 weeks from now to review labs Problem list Metabolic alkalosis-resolved Generalized weakness Severe hypokalemia-resolved Hypomagnasemia Hypophosphatemia Chronic Hypotension History of Afib History of COPD/asthma Acute on chronic diastolic congestive heart failure-improved Severe Pulmonary hypertension Acute/chronic hypercapnic and hypoxemic respiratory failure Stage I/II PATRIZIA UTI (POA) Transaminitis iron deficiency/chronic disease anemia Vital Signs/Physical Exam: Temp Pulse Resp BP Pulse Ox 97.5 F 91 H 32 H 99/56 L 96 09/29/23 12:00 09/29/23 12:00 09/29/23 12:00 09/29/23 12:00 09/29/23 12:00 General: Alert, In no apparent distress, Oriented x3, Obese HEENT: Atraumatic, PERRLA Neck: Supple, JVD not distended Respiratory: Clear to auscultation bilaterally, Normal air movement Cardiovascular: Regular rate/rhythm, Normal S1 S2 Gastrointestinal: Normal bowel sounds, No tenderness Musculoskeletal: No tenderness Integumentary: No rashes Neurological: Normal speech, Normal tone, Normal affect Laboratory Data at Discharge: WBC 7.00 thou/uL (4.3-10.9) 09/29/23 04:34 Hgb 10.3 g/dL (12.0-15.0) L 09/29/23 04:34 Hct 32.6 % (36.0-45.0) L 09/29/23 04:34 Plt Count 239 thou/uL (152-406) 09/29/23 04:34 PT 17.5 SECONDS (9.5-12.5) H 09/18/23 14:17 INR 1.61 09/18/23 14:17 Sodium 140 mEq/L (136-145) 09/29/23 04:34 Potassium 5.3 mEq/L (3.5-5.1) H 09/29/23 04:34 BUN 31 mg/dL (7-18) H 09/29/23 04:34 Creatinine 1.66 mg/dL (0.55-1.02) H 09/29/23 04:34 Glucose 72 mg/dL (74-106) L 09/29/23 04:34 Uric Acid 12.6 mg/dL (2.6-6.0) H 09/21/23 07:09 Phosphorus 3.2 mg/dL (2.5-4.9) 09/29/23 04:34 Magnesium 1.9 mg/dL (1.6-2.4) 09/29/23 04:34 Total Bilirubin 1.0 mg/dL (0.2-1.0) 09/21/23 07:09 AST 33 U/L (15-37) 09/21/23 07:09 ALT 42 U/L (13-56) 09/21/23 07:09 Alkaline Phosphatase 71 U/L (45-117) 09/21/23 07:09 Lipase 13 U/L (13-75) 09/18/23 14:17 Home Medications: Apixaban [Eliquis *] 2.5 mg PO BID 10/02/19 Amiodarone HCl [Pacerone] 200 mg PO BID 30 Days #60 tab 09/02/22 Trazodone [Desyrel*] 25 mg PO BEDTIME 08/01/23 Roflumilast [Daliresp*] 500 mcg PO DAILY 08/14/23 Cranberry Fruit Extract 200 mg PO BID cap 08/27/23 Docusate/Senna [Senokot-S*] 2 tab PO BID tab 08/27/23 Iron/FA/Vit B-Com W/C [Hemocyte Plus*] 1 tab PO DAILY WITH BREAKFAST #30 tab 08/27/23 Nystatin Powder [Mycostatin (Powder)*] 1 appl TOP BID #2 bottle 08/27/23 Amiloride HCl 5 mg PO DAILY #30 tab 09/29/23 Amiodarone HCl [Cordarone*] 200 mg PO BID #60 tab 09/29/23 Apixaban [Eliquis] 5 mg PO BID #60 tab 09/29/23 Midodrine HCl 10 mg PO TID #90 tab 09/29/23 Rosuvastatin Calcium 5 mg PO BEDTIME #30 tab 09/29/23 Torsemide [Demadex*] 20 mg PO DAILY #30 tab 09/29/23 New Medications: Amiloride HCl 5 mg PO DAILY #30 tab Amiodarone HCl [Cordarone*] 200 mg PO BID #60 tab Torsemide [Demadex*] 20 mg PO DAILY #30 tab Apixaban [Eliquis] 5 mg PO BID #60 tab Midodrine HCl 10 mg PO TID #90 tab Rosuvastatin Calcium 5 mg PO BEDTIME #30 tab Physician Discharge Instructions: Patient was admitted to the hospital for severe hypokalemia, CHF. Her initial potassium level was 1.8 magnesium 1.4 and phosphorus 1.0. Electrolytes were replaced and diuretics were adjusted as well as receiving gentle IV fluids. After giving gentle IV fluids and replace electrolytes patient was still volume overloaded with her underlying CHF and blood pressure was on the low side, her midodrine needed to be increased from 5 mg 3 times daily to 10 mg 3 times daily, nephrology was following closely and adjusting diuretics throughout the stay. Patient's electrolytes, renal function and volume status have remained stable over the past 3 to 4 days. Her blood pressure does run on the soft side with systolic in the 90s and heart rate around 90 as well. Initially an attempt was made for care home versus inpatient rehab although patient did not have any more days with her insurance. She is stable for discharge home with home health and care home/PT, does have a hospital bed at home. Her son Vic is working on long-term placement at [facility]. During hospitalization patient was noted to be anemic she did receive 1 unit PRBC and IV iron, hemoglobin 10.3 at discharge, has remained stable past few days creatinine at discharge 1.66 Patient stable for discharge with the following medication changes below Amiloride 5 mg by mouth daily Torsemide 20 mg by mouth daily Amiodarone 200 mg by mouth twice daily Midodrine 10 mg by mouth 3 times daily Eliquis 5 mg by mouth twice daily rosuvastatin 5 mg once at bedtime Trazodone 25 mg at bedtime Please discontinue metoprolol tartrate, spironolactone, acetazolamide Dose on torsemide increased from 10 mg daily to 20 mg by mouth daily Increased midodrine from 5 mg 3 times daily to 10 mg by mouth 3 times daily Prescription was sent to the pharmacy for new/adjusted medications and refills requested including: Amiloride, amiodarone, torsemide, Eliquis, midodrine, rosuvastatin Home health arranged with weekly BMPs to further monitor electrolytes/kidney function discussed with Dr. Oneil setting up telemedicine visit 2 weeks from now to review labs Diet: AHA Activity: Fall precautions Followup: Remberto Oneil DO [Primary Care Provider] - 1-2 Weeks Time spent managing pt's care (in minutes): 35
--- NOTE | 2023-09-29 18:30 | PN ---
Date of Progress Note: 09/29/2023 Subjective: Seen at bedside. No significant shortness of breath, orthopnea, or lower extremity heron a. Review of Systems: No chest pain, shortness of breath, orthopnea, cough. No nausea, vomiting, diarrhea. No dysuria, po lyuria, urinary urgency. No skin rash, headache. All other systems reviewed are negative. Physical Examination: Vital Signs: Reviewed. Head and Neck: Pupils are equal, reactive to light. Intact eye movements. No JVD. No cervical lym phadenopathy. Neck is supple. Thyroid is not enlarged. Lungs: Clear to auscultation bilaterally. No rhonchi, wheezing, or crackles. No accessory muscle u se. Heart: Regular. No extra sounds. Abdomen: Soft, nontender. Bowel sounds positive. No organomegaly. No masses or hernia. No rigidi ty or rebound. Extremities: No edema, clubbing, or cyanosis. Intact pulses. Skin: No rash. Neurologic: Alert, awake, oriented x3. No acute focal deficits appreciated. Lymph Nodes: No cervical or axillary lymphadenopathy. Investigations: BUN is 31, creatinine 1.66, potassium is 5.3. Assessment/recommendation: 1.Chronic congestive heart failure. Again the patient appears to be euvolemic. She was started on torsemide 20 mg. Carefully monitor BUN, creatinine, electrolytes. I do not feel that she needs aggr essive diuresis at this point. We will see response to above but cautiously to be given, given that her blood pressure is on the low side. 2.Atrial fibrillation. Issue is controlled. Continue amiodarone and apixaban. 3.Acute on chronic renal failure. It is improving. SR/MODL Voice ID: [id number] Report ID: [id number]
--- NOTE | 2023-09-29 21:18 | P.PN ---
Date of Service: 09/29/23 Vital Signs Temp Pulse Resp BP Pulse Ox 97.5 F 91 H 32 H 99/56 L 96 09/29/23 12:00 09/29/23 12:00 09/29/23 12:00 09/29/23 12:00 09/29/23 12:00 Microbiology Results 09/18/23 13:45 Clean Catch Urine [place] Count - Final >100,000 CFU/ML. 09/18/23 13:45 Clean Catch Urine - Final Enterobacter Cloacae Klebsiella Oxytoca Assessment/ Plan: Nephrology Progress Note No Dyspnea No Chest Pain Weakness and fatigue No Acute Events Overnight Vital Signs, Medications, Blood Work, and Imaging reviewed in the chart NAD. Obese. NCAT. MMM. Neck Supple. Normal Respiratory Effort/ CTA. RRR. Abd ND. No C/C. LE Edema 1+. No Rash. AAO. Normal Speech. Assessment & Plan Stage I PATRIZIA complicated by CRS CKD III -No NSAIDs -Continue diuresis Hypokalemia -Replete prn -Continue Amiloride -Lokelma X1 for hyperkalemia Metabolic Alkalosis -Diamox prn Hypophosphatemia -Replete as ordered Chronic Hypotension -Continue Midodrine 10mg BID Diastolic CHF, A/C Pulmonary HTN -Continue Amiloride -Restart Torsemide 20mg daily -Hold Sildenafil due to hypotension Anemia in chronic illness Iron Deficiency 19% -Monitor H&H -Continue MVI with iron Cigarette Smoker -Nicotine TD prn -Recommend cessation Case reviewed with Dr. Donaldson
[2023-09-30] MEDS ORDERED: TORSEMIDE 20 MG TAB PO SCH (09:00)
== END 2023-09-29 15:17 | disposition home health service (06) | DRG 640 ==
LOC: ER 13:04 → ERHOLD 19:56 → 2ND 21:57
PROVIDERS: ADMIT Internal Medicine Nephrology; ATTEND Hospitalist
PROC: 30233N1 Transfusion of Nonautologous Red Blood Cells into Peripheral Vein, Percutaneous Approach (ICD-10-PCS; principal; 2023-09-25)
DX: E87.6 Hypokalemia (principal); I50.33 Acute on chronic diastolic (congestive) heart failure; J96.21 Acute and chronic respiratory failure with hypoxia; J96.22 Acute and chronic respiratory failure with hypercapnia; N39.0 Urinary tract infection, site not specified; I13.0 Hypertensive heart and chronic kidney disease with heart failure and stage 1 through stage 4 chronic kidney disease, or unspecified chronic kidney disease; N17.9 Acute kidney failure, unspecified; E46 Unspecified protein-calorie malnutrition; I42.9 Cardiomyopathy, unspecified; G93.40 Encephalopathy, unspecified; J44.1 Chronic obstructive pulmonary disease with (acute) exacerbation; E66.2 Morbid (severe) obesity with alveolar hypoventilation; N18.30 Chronic kidney disease, stage 3 unspecified; I48.91 Unspecified atrial fibrillation; E86.0 Dehydration; E83.42 Hypomagnesemia; E87.3 Alkalosis; K02.9 Dental caries, unspecified; I27.20 Pulmonary hypertension, unspecified; J44.9 Chronic obstructive pulmonary disease, unspecified; D50.9 Iron deficiency anemia, unspecified; E87.5 Hyperkalemia; E88.09 Other disorders of plasma-protein metabolism, not elsewhere classified; E83.39 Other disorders of phosphorus metabolism; I95.89 Other hypotension; F17.200 Nicotine dependence, unspecified, uncomplicated; R74.01 Elevation of levels of liver transaminase levels; Z60.2 Problems related to living alone; Z88.0 Allergy status to penicillin; Z88.5 Allergy status to narcotic agent; Z98.51 Tubal ligation status; Z79.01 Long term (current) use of anticoagulants; Z68.34 Body mass index [BMI] 34.0-34.9, adult; Z79.52 Long term (current) use of systemic steroids; Z90.49 Acquired absence of other specified parts of digestive tract; Z79.899 Other long term (current) drug therapy; Z91.013 Allergy to seafood; Z96.641 Presence of right artificial hip joint
CPT/HCPCS: 36415; 71045; 74176; 80048; 80053; 80076; 81001; 82533; 82728; 83540; 83690; 83735; 83880; 84100; 84132; 84466; 84484; 84550; 85014; 85018; 85025; 85610; 86850; 86900; 86901; 86920; 87077; 87086; 87088; 87186; 87324; 93005; 93306; 93970; 97110; 97116; 97163; 97530; 99285; J0696; J1644; J2916; J2930; J3475; J3480; J7030; J7040; J7050; J7613; J7644; P9016; P9047; Q5106

== ENCOUNTER 2023-10-16 11:08 | Observation (INO) | payer OTHER ==
--- OUTSIDE RECORDS SUMMARY | 2023-10-16 11:11 | XMS REPORT | Continuity of Care Document ---
Author Name Unknown Address [address] [facility] [address] [place] [address] [facility] thconnect Address [address] [facility] [address] [place] [address] Care Team Providers Care Air Conditioning Installer Name Role Phone Remberto Oneil DO Primary Care Physician [phone] FRANCISCO J FRANKS Attending Clinician UnavailFrancisco J Brown MD Attending Clinician [phone] Doctor Unassigned, Veyo Attending Clinician U navailable Only, Adc Test Attending Clinician Unavailable Pob, Adc Lab Main Attending Clinician UnavailFRANCISCO J Dave Admitting Clinician Unavailab robins Payers Payer Name Policy Type Policy Number Effective Date Expirati on Date Source [employer] MED[employer]ARE ADVANTAGE [id number] 2021 00:00:00 Allergies, Adverse Reactions, Alerts Allergy Name Allergy Type Status Severity Reaction(s) Onset Date Inactive Date Treating Clinician Comments Source CODEINE DRUG INGREDI Active N/V 12 00:00: 00 [facility] Codeine Drug Allergy Active Nausea and/or Vomiting 7-12 00:00: 00 [facility] Penicill ins Drug Allergy Active Itching 7-12 00:00: 00 [facility] PENICILL INS Drug Class Active ITCHING 7-12 00:00: 00 [facility] SULFA (SULFONA MIDE ANTIBIOT ICS) Drug Class Active High Rash 3-31 00:00: 00 [facility] Sulfa (Sulfona mide Antibiot ics) Drug Allergy Active Rash 3 00:00: 00 [facility] SHELLFIS H DERIVED DRUG INGREDI Active Hives 4- 00:00: 00 [facility] Shellfis h Derived Propensi ty to adverse reaction s Active Hives 4- 00:00: 00 [facility] NO KNOWN ALLERGIE S Drug Class Active [facility] Social History Social Habit Start Date Stop Date Quantity Comments Source History of tobacco use Cigarette Smoker [facility] Exposure to SARS-CoV-2 (event) 2022-01-01 00:00:00 2022-01-11 11:31:00 Not sure [facility] Tobacco use and exposure 2022-01-11 00:00:00 2022-01-11 00:00:00 Smokeless tobacco non-user [facility] Sex Assigned At 1950 00:00:00 1950 00:00:00 [facility] Smoking Status Start Date Stop Date Source Tobacco smoking consumption unknown [facility] Smokes tobacco daily 2022-01-11 00:00:00 [facility] Medications Ordered Medication Name Filled Medication Name Start Date Stop Date Current Medication? Ordering Clinician Indication Dosage Frequency Signature (SIG) Comments Components Source neomycin-po lymyxin-dex amethasone (MAXITROL) 3.5 mg/g-10,000 unit/g-0.1 % ophthalmic ointment 01-16 16:11: 00 01-16 16:13 :38 No PRN, Starting on Fri01/16/22 at 1111, Until Fri01/16/22 at 1113, Routine, Intra-op [facility] ceFAZolin (ANCEF) injection 01-16 16:09: 00 01-16 16:13 :38 No PRN, Starting on Fri01/16/22 at 1109, Until Fri01/16/22 at 1113, CARLOS, Intra-op [facility] carbachoL (MIOSTAT) 0.01 % intraocular injection 01-16 16:09: 00 01-16 16:13 :38 No PRN, Starting on Fri01/16/22 at 1109, Until Fri01/16/22 at 1113, Routine, Intra-op [facility] sodium chloride (NS) injection 01-16 16:09: 00 01-16 19:50 :32 No PRN, Starting on Fri01/16/22 at 1109, Until Fri01/16/22 at 1450, Routine, Intra-op [facility] dexamethaso ne (DECADRON PHOSPHATE) injection 01-16 16:09: 00 01-16 19:50 :32 No PRN, Starting on Fri01/16/22 at 1109, Until Fri01/16/22 at 1450, Routine, Intra-op [facility] EPINEPHrine 1:1,000 (1 mg/mL) (ADRENALIN) injection 01-16 15:56: 00 01-16 16:13 :38 No PRN, Starting on Fri01/16/22 at 1056, Until Fri01/16/22 at 1113, Routine, Intra-op [facility] chondroitin sulf-sod hyaluronate (DUOVISC VISCO ELASTIC) intraocular injection 01-16 15:56: 00 01-16 16:13 :38 No PRN, Starting on Fri01/16/22 at 1056, Until Fri01/16/22 at 1113, Routine, Intra-op [facility] balanced salt irrig soln comb1 (BSS PLUS) ophthalmic solution 500 mL bag 01-16 15:56: 00 01-16 16:13 :38 No PRN, Starting on Fri01/16/22 at 1056, Until Fri01/16/22 at 1113, Routine, Intra-op [facility] water for irrigation irrigation solution 01-16 15:52: 00 01-16 16:13 :38 No PRN, Starting on Fri01/16/22 at 1052, Until Fri01/16/22 at 1113, Routine, Intra-op [facility] Hyaluronida se, Human Recomb. (HYLENEX) injection 01-16 15:49: 00 01-16 16:13 :38 No PRN, Starting on Fri01/16/22 at 1049, Until Fri01/16/22 at 1113, Routine, Intra-op [facility] eye block syringe 11 mL 01-16 15:49: 00 01-16 16:13 :38 No PRN, Starting on Fri01/16/22 at 1049, Until Fri01/16/22 at 1113, Intra-op [facility] cyclopent 1%-tropic 1%-phenyl 2.5%-ketor 0.5% (MYDRIATIC #5) ophthalmic solution syringe 0.5 mL 01-16 14:30: 00 01-16 14:33 :00 No .5mL 0.5 mL, Left Eye, ONCE, 1 dose, On Fri01/16/22 at 0930, Routine, DSU Pre-op [facility] lactated ringers IV infusion 1,000 mL 01-16 14:30: 00 01-16 14:33 :00 No 1000mL at 42 mL/hr, 1,000 mL, IV Infusion, ONCE, 1 dose, On Fri01/16/22 at 0930, Routine, DSU Pre-op [facility] acetaminoph en (TYLENOL ARTHRITIS PAIN) 650 mg CR tablet 01-16 12:45: 27 Yes 650mg Take 650 mg by mouth every 8 (eight) hours as needed for Pain. Takes at bedtime [facility] diphenhydrA MINE 25 mg tablet 01-16 12:45: 27 Yes 25mg Take 25 mg by mouth at bedtime. [facility] acetaminoph en (TYLENOL ARTHRITIS PAIN) 650 mg CR tablet 01-11 11:25: 56 Yes 650mg Take 650 mg by mouth every 8 (eight) hours as needed for Pain. Takes at bedtime [facility] diphenhydrA MINE 25 mg tablet 01-11 11:25: 56 Yes 25mg Take 25 mg by mouth at bedtime. [facility] ELIQUIS 5 mg tablet 12-18 00:00: 00 Yes 5mg Take 5 mg by mouth 2 (two) times daily. [facility] BREO ELLIPTA 200-25 mcg/dose DsDv 12-04 00:00: 00 Yes 1{puff} Inhale 1 Puff daily. [facility] sotaloL 80 mg tablet 11-21 00:00: 00 Yes 80mg Take 80 mg by mouth in the morning and 80 mg in the evening. [facility] escitalopra m oxalate 5 mg tablet 10-21 00:00: 00 Yes 5mg Take 5 mg by mouth in the morning. [facility] spironolact one-hydroch lorothiazid e 25-25 mg per tablet 10-19 00:00: 00 Yes 1{tbl} Take 1 tablet by mouth every morning. [facility] albuterol 2.5 mg /3 mL (0.083 %) nebulizer solution 03-29 00:00: 00 03-30 04:59 :00 No 2.5mg Inhale 2.5 mg every 6 (six) hours as needed. [facility] albuterol 90 mcg/actuati on inhaler 03-29 00:00: 00 03-30 04:59 :00 No 2{puff} Inhale 2 Puffs every 6 (six) hours as needed. [facility] Vital Signs Vital Name Observation Time Observation Value Comments S ource Oxygen saturation in Arterial blood by Pulse oximetry 2022-01-16 14:30:00 96 /min [facility] Systolic blood pressure 2022-01-16 14:30:00 134 mm[Hg] [facility] Diastolic blood pressure 2022-01-16 14:30:00 60 mm[Hg] [facility] Heart rate 2022-01-16 14:30:00 61 /min [facility] Body temperature 2022-01-16 14:30:00 36.11 Sarah [facility] Respiratory rate 2022-01-16 14:30:00 18 /min [facility] Body height 2022-01-08 18:53:00 170.3 cm [facility] Body weight 2022-01-08 18:53:00 99.8 kg [facility] BMI 2022-01-08 18:53:00 34.41 kg/m2 [facility] Procedures Procedure Date / Time Performed Performing Clinician Source PHACOEMULSIFICATION OF CATARACT WITH INTRAOCULAR LENS IMPLANT 2022-01-16 15:39:00 Francisco J Franks [facility] DAY SURGERY - ADC 2022-01-16 05:01:00 Doctor Unassigned, Veyo [facility] Encounters Start Date/Time End Date/Time Encounter Type Admission Type Attending Clinicians Care Facility Care Department Encounter ID Source 2022-01-16 09:19:00 2022-01-16 11:51:00 Outpatient FRANCISCO J CAMARENA [facility]UST [facility] [id number] [facility] 2022-01-16 10:06:00 2022-01-16 10:39:00 Surgery Francisco J Franks [facility] [id number] [facility] 2022-01-16 00:00:00 2022-01-16 00:00:00 Orders Only Doctor Unassigned, Veyo [facility] [id number] [facility] 2022-01-14 10:45:00 2022-01-14 11:00:00 Laboratory Only Only, Adc Test Francisco J Franks [facility] [id number] [facility] 2022-01-14 10:45:00 2022-01-14 10:45:00 Outpatient R FRANCISCO J FRANKS [facility] [id number] [facility] 2022-01-07 11:45:00 2022-01-07 12:00:00 Screen Operator Visit Pob, Adc Lab Francisco J Hull [facility] [id number] [facility] 2022-01-07 11:45:00 2022-01-07 11:45:00 Outpatient FRANCISCO J CAMARENA [facility] [id number] [facility]
[2023-10-16] MEDS ORDERED: FAMOTIDINE 20 MG/2 ML VIAL IV ONE (11:18)
[2023-10-16] MEDS ORDERED: NA CHLORIDE 0.9% 1,000 ML ONE (11:18)
[2023-10-16] MEDS ORDERED: ONDANSETRON 4 MG/2 ML VIAL ONE (11:18)
[2023-10-16] MEDS ORDERED: NA CHLORIDE 0.9% 500 ML ONE (11:19)
[2023-10-16 11:52] LABS: Absolute Basophils 0.1 K/uL (0-0.5); Absolute Eosinophils 0.1 K/uL (0-0.5); Absolute Lymphocytes (CBC) 6.7 K/uL (0.7-4.9); Absolute Monocytes 0.8 K/uL (0.1-1.3); Absolute Neutrophil 4.8 K/uL (1.8-8.0); Basophils % 0.5 % (0-1.3); Eosinophils % 0.8 % (0-4.4); Hematocrit 35.4 % (36.0-45.0); Hemoglobin 10.8 g/dL (12.0-15.0); Lymphocytes % 53.9 % (15.3-44.8); MCH 26.6 pg (27.0-35.0); MCHC 30.6 g/dL (32.0-36.0); MCV 86.7 fL (80-100); MPV 9.5 fL (7.6-11.3); Monocytes % 6.7 % (3.3-12.3); Neutrophils % 38.1 % (41.7-73.7); Platelets 266 thou/uL (152-406); RBC Red Blood Cell Count 4.08 M/uL (3.86-4.86); Red Cell Distribution Width 24.8 % (12.1-15.2)
[2023-10-16 12:00] LABS: PT Prothrombin Time 22.4 SECONDS (9.5-12.5); Protime INR 2.08
[2023-10-16 12:20] LABS: Albumin 2.4 g/dL (3.4-5.0); Albumin/Globulin Ratio 0.6 (1.1-1.8); Anion Gap 12.2 mEq/L (5.0-15.0); Bilirubin Direct 0.4 mg/dL (0-0.2); Bilirubin Indirect, Calculated 0.5 mg/dL (0.2-0.8); Bilirubin Total 0.9 mg/dL (0.2-1.0); Globulin 4.1 g/dL (2.3-3.5); Magnesium 1.4 mg/dL (1.6-2.4); Potassium 4.2 mEq/L (3.5-5.1); Protein, Total 6.5 g/dL (6.4-8.2); Troponin High Sensitivity 18.3 pg/mL (<58.9)
--- NOTE | 2023-10-16 12:25 | RAD REPORT ---
EXAM DESCRIPTION: Peter Single View10/16/2023 12:13 pm CLINICAL HISTORY: Abdominal pain COMPARISON: October 04, 2023 FINDINGS: The lungs appear clear of acute infiltrate. Heart is mildly enlarged IMPRESSION: No acute abnormalities displayed
[2023-10-16 12:36] LABS: Anisocytosis 2+; Blood Morphology Comment NOTED (NOT SEEN); Burr Cells 1+; Platelet Estimate ADEQ; Platelets Clumped FEW; Poikilocytosis SLIGHT; White Blood Cell Scan OK (OK)
[2023-10-16] MEDS ORDERED: MAGNESIUM SULFATE 1 gm IVPB 1 GM/100 ML BAG IV ONE (12:38)
--- NOTE | 2023-10-16 12:41 | RAD REPORT ---
EXAM DESCRIPTION: CTAbdomen Pelvis Wo Contrast - 10/16/2023 12:21 pm CLINICAL HISTORY: ABD PAIN COMPARISON: Abdomen Pelvis Wo Contrast dated 10/04/2023; Abdomen Pelvis Wo Contrast dated TECHNIQUE: CT of the abdomen and pelvis was performed. All CT scans are performed using dose optimization technique as appropriate and may include automated exposure control or mA/KV adjustment according to patient size. FINDINGS: Lower chest: No acute abnormality. Small hiatal hernia . Liver: No acute abnormality or suspicious lesions. Biliary: No biliary ductal dilatation. Stomach: No significant focal abnormality. Duodenum: No significant focal abnormality. Pancreas: No significant abnormality. Spleen: No significant abnormality. Adrenal: No suspicious lesions. Kidney/ureter: No hydronephrosis. No renal calculi. Slight perinephric stranding is unchanged. Retroperitoneum: No retroperitoneal adenopathy. Vascular: No aneurysm. Bowel: Fatty deposition in the wall of the ascending transverse colon is chronic. No bowel obstructio n. Scattered colonic diverticula. No evidence of acute diverticulitis.. Peritoneum: No ascites or free air. Bladder: Grossly unremarkable. Reproductive: No adnexal masses. Bones: No acute fracture. Right hip arthroplasty. Multilevel degenerative changes are present in the spine. Other: n/a IMPRESSION: No acute intra-abdominal or pelvic finding. No significant change compared with 10/04/19 24.
--- NOTE | 2023-10-16 14:20 | ER ---
Nurse's Notes [facility] Name: Sunshine Mead Age: 73 yrs Sex: Female : 1950 Arrival Date: 10/16/2023 Time: 11:08 Bed 5 Private MD: Diagnosis: Anorexia;Epigastric abdominal tenderness;Dehydration;Acute kidney failure, unspecified-ON CHRONIC;care home (current) use of anticoagulants;Vomiting;Chronic atrial fibrillation Presentation: 10/15 11:20 Chief complaint: Patient states: "I got released from the hospital on Friday and have mb9 been N/V/weak ever since. I haven't been able to keep any food, medication, or liquids down.". Coronavirus screen: Vaccine status: Patient reports being unvaccinated. Ebola Screen: No symptoms or risks identified at this time. Initial Sepsis Screen: Does the patient meet any 2 criteria? No. Patient's initial sepsis screen is negative. Does the patient have a suspected source of infection? No. Patient's initial sepsis screen is negative. Risk Assessment: Do you want to hurt yourself or someone else? Patient reports no desire to harm self or others. Onset of symptoms was October 16, 2023. 11:20 Acuity: AZRA 3 mb9 11:20 Method Of Arrival: Wheelchair mb9 Triage Assessment: 11:21 General: Appears uncomfortable, Behavior is calm, cooperative. Pain: Denies pain. GI: mb9 Abdomen is round non-distended, Reports intolerance of fluids, intolerance of food, nausea, vomiting. Historical: - Allergies: 11:21 Codeine; mb9 11:21 PENICILLINS; mb9 11:21 SHELLFISH; mb9 - PMHx: 11:21 Asthma; COPD; Atrial Fib; Hypertension; mb9 - Immunization history:: Adult Immunizations up to date. - Infectious Disease History:: Denies. - Social history:: Smoking status: Patient/guardian denies using tobacco. Screenin:[facility] ED Fall Risk Assessment (Adult) History of falling in the last 3 months, ko1 including since admission Yes- single mechanical fall (1 pt) Confusion or Disorientation No (0 pts) Intoxicated or Sedated No (0 pts) Impaired Gait Yes (1 pt) Mobility Assist Device Used Yes (1 pt) Altered Elimination No (0 pt) Score/Fall Risk Level 3 or more points = High Risk Oriented to surroundings, Maintained a safe environment, Educated pt \\T\\ family on fall prevention, incl call for assistance when getting out of bed, Assessed \\T\\ reinforced patient's understanding of fall precautions, Provided non-skid footwear, Hourly rounding (assess needs \\T\\ fall precautionary measures) done, Used ambulatory aids as needed (educated on \\T\\ assisted with), Used gait belt as appropriate Implemented a Fall Risk Plan of Care, Apply high fall risk patient identification: yellow non skid footwear/ fall signage, Offered frequent toileting (1:1 observation), Remained with patient while ambulating, Utilized family, sitter, or virtual quarantine inspector as indicated. Abuse screen: Denies threats or abuse. Denies injuries from another. Nutritional screening: No deficits noted. Tuberculosis screening: No symptoms or risk factors identified. Assessment: 11:50 General: Appears in no apparent distress. Behavior is calm, cooperative. Pain: ko1 Complains of pain in abdomen. Neuro: No deficits noted. Cardiovascular: No deficits noted. Respiratory: No deficits noted. GI: Reports upper abdominal pain, nausea, vomiting. : No deficits noted. EENT: No deficits noted. Derm: Skin is fragile, is thin, with poor turgor has skin tears on multiple skin tears to bilateral arms Bruising that is bright red, dark purple, on bilateral upper ext. Musculoskeletal: Reports weakness in generalized. Vital Signs: 11:20 BP 101 / 72; Pulse 52; Resp 16; Temp 98.2; Pulse Ox 100% ; Weight 86.18 kg; Height 5 mb9 ft. 7 in. ; 13:00 BP 109 / 76; Pulse 94; Resp 18; Pulse Ox 99% on R/A; ld1 14:30 BP 117 / 64; Pulse 102; Resp 18; Pulse Ox 99% on R/A; ld1 16:43 BP 111 / 84; Pulse 84; Resp 18; Pulse Ox 99% on R/A; ld1 11:20 Body Mass Index 29.76 (86.18 kg, 170.18 cm) 9 ED Course: 11:11 Patient arrived in ED. ra3 11:12 Sohan Christianson MD is Attending Physician. [facility] 11:20 Arm band placed on. 9 11:21 Triage completed. 9 11:31 EKG done. Missed attempt(s): 22 gauge in left antecubital area. Bleeding controlled, [id number] band aid applied, catheter tip intact. 11:50 Patient has correct armband on for positive identification. Allergy band placed. Fall ko1 risk band placed. Placed in gown. Bed in low position. Call light in reach. Side rails up X2. Client placed on continuous cardiac and pulse oximetry monitoring. NIBP monitoring applied. sheet metal duct installer apprentice on. Door closed. Noise minimized. Warm blanket given. 11:50 Initial lab(s) drawn, by me, sent to lab. Inserted saline lock: 22 gauge in left ko1 antecubital area, using aseptic technique. Blood collected. 11:51 Basic Metabolic Panel Sent. ko1 11:51 CBC with Diff Sent. ko1 11:51 LFT's Sent. ko1 11:51 Magnesium Sent. ko1 11:51 NT PRO-BNP Sent. ko1 11:51 PT-INR Sent. ko1 11:51 Troponin HS Sent. ko1 11:52 Lipase Sent. ko1 11:53 Ghislaine Delgado, RN is Primary Nurse. ko1 12:15 XRAY Chest (1 view) In Process Unspecified. EDMS 12:20 Abdomen In Process Unspecified. EDMS 14:17 Conor Sands is Hospitalizing Provider. [facility] 17:28 No provider procedures requiring assistance completed. Patient admitted, IV remains in ld1 place. Administered Medications: 11:51 Drug: Famotidine IVP 20 mg IVP once; dilute with 10 mL 0.9% NaCl; give over 2 minutes ko1 Route: IVP; Site: left antecubital; 12:05 Follow up: Response: No adverse reaction ko1 11:51 Drug: Ondansetron IVP 4 mg IVP once; over 2 minutes Route: IVP; Site: left antecubital; ko1 12:05 Follow up: Response: No adverse reaction; Nausea is decreased ko1 11:51 Drug: NS 0.9% IV 1000 ml IV at 125 ml/hr continuous Route: IV; Rate: 125 ml/hr; Site: ko1 left antecubital; 11:51 Drug: NS 0.9% IV 500 ml IV at bolus once Route: IV; Rate: bolus; Site: left antecubital;ko1 14:21 Follow up: Response: No adverse reaction; IV Status: Completed infusion; IV Intake: ko1 500ml 12:41 Drug: Magnesium Sulfate IVPB 1 grams IVPB once over 1 hrs Route: IVPB; Infused Over: 1 ko1 hrs; Site: left antecubital; 13:41 Follow up: Response: No adverse reaction; IV Status: Completed infusion; IV Intake: ko1 100ml 14:21 Drug: NS 0.9% IV 500 ml IV at bolus once Route: IV; Rate: bolus; Site: left antecubital;ko1 16:26 Follow up: Response: No adverse reaction; IV Status: Completed infusion; IV Intake: ko1 500ml Medication: 17:29 VIS not applicable for this client. ld1 Intake: 13:41 IV: 100ml; Total: 100ml. ko1 14:21 IV: 500ml; Total: 600ml. ko1 16:26 IV: 500ml; Total: 1100ml. ko1 Outcome: 14:19 Decision to Hospitalize by Provider. na 17:28 Admitted to Med/surg ld1 17:28 Condition: stable 17:28 Instructed on the need for admit, 17:29 Patient left the ED. ld1 Signatures: Dispatcher [employer] EDMS Sohan Christianson MD MD cha Sims, Lauren, RN RN ld1 Ghislaine Delgaod RN RN ko1 Sarah Scott RN RN [id number] Luis Eduardo [id number] Rosemary Lamb ra3
--- NOTE | 2023-10-16 14:20 | EDPHYS ---
Physician Documentation [facility] Name: Sunshine Mead Age: 73 yrs Sex: Female : 1950 Arrival Date: 10/16/2023 Time: 11:08 Bed 5 Private MD: ED Physician Sohan Christianson HPI: 10/15 14:07 This 73 yrs old Female presents to ER via Wheelchair with complaints of na Decreased Appetite, Nausea/Vomiting - stomach pain. 14:07 The patient presents to the emergency department with nausea, vomiting, abdominal pain, na of the abdomen diffusely. Onset: The symptoms/episode began/occurred 2 day(s) ago. Possible causes: unknown. The symptoms are aggravated by food , The symptoms are alleviated by remaining still. Associated signs and symptoms: Pertinent positives: abdominal pain, nausea, vomiting. Severity of symptoms: At their worst the symptoms were mild moderate in the emergency department the symptoms are unchanged despite home interventions. The patient has experienced similar episodes in the past, a few times. Historical: - Allergies: 11:21 Codeine; mb9 11:21 PENICILLINS; mb9 11:21 SHELLFISH; mb9 - PMHx: 11:21 Asthma; COPD; Atrial Fib; Hypertension; mb9 - Immunization history:: Adult Immunizations up to date. - Infectious Disease History:: Denies. - Social history:: Smoking status: Patient/guardian denies using tobacco. ROS: 14:08 Constitutional: Negative for fever, chills, and weight loss, Eyes: Negative for injury, na pain, redness, and discharge, ENT: Negative for injury, pain, and discharge, Neck: Negative for injury, pain, and swelling, Cardiovascular: Negative for chest pain, palpitations, and edema, Respiratory: Negative for shortness of breath, cough, wheezing, and pleuritic chest pain, Abdomen/GI: Negative for abdominal pain, nausea, vomiting, diarrhea, and constipation, Back: Negative for injury and pain, : Negative for injury, bleeding, discharge, and swelling, Skin: Negative for injury, rash, and discoloration, Neuro: Negative for headache, weakness, numbness, tingling, and seizure, Psych: Negative for depression, anxiety, suicide ideation, homicidal ideation, and hallucinations, Allergy/Immunology: Negative for hives, rash, and allergies, Endocrine: Negative for neck swelling, polydipsia, polyuria, polyphagia, and marked weight changes, Hematologic/Lymphatic: Negative for swollen nodes, abnormal bleeding, and unusual bruising, 14:08 Abdomen/GI: Positive for abdominal pain, nausea and vomiting, 14:08 MS/extremity: Positive for 14:08 Neuro: Positive for weakness, Exam: 14:08 Constitutional: This is a well developed, well nourished patient who is awake, alert, na and in no acute distress. Head/Face: Normocephalic, atraumatic. Eyes: Pupils equal round and reactive to light, extra-ocular motions intact. Lids and lashes normal. Conjunctiva and sclera are non-icteric and not injected. Cornea within normal limits. Periorbital areas with no swelling, redness, or edema. ENT: Nares patent. No nasal discharge, no septal abnormalities noted. Tympanic membranes are normal and external auditory canals are clear. Oropharynx with no redness, swelling, or masses, exudates, or evidence of obstruction, uvula midline. Mucous membranes moist. Neck: Trachea midline, no thyromegaly or masses palpated, and no cervical lymphadenopathy. Supple, full range of motion without nuchal rigidity, or vertebral point tenderness. No Meningismus. Chest/axilla: Normal chest wall appearance and motion. Nontender with no deformity. No lesions are appreciated. Respiratory: Lungs have equal breath sounds bilaterally, clear to auscultation and percussion. No rales, rhonchi or wheezes noted. No increased work of breathing, no retractions or nasal flaring. Back: No spinal tenderness. No costovertebral tenderness. Full range of motion. Female : Normal external genitalia. Skin: Warm, dry with normal turgor. Normal color with no rashes, no lesions, and no evidence of cellulitis. MS/ Extremity: Pulses equal, no cyanosis. Neurovascular intact. Full, normal range of motion. Neuro: Awake and alert, GCS 15, oriented to person, place, time, and situation. Cranial nerves II-XII grossly intact. Motor strength 5/5 in all extremities. Sensory grossly intact. Cerebellar exam normal. Normal gait. Psych: Awake, alert, with orientation to person, place and time. Behavior, mood, and affect are within normal limits. 14:08 Cardiovascular: Rate: tachycardic, actual rate is 126 bpm, Rhythm: regular, Pulses: Pulses are 4+ in bilateral radial, brachial, femoral, popliteal, posterior tibial and and dorsalis pedis arteries.. Heart sounds: normal, Edema: is not appreciated, JVD: is not appreciated, 14:08 ECG was reviewed by the Attending Physician. 14:24 ECG was reviewed by the Attending Physician. [facility] Vital Signs: 11:20 BP 101 / 72; Pulse 52; Resp 16; Temp 98.2; Pulse Ox 100% ; Weight 86.18 kg; Height 5 mb9 ft. 7 in. ; 13:00 BP 109 / 76; Pulse 94; Resp 18; Pulse Ox 99% on R/A; ld1 14:30 BP 117 / 64; Pulse 102; Resp 18; Pulse Ox 99% on R/A; ld1 16:43 BP 111 / 84; Pulse 84; Resp 18; Pulse Ox 99% on R/A; ld1 11:20 Body Mass Index 29.76 (86.18 kg, 170.18 cm) mb9 MDM: 11:12 Patient medically screened. [facility] 14:12 Differential diagnosis: Nonspecific abd pain, gastritis, pancreatitis, appendicitis, na diverticulitis, viral gastroenteritis, gastroenteritis. Differential Diagnosis altered mental status, sepsis, flu. Data reviewed: vital signs, nurses notes, lab test result(s), EKG, radiologic studies. Consideration of Admission/Observation Escalation of care including admission/observation considered. Management of patient was discussed with the following: Hospitalist: dr biggs/lawson. I considered the following discharge prescriptions or medication management in the emergency department Medications were administered in the Emergency Department. See MAR. Independent interpretation of the following test(s) in the Emergency Department EKG: See my EKG interpretation above. Test considered but Not performed: Ultrasound no abd usg. Historians other than the Patient: EMS: ems , well informed. Care significantly affected by the following chronic conditions: Hypertension, Chronic Obstructive Pulmonary Disease, Obesity, asthma , a fib. 10/15 11:13 Order name: Basic Metabolic Panel; Complete Time: 12:25 na 10/15 11:13 Order name: CBC with Diff; Complete Time: 12:51 [facility] 10/15 11:13 Order name: LFT's; Complete Time: 12:25 [facility] 10/15 11:13 Order name: Magnesium; Complete Time: 12:25 [facility] 10/15 11:13 Order name: NT PRO-BNP; Complete Time: 12:25 na 10/15 11:13 Order name: PT-INR; Complete Time: 12:25 na 10/15 11:13 Order name: Troponin HS; Complete Time: 12:25 na 10/15 11:13 Order name: Lipase; Complete Time: 12:25 na 10/15 12:37 Order name: CBC Smear Scan; Complete Time: 12:51 EDMS 10/15 15:28 Order name: Basic Metabolic Panel EDMS 10/15 15:28 Order name: Basic Metabolic Panel EDMS 10/15 15:28 Order name: CBC with Automated Diff EDMS 10/15 15:28 Order name: CBC with Automated Diff EDMS 10/15 15:28 Order name: Magnesium EDMS 10/15 15:28 Order name: Magnesium EDMS 10/15 15:28 Order name: Phosphorus EDMS 10/15 15:28 Order name: Phosphorus EDMS 10/15 11:13 Order name: XRAY Chest (1 view); Complete Time: 12:51 na 10/15 12:20 Order name: Abdomen ; Complete Time: 12:51 EDMS 10/15 11:13 Order name: EKG; Complete Time: 11:14 10/15 14:06 Order name: EKG; Complete Time: 14:06 10/15 11:13 Order name: Cardiac monitoring; Complete Time: 11:15 10/15 11:13 Order name: EKG - Nurse/Tech; Complete Time: 11:28 10/15 11:13 Order name: IV Saline Lock; Complete Time: 11:51 10/15 11:13 Order name: Labs collected and sent; Complete Time: 11:51 10/15 11:13 Order name: O2 Per Protocol; Complete Time: 11:15 10/15 11:13 Order name: O2 Sat Monitoring; Complete Time: 11:15 10/15 14:06 Order name: EKG - Nurse/Tech; Complete Time: 14:17 na EC:08 Rate is 126 beats/min. Rhythm is irregularly irregular. QRS [place] is Normal. VA interval na is normal. QRS interval is normal. QT interval is normal. No Q waves. T waves are Normal. No ST changes noted. Clinical impression: Atrial Fibrillation. Interpreted by me. Reviewed by me. 14:24 Rate is 102 beats/min. Rhythm is irregularly irregular. QRS [place] is Normal. VA interval na is normal. QRS interval is normal. QT interval is normal. No Q waves. T waves are Normal. No ST changes noted. Clinical impression: Atrial Fibrillation. Interpreted by me. Reviewed by me. Administered Medications: 11:51 Drug: Famotidine IVP 20 mg IVP once; dilute with 10 mL 0.9% NaCl; give over 2 minutes ko1 Route: IVP; Site: left antecubital; 12:05 Follow up: Response: No adverse reaction ko1 11:51 Drug: Ondansetron IVP 4 mg IVP once; over 2 minutes Route: IVP; Site: left antecubital; ko1 12:05 Follow up: Response: No adverse reaction; Nausea is decreased ko1 11:51 Drug: NS 0.9% IV 1000 ml IV at 125 ml/hr continuous Route: IV; Rate: 125 ml/hr; Site: ko left antecubital; 11:51 Drug: NS 0.9% IV 500 ml IV at bolus once Route: IV; Rate: bolus; Site: left antecubital;ko1 14:21 Follow up: Response: No adverse reaction; IV Status: Completed infusion; IV Intake: ko1 500ml 12:41 Drug: Magnesium Sulfate IVPB 1 grams IVPB once over 1 hrs Route: IVPB; Infused Over: 1 ko1 hrs; Site: left antecubital; 13:41 Follow up: Response: No adverse reaction; IV Status: Completed infusion; IV Intake: ko1 100ml 14:21 Drug: NS 0.9% IV 500 ml IV at bolus once Route: IV; Rate: bolus; Site: left antecubital;ko1 16:26 Follow up: Response: No adverse reaction; IV Status: Completed infusion; IV Intake: ko1 500ml Disposition Summary: 10/16/23 14:19 Hospitalization Ordered Notes: Hospitalization Status: Inpatient Admission na Provider: Conor Sands cha Condition: Fair na Problem: new na Symptoms: have improved na Bed/Room Type: Standard na Location: Telemetry/MedSurg (Inpatient)(10/16/23 15:46) bd Room Assignment: 419(10/16/23 15:46) bd Diagnosis - Anorexia na - Epigastric abdominal tenderness na - Dehydration na - Acute kidney failure, unspecified - ON CHRONIC na - nursing home (current) use of anticoagulants na - Vomiting na - Chronic atrial fibrillation na Forms: - Medication Reconciliation Form na - SBAR form na - Leadership Thank You Letter na Signatures: Dispatcher [employer] EDMS Juana Stevenson Corey, MD MD cha Bradberry, Kelly RN RN kb3 Ghislaine Delgado RN RN ko1 Sarah Scott RN RN mb9 Corrections: (The following items were deleted from the chart) 11:14 11:14 Abdomen Pelvis W Con+CT.RAD.BRZ ordered. EDPA EDMS 15:39 14:19 Telemetry/MedSurg (Inpatient) na kb3 15:39 14:19 na kb3 15:46 15:39 BR ER HOLD kb3 bd 15:46 15:39 ERHOLD- kb3 bd
--- NOTE | 2023-10-16 15:43 | P.HP ---
Certification for Inpatient Patient admitted to: Observation With expected LOS: >2 Midnights Patient will require the following post-hospital care: None Practitioner: I am a practitioner with admitting privileges, knowledge of patient current condition, hospital course, and medical plan of care. Services: Services provided to patient in accordance with Admission requirements found in Title 42 Section 412.3 of the Code of Federal Regulations Patient History Date of Service: 10/16/23 Reason for admission: Decreased PO intake associated with nausea, debilitated History of Present Illness: Sunshine Mead is a 73 year old female with Pmhx asthma, COPD, atrial fibrillation, hypertension, Chronic hypomagnesemia, severe pulmonary hypertension, congestive heart failure, and chronic kideny disease who presents to the ED with complaints of nausea, vomiting, and abdominal pain associated with eating. She appears to be at baseline, on room air, clear breath sounds, and hemodynamically stable. Initial vitals BP 101 / 72; Pulse 52; Resp 16; Temp 98.2; Pulse Ox 100%. Laboratory evaluation WBC 12.5, H&H 10.8/35.4, BUN/creatinine 41/2.22, GFR 23, magnesium 1.4, BNP 7938. Sunshine will be admitted to hospitalist service in observation for further evaluation, will plan clear liquid diet for this evening and monitor for tolerance. Allergies Penicillins Allergy (Verified 10/04/23 19:59) Unknown codeine Adverse Reaction (Verified 10/04/23 19:59) Itching shellfish derived Adverse Reaction (Verified 10/04/23 19:59) Hives/Rash Home Medications: Amiloride HCl 5 mg PO DAILY 10/05/23 Amiodarone HCl [Cordarone*] 200 mg PO BID 10/05/23 Apixaban [Eliquis] 5 mg PO BID 10/05/23 Cranberry Fruit Extract [Cranberry] 200 mg PO BID 10/05/23 Docusate/Senna [Senokot-S*] 2 tab PO BID 10/05/23 Iron/FA/Vit B-Com W/C [Hemocyte Plus*] 1 tab PO DAILY 10/05/23 Midodrine HCl 10 mg PO TID 10/05/23 Nystatin Powder [Mycostatin (Powder)*] 1 leander TOP BID 10/05/23 Roflumilast [Daliresp*] 500 mcg PO DAILY 10/05/23 Rosuvastatin Calcium 5 mg PO BEDTIME 10/05/23 Torsemide [Demadex*] 20 mg PO DAILY 10/05/23 Trazodone HCl 25 mg PO BEDTIME 10/05/23 - Past Medical/Surgical History Diabetic: No -: Afib -: COPD -: Asthma -: Hypertension -: CKD (Dr. Oneil) -: Pulmonary hypertension -: Diastolic congestive heart failure -: choley -: appy -: R. hip replacement -: Tubal ligation Psychosocial/ Personal History: Patient lives at home, alone. - Family History Father -: Cancer - Social History Alcohol use: No CD- Drugs: No Caffeine use: Yes Review of Systems General: Weakness Gastrointestinal: Nausea Physical Examination - Physical Exam General: Alert, In no apparent distress, Oriented x3 HEENT: Atraumatic, Normocephalic, PERRLA Neck: Supple, 2+ carotid pulse no bruit Respiratory: Clear to auscultation bilaterally, Normal air movement Cardiovascular: Normal pulses, Regular rate/rhythm, Normal S1 S2 Capillary refill: <2 Seconds Gastrointestinal: Normal bowel sounds, Soft and benign Musculoskeletal: No clubbing Integumentary: No rashes Neurological: Normal speech, Normal tone - Studies Laboratory Data (last 24 hrs) 10/16/23 10/16/23 10/16/23 11:40 11:40 11:40 WBC 12.50 H Hgb 10.8 L Hct 35.4 L Plt Count 266 PT 22.4 H INR 2.08 Sodium 139 Potassium 4.2 BUN 41 H Creatinine 2.22 H Glucose 93 Magnesium 1.4 L Total Bilirubin 0.9 AST 57 H ALT 43 Alkaline Phosphatase 119 H Lipase 44 Assessment and Plan - Plan Assessment and plan Decreased p.o. intake associated with nausea Chronic hypomagnesemia Debilitated Mag 1.4, replaced in the ED [place] QHS Normal saline in the ED Physical therapy Clear liquid diet zofran Fall risk/precaution Stage I PATRIZIA CKD IIIb BUN/Creatinine 41/2.22, GFR 23 IV fluids given in the ED Acute on Chronic diastolic congestive heart failure severe pulmonary hypertension Atrial fibrillation BNP 7938 Continue outpatient follow up Continuous telemetry History of hypertension Continue home medication DVT ppx SCD and Eliquis Full code LOS 24 hour OBS Discharge Plan: Home Plan to discharge in: 24 Hours - Advance Directives Does patient have a Living Will: No Does patient have a Durable POA for Healthcare: Yes
[2023-10-16 18:38] VITALS: BMI 29.7
[2023-10-16] MEDS: MAGNESIUM CHLORIDE 64 MG TAB PO SCH (20:30)
[2023-10-16] MEDS: APIXABAN 5 MG TABLET PO SCH (20:30)
[2023-10-16] MEDS: ROSUVASTATIN 5 MG TAB PO SCH (20:30)
[2023-10-16] MEDS: MIDODRINE HCL 5 MG TABLET PO SCH (20:30)
[2023-10-16] MEDS: AMIODARONE HCL 200 MG TAB PO SCH (20:31)
[2023-10-16] MEDS: TRAZODONE 50 MG TABLET PO SCH (20:31)
[2023-10-16] MEDS: DOCUSATE NA/SENNA CONC 1 TAB PO SCH (20:31)
[2023-10-16] MEDS: NYSTATIN PWDR 100000 UNIT/GM TOP SCH (21:00)
[2023-10-16] MEDS ORDERED: HOME MED 1 EA UNK (Midodrine Hcl [Midodrine Hcl] 10 MG Tablet) PO SCH (21:00)
[2023-10-17 02:56] LABS: Absolute Basophils 0.1 K/uL (0-0.5); Absolute Eosinophils 0.1 K/uL (0-0.5); Absolute Lymphocytes (CBC) 4.3 K/uL (0.7-4.9); Absolute Monocytes 0.9 K/uL (0.1-1.3); Absolute Neutrophil 3.6 K/uL (1.8-8.0); Basophils % 1.1 % (0-1.3); Hematocrit 32.5 % (36.0-45.0); Hemoglobin 10.5 g/dL (12.0-15.0); Lymphocytes % 47.8 % (15.3-44.8); MCH 27.9 pg (27.0-35.0); MCHC 32.5 g/dL (32.0-36.0); MCV 85.9 fL (80-100); MPV 9.3 fL (7.6-11.3); Neutrophils % 40.1 % (41.7-73.7); Nucleated Red Blood Cells % 0.1 % (0-0); Platelets 230 thou/uL (152-406); RBC Red Blood Cell Count 3.78 M/uL (3.86-4.86); Red Cell Distribution Width 24.5 % (12.1-15.2)
[2023-10-17 03:16] LABS: Anion Gap 9.7 mEq/L (5.0-15.0); Magnesium 1.7 mg/dL (1.6-2.4); Phosphorus 3.2 mg/dL (2.5-4.9); Potassium 3.7 mEq/L (3.5-5.1)
--- NOTE | 2023-10-17 06:32 | P.PN ---
Date of Service: 10/17/23 Subjective ROS 10 point ROS as noted above, otherwise negative Physical Exam General: Alert, In no apparent distress, Oriented x3 HEENT: Atraumatic, Normocephalic, PERRLA Neck: Supple, 2+ carotid pulse no bruit Respiratory: Clear to auscultation bilaterally, Normal air movement Cardiovascular: Normal pulses, Regular rate/rhythm, Normal S1 S2 Capillary refill: <2 Seconds Gastrointestinal: Normal bowel sounds, Soft and benign Musculoskeletal: No clubbing Integumentary: No rashes Neurological: Normal speech, Normal tone Vitals Reviewed Problem list Decreased p.o. intake associated with nausea Chronic hypomagnesemia Debilitated Stage I PATRIZIA CKD IIIb Acute on Chronic diastolic congestive heart failure severe pulmonary hypertension Atrial fibrillation History of hypertension Assessment and Plan Decreased p.o. intake associated with nausea Chronic hypomagnesemia Debilitated Mag 1.4, replaced in the ED [place] QHS Normal saline in the ED Physical therapy Clear liquid diet zofran Fall risk/precaution Stage I PATRIZIA CKD IIIb BUN/Creatinine 41/2.22, GFR 23 IV fluids given in the ED Sacral wound Barrier cream reposition Q2h off loading Acute on Chronic diastolic congestive heart failure severe pulmonary hypertension Atrial fibrillation BNP 7938 Continue outpatient follow up Continuous telemetry History of hypertension Continue home medication DVT ppx SCD and Eliquis Full code LOS 24 hour OBS
[2023-10-17] MEDS: TORSEMIDE 20 MG TAB PO SCH (08:17)
[2023-10-17] MEDS: ROFLUMILAST 500 MCG TABLET PO SCH (08:17)
[2023-10-17] MEDS: POTASSIUM 25 MEQ EFFERV TAB PO ONE (08:17)
[2023-10-17] MEDS: MAGNESIUM SULFATE 1 gm IVPB 1 GM/100 ML BAG IV ONE (08:18)
[2023-10-17] MEDS: SUCRALFATE 1GM/10ML UCUP FT SCH (09:52)
[2023-10-17] MEDS: PANTOPRAZOLE 40MG TABLET PO ONE (09:52)
[2023-10-17] MEDS: POTASSIUM CL SA 10 MEQ TAB PO ONE (09:52)
[2023-10-17 10:00] VITALS: O2SAT 94
--- NOTE | 2023-10-17 13:03 | P.DS ---
Admission Date: 10/16/23 Discharge Date: 10/17/23 Disposition: ROUTINE DISCHARGE Discharge Condition: GOOD Reason for Admission: Decreased PO intake associated with nausea, debilitated Brief History of Present Illness: Diagnosis Decreased p.o. intake associated with nausea Chronic hypomagnesemia Debilitated Stage I PATRIZIA CKD IIIb Acute on Chronic diastolic congestive heart failure severe pulmonary hypertension Atrial fibrillation History of hypertension HPI 10/16/23 Sunshine Mead is a 73 year old female with Pmhx asthma, COPD, atrial fibrillation, hypertension, Chronic hypomagnesemia, severe pulmonary hypertension, congestive heart failure, and chronic kideny disease who presents to the ED with complaints of nausea, vomiting, and abdominal pain associated with eating. She appears to be at baseline, on room air, clear breath sounds, and hemodynamically stable. Initial vitals BP 101 / 72; Pulse 52; Resp 16; Temp 98.2; Pulse Ox 100%. Laboratory evaluation WBC 12.5, H&H 10.8/35.4, BUN/creatinine 41/2.22, GFR 23, magnesium 1.4, BNP 7938. Sunshine will be admitted to hospitalist service in observation for further evaluation, will plan clear liquid diet for this evening and monitor for antonio langford. Hospital Course: Sunshine Mead is a pleasant 73 year old female with a past medical history significant for asthma, COPD, atrial fibrillation, hypertension, Chronic hy pomagnesemia, severe pulmonary hypertension, congestive heart failure, and chronic kideny disease who was admitted to the [facility] on 10/16/23 for decreased PO intake. Sunshine Mead presented to the ED with Chief complaint of nausea while eating. She has tolerated the clear liquid diet as well as being advanced to full liquid diet. Protonix and carafate administered for further comfort of the digestive system. She will need to follow up with a [employer] senior specialist for further evaluation. Will provide protonix and carafate with help of the acid that is possibly potentiating the nausea and discomfort. She has tolerated the clear liquid diet and the full liquid diet. Sunshine is at her baseline. Please encourage water intake to stay hydrated and gentle soft diet to ease the nausea. She will need to continue with taking the midodrine for good blood pressure control. On 10/17/23, Sunshine was seen on morning rounds and deemed medically stable for discharge. Sunshine was discharged with instructions to schedule follow-up appointments with PCP and gastroenterology. Sunshine was provided prescriptions for Carafate, Protonix, magnesium. The patient was given the opportunity to ask questions and reported no further questions. Furthermore, all questions were answered to the best of my ability. A copy of this discharge summary will be sent to the above providers to facilitate continuity of care. Physical Exam General: AAOx3, NAD, conversing well HEENT: Atraumatic, Normocephalic, PERRLA Neck: Supple, 2+ carotid pulse no bruit Respiratory: Clear to auscultation bilaterally, Normal air movement Cardiovascular: Normal pulses, RRR, Normal S1 S2 Capillary refill: <2 Seconds Gastrointestinal: Normal bowel sounds, Soft and benign on palpation, Musculoskeletal: No clubbing Integumentary: No rashes Neurological: Normal speech, Normal tone Vital Signs/Physical Exam: Temp Pulse Resp BP Pulse Ox 97.4 F 100 H 18 102/63 97 10/17/23 12:00 10/17/23 12:00 10/17/23 12:00 10/17/23 12:00 10/17/23 12:00 Laboratory Data at Discharge: WBC 9.00 thou/uL (4.3-10.9) 10/17/23 02:30 Hgb 10.5 g/dL (12.0-15.0) L 10/17/23 02:30 Hct 32.5 % (36.0-45.0) L 10/17/23 02:30 Plt Count 230 thou/uL (152-406) 10/17/23 02:30 PT 22.4 SECONDS (9.5-12.5) H 10/16/23 11:40 INR 2.08 10/16/23 11:40 Sodium 137 mEq/L (136-145) 10/17/23 02:30 Potassium Cancelled 10/17/23 Unknown BUN 40 mg/dL (7-18) H 10/17/23 02:30 Creatinine 2.37 mg/dL (0.55-1.02) H 10/17/23 02:30 Glucose 83 mg/dL (74-106) 10/17/23 02:30 Phosphorus 3.2 mg/dL (2.5-4.9) 10/17/23 02:30 Magnesium Cancelled 10/17/23 Unknown Total Bilirubin 0.9 mg/dL (0.2-1.0) 10/16/23 11:40 AST 57 U/L (15-37) H 10/16/23 11:40 ALT 43 U/L (13-56) 10/16/23 11:40 Alkaline Phosphatase 119 U/L (45-117) H 10/16/23 11:40 Lipase 44 U/L (13-75) 10/16/23 11:40 Home Medications: Amiloride HCl 5 mg PO DAILY 10/05/23 Amiodarone HCl [Cordarone*] 200 mg PO BID 10/05/23 Apixaban [Eliquis] 5 mg PO BID 10/05/23 Cranberry Fruit Extract [Cranberry] 200 mg PO BID 10/05/23 Docusate/Senna [Senokot-S*] 2 tab PO BID 10/05/23 Iron/FA/Vit B-Com W/C [Hemocyte Plus*] 1 tab PO DAILY 10/05/23 Midodrine HCl 10 mg PO TID 10/05/23 Nystatin Powder [Mycostatin (Powder)*] 1 leander TOP BID 10/05/23 Roflumilast [Daliresp*] 500 mcg PO DAILY 10/05/23 Rosuvastatin Calcium 5 mg PO BEDTIME 10/05/23 Torsemide [Demadex*] 20 mg PO DAILY 10/05/23 Trazodone HCl 25 mg PO BEDTIME 10/05/23 Magnesium Chloride [Slow-Mag*] 64 mg PO BEDTIME 30 Days #30 tab 10/17/23 Pantoprazole Sodium [Protonix] 40 mg PO DAILY 30 Days #30 tab 10/17/23 Sucralfate [Carafate*] 10 ml FT QID 30 Days #120 ml 10/17/23 New Medications: Sucralfate [Carafate*] 10 ml FT QID 30 Days #120 ml Pantoprazole Sodium [Protonix] 40 mg PO DAILY 30 Days #30 tab Magnesium Chloride [Slow-Mag*] 64 mg PO BEDTIME 30 Days #30 tab Physician Discharge Instructions: Sunshine Mead presented to the ED with Chief complaint of nausea while eating. She will need to follow up with a [employer] senior specialist for further evaluation. Will provide protonix and carafate with help of the acid that is possibly potentiating the nausea discomfort. She has tolerated the clear liquid diet and the full liquid diet. Sunshine is at her baseline. Please encourage water intake to stay hydrated and gentle soft diet to ease the nausea while eating. She will need to continue with taking the midodrine for good blood pressure control. 1. Follow up with PCP in 2-3 days for continued monitoring and medication management 2. Follow up with a [employer] senior specialist for an EGD to evaluate the nausea discomfort 3. Continue with the soft renal diet. 4. Continue taking your home medications 5. Return to the ED if symptoms worsen New medications Magnesium chloride 64 mg PO at bedtime for 30 days carafate 10 ml PO QID as needed for nausea when eating for 30 days- do not take antacids 30 minutes before or after taking carafate protonix 40 mg PO daily for 30 days Diet: Renal Activity: Fall precautions Followup: Remberto Oneil DO [Primary Care Provider] - Robson Lainez MD [ASSOCIATE-ACTIVE - CAN ADMIT] -
[2023-10-17 13:19] VITALS: BP 102/63; TEMP 97.4
== END 2023-10-17 14:37 | disposition home or self-care (01) ==
LOC: ER 11:08 → ERHOLD 14:59 → 4TH 16:32
PROVIDERS: ADMIT Internal Medicine; ATTEND Internal Medicine
DX: R11.2 Nausea with vomiting, unspecified (principal); R10.9 Unspecified abdominal pain; R63.8 Other symptoms and signs concerning food and fluid intake; I13.0 Hypertensive heart and chronic kidney disease with heart failure and stage 1 through stage 4 chronic kidney disease, or unspecified chronic kidney disease; N18.32 Chronic kidney disease, stage 3b; I50.33 Acute on chronic diastolic (congestive) heart failure; I27.20 Pulmonary hypertension, unspecified; J45.909 Unspecified asthma, uncomplicated; J44.9 Chronic obstructive pulmonary disease, unspecified; I48.91 Unspecified atrial fibrillation; E83.42 Hypomagnesemia; R53.81 Other malaise; N17.9 Acute kidney failure, unspecified
CPT/HCPCS: 96365; 96361; 93005 ×2; 85025 ×2; 80048 ×2; 36415; 83735 ×2; 84100; 85610; 80076; 84484; 83690; 83880; 74176; 71045; 97161; 97530; 96375; 99285; J3475 ×2; J2405; J7040; J7030; G0378